=== PATIENT | female | born 1945 | race Caucasian/White ===

== ENCOUNTER 2020-06-17 18:36 | Inpatient (IN) | payer MEDICARE, MEDICAID, SELFPAY ==
[2020-06-17 18:45] VITALS: BP 189/104; PULSE 98; RESP 20; TEMP 36.7; O2SAT 97; BMI 35.6
--- NOTE | 2020-06-17 18:49 | ED_ITS ---
HPI - Psych General Chief Complaint: Psychiatric Symptoms Stated Complaint: crisis Time Seen by Provider: 06/17/20 19:01 Source: EMS Mode of arrival: EMS Limitations: no limitations History of Present Illness HPI Narrative: 75-year-old female presents via EMS for psychiatric consult. Patient was found outside of her home, she kicked out a window and was found on a roof. She states that there are multiple family stressors, she did not fall and does not report any injuries. She does state that she wants to because of the family stressors. MD complaint: feels depressed Onset (ago): day(s) (1) Duration: intermittent History of same: No Relieving factors: none Exacerbating factors: other (Family situation) Context: significant life stressor Associated psychiatric symptoms: depression Associated symptoms: denies other symptoms Treatments prior to arrival: placed on mental health hold If self harm: other (Suicidal statement) Related Data Home Medications Medication Instructions Recorded Confirmed acetaminophen 650 mg PO Q6H PRN 06/17/20 06/17/20 aluminm,mag myf-[id number]-ugautz 30 ml PO QID PRN 06/17/20 06/17/20 atorvastatin 1 tab PO BEDTIME 06/17/20 06/17/20 canagliflozin [Invokana] 1 tab PO DAILY 06/17/20 06/17/20 insulin aspart U-100 sliding scale dose SUBCUT TID 06/17/20 insulin glargine [Lantus Solostar 30 unit SUBCUT DAILY 06/17/20 06/17/20 U-100 Insulin] metformin 1 tab PO BID 06/17/20 06/17/20 metoprolol tartrate tab PO BID 06/17/20 nystatin [Nystop] TOPICAL 06/17/20 quetiapine 1 tab PO BEDTIME 06/17/20 06/17/20 quetiapine 1 tab PO DAILY 06/17/20 06/17/20 venlafaxine 1 tab PO DAILY 06/17/20 06/17/20 Allergies Allergy/AdvReac Type Severity Reaction Status Date / Time Sulfa (Sulfonamide Allergy Unknown Verified 06/17/20 18:54 Antibiotics) Review of Systems Review of Systems: Constitutional: No Fever, No Chills ENT/Mouth: No Ear Pain, No Nasal Congestion, No sore throat Eyes: No Eye Pain, No Swelling, No Redness Cardiovascular: No Chest Pain, No SOB Respiratory: No Cough, No Sputum, No Dyspnea Gastrointestinal: No Nausea, No Vomiting, No Diarrhea, No Hematochezia, No Melena Genitourinary: No Dysuria, No Urinary Frequency, No Hematuria Musculoskeletal: No Myalgias Skin: No Skin Lesions, No rash Neuro: No Weakness, No Numbness, No Paresthesias, No Dizziness, No Headache Psych: positive Anxiety, positive Depression, positive SI/HI Heme/Lymph: No Lymphadenopathy Endocrine: No Polyuria, No Polydipsia Yes all other systems are reviewed and are negative [facility] Past Medical History Attestation statement: The following information was validated with the patient. Source: old records reviewed Medical History (Updated 06/17/20 @ 18:53 by Lissette Alicea) Dementia with behavioral disturbance Diabetes mellitus HTN (hypertension) Hyperlipidemia Vitamin D deficiency Social History Social History Alcohol intake: never Smoked in Last 30 Days: No Use of substances other than those prescribed or required for medical reasons: No Advance Directives: No Physical Exam Vital Signs: Vital Signs: Last Vital Signs Temp 97.9 F 06/17/20 21:50 Pulse 95 06/17/20 22:20 Resp 20 06/17/20 22:20 BP 148/87 H 06/17/20 22:20 Pulse Ox 95 06/17/20 22:20 Body Mass Index 35.6 Appearance: Alert. Oriented X3. Moderate distress. Visibly anxious. Eyes: Pupils equal, round and reactive to light. ENT: Pharynx normal. Neck: Normal inspection. Neck supple. CVS: Normal heart rate and rhythm. Pulses normal. Respiratory: No respiratory distress. Breath sounds normal. Abdomen: Soft and nontender. Skin: Skin warm and dry. Normal skin color. Normal skin turgor. Extremities: No lower extremity edema. Neuro: No motor deficit. No sensory deficit. Course Course Course Narrative: 75-year-old female with past medical history of diabetes, dementia with behavioral disturbance, hypertension, hyperlipidemia presents via EMS for anxiety, depression, and suicidal statement. She does have a history of trying to elope, it is stated in her nursing notes from [facility] that she has intermittent exit seeking with vigilance. In the patient care plan this is a statement saying that the patient broke the bedroom window and kicked out the screen to climb out onto the roof. Staffing climbed out with her to try to help her back inside. She does support this statement, stated that she did not want a fall that she just wanted to escape. She is saying that her has a ne w girlfriend, and that there is a lady down the chambers that is trying to take her belongings, and that her daughter does not want to see her anymore. While in the emergency department she did state that she just wants to but does not have a plan. Consult to care team. Approximately 30 minutes after p.o. medication administration patient calm, receptive to plan of care for labs and urinalysis. Patient required IM Ativan and behavior restraint as patient was trying to elope. Swearing at people stating that she is going to Meg everybody because she feels like she is in a present. Patient moved to psychiatric pod. Sign-out Dr. Neumann. MDM - Psych Differential Diagnosis Differential diagnosis: Likely acute psychosis, depression and acute anxiety Restraints Face to Face Assessment: Face to Face Assessment: Current Situation: After assessment of the patient, a review of the pertinent medical record and a discussion with nursing staff, I feel the patient requires a restrain interv ention. Reaction To: [] Medical Condition: [] Behavioral State: [] Continued Need: [] Lab Data Result diagrams: 06/17/20 20:48 06/17/20 20:48 Labs: Lab Results 06/17/20 06/17/20 06/17/20 Range/Units 19:48 20:48 20:48 WBC 8.0 (4.8-10.8) X10*3/uL RBC 4.93 (4.20-5.50) X10*6/uL Hgb 14.4 (12.0-16.0) g/dl Hct 43.7 (37-47) % MCV 88.6 (80-98) fL MCH 29.2 (27.0-33.0) pg MCHC 33.0 (31.0-35.0) g/dl RDW 13.8 (11.0-16.0) % Plt Count 203 (160-400) X10*3/uL MPV 10.6 (9.4-12.3) fL Immature Gran % (Auto) 0.3 (0.0-0.4) % Neut % (Auto) 53.0 (45-73) % Lymph % (Auto) 40.6 H (20-40) % [place] % (Auto) 5.7 (2-11) % Eos % (Auto) 0.1 (0-4) % Baso % (Auto) 0.3 (0-2) % Lymph # (Auto) 3.2 (1.2-4.9) X10*3/uL [place] # (Auto) 0.5 (0.1-1.2) X10*3/uL Eos # (Auto) 0.0 (0.0-0.4) X10*3/uL Baso # (Auto) 0.0 (0.0-0.2) X10*3/uL Abs Immat Gran (auto) 0.02 (0.00-0.03) X10*3/uL Absolute Neuts (auto) 4.2 (2.0-8.3) X10*3/uL Absolute Nucleated RBC 0.000 (0.0-0.012) X10*3/uL Nucleated RBC % (auto) 0.0 (0.0-0.2) /100WBC Sodium 137 (135-145) mmol/L Potassium 4.3 (3.3-5.1) mmol/l Chloride 102 (96-108) mmol/L Carbon Dioxide 23 (22-29) mmol/L Anion Gap 16 (12-20) BUN 15 (9-16) mg/dL Creatinine 0.90 (0.5-1.4) mg/dL Estim Creat Clear Calc 63.4 Estimated GFR > 60 Random Glucose 285 H (60-115) mg/dL Calcium 10.1 (8.4-10.2) mg/dL Urine Color YELLOW Urine Appearance CLEAR Urine pH 5.0 (5.0-8.0) Ur Specific [place] 1.010 (1.005-1.025) Urine Protein NEG (NEG-TRACE) MG/DL Urine Glucose (UA) >=1000 H (NEG) MG/DL Urine Ketones NEG (NEG) MG/DL Urine Blood NEG (NEG) Urine Nitrite NEG (NEG) Ur Leukocyte Esterase NEG (NEG) Urine RBC 0-2 (0) /HPF Urine WBC 0 (0-4) /HPF Ur Squamous Epith Cells TRACE /LPF Urine Bacteria NONE /LPF COVID-19 (OSEI) (Negative) COVID-19 Clin Com 06/17/20 Range/Units 21:55 WBC (4.8-10.8) X10*3/uL RBC (4.20-5.50) X10*6/uL Hgb (12.0-16.0) g/dl Hct (37-47) % MCV (80-98) fL MCH (27.0-33.0) pg MCHC (31.0-35.0) g/dl RDW (11.0-16.0) % Plt Count (160-400) X10*3/uL MPV (9.4-12.3) fL Immature Gran % (Auto) (0.0-0.4) % Neut % (Auto) (45-73) % Lymph % (Auto) (20-40) % [place] % (Auto) (2-11) % Eos % (Auto) (0-4) % Baso % (Auto) (0-2) % Lymph # (Auto) (1.2-4.9) X10*3/uL [place] # (Auto) (0.1-1.2) X10*3/uL Eos # (Auto) (0.0-0.4) X10*3/uL Baso # (Auto) (0.0-0.2) X10*3/uL Abs Immat Gran (auto) (0.00-0.03) X10*3/uL Absolute Neuts (auto) (2.0-8.3) X10*3/uL Absolute Nucleated RBC (0.0-0.012) X10*3/uL Nucleated RBC % (auto) (0.0-0.2) /100WBC Sodium (135-145) mmol/L Potassium (3.3-5.1) mmol/l Chloride (96-108) mmol/L Carbon Dioxide (22-29) mmol/L Anion Gap (12-20) BUN (9-16) mg/dL Creatinine (0.5-1.4) mg/dL Estim Creat Clear Calc Estimated GFR Random Glucose (60-115) mg/dL Calcium (8.4-10.2) mg/dL Urine Color Urine Appearance Urine pH (5.0-8.0) Ur Specific [place] (1.005-1.025) Urine Protein (NEG-TRACE) MG/DL Urine Glucose (UA) (NEG) MG/DL Urine Ketones (NEG) MG/DL Urine Blood (NEG) Urine Nitrite (NEG) Ur Leukocyte Esterase (NEG) Urine RBC (0) /HPF Urine WBC (0-4) /HPF Ur Squamous Epith Cells /LPF Urine Bacteria /LPF COVID-19 (OSEI) Negative (Negative) COVID-19 Clin Com See Note Discharge Plan Discharge Prescriptions: No Action quetiapine 25 mg tablet 1 tab PO DAILY RF: 0 venlafaxine 75 mg tablet 1 tab PO DAILY RF: 0 atorvastatin 10 mg tablet 1 tab PO BEDTIME RF: 0 nystatin [Nystop] 100,000 unit/gram powder topical RF: 0 metformin 500 mg tablet extended release 24 hr 1 tab PO BID RF: 0 metoprolol tartrate 25 mg tablet PO BID RF: 0 quetiapine 50 mg tablet 1 tab PO BEDTIME RF: 0 Invokana 100 mg tablet 1 tab PO DAILY RF: 0 Lantus Solostar U-100 Insulin 100 unit/mL (3 mL) insulin pen 30 unit subcut DAILY RF: 0 insulin aspart U-100 subcut TID RF: 0 aluminm,mag [id number]-dmyfjl suspension 30 ml PO QID PRN (Reason: Heartburn) RF: 0 acetaminophen 325 mg Tablet 650 mg PO Q6H PRN (Reason: Pain) RF: 0
[2020-06-17 19:59] LABS: Glucose Urine UA >=1000 MG/DL (NEG); Leukocyte Esterase Urine NEG (NEG); Nitrite Urine NEG (NEG); Urine Blood NEG (NEG); Urine Ketones NEG (NEG); Urine Protein NEG (NEG-TRACE)
[2020-06-17 20:02] LABS: Appearance Urine CLEAR; Color Urine YELLOW
[2020-06-17] MEDS: LORazepam 0.5 MG TABLET PO (20:04)
[2020-06-17 20:16] LABS: RBC Urine 0-2 /HPF (0); WBC Urine 0 /HPF (0-4)
[2020-06-17 20:17] LABS: Squamous Epithelial Cell Urine TRACE /LPF
[2020-06-17 20:56] LABS: Basophils Percent Auto 0.3 % (0-2); Eosinophils Percent Auto 0.1 % (0-4); Hematocrit 43.7 % (37-47); Hemoglobin 14.4 g/dl (12.0-16.0); Imm Gran Abs Auto 0.02 X10*3/uL (0.00-0.03); Imm Gran Pct Auto 0.3 % (0.0-0.4); Lymphocytes Absolute Auto 3.2 X10*3/uL (1.2-4.9); Lymphocytes Percent Auto 40.6 % (20-40); MANUAL DIFF FLAG NO; Mean Corpuscular Hemoglobin 29.2 pg (27.0-33.0); Mean Corpuscular Volume 88.6 fL (80-98); Mean Platelet Volume 10.6 fL (9.4-12.3); Monocytes Absolute Auto 0.5 X10*3/uL (0.1-1.2); Monocytes Percent Auto 5.7 % (2-11); Neutrophils Absolute Auto 4.2 X10*3/uL (2.0-8.3); Platelet Count 203 X10*3/uL (160-400); Red Blood Count 4.93 X10*6/uL (4.20-5.50); Red Cell Distribution Width 13.8 % (11.0-16.0)
[2020-06-17 21:07] VITALS: BP 145/79; PULSE 94; RESP 18; O2SAT 94
--- NOTE | 2020-06-17 21:13 | PC.NURSE ---
Pt very focused on going back to SNF, becomes very anxious and tearful when educated on reasons why she is here and what plan is. Pt remains confused, hx of dementia. sitter at bedside. Pt offered and ate snacks/fluids
[2020-06-17 21:23] LABS: Anion Gap 16 (12-20); Blood Urea Nitrogen 15 mg/dL (9-16); Calcium 10.1 mg/dL (8.4-10.2); Carbon Dioxide 23 mmol/L (22-29); Chloride 102 mmol/L (96-108); Creatinine Clr Calc Pharmacy 63.4; Estimated Glomerular Filt Rate > 60; Glucose Random 285 mg/dL (60-115); Potassium 4.3 mmol/l (3.3-5.1); Sodium 137 mmol/L (135-145)
[2020-06-17] MEDS: LORazepam 2 MG/ML VIAL IM (21:35)
--- NOTE | 2020-06-17 21:35 | PC.NURSE ---
Pt attempting to elope- unable to redirection, attempting to push through staff, very tearful. Pt medicated per emar w/ 2mg IM Ativan
[2020-06-17 21:50] VITALS: BP 118/78; PULSE 94; RESP 20; TEMP 36.6; O2SAT 96
--- NOTE | 2020-06-17 22:00 | PC.NURSE ---
PT transferred over to the pod from main ED. PT trying to elope from the hospital prior to transfer. PT received 2 mg ativan IM upon arrival to the pod. PT able to speak with the nurse in a calm manner but very tearful and upset throughout the conversation. PT is CAOx3 at this time. PT continues to perseverate on the fact that she wants to go home because no one wants her except her friends at the nursing. PT informed that she is waiting to be seen by N for psych consult. PT is tearful but has started to calm down and agreed to comply the plan.
[2020-06-17 22:05] VITALS: BP 139/94; PULSE 100; RESP 20; O2SAT 95
[2020-06-17 22:20] VITALS: BP 148/87; PULSE 95; RESP 20; O2SAT 95
[2020-06-17 22:20] LABS: COVID-19 Test Negative (Negative); IDNOW Serial# 9DD0AD1C
--- NOTE | 2020-06-17 22:30 | PC.NURSE ---
ADILENE faxed and called. ADILENE stated that someone would be here to see him after 23:30.
--- NOTE | 2020-06-17 23:08 | PC.NURSE ---
EMILIN informed by CARE team that PT would not be able to participate in psych consult due to IM ativan being given earlier.
--- NOTE | 2020-06-17 23:21 | MHC.CARE ---
CARE Team speaks with LEYDI Ferguson, who reports that pt is sleepy from IM medication and will likely not be able to participate in crisis assessment. CARE Team reaches out to [facility]. Plan is for [facility] to conduct assessment in the morning, when pt is better able to participate.
[2020-06-18] VITALS (18 sets, daily range): BP systolic 140–201; BP diastolic 82–115; PULSE 66–102; RESP 16–22; TEMP 36.1–37; O2SAT 94–97
--- NOTE | 2020-06-18 | ECG_ITS ---
Test Reason : MEDICAL CLEARANCE Blood Pressure : / mmHG Vent. Rate : 085 BPM Atrial Rate : 085 BPM P-R Int : 182 ms QRS Dur : 144 ms QT Int : 414 ms P-R-T Axes : 037 -57 032 degrees QTc Int : 492 ms Normal sinus rhythm Right bundle branch block Left anterior fascicular block Bifascicular block Abnormal ECG No previous ECGs available Referred By: Stephany Shipley Electronically Signed By:Nathan Reyes
[2020-06-18] MEDS: Metoprolol Tartrate 25 MG TABLET PO ×2 (01:56→20:36)
--- NOTE | 2020-06-18 05:31 | PC.NURSE ---
PT woke up to use the bathroom. Escorted by [facility] because of unsteadiness on her feet. PT asked when she would be able to go home. PT was also able to recall her tantrum in the ED last night and apologized for her actions. PT informed that she was waiting to be seen by BHN. PT then went back to sleep in bed.
--- NOTE | 2020-06-18 06:58 | PC.NURSE ---
Report received. Pt eating breakfast, denies complaints. PT waiting to be seen by N.
--- NOTE | 2020-06-18 08:58 | PC.NURSE ---
BHN with patient for eval.
--- NOTE | 2020-06-18 09:09 | PC.NURSE ---
Pt refusing to speak with BHN, states she just wants to leave, states she is going to call the police because we are holding her hostage. Attempted to explain to patient that she needs to speak with crisis, pt continues to respond i want to get out of here, don't you fucking understand malawian, I want to fucking leave, I will break the window and leave if I have to Pt redirected. Pt calling staff names, walking around unit, redirected away from the exit doors.
--- NOTE | 2020-06-18 09:34 | PC.NURSE ---
Pt continues yelling and threatening staff. Pt threw trash can against window multiple times. Provider on unit, attempted to speak with PT. PT offered PRN medication, refused. Verbal redirection ineffective. PT attempted to move furniture, stating she was going to throw it at staff, pt redirected. Redirection ineffective, pt continues to escalate. PT's daughter on the phone, pt and provider spoke with daughter, pt hung up on daughter.
[2020-06-18] MEDS: LORazepam 2 MG/ML VIAL IM ×2 (09:39→17:32)
--- NOTE | 2020-06-18 09:44 | PC.NURSE ---
Pt continues yelling at staff, threatening, appears to be unsure of where she is. PT medicated per emar.
--- NOTE | 2020-06-18 10:05 | PC.NURSE ---
PT tearful, stating that she just wants to , pt continues to ask to leave so she can , states she doesn't want to be a disgrace to her .
--- NOTE | 2020-06-18 11:26 | PC.NURSE ---
PT tearful, asking to leave, fixated on her . Pt stating that her cousin hung himself in the basement maybe i could do that too, or hook a pipe up to the exhaust in the garage Pt keeps repeating that she just wants to . Pt only oriented to person at this time, pt thinks it is april 1945. Pt reoriented.
--- NOTE | 2020-06-18 16:32 | PC.NURSE ---
Pt offered scheduled medications, declined stating i let you check my sugar now get away from me before I have you fired, you think this is a joke i'm not taking anything from you Pt agitated, suspicious of staff. Verbal reassurance given.
[2020-06-18 16:33] LABS: Glucose, Whole Blood 265 mg/dL (60-115)
--- NOTE | 2020-06-18 17:44 | PC.NURSE ---
Pt verbally assualtive to staff, threatening, demanding to leave. Multiple staff attempted to redirect and de-escalate patient with no effect. Verbal order from provider for 2mg IM, medication given. PT continues to demand to leave, continues with agitated behavior. Staff with PT for safety at this time.
--- NOTE | 2020-06-18 18:01 | PC.NURSE ---
Pt refused to allow this RN to check her sugar, pt declined dinner. Pt continues to refuse vital signs, states she just wants to leave.
--- NOTE | 2020-06-18 18:14 | PC.NURSE ---
Jolene Mathew (pt's daughter) [phone]
--- NOTE | 2020-06-18 20:05 | PC.NURSE ---
PT BLOOD PRESSURE IS HIGH LEYDI CARVALHO AWARE.
--- NOTE | 2020-06-18 20:45 | MHC.CARE ---
CARE team communicated with [facility] to confirm that is not able to accommodate this patient today and that they should move forward with a michelle psych bedsearch.
[2020-06-18] MEDS: QUEtiapine Fumarate 50 MG TABLET PO (22:15)
[2020-06-19] VITALS (7 sets, daily range): BP systolic 143–169; BP diastolic 58–80; PULSE 68–89; RESP 14–18; TEMP 36.3–36.4; O2SAT 90–98
[2020-06-19 01:16] LABS: Glucose, Whole Blood 234 mg/dL (60-115)
[2020-06-19] MEDS: Insulin Glargine,Hum.rec.anlog 100 UNIT/ML 10 ML VIAL 30 UNIT SUBCUT ×2 (01:29→12:19)
--- NOTE | 2020-06-19 01:32 | PC.NURSE ---
Patient observed frequently out of room for bathroom use, POC checked was 234, patient Lantus for the day was missed, since patient is not compliant with food sliding coverage not administered, provider notified/ordered Lantus 30 units/administered/patient compliant/ate 1/2 sandwich and drank 240 ml of milk, patient currently in bed/resting will continue to monitor.
[2020-06-19 02:48] LABS: Glucose, Whole Blood 296 mg/dL (60-115)
--- NOTE | 2020-06-19 07:12 | PC.NURSE ---
Report received from LEYDI Amezcua. Pt resting, resp unlabored.
[2020-06-19 08:18] LABS: Glucose, Whole Blood 187 mg/dL (60-115)
[2020-06-19] MEDS: QUEtiapine Fumarate 25 MG TABLET PO (08:19)
[2020-06-19] MEDS: Metoprolol Tartrate 25 MG TABLET PO ×2 (08:19→21:15)
--- NOTE | 2020-06-19 09:11 | PC.NURSE ---
Unable to medicate pt as ordered due to the fact that she has been accepted to [facility]. Pt currently in ED. offshoring manager aware. Avtar Morgan called. Pt to go to [facility] today per Avtar Morgan. CARE team aware. One time orders entered by ED provider.
[2020-06-19] MEDS: Insulin Lispro 100 UNIT/ML 3 ML VIAL SUBCUT ×3 (09:14→17:01)
[2020-06-19] MEDS: metFORMIN HCl ER 500 MG TAB.ER.24H PO ×3 (09:18→17:03)
--- NOTE | 2020-06-19 09:43 | PC.NURSE ---
Pt tearful, believes her dropped her off at the hospital because he is having an affair. Care team in to speak w/ pt. Pt stating 'I want to . I'm too old for this s...t. She's probably young, blond, and thin.' Pt accepted medications. Pt ate breakfast w/ coaching from A.
--- NOTE | 2020-06-19 10:10 | MHC.CARE ---
Per pass along pt was accepted to [facility] 06/18 and declnied admission on second shift likely based on acuity of unit. Per ED, [facility] and [facility] executive office manager stated the plan is to admit pt today. Per [facility] after 11am for this admission.
--- NOTE | 2020-06-19 10:42 | PC.NURSE ---
Addendum entered by Anai Saucedo 06/19/20 10:46: Late entry: Called at 11:20 Original Note: Attempted to call report to LEYDI Grier- RN unable to take report at this time.
--- NOTE | 2020-06-19 10:44 | PC.NURSE ---
Called [facility] again- RN unable to take report at this time, weigher and charger also unable to take report.
--- NOTE | 2020-06-19 11:09 | PC.NURSE ---
Report given to Thalia HOLLEY on [facility].
--- NOTE | 2020-06-19 11:19 | PC.NURSE ---
Pt transferred to w/ care team and security.
[2020-06-19 12:08] LABS: Glucose, Whole Blood 226 mg/dL (60-115)
[2020-06-19] MEDS: Venlafaxine HCL 25 MG TABLET 75 MG PO (12:21)
--- NOTE | 2020-06-19 13:44 | PC.ADMIT ---
Addendum entered by Martin Hinds RN 06/19/20 15:11: PT WAS ADMITTED ON A CV, NOT A SECTION 12 Original Note: PT IS A 75 Y/O ANDORRAN SPEAKING FEMALE ADMITTED FROM THE ED AT APPROX. 1100AM. PT WAS BROUGHT TO THE ED AFTER, KICKING OUT THE SCREEN AND CLIMBING OUT ONTO THE SECOND FLOOR ROOF AT THE SHELTER SHE WAS RESIDING AT. PT BELIEVES, OF 50 YEARS DROPPED ME OFF THERE BECAUSE HE HAS A NEW YOUNGER WOMEN. PT WAS LOOKING TO JUMP AND SUICDE. PT HAS A DX OF DEMENTIA, HTN, LIPIDEMIA , DIABETES AND DEPRESSION. PT IS UNABLE TO ANSWER QUESTIONS AND ONLY REPEATS , I WANT TO AND WHY DID HE DO THAT TO ME. PT ASKED THIS WRITTER IF SHE COULD HAVE A KNIFE AND WHEN RECIEVING INSULIN ASKED IF IT WOULD KILL HER.PT IS HARD OF HEARING AND WEARS BILAT HEARING AIDES AND UPPER AND LOWER DENTURES. PT IS COOPERATIVE, BUT CONTINOUS TO REPAET ,'I WANT TO .' GAIT WAS UNSTEADY WHEN ASSESSED. PT COULDN'T SIGN LEGALS R/T MENTAL STATUS. PTS DAUGHTER IS THE HCP AND PT IS A DNR, REPORTED TO ADMITTING ADMINISTRATION VICE PRESIDENT. PT IS INSULIN DEPENDANT AND WAS COMPLIANT WITH MEDICATIONS. PT IS TEARFUL DEPRESSED AND ANXIOUS. PT IS NOT REALITY BASED. PT NAMED THE HOSPITAL , BUT THEN SAID , I WANT TO GO BACK TO [place]. PT ADMITTED ON A SECTION 12
[2020-06-19 14:20] LABS: Alanine Aminotransferase 20 U/L (0-31); Albumin Level 4.8 g/dL (3.5-5.0); Alkaline Phosphatase 84 U/L (39-117); Aspartate Amino Transferase 29 U/L (5-31); Bilirubin Direct 0.4 mg/dL (0.0-0.5); Bilirubin Total 1.1 mg/dL (0.0-1.0); Total Protein 7.6 g/dL (6.5-8.0)
--- NOTE | 2020-06-19 15:04 | P.HPPS_ITS ---
HPI Chief Complaint: SUICIDAL IDEATION Sources of Information: patient interviewed, chart reviewed and crisis/core team assessment reviewed HPI Narrative: Pt arrived at ED after eloping from SNF by breaking a window and climbing out the . Pt diagnosed with dementia and has been unable to visit with family for 3 months due to COVID. She presents very depressed and tearful; ruminating. Active SI and HI towards her exhusband and his new partner. She believes she is all alone because her left her for another woman. She says this repeatedly during interview and begins to weep. She states all she can do is thin about how she wants to and how she wants to kill her exhusband. She asks can I here? Past Psychiatric History: This is the first inpatient psychiatric admission for this woman who has depression and dementia Medical Evaluation Reviewed: Yes Dementia with behavioral disturbance Diabetes mellitus HTN (hypertension) Hyperlipidemia Vitamin D deficiency [facility] Medical History Dementia with behavioral disturbance Diabetes mellitus HTN (hypertension) Hyperlipidemia Vitamin D deficiency Narrative: lives in a [facility] facility due to dementia. [facility] dinora Conway is contact Family History: 50 years per pt and ? of separation/divorce unclear two children Jolene Mathew [phone] Son lives in [place] per daughter family hx of mental illness per pt her cousin committed suicide by hanging Social History: lives [facility] Substance History: no Trauma History: unknown Diagnostics Vital Signs (24Hr): Vital Signs - 24 hr 06/18/20 17:32 06/18/20 17:47 06/18/20 18:02 Temperature Pulse Rate Respiratory Rate 20 20 20 Blood Pressure Pulse Oximetry 06/18/20 18:17 06/18/20 18:34 06/18/20 19:57 Temperature 98.2 F 98.4 F 97.9 F Pulse Rate 102 H 88 89 Respiratory Rate 19 18 18 Blood Pressure 190/115 H 157/82 H 182/97 H Pulse Oximetry 95 95 95 06/18/20 20:36 06/19/20 08:19 06/19/20 08:20 Temperature 97.4 F Pulse Rate 89 68 68 Respiratory Rate 14 Blood Pressure 182/97 H 143/58 H 143/58 H Pulse Oximetry 90 L 06/19/20 10:00 Temperature Pulse Rate Respiratory Rate 18 Blood Pressure Pulse Oximetry Body Mass Index 35.6 Labs Results: 06/17/20 20:48 06/17/20 20:48 Labs: Laboratory Results - last 48 hr 06/17/20 06/17/20 06/17/20 19:48 20:48 20:48 WBC 8.0 RBC 4.93 Hgb 14.4 Hct 43.7 MCV 88.6 MCH 29.2 MCHC 33.0 RDW 13.8 Plt Count 203 MPV 10.6 Immature Gran % (Auto) 0.3 Neut % (Auto) 53.0 Lymph % (Auto) 40.6 H [place] % (Auto) 5.7 Eos % (Auto) 0.1 Baso % (Auto) 0.3 Lymph # (Auto) 3.2 [place] # (Auto) 0.5 Eos # (Auto) 0.0 Baso # (Auto) 0.0 Abs Immat Gran (auto) 0.02 Absolute Neuts (auto) 4.2 Absolute Nucleated RBC 0.000 Nucleated RBC % (auto) 0.0 Sodium 137 Potassium 4.3 Chloride 102 Carbon Dioxide 23 Anion Gap 16 BUN 15 Creatinine 0.90 Estim Creat Clear Calc 63.4 Estimated GFR > 60 POC Glucose Random Glucose 285 H Calcium 10.1 Total Bilirubin Direct Bilirubin AST ALT Alkaline Phosphatase Total Protein Albumin Urine Color YELLOW Urine Appearance CLEAR Urine pH 5.0 Ur Specific [place] 1.010 Urine Protein NEG Urine Glucose (UA) >=1000 H Urine Ketones NEG Urine Blood NEG Urine Nitrite NEG Ur Leukocyte Esterase NEG Urine RBC 0-2 Urine WBC 0 Ur Squamous Epith Cells TRACE Urine Bacteria NONE COVID-19 ([facility]I) COVID-19 Clin Com 06/17/20 06/18/20 06/19/20 21:55 16:29 01:05 WBC RBC Hgb Hct MCV MCH MCHC RDW Plt Count MPV Immature Gran % (Auto) Neut % (Auto) Lymph % (Auto) [place] % (Auto) Eos % (Auto) Baso % (Auto) Lymph # (Auto) [place] # (Auto) Eos # (Auto) Baso # (Auto) Abs Immat Gran (auto) Absolute Neuts (auto) Absolute Nucleated RBC Nucleated RBC % (auto) Sodium Potassium Chloride Carbon Dioxide Anion Gap BUN Creatinine Estim Creat Clear Calc Estimated GFR POC Glucose 265 H 234 H Random Glucose Calcium Total Bilirubin Direct Bilirubin AST ALT Alkaline Phosphatase Total Protein Albumin Urine Color Urine Appearance Urine pH Ur Specific [place] Urine Protein Urine Glucose (UA) Urine Ketones Urine Blood Urine Nitrite Ur Leukocyte Esterase Urine RBC Urine WBC Ur Squamous Epith Cells Urine Bacteria COVID-19 ([facility]I) Negative COVID-19 [email or web address] See Note 06/19/20 06/19/20 06/19/20 02:31 08:11 11:58 WBC RBC Hgb Hct MCV MCH MCHC RDW Plt Count MPV Immature Gran % (Auto) Neut % (Auto) Lymph % (Auto) [place] % (Auto) Eos % (Auto) Baso % (Auto) Lymph # (Auto) [place] # (Auto) Eos # (Auto) Baso # (Auto) Abs Immat Gran (auto) Absolute Neuts (auto) Absolute Nucleated RBC Nucleated RBC % (auto) Sodium Potassium Chloride Carbon Dioxide Anion Gap BUN Creatinine Estim Creat Clear Calc Estimated GFR POC Glucose 296 H 187 H 226 H Random Glucose Calcium Total Bilirubin Direct Bilirubin AST ALT Alkaline Phosphatase Total Protein Albumin Urine Color Urine Appearance Urine pH Ur Specific [place] Urine Protein Urine Glucose (UA) Urine Ketones Urine Blood Urine Nitrite Ur Leukocyte Esterase Urine RBC Urine WBC Ur Squamous Epith Cells Urine Bacteria COVID-19 ([facility]I) COVID-[employer] 06/19/20 13:42 WBC RBC Hgb Hct MCV MCH MCHC RDW Plt Count MPV Immature Gran % (Auto) Neut % (Auto) Lymph % (Auto) [place] % (Auto) Eos % (Auto) Baso % (Auto) Lymph # (Auto) [place] # (Auto) Eos # (Auto) Baso # (Auto) Abs Immat Gran (auto) Absolute Neuts (auto) Absolute Nucleated RBC Nucleated RBC % (auto) Sodium Potassium Chloride Carbon Dioxide Anion Gap BUN Creatinine Estim Creat Clear Calc Estimated GFR POC Glucose Random Glucose Calcium Total Bilirubin 1.1 H Direct Bilirubin 0.4 AST 29 ALT 20 Alkaline Phosphatase 84 Total Protein 7.6 Albumin 4.8 Urine Color Urine Appearance Urine pH Ur Specific [place] Urine Protein Urine Glucose (UA) Urine Ketones Urine Blood Urine Nitrite Ur Leukocyte Esterase Urine RBC Urine WBC Ur Squamous Epith Cells Urine Bacteria COVID-19 ([facility]I) COVID-19 [email or web address] Meds/Allergies Meds Home Medications Acetaminophen (Acetaminophen 325 Mg Tablet) 650 mg PO Q6H PRN PRN Reason: Pain Acetaminophen (Acetaminophen 325 Mg Tablet) 650 mg PO Q6H PRN PRN Reason: Headache/Pain Mild Scale (1-3) Al Hydroxide/Mg Hydroxide (Magnesium Hydrox/Alum Hydrox 30 Ml Oral.Susp) 30 ml PO QID PRN PRN Reason: Heartburn Al Hydroxide/Mg Hydroxide (Magnesium Hydrox/Alum Hydrox 30 Ml Oral.Susp) 30 ml PO Q6H PRN PRN Reason: Heartburn/Nausea Atorvastatin Calcium (Atorvastatin Calcium 10 Mg Tablet) 10 mg PO BEDTIME [facility] Last Admin: 06/18/20 22:16 Dose: Not Given Documented by: Divalproex Sodium (Divalproex Sodium 125 Mg Tablet.Dr) 125 mg PO BID [facility] Hydroxyzine HCl (Hydroxyzine Hcl 25 Mg Tablet) 25 mg PO BEDTIME PRN PRN Reason: Anxiety Insulin Glargine (Insulin Glargine,Hum.Rec.Anlog 100 Unit/Ml 10 Ml Vial) 30 unit SUBCUT DAILY [facility] Last Admin: 06/19/20 12:19 Dose: 30 unit Documented by: Insulin Human Lispro (Insulin Lispro 100 Unit/Ml 3 Ml Vial) 0 unit SUBCUT TIDAC [facility]; Protocol Last Admin: 06/19/20 17:01 Dose: 2 unit Documented by: Lorazepam (Lorazepam 1 Mg Tablet) 1 mg PO Q4H PRN PRN Reason: anxiety/restlessness Magnesium Hydroxide (Milk Of Magnesia 30 Ml Oral.Susp) 30 ml PO DAILY PRN PRN Reason: Constipation Metformin HCl (Metformin Hcl Er 500 Mg Tab.Er.24h) 500 mg PO BIDWM [facility] Last Admin: 06/19/20 17:03 Dose: 500 mg Documented by: Metoprolol Tartrate (Metoprolol Tartrate 25 Mg Tablet) 25 mg PO BID [facility]; Protocol Last Admin: 06/19/20 08:19 Dose: 25 mg Documented by: Non-Formulary Medication (Canagliflozin [Invokana]) 1 tab PO DAILY [facility] Nystatin (Nystatin Powder 15 Gm Bottle) 1 appl TOPICAL BID [facility]; Protocol Last Admin: 06/19/20 12:24 Dose: Not Given Documented by: Quetiapine Fumarate (Quetiapine Fumarate 25 Mg Tablet) 25 mg PO DAILY [facility] Last Admin: 06/19/20 08:19 Dose: 25 mg Documented by: Quetiapine Fumarate (Quetiapine Fumarate 50 Mg Tablet) 50 mg PO BEDTIME [facility] Last Admin: 06/18/20 22:15 Dose: 50 mg Documented by: Trazodone HCl (Trazodone Hcl 25 Mg Halftab) 25 mg PO BEDTIME PRN PRN Reason: Insomnia Venlafaxine HCl (Venlafaxine Hcl 25 Mg Tablet) 75 mg PO DAILY [facility] Last Admin: 06/19/20 12:21 Dose: 75 mg Documented by: Allergies Allergies Allergy/AdvReac Type Severity Reaction Status Date / Time Sulfa (Sulfonamide Allergy Unknown Verified 06/17/20 18:54 Antibiotics) Mental Status Exam Mental Status Exam Patient Appearance: Disheveled Patient Orientation: Person, Place, Time (knew month and season) and Situation (knew hospital) Level of Consciousness: Awake Patient Behavior: Passive, Restless, Anxious and Crying Mood Description: Depressed, Anxious and Sad Affect Description: Anxious, Labile and Sad Patient Cognition Impaired: Yes Ability to Follow Directions: Fair Speech Pattern: Perseverating Memory Description: Remote Impaired, Episodic Impaired and Recent Impaired Delusions: Present (depressive themes ? delusional thinking about ) Thought Process: Rumination Thought Content: positive for Preoccupation, positive for Suicidal Ideation and positive for Homicidal Ideation Depressive Symptoms: Increased Anxiety, Diff. Making Decisions, Increased Irritability, Difficulty Sleeping, Crying Spells, Feelings of Worthlessness, Hopelessness, Isolating-Friends/Family, Unhappiness, Thoughts of /Suicide and Difficulty Concentrating Abnormal Motor Activity Signs and Symptoms: Agitation and Restlessness Judgement: Poor Assessment & Plan Assessment & Plan (1) Depression: Status: Acute Code(s): F32.9 - Major depressive disorder, single episode, unspecified (2) Diabetes mellitus: Status: Acute Code(s): E11.9 - Type 2 diabetes mellitus without complications (3) HTN (hypertension): Status: Acute Code(s): I10 - Essential (primary) hypertension (4) Dementia with behavioral disturbance: Status: Acute Code(s): F03.91 - Unspecified dementia with behavioral disturbance Assessment and Plan: 75 yo woman with dementia presenting with significant depression and rumination with depressive themes and suicidal ideation and possible delusion around abandonement LFTs ordered start on depakote 125 mg BID PT eval for fall risk and ambulation assessment continue effexor and seroquel lipid panel, A1C, and B12 level in am Patient educated on: medication risk/benefits Informed Consent: further education needed Reason for continued inpatient stay Substantial Risk for: harm to self, inability to function and rapid decompensation
[2020-06-19 17:18] LABS: Glucose, Whole Blood 181 mg/dL (60-115)
[2020-06-19] MEDS: QUEtiapine Fumarate 50 MG TABLET PO (21:16)
[2020-06-19] MEDS: Atorvastatin Calcium 10 MG TABLET PO (21:16)
[2020-06-19 21:36] LABS: Glucose, Whole Blood 157 mg/dL (60-115)
[2020-06-19] MEDS: Nystatin Powder 15 GM BOTTLE 1 APPL TOPICAL (22:31)
[2020-06-20 06:17] LABS: Glucose, Whole Blood 156 mg/dL (60-115)
[2020-06-20] MEDS: Insulin Lispro 100 UNIT/ML 3 ML VIAL SUBCUT ×3 (08:40→18:25)
[2020-06-20] MEDS: Insulin Glargine,Hum.rec.anlog 100 UNIT/ML 10 ML VIAL 30 UNIT SUBCUT (08:40)
[2020-06-20 08:41] VITALS: BP 148/80; PULSE 88
[2020-06-20] MEDS: Venlafaxine HCL 25 MG TABLET 75 MG PO (08:41)
[2020-06-20] MEDS: Metoprolol Tartrate 25 MG TABLET PO ×2 (08:41→21:30)
[2020-06-20] MEDS: QUEtiapine Fumarate 25 MG TABLET PO (08:41)
[2020-06-20] MEDS: metFORMIN HCl ER 500 MG TAB.ER.24H PO ×2 (08:41→18:02)
[2020-06-20] MEDS: Nystatin Powder 15 GM BOTTLE 1 APPL TOPICAL (09:01)
[2020-06-20 09:22] LABS: Cholesterol 169 mg/dL; HDL Cholesterol 39 mg/dL; LDL Cholesterol Calculated 96 mg/dl; Triglycerides 172 mg/dL
[2020-06-20 11:52] LABS: Glucose, Whole Blood 265 mg/dL (60-115)
--- NOTE | 2020-06-20 17:21 | P.PNPSI_ITS ---
Subjective Subjective Date of Service: 06/20/20 Reason For Visit: SUICIDAL IDEATION Subjective Notes: Conditional Voluntary Interim History: pt has had a few hours of less labile mood over past 24 hours; able to sit quietly in bedroom and read; as soon as engaged in conversation she begins to weep and perseverate on leaving her and wanting to . She is cooperating with treatment; tolerating depakote no sedation; not eating much Medication Compliance: Yes Side effects from medications: No Attending Groups: No Review of Systems Review of Systems Constitutional: No Fever, No Chills ENT/Mouth: No Ear Pain, No Nasal Congestion, No sore throat Eyes: No Eye Pain, No Swelling, No Redness Cardiovascular: No Chest Pain, No SOB Respiratory: No Cough, No Sputum, No Dyspnea Gastrointestinal: No Nausea, No Vomiting, No Diarrhea, No Hematochezia, No Melena Genitourinary: No Dysuria, No Urinary Frequency, No Hematuria Musculoskeletal: No Myalgias Skin: No Skin Lesions, No rash Neuro: No Weakness, No Numbness, No Paresthesias, No Dizziness, No Headache Psych: positive Anxiety, positive Depression, positive SI/HI Heme/Lymph: No Lymphadenopathy Endocrine: No Polyuria, No Polydipsia Mental Status Exam Mental Status Exam Patient Appearance: Disheveled Patient Orientation: Person, Place, Time (knew month and season) and Situation (knew hospital) Level of Consciousness: Awake Patient Behavior: Passive, Restless, Anxious and Crying Mood Description: Depressed, Anxious and Sad Affect Description: Anxious, Labile and Sad Patient Cognition Impaired: Yes Ability to Follow Directions: Fair Speech Pattern: Perseverating Memory Description: Remote Impaired, Episodic Impaired and Recent Impaired Delusions: Present (possible delusional thinking about leaving her ) Thought Process: Rumination Thought Content: positive for Obsessional Thoughts, positive for Perseveration, positive for Preoccupation, positive for Suicidal Ideation and positive for Homicidal Ideation Depressive Symptoms: Increased Anxiety, Insomnia, Diff. Making Decisions, Increased Irritability, Changes in Appetite, Crying Spells, Sleeping More Than Usual, Loss of Int. in Activity, Feelings of Worthlessness, Hopelessness, Isolating-Friends/Family, Unhappiness, Thoughts of /Suicide, Loss of Energy and Difficulty Concentrating Abnormal Motor Activity Signs and Symptoms: Restlessness Judgement: Fair Diagnostics Vital Signs (24Hr): Vital Signs - 24 hr 06/19/20 17:22 06/19/20 21:15 06/19/20 22:00 Pulse Rate 89 88 88 Blood Pressure 169/78 H 148/80 H 148/80 H Pulse Oximetry 98 06/20/20 08:41 Pulse Rate 88 Blood Pressure 148/80 H Pulse Oximetry Body Mass Index 35.6 Labs Results: 06/17/20 20:48 06/17/20 20:48 Labs: Laboratory Results - last 48 hr 06/18/20 06/19/20 06/19/20 16:29 01:05 02:31 POC Glucose 265 H 234 H 296 H Total Bilirubin Direct Bilirubin AST ALT Alkaline Phosphatase Total Protein Albumin Triglycerides Cholesterol LDL Cholesterol, Calc HDL Cholesterol 06/19/20 06/19/20 06/19/20 08:11 11:58 13:42 POC Glucose 187 H 226 H Total Bilirubin 1.1 H Direct Bilirubin 0.4 AST 29 ALT 20 Alkaline Phosphatase 84 Total Protein 7.6 Albumin 4.8 Triglycerides Cholesterol LDL Cholesterol, Calc HDL Cholesterol 06/19/20 06/19/20 06/20/20 16:46 21:10 06:07 POC Glucose 181 H 157 H 156 H Total Bilirubin Direct Bilirubin AST ALT Alkaline Phosphatase Total Protein Albumin Triglycerides Cholesterol LDL Cholesterol, Calc HDL Cholesterol 06/20/20 06/20/20 08:18 11:43 POC Glucose 265 H Total Bilirubin Direct Bilirubin AST ALT Alkaline Phosphatase Total Protein Albumin Triglycerides 172 Cholesterol 169 LDL Cholesterol, Calc 96 HDL Cholesterol 39 Medications Medications Current Medications Generic Name Dose Route Start Last Admin Trade Name Freq PRN Reason Stop Dose Admin Acetaminophen 650 mg 06/18/20 15:44 Acetaminophen 325 Mg Tablet PO Q6H PRN Pain Acetaminophen 650 mg 06/19/20 11:46 Acetaminophen 325 Mg Tablet PO Q6H PRN Headache/Pain Mild Scale (1-3) Al Hydroxide/Mg Hydroxide 30 ml 06/18/20 15:58 Magnesium Hydrox/Alum Hydrox 30 Ml Oral.Susp PO QID PRN Heartburn Al Hydroxide/Mg Hydroxide 30 ml 06/19/20 11:46 Magnesium Hydrox/Alum Hydrox 30 Ml Oral.Susp PO Q6H PRN Heartburn/Nausea Atorvastatin Calcium 10 mg 06/18/20 21:00 06/19/20 21:16 Atorvastatin Calcium 10 Mg Tablet PO 10 mg BEDTIME [facility] Administration Divalproex Sodium 125 mg 06/19/20 21:00 06/20/20 08:41 Divalproex Sodium 125 Mg Tablet.Dr PO 125 mg BID [facility] Administration Hydroxyzine HCl 25 mg 06/19/20 11:46 Hydroxyzine Hcl 25 Mg Tablet PO BEDTIME PRN Anxiety Insulin Glargine 30 unit 06/18/20 15:45 06/20/20 08:40 Insulin Glargine,Hum.Rec.Anlog 100 Unit/Ml 10 Ml Vial SUBCUT 30 unit DAILY [facility] Administration Insulin Human Lispro 0 unit 06/18/20 16:30 06/20/20 13:36 Insulin Lispro 100 Unit/Ml 3 Ml Vial SUBCUT Not Given TIDAC [facility] Protocol Lorazepam 1 mg 06/19/20 12:01 Lorazepam 1 Mg Tablet PO Q4H PRN anxiety/restlessness Magnesium Hydroxide 30 ml 06/19/20 11:46 Milk Of Magnesia 30 Ml Oral.Susp PO DAILY PRN Constipation Metformin HCl 500 mg 06/19/20 08:00 06/20/20 08:41 Metformin Hcl Er 500 Mg Tab.Er.24h PO 500 mg BIDWM [facility] Administration Metoprolol Tartrate 25 mg 06/18/20 21:00 06/20/20 08:41 Metoprolol Tartrate 25 Mg Tablet PO 25 mg BID [facility] Administration Protocol Non-Formulary Medication 1 tab 06/19/20 11:30 Canagliflozin [Invokana] PO DAILY [facility] Nystatin 1 appl 06/18/20 21:00 06/20/20 09:01 Nystatin Powder 15 Gm Bottle TOPICAL 1 appl BID [facility] Administration Protocol Quetiapine Fumarate 25 mg 06/18/20 15:45 06/20/20 08:41 Quetiapine Fumarate 25 Mg Tablet PO 25 mg DAILY [facility] Administration Quetiapine Fumarate 50 mg 06/18/20 21:00 06/19/20 21:16 Quetiapine Fumarate 50 Mg Tablet PO 50 mg BEDTIME [facility] Administration Trazodone HCl 25 mg 06/19/20 12:01 Trazodone Hcl 25 Mg Halftab PO BEDTIME PRN Insomnia Venlafaxine HCl 75 mg 06/19/20 09:00 06/20/20 08:41 Venlafaxine Hcl 25 Mg Tablet PO 75 mg DAILY [facility] Administration Allergies Allergies Allergy/AdvReac Type Severity Reaction Status Date / Time Sulfa (Sulfonamide Allergy Unknown Verified 06/17/20 18:54 Antibiotics) Assessment & Plan Assessment & Plan (1) Depression: Status: Acute Code(s): F32.9 - Major depressive disorder, single episode, unspecified (2) Diabetes mellitus: Status: Acute Code(s): E11.9 - Type 2 diabetes mellitus without complications (3) HTN (hypertension): Status: Acute Code(s): I10 - Essential (primary) hypertension (4) Dementia with behavioral disturbance: Status: Acute Code(s): F03.91 - Unspecified dementia with behavioral disturbance Assessment and Plan: 75 yo woman with dementia presenting with significant depression and rumination with depressive themes and suicidal ideation and possible delusion around abandonement LFTs normal and started on depakote low dose for mood labilty Consider increase in depakote for mood PT eval completed and no problem with ambulation continue effexor and seroquel consider increase in effexor or change to another antidepressant due to HTN awating B12 level Greater than 50% of the session was spent on counseling and/or coordination of care Patient educated on: diagnosis and medication risk/benefits Informed Consent: further education needed Reason for contiued inpatient stay Substantial Risk for: harm to self, harm to others, inability to function, rapid decompensation and med/psych decompensation
[2020-06-20 17:44] LABS: Glucose, Whole Blood 257 mg/dL (60-115)
[2020-06-20 20:32] LABS: Estimated Average Glucose 197 mg/dL; Hemoglobin A1c % 8.5 %
[2020-06-20 20:54] LABS: TSH reflex Free T4 0.91 mIU/mL (0.32-4.0)
[2020-06-20] MEDS: QUEtiapine Fumarate 50 MG TABLET PO (21:20)
[2020-06-20] MEDS: Atorvastatin Calcium 10 MG TABLET PO (21:20)
[2020-06-20 21:30] VITALS: BP 147/75; PULSE 80
[2020-06-20 21:31] VITALS: BP 145/75; PULSE 80; TEMP 36.2
[2020-06-21 06:15] VITALS: BP 126/63; PULSE 88; RESP 18; TEMP 36.4; O2SAT 95
[2020-06-21 06:42] LABS: Glucose, Whole Blood 181 mg/dL (60-115)
[2020-06-21 08:28] VITALS: BP 155/76; PULSE 69
[2020-06-21] MEDS: QUEtiapine Fumarate 25 MG TABLET PO (08:28)
[2020-06-21] MEDS: Venlafaxine HCL 25 MG TABLET 75 MG PO (08:28)
[2020-06-21] MEDS: metFORMIN HCl ER 500 MG TAB.ER.24H PO ×2 (08:28→18:37)
[2020-06-21] MEDS: Metoprolol Tartrate 25 MG TABLET PO ×2 (08:28→21:15)
[2020-06-21 08:35] VITALS: BP 155/76; PULSE 69; TEMP 36.4
[2020-06-21] MEDS: Insulin Lispro 100 UNIT/ML 3 ML VIAL SUBCUT ×3 (08:35→18:36)
[2020-06-21] MEDS: Insulin Glargine,Hum.rec.anlog 100 UNIT/ML 10 ML VIAL 30 UNIT SUBCUT (08:37)
[2020-06-21 08:42] LABS: Vitamin B12 454 pg/mL (200-900)
[2020-06-21 12:02] LABS: Glucose, Whole Blood 200 mg/dL (60-115)
[2020-06-21 16:58] LABS: Glucose, Whole Blood 180 mg/dL (60-115)
[2020-06-21 21:15] VITALS: BP 151/68; PULSE 80
[2020-06-21] MEDS: Atorvastatin Calcium 10 MG TABLET PO (21:15)
[2020-06-21] MEDS: QUEtiapine Fumarate 50 MG TABLET PO (21:15)
[2020-06-21] MEDS: Nystatin Powder 15 GM BOTTLE 1 APPL TOPICAL (21:38)
[2020-06-21 22:00] VITALS: BP 153/67; PULSE 83; TEMP 36.1
--- NOTE | 2020-06-21 23:54 | P.PNPSI_ITS ---
Subjective Subjective Date of Service: 06/22/20 Reason For Visit: SUICIDAL IDEATION Subjective Notes: Conditional Voluntary Interim History: patient on one-to-one stating just let her stating her left her for someone else and left her in a care home that she has nothing to live for denies suicidal intent or plan in this setting tearful overwhelmed Medication Compliance: Yes Mental Status Exam Mental Status Exam Narrative: patient know she is in a psychiatric hospital unclear how long she has been in a nursing home facility knows the year that is about to be [place] excepting of treatment but stating she has nothing to live for tearful overwhelmed Patient Appearance: Disheveled Patient Orientation: Person, Place, Time (knew month and season) and Situation (knew hospital) Level of Consciousness: Awake Patient Behavior: Passive, Restless, Anxious and Crying Mood Description: Depressed, Anxious and Sad Affect Description: Anxious, Labile and Sad Patient Cognition Impaired: Yes Ability to Follow Directions: Fair Speech Pattern: Perseverating Memory Description: Remote Impaired, Episodic Impaired and Recent Impaired Delusions: Present (possible delusional thinking about leaving her ) Thought Process: Rumination Thought Content: positive for Obsessional Thoughts, positive for Perseveration, positive for Preoccupation, positive for Suicidal Ideation and positive for Homicidal Ideation Depressive Symptoms: Increased Anxiety, Insomnia, Diff. Making Decisions, Increased Irritability, Changes in Appetite, Crying Spells, Sleeping More Than Usual, Loss of Int. in Activity, Feelings of Worthlessness, Hopelessness, Isolating-Friends/Family, Unhappiness, Thoughts of /Suicide, Loss of Energy and Difficulty Concentrating Abnormal Motor Activity Signs and Symptoms: Restlessness Judgement: Fair Diagnostics Vital Signs (24Hr): Vital Signs - 24 hr 06/21/20 06:15 06/21/20 08:28 06/21/20 08:35 Temperature 97.5 F 97.6 F Pulse Rate 88 69 69 Respiratory Rate 18 Blood Pressure 126/63 155/76 H 155/76 H Pulse Oximetry 95 06/21/20 21:15 06/21/20 22:00 Temperature 97 F Pulse Rate 80 83 Respiratory Rate Blood Pressure 151/68 H 153/67 H Pulse Oximetry Body Mass Index 35.6 Labs Results: 06/17/20 20:48 06/17/20 20:48 Labs: Laboratory Results - last 48 hr 06/20/20 06/20/2006/20/20 06:07 08:18 08:18 POC Glucose 156 H Estimat Average Glucose Hemoglobin A1c % Triglycerides 172 Cholesterol 169 LDL Cholesterol, Calc 96 HDL Cholesterol 39 Vitamin B12 454 TSH 06/20/20 06/20/20 06/20/20 11:43 16:45 19:46 POC Glucose 265 H 257 H Estimat Average Glucose Hemoglobin A1c % Triglycerides Cholesterol LDL Cholesterol, Calc HDL Cholesterol Vitamin B12 TSH 0.91 06/20/20 06/21/20 06/21/20 19:47 06:32 11:58 POC Glucose 181 H 200 H Estimat Average Glucose 197 Hemoglobin A1c % 8.5 Triglycerides Cholesterol LDL Cholesterol, Calc HDL Cholesterol Vitamin B12 TSH 06/21/20 16:32 POC Glucose 180 H Estimat Average Glucose Hemoglobin A1c % Triglycerides Cholesterol LDL Cholesterol, Calc HDL Cholesterol Vitamin B12 TSH Medications Medications Current Medications Generic Name Dose Route Start Last Admin Trade Name Freq PRN Reason Stop Dose Admin Acetaminophen 650 mg 06/18/20 15:44 Acetaminophen 325 Mg Tablet PO Q6H PRN Pain Acetaminophen 650 mg 06/19/20 11:46 Acetaminophen 325 Mg Tablet PO Q6H PRN Headache/Pain Mild Scale (1-3) Al Hydroxide/Mg Hydroxide 30 ml 06/18/20 15:58 Magnesium Hydrox/Alum Hydrox 30 Ml Oral.Susp PO QID PRN Heartburn Al Hydroxide/Mg Hydroxide 30 ml 06/19/20 11:46 Magnesium Hydrox/Alum Hydrox 30 Ml Oral.Susp PO Q6H PRN Heartburn/Nausea Atorvastatin Calcium 10 mg 06/18/20 21:00 06/21/20 21:15 Atorvastatin Calcium 10 Mg Tablet PO 10 mg BEDTIME SUZANNE Administration Divalproex Sodium 125 mg 06/19/20 21:00 06/21/20 21:15 Divalproex Sodium 125 Mg Tablet.Dr PO 125 mg BID SUZANNE Administration Hydroxyzine HCl 25 mg 06/19/20 11:46 Hydroxyzine Hcl 25 Mg Tablet PO BEDTIME PRN Anxiety Insulin Glargine 30 unit 06/18/20 15:45 06/21/20 08:37 Insulin Glargine,Hum.Rec.Anlog 100 Unit/Ml 10 Ml Vial SUBCUT 30 unit DAILY SUZANNE Administration Insulin Human Lispro 0 unit 06/18/20 16:30 06/21/20 18:36 Insulin Lispro 100 Unit/Ml 3 Ml Vial SUBCUT 2 unit TIDAC SUZANNE Administration Protocol Lorazepam 1 mg 06/19/20 12:01 Lorazepam 1 Mg Tablet PO Q4H PRN anxiety/restlessness Magnesium Hydroxide 30 ml 06/19/20 11:46 Milk Of Magnesia 30 Ml Oral.Susp PO DAILY PRN Constipation Metformin HCl 500 mg 06/19/20 08:00 06/21/20 18:37 Metformin Hcl Er 500 Mg Tab.Er.24h PO 500 mg BIDWM SUZANNE Administration Metoprolol Tartrate 25 mg 06/18/20 21:00 06/21/20 21:15 Metoprolol Tartrate 25 Mg Tablet PO 25 mg BID SUZANNE Administration Protocol Non-Formulary Medication 1 tab 06/19/20 11:30 Canagliflozin [Invokana] PO DAILY SUZANNE Nystatin 1 appl 06/18/20 21:00 06/21/20 21:38 Nystatin Powder 15 Gm Bottle TOPICAL 1 appl BID SUZANNE Administration Protocol Quetiapine Fumarate 25 mg 06/18/20 15:45 06/21/20 08:28 Quetiapine Fumarate 25 Mg Tablet PO 25 mg DAILY SUZANNE Administration Quetiapine Fumarate 50 mg 06/18/20 21:00 06/21/20 21:15 Quetiapine Fumarate 50 Mg Tablet PO 50 mg BEDTIME SUZANNE Administration Trazodone HCl 25 mg 06/19/20 12:01 Trazodone Hcl 25 Mg Halftab PO BEDTIME PRN Insomnia Venlafaxine HCl 75 mg 06/19/20 09:00 06/21/20 08:28 Venlafaxine Hcl 25 Mg Tablet PO 75 mg DAILY SUZANNE Administration Allergies Allergies Allergy/AdvReac Type Severity Reaction Status Date / Time Sulfa (Sulfonamide Allergy Unknown Verified 06/17/20 18:54 Antibiotics) Assessment & Plan Assessment & Plan (1) Dementia with behavioral disturbance: Status: Acute Code(s): F03.91 - Unspecified dementia with behavioral disturbance (2) Diabetes mellitus: Status: Acute Code(s): E11.9 - Type 2 diabetes mellitus without complications (3) Dementia, senile with depression: Status: Acute Code(s): F03.90 - Unspecified dementia without behavioral disturbance Assessment and Plan: need to clarify reality of patient's concerns mood depressed tearful with wish that she could be preoccupation with the fact that her had left her for someone else. Would increase Effexor recent agitation with suicide attempt started on Depakote continue one-to-one Greater than 50% of the session was spent on counseling and/or coordination of care
[2020-06-22 06:20] VITALS: BP 163/79; PULSE 67; RESP 18; TEMP 36.2; O2SAT 98
[2020-06-22 06:28] LABS: Glucose, Whole Blood 154 mg/dL (60-115)
[2020-06-22 06:29] VITALS: BP 163/79; PULSE 67
[2020-06-22] MEDS: Metoprolol Tartrate 25 MG TABLET PO ×2 (06:29→21:50)
[2020-06-22] MEDS: Venlafaxine HCL 25 MG TABLET 75 MG PO (08:24)
[2020-06-22] MEDS: QUEtiapine Fumarate 25 MG TABLET PO (08:25)
[2020-06-22] MEDS: metFORMIN HCl ER 500 MG TAB.ER.24H PO ×2 (08:25→17:38)
[2020-06-22] MEDS: Insulin Lispro 100 UNIT/ML 3 ML VIAL SUBCUT ×3 (08:26→17:46)
[2020-06-22] MEDS: Insulin Glargine,Hum.rec.anlog 100 UNIT/ML 10 ML VIAL 30 UNIT SUBCUT (08:27)
[2020-06-22 08:37] LABS: Creatinine Clr Calc Pharmacy 69.6; Estimated Glomerular Filt Rate > 60
[2020-06-22 11:54] LABS: Glucose, Whole Blood 193 mg/dL (60-115)
[2020-06-22] MEDS: Nystatin Powder 15 GM BOTTLE 1 APPL TOPICAL (11:55)
[2020-06-22 17:16] LABS: Glucose, Whole Blood 230 mg/dL (60-115)
[2020-06-22] MEDS: LORazepam 1 MG TABLET PO (17:55)
[2020-06-22 21:50] VITALS: BP 166/78; PULSE 88
[2020-06-22] MEDS: Atorvastatin Calcium 10 MG TABLET PO (21:50)
[2020-06-22] MEDS: QUEtiapine Fumarate 50 MG TABLET PO (21:50)
--- NOTE | 2020-06-22 21:54 | HO.PSYCHPN ---
Subjective Subjective Date of Service: 06/22/20 Reason For Visit: SUICIDAL IDEATION Subjective Notes: Conditional Voluntary Interim History: patient remains ruminating anxious depressed denies active self-harm but becomes tearful stating her does not love her. Difficulty accepting that her became disabled and had surgery. Mental Status Exam Mental Status Exam Narrative: patient know she is in a psychiatric hospital unclear how long she has been in a [place] [facility] facility knows the year month that is about to be [place] excepting of treatment but stating she has nothing to live for tearful overwhelmed States she will maintains her safety Patient Appearance: Disheveled Patient Orientation: Person, Place, Time (knew month and season) and Situation (knew hospital) Level of Consciousness: Awake Patient Behavior: Passive, Restless, Anxious and Crying Mood Description: Depressed, Anxious and Sad Affect Description: Anxious, Labile and Sad Patient Cognition Impaired: Yes Ability to Follow Directions: Fair Speech Pattern: Perseverating Memory Description: Remote Impaired, Episodic Impaired and Recent Impaired Delusions: Present (possible delusional thinking about leaving her ) Thought Process: Rumination Thought Content: positive for Obsessional Thoughts, positive for Perseveration, positive for Preoccupation, positive for Suicidal Ideation and positive for Homicidal Ideation Depressive Symptoms: Increased Anxiety, Insomnia, Diff. Making Decisions, Increased Irritability, Changes in Appetite, Crying Spells, Sleeping More Than Usual, Loss of Int. in Activity, Feelings of Worthlessness, Hopelessness, Isolating-Friends/Family, Unhappiness, Thoughts of /Suicide, Loss of Energy and Difficulty Concentrating Abnormal Motor Activity Signs and Symptoms: Restlessness Judgement: Fair Diagnostics Vital Signs (24Hr): Vital Signs - 24 hr 06/21/20 22:00 06/22/20 06:20 06/22/20 06:29 Temperature 97 F 97.2 F Pulse Rate 83 67 67 Respiratory Rate 18 Blood Pressure 153/67 H 163/79 H 163/79 H Pulse Oximetry 98 Body Mass Index 35.6 Labs Results: 06/17/20 20:48 06/22/20 08:01 Labs: Laboratory Results - last 48 hr 06/20/20 06/21/20 06/21/20 08:18 06:32 11:58 Creatinine Estim Creat Clear Calc Estimated GFR POC Glucose 181 H 200 H Vitamin B12 454 06/21/20 06/22/20 06/22/20 16:32 06:23 08:01 Creatinine 0.82 Estim Creat Clear Calc 69.6 Estimated GFR > 60 POC Glucose 180 H 154 H Vitamin B12 06/22/20 06/22/20 11:51 17:10 Creatinine Estim Creat Clear Calc Estimated GFR POC Glucose 193 H 230 H Vitamin B12 Medications Medications Current Medications Generic Name Dose Route Start Last Admin Trade Name Freq PRN Reason Stop Dose Admin Acetaminophen 650 mg 06/18/20 15:44 Acetaminophen 325 Mg Tablet PO Q6H PRN Pain Acetaminophen 650 mg 06/19/20 11:46 Acetaminophen 325 Mg Tablet PO Q6H PRN Headache/Pain Mild Scale (1-3) Al Hydroxide/Mg Hydroxide 30 ml 06/18/20 15:58 Magnesium Hydrox/Alum Hydrox 30 Ml Oral.Susp PO QID PRN Heartburn Al Hydroxide/Mg Hydroxide 30 ml 06/19/20 11:46 Magnesium Hydrox/Alum Hydrox 30 Ml Oral.Susp PO Q6H PRN Heartburn/Nausea Atorvastatin Calcium 10 mg 06/18/20 21:00 06/21/20 21:15 Atorvastatin Calcium 10 Mg Tablet PO 10 mg BEDTIME SUZANNE Administration Divalproex Sodium 125 mg 06/19/20 21:00 06/22/20 08:25 Divalproex Sodium 125 Mg Tablet.Dr PO 125 mg BID SUZANNE Administration Hydroxyzine HCl 25 mg 06/19/20 11:46 Hydroxyzine Hcl 25 Mg Tablet PO BEDTIME PRN Anxiety Insulin Glargine 30 unit 06/18/20 15:45 06/22/20 08:27 Insulin Glargine,Hum.Rec.Anlog 100 Unit/Ml 10 Ml Vial SUBCUT 30 unit DAILY SUZANNE Administration Insulin Human Lispro 0 unit 06/18/20 16:30 06/22/20 17:46 Insulin Lispro 100 Unit/Ml 3 Ml Vial SUBCUT 4 unit TIDAC SUZANNE Administration Protocol Lorazepam 1 mg 06/19/20 12:01 06/22/20 17:55 Lorazepam 1 Mg Tablet PO 1 mg Q4H PRN Administration anxiety/restlessness Magnesium Hydroxide 30 ml 06/19/20 11:46 Milk Of Magnesia 30 Ml Oral.Susp PO DAILY PRN Constipation Metformin HCl 500 mg 06/19/20 08:00 06/22/20 08:25 Metformin Hcl Er 500 Mg Tab.Er.24h PO 500 mg BIDWM SUZANNE Administration Metoprolol Tartrate 25 mg 06/18/20 21:00 06/22/20 06:29 Metoprolol Tartrate 25 Mg Tablet PO 25 mg BID SUZANNE Administration Protocol Non-Formulary Medication 1 tab 06/19/20 11:30 Canagliflozin [Invokana] PO DAILY SUZANNE Nystatin 1 appl 06/18/20 21:00 06/22/20 11:55 Nystatin Powder 15 Gm Bottle TOPICAL 1 appl BID SUZANNE Administration Protocol Quetiapine Fumarate 25 mg 06/18/20 15:45 06/22/20 08:25 Quetiapine Fumarate 25 Mg Tablet PO 25 mg DAILY SUZANNE Administration Quetiapine Fumarate 50 mg 06/18/20 21:00 06/21/20 21:15 Quetiapine Fumarate 50 Mg Tablet PO 50 mg BEDTIME SUZANNE Administration Trazodone HCl 25 mg 06/19/20 12:01 Trazodone Hcl 25 Mg Halftab PO BEDTIME PRN Insomnia Venlafaxine HCl 75 mg 06/19/20 09:00 06/22/20 08:24 Venlafaxine Hcl 25 Mg Tablet PO 75 mg DAILY SUZANNE Administration Allergies Allergies Allergy/AdvReac Type Severity Reaction Status Date / Time Sulfa (Sulfonamide Allergy Unknown Verified 06/17/20 18:54 Antibiotics) Assessment & Plan Assessment & Plan (1) Dementia, senile with depression: Status: Acute Code(s): F03.90 - Unspecified dementia without behavioral disturbance (2) Dementia with behavioral disturbance: Status: Acute Code(s): F03.91 - Unspecified dementia with behavioral disturbance (3) Diabetes mellitus: Status: Acute Code(s): E11.9 - Type 2 diabetes mellitus without complications (4) HTN (hypertension): Status: Acute Code(s): I10 - Essential (primary) hypertension Assessment and Plan: continue Seroquel increase Depakote 250 b.i.d. increase Effexor to 100 mg daily. See if we can obtain psychiatric history and medication trial. Check EKG case reviewed extensively with nursing would appear to be safe on 5 minutes checks will monitor safety Greater than 50% of the session was spent on counseling and/or coordination of care
[2020-06-22 22:00] VITALS: BP 156/95; PULSE 95; TEMP 36.6
[2020-06-23 06:15] VITALS: BP 147/73; PULSE 67; RESP 18; TEMP 36.8; O2SAT 97
[2020-06-23 06:38] LABS: Glucose, Whole Blood 154 mg/dL (60-115)
--- NOTE | 2020-06-23 08:00 | ECG_ITS ---
Test Reason : CP Blood Pressure : / mmHG Vent. Rate : 074 BPM Atrial Rate : 074 BPM P-R Int : 162 ms QRS Dur : 136 ms QT Int : 410 ms P-R-T Axes : 030 -57 005 degrees QTc Int : 455 ms Normal sinus rhythm Right bundle branch block Left anterior fascicular block Bifascicular block Abnormal ECG When compared with ECG of 18-JUN-2020 14:13, No significant change was found Referred By: Servando Desai Electronically Signed By:HANS ARMSTRONG MD
[2020-06-23] MEDS: metFORMIN HCl ER 500 MG TAB.ER.24H PO ×2 (08:11→16:53)
[2020-06-23] MEDS: Venlafaxine HCL 25 MG TABLET 100 MG PO (08:11)
[2020-06-23 08:12] VITALS: BP 147/73; PULSE 67
[2020-06-23] MEDS: QUEtiapine Fumarate 25 MG TABLET PO (08:12)
[2020-06-23] MEDS: Metoprolol Tartrate 25 MG TABLET PO ×2 (08:12→23:26)
[2020-06-23] MEDS: Divalproex Sodium 250 MG TABLET.DR PO ×2 (08:13→23:27)
[2020-06-23] MEDS: Insulin Glargine,Hum.rec.anlog 100 UNIT/ML 10 ML VIAL 30 UNIT SUBCUT (08:57)
[2020-06-23] MEDS: Insulin Lispro 100 UNIT/ML 3 ML VIAL SUBCUT ×2 (08:57→12:53)
[2020-06-23 12:52] LABS: Glucose, Whole Blood 217 mg/dL (60-115)
[2020-06-23] MEDS: Nystatin Powder 15 GM BOTTLE 1 APPL TOPICAL ×2 (12:56→23:26)
[2020-06-23 16:53] LABS: Glucose, Whole Blood 147 mg/dL (60-115)
[2020-06-23 23:22] LABS: Glucose, Whole Blood 132 mg/dL (60-115)
[2020-06-23 23:26] VITALS: BP 173/101; PULSE 91
[2020-06-23] MEDS: QUEtiapine Fumarate 50 MG TABLET PO (23:26)
[2020-06-23] MEDS: Atorvastatin Calcium 10 MG TABLET PO (23:27)
[2020-06-23 23:36] VITALS: BP 170/85; PULSE 85; TEMP 36.5; O2SAT 97
--- NOTE | 2020-06-23 23:49 | HO.PSYCHPN ---
Subjective Subjective Date of Service: 06/23/20 Reason For Visit: SUICIDAL IDEATION Diagnostics Vital Signs (24Hr): Vital Signs - 24 hr 06/23/20 06:15 06/23/20 08:12 06/23/20 23:26 Temperature 98.2 F Pulse Rate 67 67 91 Respiratory Rate 18 Blood Pressure 147/73 H 147/73 H 173/101 H Pulse Oximetry 97 06/23/20 23:36 Temperature 97.7 F Pulse Rate 85 Respiratory Rate Blood Pressure 170/85 H Pulse Oximetry 97 Body Mass Index 35.6 Labs Results: 06/17/20 20:48 06/22/20 08:01 Labs: Laboratory Results - last 48 hr 06/22/20 06/22/20 06/22/20 06:23 08:01 11:51 Creatinine 0.82 Estim Creat Clear Calc 69.6 Estimated GFR > 60 POC Glucose 154 H 193 H 06/22/20 06/23/20 06/23/20 17:10 06:15 12:47 Creatinine Estim Creat Clear Calc Estimated GFR POC Glucose 230 H 154 H 217 H 06/23/20 06/23/20 16:47 23:17 Creatinine Estim Creat Clear Calc Estimated GFR POC Glucose 147 H 132 H Medications Medications Current Medications Generic Name Dose Route Start Last Admin Trade Name Freq PRN Reason Stop Dose Admin Acetaminophen 650 mg 06/18/20 15:44 Acetaminophen 325 Mg Tablet PO Q6H PRN Pain Acetaminophen 650 mg 06/19/20 11:46 Acetaminophen 325 Mg Tablet PO Q6H PRN Headache/Pain Mild Scale (1-3) Al Hydroxide/Mg Hydroxide 30 ml 06/18/20 15:58 Magnesium Hydrox/Alum Hydrox 30 Ml Oral.Susp PO QID PRN Heartburn Al Hydroxide/Mg Hydroxide 30 ml 06/19/20 11:46 Magnesium Hydrox/Alum Hydrox 30 Ml Oral.Susp PO Q6H PRN Heartburn/Nausea Atorvastatin Calcium 10 mg 06/18/20 21:00 06/23/20 23:27 Atorvastatin Calcium 10 Mg Tablet PO 10 mg BEDTIME SUZANNE Administration Divalproex Sodium 250 mg 06/23/20 09:00 06/23/20 23:27 Divalproex Sodium 250 Mg Tablet.Dr PO 250 mg BID SUZANNE Administration Hydroxyzine HCl 25 mg 06/19/20 11:46 Hydroxyzine Hcl 25 Mg Tablet PO BEDTIME PRN Anxiety Insulin Glargine 30 unit 06/18/20 15:45 06/23/20 08:57 Insulin Glargine,Hum.Rec.Anlog 100 Unit/Ml 10 Ml Vial SUBCUT 30 unit DAILY SUZANNE Administration Insulin Human Lispro 0 unit 06/18/20 16:30 06/23/20 16:54 Insulin Lispro 100 Unit/Ml 3 Ml Vial SUBCUT Not Given [facility] Protocol Lorazepam 1 mg 06/19/20 12:01 06/22/20 17:55 Lorazepam 1 Mg Tablet PO 1 mg Q4H PRN Administration anxiety/restlessness Magnesium Hydroxide 30 ml 06/19/20 11:46 Milk Of Magnesia 30 Ml Oral.Susp PO DAILY PRN Constipation Metformin HCl 500 mg 06/19/20 08:00 06/23/20 16:53 Metformin Hcl Er 500 Mg Tab.Er.24h PO 500 mg BIDWM SUZANNE Administration Metoprolol Tartrate 25 mg 06/18/20 21:00 06/23/20 23:26 Metoprolol Tartrate 25 Mg Tablet PO 25 mg BID SUZANNE Administration Protocol Non-Formulary Medication 1 tab 06/19/20 11:30 Canagliflozin [Invokana] PO DAILY SUZANNE Nystatin 1 appl 06/18/20 21:00 06/23/20 23:26 Nystatin Powder 15 Gm Bottle TOPICAL 1 appl BID SUZANNE Administration Protocol Quetiapine Fumarate 25 mg 06/18/20 15:45 06/23/20 08:12 Quetiapine Fumarate 25 Mg Tablet PO 25 mg DAILY SUZANNE Administration Quetiapine Fumarate 50 mg 06/18/20 21:00 06/23/20 23:26 Quetiapine Fumarate 50 Mg Tablet PO 50 mg BEDTIME SUZANNE Administration Trazodone HCl 25 mg 06/19/20 12:01 Trazodone Hcl 25 Mg Halftab PO BEDTIME PRN Insomnia Venlafaxine HCl 100 mg 06/23/20 09:00 06/23/20 08:11 Venlafaxine Hcl 25 Mg Tablet PO 100 mg DAILY SUZANNE Administration Allergies Allergies Allergy/AdvReac Type Severity Reaction Status Date / Time Sulfa (Sulfonamide Allergy Unknown Verified 06/17/20 18:54 Antibiotics) Assessment & Plan Assessment & Plan (1) Major depression with psychotic features: Status: Acute Code(s): F32.3 - Major depressive disorder, single episode, severe with psychotic features Assessment and Plan: patient did not respond to reassurance and conversation with unclear if psychotically based or dementia base. The to get better history question history of depression psychosis. Increase Effexor to 150 mg daily consider Abilify EKG reviewed patient remains severely depressed refer with thought she is abandoned and does not want to live for (2) Diabetes mellitus: Status: Acute Code(s): E11.9 - Type 2 diabetes mellitus without complications (3) HTN (hypertension): Status: Acute Code(s): I10 - Essential (primary) hypertension Greater than 50% of the session was spent on counseling and/or coordination of care
[2020-06-24 06:19] LABS: Glucose, Whole Blood 133 mg/dL (60-115)
[2020-06-24 07:00] VITALS: BMI 31.1
[2020-06-24] MEDS: metFORMIN HCl ER 500 MG TAB.ER.24H PO ×2 (09:19→16:41)
[2020-06-24] MEDS: Divalproex Sodium 250 MG TABLET.DR PO ×2 (09:19→20:23)
[2020-06-24] MEDS: QUEtiapine Fumarate 25 MG TABLET PO ×2 (09:19→20:22)
[2020-06-24] MEDS: Venlafaxine HCl ER 150 MG CAP.ER.24H PO (09:19)
[2020-06-24] MEDS: Insulin Glargine,Hum.rec.anlog 100 UNIT/ML 10 ML VIAL 30 UNIT SUBCUT (09:20)
[2020-06-24 09:25] VITALS: BP 139/87; PULSE 82
[2020-06-24] MEDS: Metoprolol Tartrate 25 MG TABLET PO ×2 (09:25→20:22)
[2020-06-24 10:00] VITALS: BP 123/60; PULSE 66; TEMP 36.5
[2020-06-24] MEDS: Nystatin Powder 15 GM BOTTLE 1 APPL TOPICAL ×2 (10:08→20:21)
[2020-06-24 11:17] LABS: Glucose, Whole Blood 195 mg/dL (60-115)
[2020-06-24] MEDS: Insulin Lispro 100 UNIT/ML 3 ML VIAL SUBCUT (11:20)
[2020-06-24 16:28] VITALS: BP 128/67; PULSE 80; TEMP 36.5
[2020-06-24] MEDS: ARIPiprazole 2 MG TABLET PO (16:42)
[2020-06-24 17:00] LABS: Glucose, Whole Blood 134 mg/dL (60-115)
[2020-06-24] MEDS: Acyclovir 5 % Oint 15 GM TUBE TOPICAL ×2 (18:58→21:30)
[2020-06-24 20:22] VITALS: BP 153/82; PULSE 85
[2020-06-24] MEDS: Atorvastatin Calcium 10 MG TABLET PO (20:23)
[2020-06-24] MEDS: Mirtazapine 7.5 MG TABLET PO (20:23)
[2020-06-24 21:38] LABS: Glucose, Whole Blood 189 mg/dL (60-115)
--- NOTE | 2020-06-24 22:53 | HO.PSYCHPN ---
Subjective Subjective Date of Service: 06/24/20 Reason For Visit: SUICIDAL IDEATION Subjective Notes: Conditional Voluntary Interim History: patient depressed anxious ruminating Mental Status Exam Mental Status Exam Narrative: patient know she is in a psychiatric hospital unclear how long she has been in a longterm facility knows the year month that is about to be [place] excepting of treatment but stating she has nothing to live for tearful overwhelmed States she will maintains her safety Patient Appearance: Disheveled Patient Orientation: Person, Place, Time (knew month and season) and Situation (knew hospital) Level of Consciousness: Awake Patient Behavior: Passive, Restless, Anxious and Crying Mood Description: Depressed, Anxious and Sad Affect Description: Anxious, Labile and Sad Patient Cognition Impaired: Yes Ability to Follow Directions: Fair Speech Pattern: Perseverating Memory Description: Remote Impaired, Episodic Impaired and Recent Impaired Delusions: Present (possible delusional thinking about leaving her ) Thought Process: Rumination Thought Content: positive for Obsessional Thoughts, positive for Perseveration, positive for Preoccupation, positive for Suicidal Ideation and positive for Homicidal Ideation Depressive Symptoms: Increased Anxiety, Insomnia, Diff. Making Decisions, Increased Irritability, Changes in Appetite, Crying Spells, Sleeping More Than Usual, Loss of Int. in Activity, Feelings of Worthlessness, Hopelessness, Isolating-Friends/Family, Unhappiness, Thoughts of /Suicide, Loss of Energy and Difficulty Concentrating Abnormal Motor Activity Signs and Symptoms: Restlessness Judgement: Fair Diagnostics Vital Signs (24Hr): Vital Signs - 24 hr 06/23/20 23:26 06/23/20 23:36 06/24/20 09:25 Temperature 97.7 F Pulse Rate 91 85 82 Blood Pressure 173/101 H 170/85 H 139/87 Pulse Oximetry 97 06/24/20 10:00 06/24/20 16:28 06/24/20 20:22 Temperature 97.7 F 97.7 F Pulse Rate 66 80 85 Blood Pressure 123/60 128/67 153/82 H Pulse Oximetry Body Mass Index 31.1 Labs Results: 06/17/20 20:48 06/22/20 08:01 Labs: Laboratory Results - last 48 hr 06/23/20 06/23/20 06/23/20 06:15 12:47 16:47 POC Glucose 154 H 217 H 147 H 06/23/20 06/24/20 06/24/20 23:17 06:04 11:14 POC Glucose 132 H 133 H 195 H 06/24/20 06/24/20 16:50 21:33 POC Glucose 134 H 189 H Medications Medications Current Medications Generic Name Dose Route Start Last Admin Trade Name Freq PRN Reason Stop Dose Admin Acetaminophen 650 mg 06/18/20 15:44 Acetaminophen 325 Mg Tablet PO Q6H PRN Pain Acetaminophen 650 mg 06/19/20 11:46 Acetaminophen 325 Mg Tablet PO Q6H PRN Headache/Pain Mild Scale (1-3) Acyclovir 1 gm 06/24/20 18:00 06/24/20 21:30 Acyclovir 5 % Oint 15 Gm Tube TOPICAL 1 gm 5XD SUZANNE Administration Al Hydroxide/Mg Hydroxide 30 ml 06/18/20 15:58 Magnesium Hydrox/Alum Hydrox 30 Ml Oral.Susp PO QID PRN Heartburn Al Hydroxide/Mg Hydroxide 30 ml 06/19/20 11:46 Magnesium Hydrox/Alum Hydrox 30 Ml Oral.Susp PO Q6H PRN Heartburn/Nausea Aripiprazole 2 mg 06/24/20 14:35 06/24/20 16:42 Aripiprazole 2 Mg Tablet PO 2 mg DAILY SUZANNE Administration Atorvastatin Calcium 10 mg 06/18/20 21:00 06/24/20 20:23 Atorvastatin Calcium 10 Mg Tablet PO 10 mg BEDTIME SUZANNE Administration Divalproex Sodium 250 mg 06/23/20 09:00 06/24/20 20:23 Divalproex Sodium 250 Mg Tablet.Dr PO 250 mg BID SUZANNE Administration Hydroxyzine HCl 25 mg 06/19/20 11:46 Hydroxyzine Hcl 25 Mg Tablet PO BEDTIME PRN Anxiety Insulin Glargine 30 unit 06/18/20 15:45 06/24/20 09:20 Insulin Glargine,Hum.Rec.Anlog 100 Unit/Ml 10 Ml Vial SUBCUT 30 unit DAILY SUZANNE Administration Insulin Human Lispro 0 unit 06/18/20 16:30 06/24/20 16:59 Insulin Lispro 100 Unit/Ml 3 Ml Vial SUBCUT Not Given TIDAC [facility] Protocol Magnesium Hydroxide 30 ml 06/19/20 11:46 Milk Of Magnesia 30 Ml Oral.Susp PO DAILY PRN Constipation Metformin HCl 500 mg 06/19/20 08:00 06/24/20 16:41 Metformin Hcl Er 500 Mg Tab.Er.24h PO 500 mg BIDWM SUZANNE Administration Metoprolol Tartrate 25 mg 06/18/20 21:00 06/24/20 20:22 Metoprolol Tartrate 25 Mg Tablet PO 25 mg BID SUZANNE Administration Protocol Mirtazapine 7.5 mg 06/24/20 21:00 06/24/20 20:23 Mirtazapine 7.5 Mg Tablet PO 7.5 mg BEDTIME SUZANNE Administration Non-Formulary Medication 1 tab 06/19/20 11:30 Canagliflozin [Invokana] PO DAILY SUZANNE Nystatin 1 appl 06/18/20 21:00 06/24/20 20:21 Nystatin Powder 15 Gm Bottle TOPICAL 1 appl BID SUZANNE Administration Protocol Quetiapine Fumarate 25 mg 06/24/20 21:00 06/24/20 20:22 Quetiapine Fumarate 25 Mg Tablet PO 25 mg BEDTIME SUZANNE Administration Trazodone HCl 25 mg 06/19/20 12:01 Trazodone Hcl 25 Mg Halftab PO BEDTIME PRN Insomnia Venlafaxine HCl 150 mg 06/24/20 09:00 06/24/20 09:19 Venlafaxine Hcl Er 150 Mg Cap.Er.24h PO 150 mg DAILY SUZANNE Administration Allergies Allergies Allergy/AdvReac Type Severity Reaction Status Date / Time Sulfa (Sulfonamide Allergy Unknown Verified 06/17/20 18:54 Antibiotics) Assessment & Plan Assessment & Plan (1) Major depression with psychotic features: Status: Acute Code(s): F32.3 - Major depressive disorder, single episode, severe with psychotic features Assessment and Plan: started Abilify increase Effexor to 150 mg patient needs frequent reassurance (2) Dementia, senile with depression: Status: Acute Code(s): F03.90 - Unspecified dementia without behavioral disturbance Greater than 50% of the session was spent on counseling and/or coordination of care
[2020-06-25 06:04] LABS: Glucose, Whole Blood 119 mg/dL (60-115)
[2020-06-25] MEDS: Acyclovir 5 % Oint 15 GM TUBE TOPICAL ×3 (06:47→19:03)
[2020-06-25] MEDS: metFORMIN HCl ER 500 MG TAB.ER.24H PO ×2 (08:36→16:53)
[2020-06-25 10:11] VITALS: BP 133/94; PULSE 81
[2020-06-25] MEDS: Metoprolol Tartrate 25 MG TABLET PO ×2 (10:11→21:22)
[2020-06-25] MEDS: Venlafaxine HCl ER 150 MG CAP.ER.24H PO (10:11)
[2020-06-25] MEDS: ARIPiprazole 2 MG TABLET PO (10:11)
[2020-06-25] MEDS: Divalproex Sodium 250 MG TABLET.DR PO ×2 (10:11→21:22)
[2020-06-25] MEDS: Insulin Glargine,Hum.rec.anlog 100 UNIT/ML 10 ML VIAL 30 UNIT SUBCUT (10:25)
[2020-06-25 10:27] VITALS: TEMP 36.8
[2020-06-25 12:43] LABS: Glucose, Whole Blood 196 mg/dL (60-115)
[2020-06-25] MEDS: Insulin Lispro 100 UNIT/ML 3 ML VIAL SUBCUT ×2 (12:43→16:53)
[2020-06-25 21:22] VITALS: BP 150/69; PULSE 78
[2020-06-25] MEDS: QUEtiapine Fumarate 25 MG TABLET PO (21:22)
[2020-06-25] MEDS: Atorvastatin Calcium 10 MG TABLET PO (21:22)
[2020-06-25] MEDS: Mirtazapine 7.5 MG TABLET PO (21:22)
[2020-06-25 21:36] LABS: Glucose, Whole Blood 260 mg/dL (60-115)
--- NOTE | 2020-06-25 23:46 | HO.PSYCHPN ---
Subjective Subjective Date of Service: 06/25/20 Reason For Visit: SUICIDAL IDEATION Subjective Notes: Conditional Voluntary Interim History: patient irritable dysphoric tearful started on Abilify Depakote level noted case has been reviewed with patient's daughter healthcare proxy no active suicidal behavior Medication Compliance: Yes Side effects from medications: No Mental Status Exam Mental Status Exam Narrative: patient know she is in a psychiatric hospital unclear how long she has been in a detention facility knows the year month that is about to be [place] excepting of treatment but stating she has nothing to live for tearful overwhelmed States she will maintains her safety continues to be preoccupied with the thought that her is with another woman. Does not seem to be able to take an information regarding Patient Appearance: Disheveled Patient Orientation: Person, Place, Time (knew month and season) and Situation (knew hospital) Level of Consciousness: Awake Patient Behavior: Passive, Restless, Anxious and Crying Mood Description: Depressed, Anxious and Sad Affect Description: Anxious, Labile and Sad Patient Cognition Impaired: Yes Ability to Follow Directions: Fair Speech Pattern: Perseverating Memory Description: Remote Impaired, Episodic Impaired and Recent Impaired Delusions: Present (possible delusional thinking about leaving her ) Thought Process: Rumination Thought Content: positive for Obsessional Thoughts, positive for Perseveration, positive for Preoccupation, positive for Suicidal Ideation and positive for Homicidal Ideation Depressive Symptoms: Increased Anxiety, Insomnia, Diff. Making Decisions, Increased Irritability, Changes in Appetite, Crying Spells, Sleeping More Than Usual, Loss of Int. in Activity, Feelings of Worthlessness, Hopelessness, Isolating-Friends/Family, Unhappiness, Thoughts of /Suicide, Loss of Energy and Difficulty Concentrating Abnormal Motor Activity Signs and Symptoms: Restlessness Judgement: Fair Diagnostics Vital Signs (24Hr): Vital Signs - 24 hr 06/25/20 10:11 06/25/20 10:27 06/25/20 21:22 Temperature 98.2 F Pulse Rate 81 78 Blood Pressure 133/94 H 150/69 H Body Mass Index 31.1 Labs Results: 06/17/20 20:48 06/22/20 08:01 Labs: Laboratory Results - last 48 hr 06/24/20 06/24/20 06/24/20 06:04 11:14 16:50 POC Glucose 133 H 195 H 134 H 06/24/20 06/25/20 06/25/20 21:33 05:54 12:37 POC Glucose 189 H 119 H 196 H 06/25/20 16:45 POC Glucose 260 H Medications Medications Current Medications Generic Name Dose Route Start Last Admin Trade Name Freq PRN Reason Stop Dose Admin Acetaminophen 650 mg 06/19/20 11:46 Acetaminophen 325 Mg Tablet PO Q6H PRN Headache/Pain Mild Scale (1-3) Acyclovir 1 gm 06/24/20 18:00 06/25/20 21:23 Acyclovir 5 % Oint 15 Gm Tube TOPICAL Not Given 5XD SUZANNE Al Hydroxide/Mg Hydroxide 30 ml 06/18/20 15:58 Magnesium Hydrox/Alum Hydrox 30 Ml Oral.Susp PO QID PRN Heartburn Al Hydroxide/Mg Hydroxide 30 ml 06/19/20 11:46 Magnesium Hydrox/Alum Hydrox 30 Ml Oral.Susp PO Q6H PRN Heartburn/Nausea Aripiprazole 2 mg 06/24/20 14:35 06/25/20 10:11 Aripiprazole 2 Mg Tablet PO 2 mg DAILY SUZANNE Administration Atorvastatin Calcium 10 mg 06/18/20 21:00 06/25/20 21:22 Atorvastatin Calcium 10 Mg Tablet PO 10 mg BEDTIME SUZANNE Administration Divalproex Sodium 250 mg 06/23/20 09:00 06/25/20 21:22 Divalproex Sodium 250 Mg Tablet.Dr PO 250 mg BID SUZANNE Administration Hydroxyzine HCl 25 mg 06/19/20 11:46 Hydroxyzine Hcl 25 Mg Tablet PO BEDTIME PRN Anxiety Insulin Glargine 30 unit 06/18/20 15:45 06/25/20 10:25 Insulin Glargine,Hum.Rec.Anlog 100 Unit/Ml 10 Ml Vial SUBCUT 30 unit DAILY SUZANNE Administration Insulin Human Lispro 0 unit 06/18/20 16:30 06/25/20 16:53 Insulin Lispro 100 Unit/Ml 3 Ml Vial SUBCUT 6 unit TIDAC SUZANNE Administration Protocol Lorazepam 0.5 mg 06/25/20 11:26 Lorazepam 0.5 Mg Tablet PO Q2H PRN anxiety/restlessness Magnesium Hydroxide 30 ml 06/19/20 11:46 Milk Of Magnesia 30 Ml Oral.Susp PO DAILY PRN Constipation Metformin HCl 500 mg 06/19/20 08:00 06/25/20 16:53 Metformin Hcl Er 500 Mg Tab.Er.24h PO 500 mg BIDWM SUZANNE Administration Metoprolol Tartrate 25 mg 06/18/20 21:00 06/25/20 21:22 Metoprolol Tartrate 25 Mg Tablet PO 25 mg BID SUZANNE Administration Protocol Mirtazapine 7.5 mg 06/24/20 21:00 06/25/20 21:22 Mirtazapine 7.5 Mg Tablet PO 7.5 mg BEDTIME SUZANNE Administration Non-Formulary Medication 1 tab 06/19/20 11:30 Canagliflozin [Invokana] PO DAILY SUZANNE Nystatin 1 appl 06/18/20 21:00 06/25/20 21:25 Nystatin Powder 15 Gm Bottle TOPICAL Not Given BID SUZANNE Protocol Quetiapine Fumarate 25 mg 06/24/20 21:00 06/25/20 21:22 Quetiapine Fumarate 25 Mg Tablet PO 25 mg BEDTIME SUZANNE Administration Trazodone HCl 25 mg 06/19/20 12:01 Trazodone Hcl 25 Mg Halftab PO BEDTIME PRN Insomnia Venlafaxine HCl 150 mg 06/24/20 09:00 06/25/20 10:11 Venlafaxine Hcl Er 150 Mg Cap.Er.24h PO 150 mg DAILY SUZANNE Administration Allergies Allergies Allergy/AdvReac Type Severity Reaction Status Date / Time Sulfa (Sulfonamide Allergy Unknown Verified 06/17/20 18:54 Antibiotics) Assessment & Plan Assessment & Plan (1) Major depression with psychotic features: Status: Acute Code(s): F32.3 - Major depressive disorder, single episode, severe with psychotic features (2) Dementia, senile with depression: Status: Acute Code(s): F03.90 - Unspecified dementia without behavioral disturbance (3) Dementia with behavioral disturbance: Status: Acute Code(s): F03.91 - Unspecified dementia with behavioral disturbance Assessment and Plan: continue Abilify and Effexor encourage reassurance Greater than 50% of the session was spent on counseling and/or coordination of care
[2020-06-26] MEDS: Acyclovir 5 % Oint 15 GM TUBE TOPICAL ×5 (06:47→21:58)
[2020-06-26 08:04] VITALS: BP 137/76; PULSE 73; TEMP 36.2
[2020-06-26 08:15] VITALS: BP 137/76; PULSE 73
[2020-06-26] MEDS: ARIPiprazole 2 MG TABLET PO (08:15)
[2020-06-26] MEDS: Venlafaxine HCl ER 150 MG CAP.ER.24H PO (08:15)
[2020-06-26] MEDS: Metoprolol Tartrate 25 MG TABLET PO ×2 (08:15→21:59)
[2020-06-26] MEDS: Divalproex Sodium 250 MG TABLET.DR PO ×2 (08:16→21:58)
[2020-06-26] MEDS: metFORMIN HCl ER 500 MG TAB.ER.24H PO ×2 (08:16→17:28)
[2020-06-26] MEDS: Insulin Glargine,Hum.rec.anlog 100 UNIT/ML 10 ML VIAL 30 UNIT SUBCUT (08:17)
[2020-06-26 09:12] LABS: Valproate 33.3 mcg/mL (50.0-100.0)
[2020-06-26 11:15] LABS: Glucose, Whole Blood 153 mg/dL (60-115)
[2020-06-26 11:15] LABS: Glucose, Whole Blood 148 mg/dL (60-115)
[2020-06-26 11:58] LABS: Glucose, Whole Blood 230 mg/dL (60-115)
[2020-06-26] MEDS: Insulin Lispro 100 UNIT/ML 3 ML VIAL SUBCUT ×2 (12:19→17:35)
[2020-06-26 17:14] LABS: Glucose, Whole Blood 182 mg/dL (60-115)
--- NOTE | 2020-06-26 20:29 | HO.PSYCHPN ---
Subjective Subjective Date of Service: 06/27/20 Reason For Visit: SUICIDAL IDEATION Subjective Notes: Conditional Voluntary Interim History: Pt depressed ruminating hearing better reading at times tearful at times Medication Compliance: Yes Attending Groups: No Mental Status Exam Mental Status Exam Patient Appearance: Appropriate Patient Orientation: Person and Situation (hospital) Level of Consciousness: Awake Mood Description: Depressed, Anxious and Sad Affect Description: Depressed and Nervous Speech Pattern: Perseverating and Impoverished Thought Content: positive for Obsessional Thoughts and positive for Poverty of Content Depressive Symptoms: Increased Anxiety, Increased Irritability and Crying Spells Judgement: Poor Diagnostics Vital Signs (24Hr): Vital Signs - 24 hr 06/25/20 21:22 06/26/20 08:04 06/26/20 08:15 Temperature 97.2 F Pulse Rate 78 73 73 Blood Pressure 150/69 H 137/76 137/76 Body Mass Index 31.1 Labs Results: 06/17/20 20:48 06/22/20 08:01 Labs: Laboratory Results - last 48 hr 06/24/20 06/25/20 06/25/20 21:33 05:54 12:37 POC Glucose 189 H 119 H 196 H Valproic Acid 06/25/20 06/26/20 06/26/20 16:45 06:52 08:00 POC Glucose 260 H 153 H 148 H Valproic Acid 06/26/20 06/26/20 06/26/20 08:01 11:51 17:05 POC Glucose 230 H 182 H Valproic Acid 33.3 L Medications Medications Current Medications Generic Name Dose Route Start Last Admin Trade Name Freq PRN Reason Stop Dose Admin Acetaminophen 650 mg 06/19/20 11:46 Acetaminophen 325 Mg Tablet PO Q6H PRN Headache/Pain Mild Scale (1-3) Acyclovir 1 gm 06/24/20 18:00 06/26/20 17:29 Acyclovir 5 % Oint 15 Gm Tube TOPICAL 1 gm 5XD SUZANNE Administration Al Hydroxide/Mg Hydroxide 30 ml 06/18/20 15:58 Magnesium Hydrox/Alum Hydrox 30 Ml Oral.Susp PO QID PRN Heartburn Al Hydroxide/Mg Hydroxide 30 ml 06/19/20 11:46 Magnesium Hydrox/Alum Hydrox 30 Ml Oral.Susp PO Q6H PRN Heartburn/Nausea Aripiprazole 2 mg 06/24/20 14:35 06/26/20 08:15 Aripiprazole 2 Mg Tablet PO 2 mg DAILY SUZANNE Administration Atorvastatin Calcium 10 mg 06/18/20 21:00 06/25/20 21:22 Atorvastatin Calcium 10 Mg Tablet PO 10 mg BEDTIME SUZANNE Administration Divalproex Sodium 250 mg 06/23/20 09:00 06/26/20 08:16 Divalproex Sodium 250 Mg Tablet.Dr PO 250 mg BID SUZANNE Administration Hydroxyzine HCl 25 mg 06/19/20 11:46 Hydroxyzine Hcl 25 Mg Tablet PO BEDTIME PRN Anxiety Insulin Glargine 30 unit 06/18/20 15:45 06/26/20 08:17 Insulin Glargine,Hum.Rec.Anlog 100 Unit/Ml 10 Ml Vial SUBCUT 30 unit DAILY SUZANNE Administration Insulin Human Lispro 0 unit 06/18/20 16:30 06/26/20 17:35 Insulin Lispro 100 Unit/Ml 3 Ml Vial SUBCUT 2 unit TIDAC SUZANNE Administration Protocol Lorazepam 0.5 mg 06/25/20 11:26 Lorazepam 0.5 Mg Tablet PO Q2H PRN anxiety/restlessness Magnesium Hydroxide 30 ml 06/19/20 11:46 Milk Of Magnesia 30 Ml Oral.Susp PO DAILY PRN Constipation Metformin HCl 500 mg 06/19/20 08:00 06/26/20 17:28 Metformin Hcl Er 500 Mg Tab.Er.24h PO 500 mg BIDWM SUZANNE Administration Metoprolol Tartrate 25 mg 06/18/20 21:00 06/26/20 08:15 Metoprolol Tartrate 25 Mg Tablet PO 25 mg BID SUZANNE Administration Protocol Mirtazapine 7.5 mg 06/24/20 21:00 06/25/20 21:22 Mirtazapine 7.5 Mg Tablet PO 7.5 mg BEDTIME SUZANNE Administration Non-Formulary Medication 1 tab 06/19/20 11:30 Canagliflozin [Invokana] PO DAILY SUZANNE Nystatin 1 appl 06/18/20 21:00 06/26/20 08:22 Nystatin Powder 15 Gm Bottle TOPICAL Not Given BID SUZANNE Protocol Quetiapine Fumarate 25 mg 06/24/20 21:00 06/25/20 21:22 Quetiapine Fumarate 25 Mg Tablet PO 25 mg BEDTIME SUZANNE Administration Trazodone HCl 25 mg 06/19/20 12:01 Trazodone Hcl 25 Mg Halftab PO BEDTIME PRN Insomnia Venlafaxine HCl 150 mg 12/24/20 09:00 06/26/20 08:15 Venlafaxine Hcl Er 150 Mg Cap.Er.24h PO 150 mg DAILY SUZANNE Administration Allergies Allergies Allergy/AdvReac Type Severity Reaction Status Date / Time Sulfa (Sulfonamide Allergy Unknown Verified 06/17/20 18:54 Antibiotics) Assessment & Plan Assessment & Plan (1) Major depression with psychotic features: Status: Acute Code(s): F32.3 - Major depressive disorder, single episode, severe with psychotic features Assessment and Plan: start abilify taper seroquel inc effexor Greater than 50% of the session was spent on counseling and/or coordination of care
[2020-06-26 21:48] LABS: Glucose, Whole Blood 159 mg/dL (60-115)
[2020-06-26] MEDS: Atorvastatin Calcium 10 MG TABLET PO (21:58)
[2020-06-26] MEDS: QUEtiapine Fumarate 25 MG TABLET PO (21:59)
[2020-06-26] MEDS: Mirtazapine 7.5 MG TABLET PO (21:59)
[2020-06-26] MEDS: Nystatin Powder 15 GM BOTTLE 1 APPL TOPICAL (22:05)
[2020-06-26 22:11] VITALS: BP 148/87; PULSE 94; TEMP 36.3
[2020-06-27 06:26] LABS: Glucose, Whole Blood 129 mg/dL (60-115)
[2020-06-27 06:29] VITALS: BP 127/88; PULSE 74; RESP 18; TEMP 36.7; O2SAT 99
[2020-06-27 08:48] VITALS: BP 127/85; PULSE 74
[2020-06-27] MEDS: ARIPiprazole 2 MG TABLET 4 MG PO (08:48)
[2020-06-27] MEDS: Venlafaxine HCl ER 150 MG CAP.ER.24H PO (08:48)
[2020-06-27] MEDS: Metoprolol Tartrate 25 MG TABLET PO ×2 (08:48→21:16)
[2020-06-27] MEDS: Divalproex Sodium 250 MG TABLET.DR PO (08:48)
[2020-06-27] MEDS: metFORMIN HCl ER 500 MG TAB.ER.24H PO ×2 (08:49→18:10)
[2020-06-27] MEDS: Acyclovir 5 % Oint 15 GM TUBE TOPICAL ×5 (09:18→21:15)
[2020-06-27] MEDS: Nystatin Powder 15 GM BOTTLE 1 APPL TOPICAL (09:20)
[2020-06-27] MEDS: Insulin Glargine,Hum.rec.anlog 100 UNIT/ML 10 ML VIAL 30 UNIT SUBCUT (09:20)
--- NOTE | 2020-06-27 11:14 | HO.PSYCHPN ---
Subjective Subjective Date of Service: 06/27/20 Reason For Visit: SUICIDAL IDEATION Subjective Notes: Conditional Voluntary Interim History: patient anxious dysphoric ruminating in the morning continues to be preoccupied with concerns regarding her states that time she has nothing to live for no active SI Medication Compliance: Yes Mental Status Exam Mental Status Exam Patient Appearance: Appropriate Patient Orientation: Person and Situation (hospital) Level of Consciousness: Awake Mood Description: Depressed, Anxious and Sad Affect Description: Depressed and Nervous Speech Pattern: Perseverating and Impoverished Thought Content: positive for Obsessional Thoughts and positive for Poverty of Content Depressive Symptoms: Increased Anxiety, Increased Irritability and Crying Spells Judgement: Poor Diagnostics Vital Signs (24Hr): Vital Signs - 24 hr 06/26/20 22:11 06/27/20 06:29 06/27/20 08:48 Temperature 97.4 F 98.1 F Pulse Rate 94 74 74 Respiratory Rate 18 Blood Pressure 148/87 H 127/88 127/85 Pulse Oximetry 99 Body Mass Index 31.1 Labs Results: 06/17/20 20:48 06/22/20 08:01 Labs: Laboratory Results - last 48 hr 06/25/20 06/25/20 06/26/20 12:37 16:45 06:52 POC Glucose 196 H 260 H 153 H Valproic Acid 06/26/20 06/26/20 06/26/20 08:00 08:01 11:51 POC Glucose 148 H 230 H Valproic Acid 33.3 L 06/26/20 06/26/20 06/27/20 17:05 21:36 06:13 POC Glucose 182 H 159 H 129 H Valproic Acid Medications Medications Current Medications Generic Name Dose Route Start Last Admin Trade Name Freq PRN Reason Stop Dose Admin Acetaminophen 650 mg 06/19/20 11:46 Acetaminophen 325 Mg Tablet PO Q6H PRN Headache/Pain Mild Scale (1-3) Acyclovir 1 gm 06/24/20 18:00 06/27/20 09:38 Acyclovir 5 % Oint 15 Gm Tube TOPICAL 1 gm 5XD SUZANNE Administration Al Hydroxide/Mg Hydroxide 30 ml 06/18/20 15:58 Magnesium Hydrox/Alum Hydrox 30 Ml Oral.Susp PO QID PRN Heartburn Al Hydroxide/Mg Hydroxide 30 ml 06/19/20 11:46 Magnesium Hydrox/Alum Hydrox 30 Ml Oral.Susp PO Q6H PRN Heartburn/Nausea Aripiprazole 4 mg 06/27/20 09:00 06/27/20 08:48 Aripiprazole 2 Mg Tablet PO 4 mg DAILY SUZANNE Administration Atorvastatin Calcium 10 mg 06/18/20 21:00 06/26/20 21:58 Atorvastatin Calcium 10 Mg Tablet PO 10 mg BEDTIME SUZANNE Administration Divalproex Sodium 250 mg 06/23/20 09:00 06/27/20 08:48 Divalproex Sodium 250 Mg Tablet.Dr PO 250 mg BID SUZANNE Administration Hydroxyzine HCl 25 mg 06/19/20 11:46 Hydroxyzine Hcl 25 Mg Tablet PO BEDTIME PRN Anxiety Insulin Glargine 30 unit 06/18/20 15:45 06/27/20 09:20 Insulin Glargine,Hum.Rec.Anlog 100 Unit/Ml 10 Ml Vial SUBCUT 30 unit DAILY SUZANNE Administration Insulin Human Lispro 0 unit 06/27/20 11:30 Insulin Lispro 100 Unit/Ml 3 Ml Vial SUBCUT QIDACHS [facility] Protocol Lorazepam 0.5 mg 06/25/20 11:26 Lorazepam 0.5 Mg Tablet PO Q2H PRN anxiety/restlessness Magnesium Hydroxide 30 ml 06/19/20 11:46 Milk Of Magnesia 30 Ml Oral.Susp PO DAILY PRN Constipation Metformin HCl 500 mg 06/19/20 08:00 06/27/20 08:49 Metformin Hcl Er 500 Mg Tab.Er.24h PO 500 mg BIDWM SUZANNE Administration Metoprolol Tartrate 25 mg 06/18/20 21:00 06/27/20 08:48 Metoprolol Tartrate 25 Mg Tablet PO 25 mg BID SUZANNE Administration Protocol Mirtazapine 7.5 mg 06/24/20 21:00 06/26/20 21:59 Mirtazapine 7.5 Mg Tablet PO 7.5 mg BEDTIME SUZANNE Administration Non-Formulary Medication 1 tab 06/19/20 11:30 Canagliflozin [Invokana] PO DAILY [facility] Nystatin 1 appl 06/18/20 21:00 06/27/20 09:20 Nystatin Powder 15 Gm Bottle TOPICAL 1 appl BID SUZANNE Administration Protocol Quetiapine Fumarate 25 mg 06/24/20 21:00 06/26/20 21:59 Quetiapine Fumarate 25 Mg Tablet PO 25 mg BEDTIME SUZANNE Administration Trazodone HCl 25 mg 06/19/20 12:01 Trazodone Hcl 25 Mg Halftab PO BEDTIME PRN Insomnia Venlafaxine HCl 150 mg 06/24/20 09:00 06/27/20 08:48 Venlafaxine Hcl Er 150 Mg Cap.Er.24h PO 150 mg DAILY SUZANNE Administration Allergies Allergies Allergy/AdvReac Type Severity Reaction Status Date / Time Sulfa (Sulfonamide Allergy Unknown Verified 06/17/20 18:54 Antibiotics) Assessment & Plan Assessment & Plan (1) Major depression with psychotic features: Status: Acute Code(s): F32.3 - Major depressive disorder, single episode, severe with psychotic features (2) Dementia, senile with depression: Status: Acute Code(s): F03.90 - Unspecified dementia without behavioral disturbance Assessment and Plan: Abilify started for depression and psychosis Depakote 250 twice a day level 33 mirtazapine started for anxiety irritability and depression Effexor at 150 mg monitor safety trying to transition back to senior care facility where patient has bed Greater than 50% of the session was spent on counseling and/or coordination of care
[2020-06-27 11:16] LABS: Glucose, Whole Blood 134 mg/dL (60-115)
[2020-06-27] MEDS: OLANZapine 10 MG VIAL 2.5 MG IM (16:50)
[2020-06-27] MEDS: LORazepam 2 MG/ML VIAL 1 MG IM (16:50)
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
[2020-06-27 17:11] VITALS: BP 149/100; PULSE 109; TEMP 35.9; O2SAT 96
[2020-06-27 17:26] VITALS: BP 140/84; PULSE 106
[2020-06-27 17:39] LABS: Glucose, Whole Blood 221 mg/dL (60-115)
[2020-06-27 18:00] VITALS: BP 126/78; PULSE 107
[2020-06-27] MEDS: Insulin Lispro 100 UNIT/ML 3 ML VIAL SUBCUT ×2 (18:09→21:20)
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
[2020-06-27] MEDS: Mirtazapine 7.5 MG TABLET PO (21:15)
[2020-06-27 21:16] VITALS: BP 153/67; PULSE 83
[2020-06-27] MEDS: Atorvastatin Calcium 10 MG TABLET PO (21:16)
[2020-06-27] MEDS: OLANZapine 2.5 MG TABLET PO (21:16)
[2020-06-27 21:19] LABS: Glucose, Whole Blood 188 mg/dL (60-115)
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
[2020-06-28] MEDS: Acyclovir 5 % Oint 15 GM TUBE TOPICAL ×3 (06:38→13:45)
[2020-06-28 06:45] VITALS: BP 155/74; PULSE 67; RESP 16; TEMP 36.8; O2SAT 97
[2020-06-28 06:46] LABS: Glucose, Whole Blood 101 mg/dL (60-115)
[2020-06-28] MEDS: metFORMIN HCl ER 500 MG TAB.ER.24H PO (08:23)
[2020-06-28] MEDS: Venlafaxine HCl ER 75 MG CAP.ER.24H PO (08:23)
[2020-06-28 08:24] VITALS: BP 155/74; PULSE 67
[2020-06-28] MEDS: Metoprolol Tartrate 25 MG TABLET PO ×2 (08:24→19:33)
[2020-06-28] MEDS: Insulin Glargine,Hum.rec.anlog 100 UNIT/ML 10 ML VIAL 30 UNIT SUBCUT (09:07)
[2020-06-28 11:32] LABS: Glucose, Whole Blood 200 mg/dL (60-115)
[2020-06-28] MEDS: Nystatin Powder 15 GM BOTTLE 1 APPL TOPICAL (11:35)
[2020-06-28] MEDS: Insulin Lispro 100 UNIT/ML 3 ML VIAL SUBCUT (11:58)
[2020-06-28] MEDS: LORazepam 0.5 MG TABLET PO ×2 (14:44→16:22)
[2020-06-28] MEDS: OLANZapine 2.5 MG TABLET PO (16:22)
[2020-06-28 16:33] LABS: Glucose, Whole Blood 175 mg/dL (60-115)
[2020-06-28] MEDS: Mirtazapine 7.5 MG TABLET PO (19:32)
[2020-06-28 19:33] VITALS: BP 162/97; PULSE 121
[2020-06-28] MEDS: Atorvastatin Calcium 10 MG TABLET PO (19:33)
[2020-06-28] MEDS: OLANZapine 2.5 MG TABLET 5 MG PO (19:33)
[2020-06-28 20:53] LABS: Glucose, Whole Blood 248 mg/dL (60-115)
[2020-06-28 22:00] VITALS: BP 159/95; PULSE 74; TEMP 35.8
--- NOTE | 2020-06-28 22:08 | P.PNPSI_ITS ---
Subjective Subjective Date of Service: 06/28/20 Reason For Visit: SUICIDAL IDEATION Subjective Notes: Conditional Voluntary Interim History: patient severe anxiety tormented seems more confused not sure where she is more concerned about her why she is here etc agitated suspicious Medication Compliance: Yes Mental Status Exam Mental Status Exam Patient Appearance: Appropriate Patient Orientation: Person and Situation (hospital) Level of Consciousness: Awake Mood Description: Depressed, Anxious and Sad Affect Description: Depressed and Nervous Speech Pattern: Perseverating and Impoverished Thought Content: positive for Obsessional Thoughts and positive for Poverty of Content Depressive Symptoms: Increased Anxiety, Increased Irritability and Crying Spells Judgement: Poor Diagnostics Vital Signs (24Hr): Vital Signs - 24 hr 06/28/20 06:45 06/28/20 08:24 06/28/20 19:33 Temperature 98.2 F Pulse Rate 67 67 121 H Respiratory Rate 16 Blood Pressure 155/74 H 155/74 H 162/97 H Pulse Oximetry 97 Body Mass Index 31.1 Labs Results: 06/17/20 20:48 06/22/20 08:01 Labs: Laboratory Results - last 48 hr 06/27/20 06/27/20 06/27/20 06:13 11:12 17:34 POC Glucose 129 H 134 H 221 H 06/27/20 06/28/20 06/28/20 21:14 06:41 11:28 POC Glucose 188 H 101 200 H 06/28/20 06/28/20 16:20 19:43 POC Glucose 175 H 248 H Medications Medications Current Medications Generic Name Dose Route Start Last Admin Trade Name Freq PRN Reason Stop Dose Admin Acetaminophen 650 mg 06/19/20 11:46 Acetaminophen 325 Mg Tablet PO Q6H PRN Headache/Pain Mild Scale (1-3) Acyclovir 1 gm 06/24/20 18:00 06/28/20 20:55 Acyclovir 5 % Oint 15 Gm Tube TOPICAL Not Given 5XD SUZANNE Al Hydroxide/Mg Hydroxide 30 ml 06/18/20 15:58 Magnesium Hydrox/Alum Hydrox 30 Ml Oral.Susp PO QID PRN Heartburn Al Hydroxide/Mg Hydroxide 30 ml 06/19/20 11:46 Magnesium Hydrox/Alum Hydrox 30 Ml Oral.Susp PO Q6H PRN Heartburn/Nausea Atorvastatin Calcium 10 mg 06/18/20 21:00 06/28/20 19:33 Atorvastatin Calcium 10 Mg Tablet PO 10 mg BEDTIME SUZANNE Administration Divalproex Sodium 125 mg 06/27/20 21:00 06/28/20 19:31 Divalproex Sodium 125 Mg Tablet.Dr PO 125 mg BID SUZANNE Administration Hydroxyzine HCl 25 mg 06/19/20 11:46 Hydroxyzine Hcl 25 Mg Tablet PO BEDTIME PRN Anxiety Insulin Glargine 30 unit 06/18/20 15:45 06/28/20 09:07 Insulin Glargine,Hum.Rec.Anlog 100 Unit/Ml 10 Ml Vial SUBCUT 30 unit DAILY SUZANNE Administration Insulin Human Lispro 0 unit 06/27/20 11:30 06/28/20 19:51 Insulin Lispro 100 Unit/Ml 3 Ml Vial SUBCUT Not Given QIDACHS [facility] Protocol Lorazepam 0.5 mg 06/25/20 11:26 06/28/20 16:22 Lorazepam 0.5 Mg Tablet PO 0.5 mg Q2H PRN Administration anxiety/restlessness Magnesium Hydroxide 30 ml 06/19/20 11:46 Milk Of Magnesia 30 Ml Oral.Susp PO DAILY PRN Constipation Metformin HCl 500 mg 06/19/20 08:00 06/28/20 19:12 Metformin Hcl Er 500 Mg Tab.Er.24h PO Not Given BIDWM SUZANNE Metoprolol Tartrate 25 mg 06/18/20 21:00 06/28/20 19:33 Metoprolol Tartrate 25 Mg Tablet PO 25 mg BID SUZANNE Administration Protocol Mirtazapine 7.5 mg 06/24/20 21:00 06/28/20 19:32 Mirtazapine 7.5 Mg Tablet PO 7.5 mg BEDTIME SUZANNE Administration Nystatin 1 appl 06/18/20 21:00 06/28/20 20:55 Nystatin Powder 15 Gm Bottle TOPICAL Not Given BID SUZANNE Protocol Olanzapine 2.5 mg 06/28/20 16:05 06/28/20 16:22 Olanzapine 2.5 Mg Tablet PO 2.5 mg Q4H PRN Administration anxiety/restlessness Olanzapine 5 mg 06/28/20 21:00 06/28/20 19:33 Olanzapine 2.5 Mg Tablet PO 5 mg BEDTIME SUZANNE Administration Trazodone HCl 25 mg 06/19/20 12:01 Trazodone Hcl 25 Mg Halftab PO BEDTIME PRN Insomnia Venlafaxine HCl 75 mg 06/28/20 09:00 06/28/20 08:23 Venlafaxine Hcl Er 75 Mg Cap.Er.24h PO 75 mg DAILY SUZANNE Administration Allergies Allergies Allergy/AdvReac Type Severity Reaction Status Date / Time Sulfa (Sulfonamide Allergy Unknown Verified 06/17/20 18:54 Antibiotics) Assessment & Plan Assessment & Plan (1) Major depression with psychotic features: Status: Acute Code(s): F32.3 - Major depressive disorder, single episode, severe with psychotic features Assessment and Plan: patient becoming more anxious and dysphoric unclear if related to being in a different environment lower Effexor Seroquel changed to Zyprexa (2) Dementia, senile with depression: Status: Acute Code(s): F03.90 - Unspecified dementia without behavioral disturbance Greater than 50% of the session was spent on counseling and/or coordination of care
[2020-06-29 07:00] VITALS: BP 130/60; PULSE 67; RESP 16; TEMP 36.6; O2SAT 97
[2020-06-29 07:04] LABS: Glucose, Whole Blood 114 mg/dL (60-115)
[2020-06-29] MEDS: Acyclovir 5 % Oint 15 GM TUBE TOPICAL ×5 (07:10→21:45)
[2020-06-29] MEDS: metFORMIN HCl ER 500 MG TAB.ER.24H PO ×2 (09:04→17:25)
[2020-06-29 09:05] VITALS: BP 130/60; PULSE 67
[2020-06-29] MEDS: Venlafaxine HCl ER 75 MG CAP.ER.24H PO (09:05)
[2020-06-29] MEDS: Metoprolol Tartrate 25 MG TABLET PO ×2 (09:05→21:39)
--- NOTE | 2020-06-29 10:08 | P.PNPSI_ITS ---
Subjective Subjective Date of Service: 06/29/20 Reason For Visit: SUICIDAL IDEATION Subjective Notes: Conditional Voluntary Interim History: patient had been severely agitated suspicious confused. Much calmer with or olanzapine and mirtazapine. Patient was quite sedated today may need to decrease olanzapine /mirtazapine remains on one-to-one for safety Medication Compliance: Yes Side effects from medications: Yes Mental Status Exam Mental Status Exam Patient Appearance: Disheveled Patient Orientation: Person Level of Consciousness: Drowsy Patient Behavior: Suspicious, Anxious and Sedated Mood Description: Depressed, Anxious and Sad Affect Description: Depressed and Nervous Speech Pattern: Perseverating and Impoverished Thought Content: positive for Obsessional Thoughts and positive for Poverty of Content Depressive Symptoms: Increased Anxiety, Increased Irritability and Crying Spells Judgement: Poor Diagnostics Vital Signs (24Hr): Vital Signs - 24 hr 06/28/20 19:33 06/28/20 22:00 06/29/20 07:00 Temperature 96.4 F L 97.8 F Pulse Rate 121 H 74 67 Respiratory Rate 16 Blood Pressure 162/97 H 159/95 H 130/60 Pulse Oximetry 97 06/29/20 09:05 Temperature Pulse Rate 67 Respiratory Rate Blood Pressure 130/60 Pulse Oximetry Body Mass Index 31.1 Labs Results: 06/17/20 20:48 06/29/20 16:46 Labs: Laboratory Results - last 48 hr 06/27/20 06/27/20 06/27/20 11:12 17:34 21:14 POC Glucose 134 H 221 H 188 H 06/28/20 06/28/20 06/28/20 06:41 11:28 16:20 POC Glucose 101 200 H 175 H 06/28/20 06/29/20 19:43 06:54 POC Glucose 248 H 114 Medications Medications Current Medications Generic Name Dose Route Start Last Admin Trade Name Freq PRN Reason Stop Dose Admin Acetaminophen 650 mg 06/19/20 11:46 Acetaminophen 325 Mg Tablet PO Q6H PRN Headache/Pain Mild Scale (1-3) Acyclovir 1 gm 06/24/20 18:00 06/29/20 09:15 Acyclovir 5 % Oint 15 Gm Tube TOPICAL 1 gm 5XD SUZNANE Administration Al Hydroxide/Mg Hydroxide 30 ml 06/18/20 15:58 Magnesium Hydrox/Alum Hydrox 30 Ml Oral.Susp PO QID PRN Heartburn Al Hydroxide/Mg Hydroxide 30 ml 06/19/20 11:46 Magnesium Hydrox/Alum Hydrox 30 Ml Oral.Susp PO Q6H PRN Heartburn/Nausea Atorvastatin Calcium 10 mg 06/18/20 21:00 06/28/20 19:33 Atorvastatin Calcium 10 Mg Tablet PO 10 mg BEDTIME SUZANNE Administration Divalproex Sodium 125 mg 06/27/20 21:00 06/29/20 09:05 Divalproex Sodium 125 Mg Tablet.Dr PO 125 mg BID SUZANNE Administration Hydroxyzine HCl 25 mg 06/19/20 11:46 Hydroxyzine Hcl 25 Mg Tablet PO BEDTIME PRN Anxiety Insulin Glargine 30 unit 06/18/20 15:45 06/29/20 09:17 Insulin Glargine,Hum.Rec.Anlog 100 Unit/Ml 10 Ml Vial SUBCUT Not Given DAILY [facility] Insulin Human Lispro 0 unit 06/27/20 11:30 06/29/20 09:16 Insulin Lispro 100 Unit/Ml 3 Ml Vial SUBCUT Not Given QIDACHS [facility] Protocol Magnesium Hydroxide 30 ml 06/19/20 11:46 Milk Of Magnesia 30 Ml Oral.Susp PO DAILY PRN Constipation Metformin HCl 500 mg 06/19/20 08:00 06/29/20 09:04 Metformin Hcl Er 500 Mg Tab.Er.24h PO 500 mg BIDWM SUZANNE Administration Metoprolol Tartrate 25 mg 06/18/20 21:00 06/29/20 09:05 Metoprolol Tartrate 25 Mg Tablet PO 25 mg BID SUZANNE Administration Protocol Mirtazapine 7.5 mg 06/24/20 21:00 06/28/20 19:32 Mirtazapine 7.5 Mg Tablet PO 7.5 mg BEDTIME SUZANNE Administration Nystatin 1 appl 06/18/20 21:00 06/29/20 09:19 Nystatin Powder 15 Gm Bottle TOPICAL Not Given BID [facility] Protocol Olanzapine 2.5 mg 06/28/20 16:05 06/28/20 16:22 Olanzapine 2.5 Mg Tablet PO 2.5 mg Q4H PRN Administration anxiety/restlessness Olanzapine 5 mg 06/28/20 21:00 06/28/20 19:33 Olanzapine 2.5 Mg Tablet PO 5 mg BEDTIME SUZANNE Administration Olanzapine 2.5 mg 06/29/20 10:04 Olanzapine 2.5 Mg Tablet PO Q6H PRN Anxiety Trazodone HCl 25 mg 06/19/20 12:01 Trazodone Hcl 25 Mg Halftab PO BEDTIME PRN Insomnia Venlafaxine HCl 37.5 mg 06/30/20 09:00 Venlafaxine Hcl Er 75 Mg Cap.Er.24h PO DAILY SUZANNE Allergies Allergies Allergy/AdvReac Type Severity Reaction Status Date / Time Sulfa (Sulfonamide Allergy Unknown Verified 06/17/20 18:54 Antibiotics) Assessment & Plan Assessment & Plan (1) Major depression with psychotic features: Status: Acute Code(s): F32.3 - Major depressive disorder, single episode, severe with psychotic features Assessment and Plan: patient was somewhat sedated today encourage food and fluid id if remains sedated lower olanzapine /mirtazapine but does seem improved (2) Dementia, senile with depression: Status: Acute Code(s): F03.90 - Unspecified dementia without behavioral disturbance Greater than 50% of the session was spent on counseling and/or coordination of care
[2020-06-29 11:28] LABS: Glucose, Whole Blood 146 mg/dL (60-115)
[2020-06-29 17:12] LABS: Anion Gap 11 (12-20); Carbon Dioxide 34 mmol/L (22-29); Chloride 102 mmol/L (96-108); Potassium 4.7 mmol/l (3.3-5.1); Sodium 142 mmol/L (135-145)
[2020-06-29 17:30] LABS: Glucose, Whole Blood 132 mg/dL (60-115)
[2020-06-29 21:36] LABS: Glucose, Whole Blood 194 mg/dL (60-115)
[2020-06-29] MEDS: OLANZapine 2.5 MG TABLET 5 MG PO (21:36)
[2020-06-29] MEDS: Atorvastatin Calcium 10 MG TABLET PO (21:37)
[2020-06-29] MEDS: Mirtazapine 7.5 MG TABLET PO (21:37)
[2020-06-29] MEDS: Insulin Lispro 100 UNIT/ML 3 ML VIAL SUBCUT (21:38)
[2020-06-29 21:39] VITALS: BP 162/73; PULSE 74
[2020-06-29] MEDS: Nystatin Powder 15 GM BOTTLE 1 APPL TOPICAL (21:45)
[2020-06-29 21:49] VITALS: BP 162/73; PULSE 74; TEMP 35.7
[2020-06-30 06:45] VITALS: BP 143/65; PULSE 60; RESP 18; TEMP 36.6; O2SAT 97
[2020-06-30 06:49] LABS: Glucose, Whole Blood 131 mg/dL (60-115)
[2020-06-30 08:28] VITALS: BP 143/65; PULSE 74
[2020-06-30] MEDS: Metoprolol Tartrate 25 MG TABLET PO ×2 (08:28→20:32)
[2020-06-30] MEDS: Venlafaxine HCl ER 37.5 MG CAP.ER.24H PO (08:28)
[2020-06-30] MEDS: Insulin Glargine,Hum.rec.anlog 100 UNIT/ML 10 ML VIAL 30 UNIT SUBCUT (08:30)
[2020-06-30] MEDS: metFORMIN HCl ER 500 MG TAB.ER.24H PO ×2 (09:01→17:26)
[2020-06-30] MEDS: Acyclovir 5 % Oint 15 GM TUBE TOPICAL ×5 (09:03→21:14)
--- NOTE | 2020-06-30 09:48 | P.PNPSI_ITS ---
Subjective Subjective Date of Service: 06/30/20 Reason For Visit: SUICIDAL IDEATION Subjective Notes: Conditional Voluntary and 3 Day Interim History: PATIENT WITH PERIODS OF IRRITABILITY AGITATION SEEMS LESS DEPRESSED NOT TALKING ABOUT SUICIDE NEEDS MUCH REASSURANCE REGARDING HER DAUGHTER AND DOES RESPOND TO REASSURANCE AT TIMES PATIENT MORE STABLE AWARE OF DISCHARGE FOR TOMORROW Medication Compliance: Intermittent Side effects from medications: Yes Mental Status Exam Mental Status Exam Narrative: PATIENT STATES SHE KNOWS SHE IS ORNERY Patient Appearance: Disheveled Patient Orientation: Person Level of Consciousness: Awake Patient Behavior: Suspicious, Restless, Anxious and Distractible Mood Description: Suspicious, Depressed, Anxious, Labile and Angry Affect Description: Depressed and Nervous Speech Pattern: Perseverating and Impoverished Thought Content: positive for Obsessional Thoughts and positive for Poverty of Content Depressive Symptoms: Increased Anxiety, Increased Irritability and Crying Spells Judgement: Poor Diagnostics Vital Signs (24Hr): Vital Signs - 24 hr 06/29/20 21:39 06/29/20 21:49 06/30/20 06:45 Temperature 96.3 F L 97.9 F Pulse Rate 74 74 60 Respiratory Rate 18 Blood Pressure 162/73 H 162/73 H 143/65 H Pulse Oximetry 97 06/30/20 08:28 Temperature Pulse Rate 74 Respiratory Rate Blood Pressure 143/65 H Pulse Oximetry Body Mass Index 31.1 Labs Results: 06/17/20 20:48 06/29/20 16:46 Labs: Laboratory Results - last 48 hr 06/28/20 06/28/20 06/28/20 11:28 16:20 19:43 Sodium Potassium Chloride Carbon Dioxide Anion Gap POC Glucose 200 H 175 H 248 H 06/29/20 06/29/20 06/29/20 06:54 11:25 16:46 Sodium 142 Potassium 4.7 Chloride 102 Carbon Dioxide 34 H Anion Gap 11 L POC Glucose 114 146 H 06/29/20 06/29/20 06/30/20 17:09 21:25 06:28 Sodium Potassium Chloride Carbon Dioxide Anion Gap POC Glucose 132 H 194 H 131 H Medications Medications Current Medications Generic Name Dose Route Start Last Admin Trade Name Freq PRN Reason Stop Dose Admin Acetaminophen 650 mg 06/19/20 11:46 Acetaminophen 325 Mg Tablet PO Q6H PRN Headache/Pain Mild Scale (1-3) Acyclovir 1 gm 06/24/20 18:00 06/30/20 09:03 Acyclovir 5 % Oint 15 Gm Tube TOPICAL 1 gm 5XD SUZANNE Administration Al Hydroxide/Mg Hydroxide 30 ml 06/18/20 15:58 Magnesium Hydrox/Alum Hydrox 30 Ml Oral.Susp PO QID PRN Heartburn Al Hydroxide/Mg Hydroxide 30 ml 06/19/20 11:46 Magnesium Hydrox/Alum Hydrox 30 Ml Oral.Susp PO Q6H PRN Heartburn/Nausea Atorvastatin Calcium 10 mg 06/18/20 21:00 06/29/20 21:37 Atorvastatin Calcium 10 Mg Tablet PO 10 mg BEDTIME SUZANNE Administration Divalproex Sodium 125 mg 06/27/20 21:00 06/30/20 08:28 Divalproex Sodium 125 Mg Tablet.Dr PO 125 mg BID SUZANNE Administration Hydroxyzine HCl 25 mg 06/19/20 11:46 Hydroxyzine Hcl 25 Mg Tablet PO BEDTIME PRN Anxiety Insulin Glargine 30 unit 06/18/20 15:45 06/30/20 08:30 Insulin Glargine,Hum.Rec.Anlog 100 Unit/Ml 10 Ml Vial SUBCUT 30 unit DAILY SUZANNE Administration Insulin Human Lispro 0 unit 06/27/20 11:30 06/30/20 08:33 Insulin Lispro 100 Unit/Ml 3 Ml Vial SUBCUT Not Given QIDACHS [facility] Protocol Magnesium Hydroxide 30 ml 06/19/20 11:46 Milk Of Magnesia 30 Ml Oral.Susp PO DAILY PRN Constipation Metformin HCl 500 mg 06/19/20 08:00 06/30/20 09:01 Metformin Hcl Er 500 Mg Tab.Er.24h PO 500 mg BIDWM SUZANNE Administration Metoprolol Tartrate 25 mg 06/18/20 21:00 06/30/20 08:28 Metoprolol Tartrate 25 Mg Tablet PO 25 mg BID SUZANNE Administration Protocol Mirtazapine 7.5 mg 06/24/20 21:00 06/29/20 21:37 Mirtazapine 7.5 Mg Tablet PO 7.5 mg BEDTIME SUZANNE Administration Nystatin 1 appl 06/18/20 21:00 06/30/20 09:02 Nystatin Powder 15 Gm Bottle TOPICAL Not Given BID SUZANNE Protocol Olanzapine 5 mg 06/28/20 21:00 06/29/20 21:36 Olanzapine 2.5 Mg Tablet PO 5 mg BEDTIME SUZANNE Administration Olanzapine 2.5 mg 06/29/20 10:04 Olanzapine 2.5 Mg Tablet PO Q6H PRN Anxiety Trazodone HCl 25 mg 06/19/20 12:01 Trazodone Hcl 25 Mg Halftab PO BEDTIME PRN Insomnia Venlafaxine HCl 37.5 mg 06/30/20 09:00 06/30/20 08:28 Venlafaxine Hcl Er 37.5 Mg Cap.Er.24h PO 37.5 mg DAILY SUZANNE Administration Allergies Allergies Allergy/AdvReac Type Severity Reaction Status Date / Time Sulfa (Sulfonamide Allergy Unknown Verified 06/17/20 18:54 Antibiotics) Assessment & Plan Assessment & Plan (1) Major depression with psychotic features: Status: Acute Code(s): F32.3 - Major depressive disorder, single episode, severe with psychotic features Assessment and Plan: PATIENT SEEMS BETTER ON MIRTAZAPINE AND OLANZAPINE RETURN TO [facility] FACILITY TOMORROW NO ACTIVE SELF-HARM Greater than 50% of the session was spent on counseling and/or coordination of care
[2020-06-30 11:08] LABS: Creatinine Clr Calc Pharmacy 71.1; Estimated Glomerular Filt Rate > 60
[2020-06-30 12:04] LABS: Glucose, Whole Blood 209 mg/dL (60-115)
[2020-06-30] MEDS: Insulin Lispro 100 UNIT/ML 3 ML VIAL SUBCUT ×3 (12:19→21:13)
[2020-06-30 17:05] LABS: Glucose, Whole Blood 178 mg/dL (60-115)
[2020-06-30 20:24] VITALS: BP 141/94; PULSE 110; RESP 18; TEMP 36.6; O2SAT 97
[2020-06-30 20:32] VITALS: BP 141/94; PULSE 110
[2020-06-30] MEDS: OLANZapine 2.5 MG TABLET 5 MG PO (20:32)
[2020-06-30] MEDS: Atorvastatin Calcium 10 MG TABLET PO (20:33)
[2020-06-30] MEDS: Nystatin Powder 15 GM BOTTLE 1 APPL TOPICAL (20:33)
[2020-06-30] MEDS: Mirtazapine 7.5 MG TABLET PO (20:33)
[2020-06-30 22:03] LABS: Glucose, Whole Blood 267 mg/dL (60-115)
[2020-07-01 06:38] LABS: Glucose, Whole Blood 128 mg/dL (60-115)
[2020-07-01 09:12] VITALS: BP 154/86; PULSE 83
[2020-07-01] MEDS: Venlafaxine HCl ER 37.5 MG CAP.ER.24H PO (09:12)
[2020-07-01] MEDS: Metoprolol Tartrate 25 MG TABLET PO (09:12)
[2020-07-01] MEDS: metFORMIN HCl ER 500 MG TAB.ER.24H PO (09:12)
[2020-07-01] MEDS: Insulin Glargine,Hum.rec.anlog 100 UNIT/ML 10 ML VIAL 30 UNIT SUBCUT (10:34)
[2020-07-01] MEDS: Insulin Lispro 100 UNIT/ML 3 ML VIAL SUBCUT (12:30)
[2020-07-01 12:32] LABS: Glucose, Whole Blood 200 mg/dL (60-115)
--- NOTE | 2020-07-01 21:25 | PM.PSYDC ---
DS: Providers Provider Date of Service: 07/01/20 Date of admission: 06/18/20 17:23 Primary care physician: Unknown Physician DS: Diagnosis Discharge Diagnosis (1) Major depression with psychotic features: Status: Deleted DS: Medications Discharge Medications Home Medications: Home Medications Medication Instructions Recorded Confirmed Invokana 1 tab PO DAILY 06/17/20 07/05/20 acetaminophen 650 mg PO Q6H PRN 06/17/20 07/05/20 aluminm,mag xug-zmhlhud-flyrxh 30 ml PO Q4H PRN 06/17/20 07/05/20 atorvastatin 1 tab PO BEDTIME 06/17/20 07/05/20 insulin aspart U-100 See Protocol SUBCUT TID 06/17/20 07/05/20 metoprolol tartrate 12.5 mg PO BID 06/17/20 07/05/20 nystatin [Nystop] 1 appl TOPICAL BID 06/17/20 07/05/20 cholecalciferol (vitamin D3) 4,000 unit DAILY 07/05/20 07/05/20 melatonin 3 mg PO BEDTIME 07/05/20 07/05/20 metformin 1 tab PO BID 07/05/20 07/05/20 Previous Rx's Medication Instructions Recorded divalproex 125 mg PO BID #60 tab 07/01/20 mirtazapine 7.5 mg PO BEDTIME #30 tab 07/01/20 venlafaxine 37.5 mg PO DAILY #30 cap 07/01/20 Lantus Solostar U-100 Insulin 25 unit SUBCUT DAILY #0 ml 07/28/20 quetiapine 25 mg PO BID 30 Days #60 tab 07/28/20 Discharge Plan Discharge Patient Disposition: Xfer SNF Referrals: Physician,Unknown [Primary Care Provider] - Discharge Medications: New divalproex 125 mg Tablet,Delayed Release (Dr/Ec) 125 mg PO BID Qty: 60 RF: 0 mirtazapine 7.5 mg Tablet 7.5 mg PO BEDTIME Qty: 30 RF: 0 venlafaxine 37.5 mg Capsule,Extended Release 24hr 37.5 mg PO DAILY Qty: 30 RF: 0 Continued atorvastatin 10 mg tablet 1 tab PO BEDTIME RF: 0 nystatin [Nystop] 100,000 unit/gram powder 1 appl topical BID RF: 0 metoprolol tartrate 25 mg tablet 12.5 mg PO BID RF: 0 Invokana 100 mg tablet 1 tab PO DAILY RF: 0 insulin aspart U-100 See Protocol sliding scale dose subcut TID RF: 0 aluminm,mag uix-lwgfpiw-tnoeag suspension 30 ml PO Q4H PRN (Reason: Heartburn) RF: 0 acetaminophen 325 mg Tablet 650 mg PO Q6H PRN (Reason: Pain) RF: 0 Discontinued quetiapine 25 mg tablet 1 tab PO DAILY RF: 0 venlafaxine 75 mg tablet 1 tab PO DAILY RF: 0 quetiapine 50 mg tablet 1 tab PO BEDTIME RF: 0 No Action metformin 500 mg tablet 1 tab PO BID RF: 0 melatonin 3 mg Tablet 3 mg PO BEDTIME RF: 0 cholecalciferol (vitamin D3) 100 mcg (4,000 unit) Tablet 4,000 unit DAILY RF: 0 quetiapine 25 mg Tablet 25 mg PO BID 30 Days Qty: 60 RF: 0 Lantus Solostar U-100 Insulin 100 unit/mL (3 mL) insulin pen 25 unit subcut DAILY Qty: 0 RF: 0 Discharge Orders: Discharge Order (Routine); Ordered 07/01/20 Ordered By: Servando Desai Diet: advance to usual diet and diabetic diet Activity on Discharge: As tolerated Stand Alone Forms: Community Support Visit Report Forms: Patient Portal Discharge page Care Plan Goals: stable mood less anxiety regarding family maintain safety less agitation Health Concerns: dementia with depression and behavioral problems hypertension diabetes mellitus Plan of Treatment: long term facility started on mirtazapine and Zyprexa appears to have had a good response would taper and discontinue venlafaxine Discharge Date/Time: 07/01/20 15:16 Mental Status Exam Mental Status Exam Patient Appearance: Disheveled Patient Orientation: Person Level of Consciousness: Awake Patient Behavior: Restless Mood Description: Suspicious Affect Description: Anxious and Angry DS: Summary Hospital Course Hospital Course: HPI Chief Complaint: SUICIDAL IDEATION Sources of Information: patient interviewed, chart reviewed and crisis/core team assessment reviewed HPI Narrative: Pt arrived at ED after eloping from SNF by breaking a window and climbing out the . Pt diagnosed with dementia and has been unable to visit with family for 3 months due to COVID. She presents very depressed and tearful; ruminating. Active SI and HI towards her exhusband and his new partner. She believes she is all alone because her left her for another woman. She says this repeatedly during interview and begins to weep. She states all she can do is thin about how she wants to and how she wants to kill her exhusband. She asks can I here? Past Psychiatric History: This is the first inpatient psychiatric admission for this woman who has depression and dementia Medical Evaluation Reviewed: Yes Dementia with behavioral disturbance Diabetes mellitus HTN (hypertension) Hyperlipidemia Vitamin D deficiency [facility] Medical History Dementia with behavioral disturbance Diabetes mellitus HTN (hypertension) Hyperlipidemia Vitamin D deficiency Narrative: lives in a long term facility due to dementia. [facility] dinora Conway is contact Family History: 50 years per pt and ? of separation/divorce unclear two children Jolene Mathew [phone] Son lives in [place] per daughter family hx of mental illness per pt her cousin committed suicide by hanging Social History: lives SNF Substance History: no Trauma History: unknown HOSPITAL COURSE PATIENT [facility] HER MOOD WAS ANXIOUS AND DYSPHORIC EASILY AGITATED NEEDED MUCH REASSURANCE WAS PLACED ON ONE-TO-ONE. PATIENT WAS STATING SHE NEEDED TO BECAUSE HER WAS HAVING AN AFFAIR WITH ANOTHER WOMAN. PATIENT'S CONDITION HAD BEEN EXACERBATED BY THE PANDEMIC SHE COULD NOT GET VISITS FROM HER FAMILY HER DAUGHTER IS HER HEALTHCARE PROXY. THE PATIENT WAS ON SEROQUEL AND EFFEXOR ON ADMISSION. THIS DID NOT APPEAR TO BE HELPFUL THE PATIENT WAS TREATED FOR DIABETES WITH METFORMIN AND INSULIN. SHE WAS STARTED ON DEPAKOTE AND MIRTAZAPINE AND HAD PHONE CONTACT WITH HER DAUGHTER AND REVIEW AND ALTHOUGH SHE STILL HAD THOUGHTS AT TIMES THAT HE WAS HAVING AN AFFAIR SHE SEEMED CALMER GENERALLY AND LESS AGITATED. SHE NEEDED FREQUENT REASSURANCE AND REORIENTATION OLANZAPINE WAS STARTED 2.5 MG AND INCREASE TO 5 MG AT BEDTIME. SHE WAS CALMER LESS AGITATED MUCH LESS IN THE WAY OF ANY AGGRESSIVE OR THREATENING BEHAVIOR OR THREATS TO HARM HERSELF SEEMS SAFE TO RETURN TO FACILITY Time Spent with Patient Time attestation: Total time spent providing and/or coordinating discharge services:
== END 2020-07-01 15:16 | disposition skilled nursing facility (03) | DRG 885 ==
LOC: HO.ED 06-19 11:24 → HO.PM5 06-19 11:37
PROVIDERS: Clinical Nurse Specialist Psychiatric/Mental Health; Nurse Practitioner Family; Admitting Provider Psychiatry & Neurology Psychiatry; Emergency Provider Emergency Medicine; Visit Provider Psychiatry & Neurology Psychiatry
DX: F32.3 Major depressive disorder, single episode, severe with psychotic features (principal); R45.851 Suicidal ideations; F03.91 Unspecified dementia, unspecified severity, with behavioral disturbance; E11.9 Type 2 diabetes mellitus without complications; E78.5 Hyperlipidemia, unspecified; Z20.828 Contact with and (suspected) exposure to other viral communicable diseases; Z79.4 Long term (current) use of insulin; Z79.899 Other long term (current) drug therapy
CPT/HCPCS: 36415; 80048; 80051; 80061; 80076; 80164; 81001; 82565; 82607; 82947; 83036; 84443; 85025; 87635; 90792; 93005; 96372; 97162; 97166; 99232; 99285; J2060

== ENCOUNTER 2020-07-05 13:47 | Inpatient (IN) | payer MEDICARE, MEDICAID, SELFPAY ==
[2020-07-05] VITALS (10 sets, daily range): BP systolic 128–171; BP diastolic 75–101; PULSE 95–115; RESP 17–22; TEMP 35.3–36.7; O2SAT 95–99; BMI 34.2
--- NOTE | 2020-07-05 14:41 | PC.NURSE ---
PT demanding to leave, states she will be come one mean fucking bitch if she is not released. Pt redirected, continues to demand to leave.
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
--- NOTE | 2020-07-05 15:01 | ECG_ITS ---
Test Reason : MEDICAL CLEARANCE Blood Pressure : / mmHG Vent. Rate : 087 BPM Atrial Rate : 087 BPM P-R Int : 178 ms QRS Dur : 142 ms QT Int : 400 ms P-R-T Axes : 029 -58 012 degrees QTc Int : 481 ms Normal sinus rhythm Possible Left atrial enlargement Right bundle branch block Left anterior fascicular block Bifascicular block Abnormal ECG When compared with ECG of 23-JUN-2020 08:25, No significant change was found Referred By: Arvin Bernard Electronically Signed By:Nathan Reyes
--- NOTE | 2020-07-05 15:26 | PC.NURSE ---
ADILENE faxed and called.
[2020-07-05 16:23] LABS: Basophils Percent Auto 0.1 % (0-2); Eosinophils Percent Auto 0.1 % (0-4); Hematocrit 42.9 % (37-47); Hemoglobin 14.3 g/dl (12.0-16.0); Imm Gran Abs Auto 0.02 X10*3/uL (0.00-0.03); Imm Gran Pct Auto 0.3 % (0.0-0.4); Lymphocytes Absolute Auto 3.3 X10*3/uL (1.2-4.9); Lymphocytes Percent Auto 43.2 % (20-40); MANUAL DIFF FLAG NO; Mean Corpuscular HGB Conc 33.3 g/dl (31.0-35.0); Mean Corpuscular Hemoglobin 29.4 pg (27.0-33.0); Mean Corpuscular Volume 88.3 fL (80-98); Mean Platelet Volume 10.7 fL (9.4-12.3); Monocytes Absolute Auto 0.6 X10*3/uL (0.1-1.2); Monocytes Percent Auto 7.2 % (2-11); Neutrophils Absolute Auto 3.8 X10*3/uL (2.0-8.3); Neutrophils Percent Auto 49.1 % (45-73); Platelet Count 206 X10*3/uL (160-400); Red Blood Count 4.86 X10*6/uL (4.20-5.50); Red Cell Distribution Width 13.6 % (11.0-16.0); White Blood Count 7.7 X10*3/uL (4.8-10.8)
[2020-07-05 16:48] LABS: Alanine Aminotransferase 17 U/L (0-31); Albumin Level 4.7 g/dL (3.5-5.0); Alkaline Phosphatase 79 U/L (39-117); Anion Gap 15 (12-20); Aspartate Amino Transferase 14 U/L (5-31); Bilirubin Total 0.6 mg/dL (0.0-1.0); Blood Urea Nitrogen 12 mg/dL (9-16); Calcium 10.1 mg/dL (8.4-10.2); Carbon Dioxide 29 mmol/L (22-29); Chloride 104 mmol/L (96-108); Creatinine Clr Calc Pharmacy 55.1; Estimated Glomerular Filt Rate > 60; Glucose Random 183 mg/dL (60-115); Potassium 4.1 mmol/l (3.3-5.1); Sodium 144 mmol/L (135-145); Total Protein 7.4 g/dL (6.5-8.0)
[2020-07-05 16:54] LABS: Valproate 21.9 mcg/mL (50.0-100.0)
--- NOTE | 2020-07-05 18:16 | PC.NURSE ---
Pt pacing, states she will not eat until her or daughter get here. Explained that she is in the emergency room, pt states so fucking what I want my clothes, you can't hold me prisoner here explained that pt is waiting to speak with crisis, pt unhappy with plan of care.
[2020-07-05 18:17] LABS: Glucose, Whole Blood 176 mg/dL (60-115)
--- NOTE | 2020-07-05 18:32 | PC.NURSE ---
Pt pacing, agitated, threatening staff. Pt offered PRN medication and declined. Verbal redirection ineffective at this time. Provider in to speak with PT, pt continues to escalate and threaten staff.
[2020-07-05] MEDS: OLANZapine 10 MG VIAL 5 MG IM (18:40)
--- NOTE | 2020-07-05 19:18 | PC.NURSE ---
Report received. PT is standing at the nurse's station asking this nurse to call her daughter because she wants to leave. This nurse called and spoke with the daughter who stated that she is working on getting her mother into [facility] in [place], [place]. Daughter was also informed that her mother is waiting to be seen by N.
--- NOTE | 2020-07-05 20:40 | PC.NURSE ---
PT seen by CARE team. Cleared for inpatient psych treatment. Per CARE team, retirement called to ask if they would take her back. longterm staff said they could not take receive PT tonight but they would in the morning.
--- NOTE | 2020-07-05 20:59 | MHC.CARE ---
CARE team contacted [facility] re: pt that was referred for assessment at 1526. [facility] reported that they would not have a clinician available until third shift. CARE team completed assessment with pt. This abstract writer spoke with [facility] charge nurse re: disposition, who spoke with [employer] safety program coordinator (LISANDRA) that stated that pt is not able to return until she is no longer agitated. Pt will remain in [facility] pod overnight, with plan for CARE team to follow up with facility in the morning.
[2020-07-06] VITALS (11 sets, daily range): BP systolic 103–181; BP diastolic 70–109; PULSE 85–108; RESP 16–20; TEMP 36–37.2; O2SAT 96–98
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
[2020-07-06] MEDS: OLANZapine 10 MG VIAL 5 MG IM (00:24)
--- NOTE | 2020-07-06 05:38 | PC.NURSE ---
PT continues to get out of bed and ask for her clothing so she can go home. This nurse informed the PT that the plan was for her to go back to [facility] later today.
--- NOTE | 2020-07-06 07:12 | PC.NURSE ---
Report received. PT currently reading, declined breakfast this morning. Pt to return to [facility] this morning.
[2020-07-06 07:17] LABS: Glucose, Whole Blood 157 mg/dL (60-115)
[2020-07-06] MEDS: Insulin Glargine,Hum.rec.anlog 100 UNIT/ML 10 ML VIAL 30 UNIT SUBCUT (09:43)
[2020-07-06] MEDS: Metoprolol Tartrate 25 MG TABLET 12.5 MG PO ×2 (10:02→20:52)
[2020-07-06] MEDS: metFORMIN HCl 500 MG TABLET PO ×2 (10:04→20:51)
--- NOTE | 2020-07-06 11:36 | MHC.CARE ---
T/W rec call from pts daughter Jolene ([phone]) who was checking on when [facility] was accepting pt back but offered how she was concerned about if pt was still acting agitated. She stated she spoke w her mother via phone this am and she was irritable . T/w met offered to meet w pt in person as well. Pts daughter is the invoked HCP for pt and stated that she is seeking alternate placement for her mother at a facility in [facility] called [facility]. She has been working on this referral due to lack of confidence in [facility]. According to pts daughter after discharge from [address] pt on a different floor than she was located on prior which is unlocked. She believes this is what prompted pts agitation and desire to elope with subsequent behaviors. T/w spoke w CM regarding this case seeking assist in liaison with t his referral as well and any other SNF referrals. T/w left a voicemail for cardiology physician (Ileana Conway [phone]) and await a return call at this time in order to discharge plan. T/w met briefly with pt in person in the pod who was seated near the phone while reading a book quietly. T/w alerted pt that pts daughter and CM and CARE are working on her behalf to help her discharge and to continue her daughters plan to look into alternate placement for which there is no direct timeline for at this time. Pt remains fixated on timelines and discharge immediately.
--- NOTE | 2020-07-06 12:42 | MHC.CM.ED ---
Received notification from [facility] on Care team that patient's daughter is requesting referral to [facility] in [place]. Referral made via [facility]. They have no beds available at this time. Continue to monitor for d/c needs.
[2020-07-06 12:47] LABS: Glucose, Whole Blood 138 mg/dL (60-115)
--- NOTE | 2020-07-06 13:14 | MHC.CARE ---
Second call placed to [facility] regarding if/when pt can return and still awaiting a return call. T/w altered pts HCP pf this which she added has been an issue for her as well. She also stated that the admissions contact Candido at [facility] told her that they did have beds available.
--- NOTE | 2020-07-06 14:45 | MHC.CM.ED ---
Left voicemail for Candido at [facility]. Awaiting return telephone call. Continue to monitor for d/c needs.
--- NOTE | 2020-07-06 15:47 | PC.NURSE ---
Pt reported that her hearing aid was missing. Both hearing aids intact at this time, cleaned. Pt has possession of both hearing aids.
--- NOTE | 2020-07-06 16:29 | MHC.CM.ED ---
Spoke with patient's daughter Jody via telephone. Explained Ryan Gonzales has not contacted T/W thus far and a call isn't expected before tomorrow. Jody verbalized understanding that patient will remain in ER overnight. Continue to monitor for d/c needs.
[2020-07-06 17:43] LABS: Glucose, Whole Blood 144 mg/dL (60-115)
--- NOTE | 2020-07-06 17:45 | PC.NURSE ---
DINNER TRAY GIVEN.
--- NOTE | 2020-07-06 19:27 | PC.NURSE ---
Report received. PT is in good spirits today. Came to the nurse's station to ask for madai roberts. Case management is working with the PT to find living arrangements.
[2020-07-06 20:29] LABS: Glucose, Whole Blood 216 mg/dL (60-115)
[2020-07-06] MEDS: Melatonin 3 MG TABLET PO (20:51)
[2020-07-06] MEDS: Atorvastatin Calcium 10 MG TABLET PO (20:51)
[2020-07-06] MEDS: OLANZapine 5 MG TABLET PO (20:51)
[2020-07-06] MEDS: Mirtazapine 7.5 MG TABLET PO (20:55)
[2020-07-06] MEDS: Nystatin Powder 15 GM BOTTLE 1 APPL TOPICAL (20:59)
[2020-07-06 21:26] LABS: Glucose Urine UA >=1000 MG/DL (NEG); Leukocyte Esterase Urine 1+ (NEG); Nitrite Urine NEG (NEG); Specific Gravity - Urine 1.015 (1.005-1.025); Urine Blood NEG (NEG); Urine Ketones 5 MG/DL (NEG); Urine Protein NEG (NEG-TRACE)
[2020-07-06 21:30] LABS: Appearance Urine HAZY; Color Urine YELLOW
[2020-07-06 21:34] LABS: Bacteria Urine 1+ /LPF; Squamous Epithelial Cell Urine 1+ /LPF
[2020-07-06 21:59] LABS: Amphetamine Screen Urine Not Detected (Not Detect); Barbiturates, Urine Not Detected (Not Detect); Benzodiazepines Screen Urine Not Detected (Not Detect); Cannabinoid Screen Urine Not Detected (Not Detect); Cocaine Screen Urine Not Detected (Not Detect); Opiate Screen Urine Not Detected (Not Detect); Phencyclidine Screen Urine Not Detected (Not Detect)
--- NOTE | 2020-07-07 05:20 | PC.NURSE ---
PT was in good spirits throughout this shift. Fell asleep before midnight and slept for 5-6 hours.
[2020-07-07 06:42] VITALS: BP 147/73; PULSE 74; RESP 17; TEMP 36.2; O2SAT 96
[2020-07-07 08:10] VITALS: BP 171/86; PULSE 83; TEMP 36; O2SAT 98
[2020-07-07 08:10] LABS: Glucose, Whole Blood 130 mg/dL (60-115)
[2020-07-07] MEDS: Insulin Glargine,Hum.rec.anlog 100 UNIT/ML 10 ML VIAL 30 UNIT SUBCUT (08:13)
[2020-07-07] MEDS: Metoprolol Tartrate 25 MG TABLET 12.5 MG PO ×2 (08:14→20:33)
[2020-07-07] MEDS: metFORMIN HCl 500 MG TABLET PO ×2 (08:14→20:33)
[2020-07-07] MEDS: Nystatin Powder 15 GM BOTTLE 1 APPL TOPICAL ×2 (08:20→21:04)
[2020-07-07 09:21] VITALS: RESP 16
--- NOTE | 2020-07-07 11:30 | MHC.CM.ED ---
Spoke with Candido at [facility] in [place]. They do have a bed on their dementia unit. However, their company policy is to quarantine patients before admitting to the unit. They have no beds available for quarantine at this time. Spoke with patient's daughter, Jolene via telephone at [phone]. Above info explained. Jolene would be agreeable to patient returning to [facility], only if she was to be put on a locked unit. Per Bayron at [facility], this would not be possible at this time. Jolene agreeable to referral being broadcasted in [facility], but only to facilities with locked units. Referral made via allscripts. Continue to monitor for d/c needs.
[2020-07-07 12:54] LABS: Glucose, Whole Blood 147 mg/dL (60-115)
[2020-07-07 14:22] VITALS: RESP 16
--- NOTE | 2020-07-07 15:30 | PC.NURSE ---
Report received. Pt asleep at current. Respirations even and unlabored, no signs of distress.
[2020-07-07 16:07] LABS: Glucose, Whole Blood 234 mg/dL (60-115)
[2020-07-07] MEDS: Insulin Lispro 100 UNIT/ML 3 ML VIAL SUBCUT (16:15)
--- NOTE | 2020-07-07 19:59 | PC.NURSE ---
Patient is in milieu watching TV, mood seems pleasant, no distress reported, will continue to monitor.
[2020-07-07 20:33] VITALS: BP 184/115; PULSE 115
[2020-07-07] MEDS: Mirtazapine 7.5 MG TABLET PO (20:33)
[2020-07-07] MEDS: Atorvastatin Calcium 10 MG TABLET PO (20:33)
[2020-07-07 20:38] VITALS: BP 184/115; PULSE 115; RESP 20; TEMP 36.3; O2SAT 96
[2020-07-07] MEDS: OLANZapine 2.5 MG TABLET PO (20:40)
[2020-07-07] MEDS: Melatonin 3 MG TABLET PO (21:05)
--- NOTE | 2020-07-07 21:10 | PC.NURSE ---
Patient tearful, repeatedly saying that her does not love her anymore, stated she hated her daughter for keeping her here and aware from her , inconsolable, compliant with HS PO medication, will continue to monitor.
[2020-07-07] MEDS: OLANZapine 5 MG TABLET PO (21:17)
[2020-07-08] VITALS (8 sets, daily range): BP systolic 127–168; BP diastolic 68–87; PULSE 85–94; RESP 16–20; TEMP 35.8–36.4; O2SAT 95–96
[2020-07-08 07:23] LABS: Glucose, Whole Blood 173 mg/dL (60-115)
--- NOTE | 2020-07-08 07:24 | PC.NURSE ---
Report received from LEYDI Amezcua. Pt awake, alert. Cooperative w/ care.
[2020-07-08] MEDS: metFORMIN HCl 500 MG TABLET PO ×2 (08:03→21:59)
[2020-07-08] MEDS: Metoprolol Tartrate 25 MG TABLET 12.5 MG PO ×2 (08:03→21:59)
[2020-07-08] MEDS: Insulin Glargine,Hum.rec.anlog 100 UNIT/ML 10 ML VIAL 30 UNIT SUBCUT (08:03)
--- NOTE | 2020-07-08 10:28 | PC.NURSE ---
Pt awake, confused, forgetful. Continues to be tearful at times, asking if her left her. Currently sitting in room, reading a book.
[2020-07-08 12:00] LABS: Glucose, Whole Blood 181 mg/dL (60-115)
--- NOTE | 2020-07-08 12:41 | MHC.CM.ED ---
Patient remains in ER. 16 referrals have been sent. 2 are still reviewing. Will reach out to patient's daughter for d/c plan later today. Continue to monitor for d/c needs.
--- NOTE | 2020-07-08 12:59 | MHC.CM.ED ---
Received telephone call from patient's daughter/HCP, Jolene. Jolene is requesting patient be seen for medication assessment. Psych consult ordered by MARK Smith. Jolene states she has been in contact with [email or web address]. They are requesting nursing notes be provided. Updated clinical information provided via allscripts. Continue to monitor for d/c needs.
[2020-07-08 17:04] LABS: Glucose, Whole Blood 207 mg/dL (60-115)
[2020-07-08] MEDS: Insulin Lispro 100 UNIT/ML 3 ML VIAL SUBCUT (17:37)
--- NOTE | 2020-07-08 17:49 | PC.NURSE ---
Pt pleasant, has occasional moments of tearfulness but is able to recover, reading, watching television- humorous at times.
--- NOTE | 2020-07-08 19:26 | PC.NURSE ---
Patient in her room sitting, watching TV quietly, no distress reported, will continue to monitor.
[2020-07-08] MEDS: Melatonin 3 MG TABLET PO (21:59)
[2020-07-08] MEDS: Mirtazapine 7.5 MG TABLET PO (21:59)
[2020-07-08] MEDS: Atorvastatin Calcium 10 MG TABLET PO (22:00)
[2020-07-08] MEDS: OLANZapine 5 MG TABLET PO (22:00)
[2020-07-08] MEDS: Nystatin Powder 15 GM BOTTLE 1 APPL TOPICAL (22:01)
--- NOTE | 2020-07-08 22:04 | PC.NURSE ---
Patient in her room, sitting quietly, no distress verbalized, compliant with HS PO medication, mood pleasant, will continue to monitor.
[2020-07-09] VITALS (8 sets, daily range): BP systolic 125–182; BP diastolic 70–101; PULSE 78–101; RESP 16–20; TEMP 36.3–36.9; O2SAT 95–97
[2020-07-09 00:46] LABS: COVID-19 Test Negative (Negative)
--- NOTE | 2020-07-09 07:04 | PC.NURSE ---
Report received from LEYDI Amezcua. Pt resting, resp unlabored.
[2020-07-09 08:17] LABS: Glucose, Whole Blood 156 mg/dL (60-115)
[2020-07-09] MEDS: metFORMIN HCl 500 MG TABLET PO ×2 (08:20→20:52)
[2020-07-09] MEDS: Metoprolol Tartrate 25 MG TABLET 12.5 MG PO ×2 (08:21→20:52)
[2020-07-09] MEDS: Insulin Glargine,Hum.rec.anlog 100 UNIT/ML 10 ML VIAL 30 UNIT SUBCUT (08:23)
--- NOTE | 2020-07-09 08:58 | PC.NURSE ---
Pt alert, affect even, ate breakfast, cooperative w/ medications, pleasant.
--- NOTE | 2020-07-09 11:37 | PC.NURSE ---
Pt resting in room, no concerns reported.
[2020-07-09 12:02] LABS: Glucose, Whole Blood 171 mg/dL (60-115)
--- NOTE | 2020-07-09 13:48 | PC.NURSE ---
Pt sitting in room, affect even, pt calm, no concerns at this time.
--- NOTE | 2020-07-09 14:38 | MHC.CM.ED ---
Patient remains in ER. Med assesment completed by Miesha Cannon NP. Waiting for consult to be placed in chart. Referral broadcasted with [facility] [place] at daughter's request. Continue to monitor for d/c needs.
--- NOTE | 2020-07-09 15:45 | P.CNPS_ITS ---
History of Present Illness Date of Service: 07/09/2020 Chief Complaint: crisis Reason for Consult: medication evaluation Requesting physician: Gemma Jacob Discussed with referring provider: No Sources of Information: patient interviewed and chart reviewed HPI Narrative: patient is a 75 year old female with history of dementia currently in area of ED following aggressive behaviors and attempting to elope from SNF. Of note patient [facility] [place] [facility] [place] the last week. Initially patient with some aggression, though isolated to first day of being here, remainder of the time has been in behavioral control with no episodes of agitation or aggression. When seen by this junior technical writer patient was awake, alert and pleasant. Asking to return to the assisted where she came from as she likes it there. Past Psychiatric History: One psychiatric admission as noted in HPI Medical Evaluation Reviewed: Yes Review of Systems Constitutional: Reports as per HPI and Reports no additional constitutional complaints [facility] Medical History Dementia with behavioral disturbance Diabetes mellitus HTN (hypertension) Hyperlipidemia Vitamin D deficiency Family History: 50 years per pt and ? of separation/divorce unclear two children Jolene Mathew [phone] Son lives in [place] per daughter family hx of mental illness per pt her cousin committed suicide by hanging Social History: lives [facility] Trauma History: unknown Diagnostics Vital Signs (24Hr): Vital Signs - 24 hr 07/08/20 16:29 07/08/20 18:00 07/08/20 21:56 Temperature 97 F 97.1 F Pulse Rate 94 85 Respiratory Rate 18 20 18 Blood Pressure 168/87 H 139/77 Pulse Oximetry 96 95 07/08/20 21:59 07/09/20 05:46 07/09/20 08:21 Temperature 97.6 F Pulse Rate 85 78 89 Respiratory Rate 16 Blood Pressure 139/77 125/70 167/101 H Pulse Oximetry 97 07/09/20 08:28 07/09/20 12:00 07/09/20 15:27 Temperature 98.5 F 97.3 F Pulse Rate 95 Respiratory Rate 20 20 Blood Pressure 167/101 H 182/88 H Pulse Oximetry 96 97 Body Mass Index 34.2 Labs Results: 07/05/20 16:15 07/05/20 16:15 Labs: Laboratory Results - last 48 hr 07/07/20 07/08/20 07/08/20 16:04 07:15 11:56 POC Glucose 234 H 173 H 181 H COVID-19 (OESI) COVID-19 Clin Com 07/08/20 07/09/20 07/09/20 17:01 00:20 08:14 POC Glucose 207 H 156 H COVID-19 (OSEI) Negative COVID-19 Clin Com See Note 07/09/20 11:58 POC Glucose 171 H COVID-19 (OSEI) COVID-19 Clin Com Mental Status Exam Mental Status Exam Patient Appearance: Well Grooomed and Appropriate Patient Orientation: Person and Place Level of Consciousness: Awake, Appropriate and Alert Patient Behavior: Appropriate and Talkative Mood Description: Calm and Appropriate Affect Description: Calm and Appropriate Speech Pattern: Clear Hallucinations: None Delusions: Not Present Thought Process: Goal Oriented Thought Content: positive for Intact Judgement: Fair (limited ) Medications Medications Current Medications Generic Name Dose Route Start Last Admin Trade Name Freq PRN Reason Stop Dose Admin Acetaminophen 650 mg 07/06/20 00:50 Acetaminophen 325 Mg Tablet PO Q6H PRN Pain Al Hydroxide/Mg Hydroxide 30 ml 07/06/20 00:50 Magnesium Hydrox/Alum Hydrox 30 Ml Oral.Susp PO Q4H PRN Heartburn Atorvastatin Calcium 10 mg 07/06/20 01:00 07/08/20 22:00 Atorvastatin Calcium 10 Mg Tablet PO 10 mg BEDTIME SUZANNE Administration Divalproex Sodium 125 mg 07/06/20 01:00 07/09/20 08:20 Divalproex Sodium 125 Mg Tablet. PO 125 mg BID SUZANNE Administration Insulin Glargine 30 unit 07/06/20 09:00 07/09/20 08:23 Insulin Glargine,Hum.Rec.Anlog 100 Unit/Ml 10 Ml Vial SUBCUT 30 unit DAILY SUZANNE Administration Insulin Human Lispro 0 unit 07/06/20 07:30 07/09/20 12:37 Insulin Lispro 100 Unit/Ml 3 Ml Vial SUBCUT Not Given TIDAC SUZANNE Melatonin 3 mg 07/06/20 01:00 07/08/20 21:59 Melatonin 3 Mg Tablet PO 3 mg BEDTIME SUZANNE Administration Metformin HCl 500 mg 07/06/20 01:00 07/09/20 08:20 Metformin Hcl 500 Mg Tablet PO 500 mg BID SUZANNE Administration Metoprolol Tartrate 12.5 mg 07/06/20 01:00 07/09/20 08:21 Metoprolol Tartrate 25 Mg Tablet PO 12.5 mg BID SUZANNE Administration Protocol Mirtazapine 7.5 mg 07/06/20 01:00 07/08/20 21:59 Mirtazapine 7.5 Mg Tablet PO 7.5 mg BEDTIME SUZANNE Administration Nystatin 1 appl 07/06/20 01:00 07/09/20 10:30 Nystatin Powder 15 Gm Bottle TOPICAL Not Given BID SUZANNE Protocol Olanzapine 2.5 mg 07/06/20 00:50 07/07/20 20:40 Olanzapine 2.5 Mg Tablet PO 2.5 mg DAILY PRN Administration Anxiety Olanzapine 5 mg 07/06/20 01:00 07/08/20 22:00 Olanzapine 5 Mg Tablet PO 5 mg BEDTIME SUZANNE Administration Allergies Allergies Allergy/AdvReac Type Severity Reaction Status Date / Time Sulfa (Sulfonamide Allergy Unknown Verified 06/17/20 18:54 Antibiotics) Assessment & Plan Assessment & Plan (1) Dementia with behavioral disturbance: Status: Acute Code(s): F03.91 - Unspecified dementia with behavioral disturbance Recommendations: at this time no medication change recommendations Greater than 50% of the session was spent on counseling and/or coordination of care
--- NOTE | 2020-07-09 15:46 | PC.NURSE ---
Pt in and out of room, continues to be pleasant, making jokes occasionally.
--- NOTE | 2020-07-09 16:29 | MHC.CM.ED ---
Patient seen by Miesha Cannon, applied psychology professor. No medication changes are recommended at this time. Referral has been broadcasted within 50 miles. No bed offers have been made yet. Spoke with patient's daughter, Jolene via telephone at [phone]. Jolene is requesting patient return to [facility]. Clinical updates sent via [employer]. Continue to monitor for d/c needs.
[2020-07-09 17:25] LABS: Glucose, Whole Blood 251 mg/dL (60-115)
[2020-07-09] MEDS: Insulin Lispro 100 UNIT/ML 3 ML VIAL SUBCUT (18:22)
--- NOTE | 2020-07-09 18:31 | PC.NURSE ---
Pt out in common area, eating dinner. Pleasant, cooperative w/ care. Had one episode or urgency/incontinence of stool, no further episodes since.
--- NOTE | 2020-07-09 19:30 | PC.NURSE ---
Report received. Pt resting in bed. No signs of distress.
[2020-07-09 20:20] LABS: Glucose, Whole Blood 270 mg/dL (60-115)
[2020-07-09] MEDS: OLANZapine 5 MG TABLET PO (20:51)
[2020-07-09] MEDS: Atorvastatin Calcium 10 MG TABLET PO (20:51)
[2020-07-09] MEDS: Melatonin 3 MG TABLET PO (20:52)
[2020-07-09] MEDS: Mirtazapine 7.5 MG TABLET PO (20:52)
--- NOTE | 2020-07-09 21:17 | PC.NURSE ---
Pt asleep at current. No signs of distress. Respirations even and unlabored.
[2020-07-09] MEDS: Nystatin Powder 15 GM BOTTLE 1 APPL TOPICAL (22:38)
--- NOTE | 2020-07-09 22:48 | PC.NURSE ---
Pt asleep at current, no signs of distress, respirations even and unlabored.
--- NOTE | 2020-07-09 23:35 | PC.NURSE ---
Report received. PT is standing at the nurse's station stating that she cannot sleep. Calm and cooperative. Case management is assisting this PT with placement.
[2020-07-10] VITALS (7 sets, daily range): BP systolic 135–154; BP diastolic 72–93; PULSE 85–111; RESP 16–18; TEMP 35.8–36.8; O2SAT 94–97
--- NOTE | 2020-07-10 07:03 | PC.NURSE ---
Report received. Pt currently resting, denies complaints. Pt is case management bedsearch.
--- NOTE | 2020-07-10 07:09 | PC.NURSE ---
Report recieved. PT currently resting, calm and cooperative, pleasant in conversation. Pt denies complaints. Breakfast at bedside.
[2020-07-10 07:11] LABS: Glucose, Whole Blood 168 mg/dL (60-115)
[2020-07-10] MEDS: Nystatin Powder 15 GM BOTTLE 1 APPL TOPICAL ×2 (08:31→20:33)
[2020-07-10] MEDS: Metoprolol Tartrate 25 MG TABLET 12.5 MG PO ×2 (08:32→20:30)
[2020-07-10] MEDS: metFORMIN HCl 500 MG TABLET PO ×2 (08:32→20:32)
[2020-07-10] MEDS: Insulin Glargine,Hum.rec.anlog 100 UNIT/ML 10 ML VIAL 30 UNIT SUBCUT (08:32)
[2020-07-10 13:19] LABS: Glucose, Whole Blood 146 mg/dL (60-115)
--- NOTE | 2020-07-10 15:23 | PC.NURSE ---
PT currently resting, calm and cooperative. Pleasantly confused. Denies complaints.
[2020-07-10 18:36] LABS: Glucose, Whole Blood 251 mg/dL (60-115)
[2020-07-10] MEDS: Insulin Lispro 100 UNIT/ML 3 ML VIAL SUBCUT (18:39)
--- NOTE | 2020-07-10 19:13 | PC.NURSE ---
Report received. PT is standing at the nurse's station sobbing and stating that her and daughter don't care about her anymore. This nurse called the PT's daughter and asked her if she would speak with her mother to give some reassurance. PT spoke with her daughter for a few minutes on the phone but was still in tears afterwards. Case management is working to find placement.
[2020-07-10] MEDS: Mirtazapine 7.5 MG TABLET PO (20:30)
[2020-07-10] MEDS: diphenhydrAMINE HCL 25 MG TABLET PO (20:30)
[2020-07-10] MEDS: Melatonin 3 MG TABLET PO (20:30)
[2020-07-10] MEDS: OLANZapine 5 MG TABLET PO (20:32)
[2020-07-10] MEDS: Atorvastatin Calcium 10 MG TABLET PO (20:32)
--- NOTE | 2020-07-10 21:46 | PC.NURSE ---
PT continues to prepare for bed and then lays down in bed for about 5 minutes before getting out of bed to either turn on the lights, fix the sheets, walk around the bed, use the bathroom, or sit in her chair and read. PT states that she cannot sleep or she is not comfortable. PT received a dose of benadryl before bed to help her sleep; does not appear to be effective. This nurse will continue to monitor.
--- NOTE | 2020-07-11 03:23 | PC.NURSE ---
PT has not slept more than 10 minutes the entire night. Provider notified. Will continue to monitor.
[2020-07-11 04:15] LABS: Glucose Urine UA NEG (NEG); Leukocyte Esterase Urine TRACE (NEG); Nitrite Urine NEG (NEG); Specific Gravity - Urine 1.015 (1.005-1.025); Urine Blood NEG (NEG); Urine Ketones NEG (NEG); Urine Protein NEG (NEG-TRACE)
[2020-07-11 04:16] LABS: Appearance Urine CLEAR; Color Urine YELLOW
[2020-07-11 04:23] LABS: Bacteria Urine 1+ /LPF; Renal Epithelial Cells Urine 1+ /LPF; Squamous Epithelial Cell Urine 1+ /LPF
--- NOTE | 2020-07-11 06:13 | PC.NURSE ---
PT has not slept the entire night.
[2020-07-11 06:19] VITALS: BP 128/76; PULSE 104; RESP 18; TEMP 36.6; O2SAT 96
--- NOTE | 2020-07-11 06:53 | PC.NURSE ---
Report recieved. PT currently resting, calm and cooperative. Pt is inpatient bedsearch.
[2020-07-11 07:27] LABS: Glucose, Whole Blood 179 mg/dL (60-115)
[2020-07-11 09:33] VITALS: BP 126/68; PULSE 102
[2020-07-11] MEDS: metFORMIN HCl 500 MG TABLET PO ×2 (09:33→20:46)
[2020-07-11] MEDS: Insulin Glargine,Hum.rec.anlog 100 UNIT/ML 10 ML VIAL 30 UNIT SUBCUT (09:33)
[2020-07-11] MEDS: Metoprolol Tartrate 25 MG TABLET 12.5 MG PO ×2 (09:33→20:48)
[2020-07-11] MEDS: Nystatin Powder 15 GM BOTTLE 1 APPL TOPICAL (09:35)
[2020-07-11 09:36] VITALS: BP 126/68; PULSE 102; RESP 19; TEMP 36.5; O2SAT 95
[2020-07-11 13:15] LABS: Glucose, Whole Blood 183 mg/dL (60-115)
--- NOTE | 2020-07-11 14:58 | PC.NURSE ---
Pt currently walking around unit, calm and cooperative, pleasantly confused.
[2020-07-11 18:56] LABS: Glucose, Whole Blood 193 mg/dL (60-115)
--- NOTE | 2020-07-11 19:19 | PC.NURSE ---
Report received. PT is eating dinner in her room. Calm and cooperative. Case management is helping this PT.
[2020-07-11] MEDS: Melatonin 3 MG TABLET PO (20:44)
[2020-07-11] MEDS: OLANZapine 5 MG TABLET PO (20:44)
[2020-07-11] MEDS: Mirtazapine 7.5 MG TABLET PO (20:46)
[2020-07-11] MEDS: Atorvastatin Calcium 10 MG TABLET PO (20:46)
[2020-07-11 20:48] VITALS: BP 170/89; PULSE 115
[2020-07-11 20:50] VITALS: BP 170/89; PULSE 115; RESP 16; O2SAT 98
[2020-07-11 23:59] VITALS: BP 154/63; PULSE 90; RESP 18; TEMP 36.6; O2SAT 95
[2020-07-12] VITALS (8 sets, daily range): BP systolic 110–147; BP diastolic 61–88; PULSE 84–106; RESP 18–22; TEMP 36.4–36.6; O2SAT 94–96
--- NOTE | 2020-07-12 04:54 | PC.NURSE ---
PT is refusing to lay down in her bed to try and sleep. PT is also refusing to take medications to help her sleep.
--- NOTE | 2020-07-12 07:18 | PC.NURSE ---
Report received from LEYDI Ferguson. Pt resting, resp unlabored.
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
--- NOTE | 2020-07-12 08:41 | MHC.CM.ED ---
Patient remains in ER. Reached out to [facility] to see if they would be able to offer a bed. Continue to monitor for d/c needs.
[2020-07-12] MEDS: OLANZapine 10 MG VIAL 5 MG IM (08:57)
[2020-07-12 09:03] LABS: Glucose, Whole Blood 227 mg/dL (60-115)
[2020-07-12] MEDS: Insulin Lispro 100 UNIT/ML 3 ML VIAL SUBCUT ×2 (09:07→13:46)
[2020-07-12] MEDS: Metoprolol Tartrate 25 MG TABLET 12.5 MG PO ×2 (09:07→21:20)
[2020-07-12] MEDS: Insulin Glargine,Hum.rec.anlog 100 UNIT/ML 10 ML VIAL 30 UNIT SUBCUT (09:11)
[2020-07-12] MEDS: metFORMIN HCl 500 MG TABLET PO ×2 (09:11→21:19)
--- NOTE | 2020-07-12 09:26 | PC.NURSE ---
Late entry: Security in, pt accepted IM of Olanzepine, then also willingly accepted PO medications and insulin. Pt currently resting in room.
--- NOTE | 2020-07-12 09:39 | PC.NURSE ---
Pt appears to be calmer, no further attempt to elope, currently sitting in common area.
--- NOTE | 2020-07-12 10:06 | PC.NURSE ---
Pt awake, less hostile, pt gait unsteady, pt requires frequent redirection. mail room clerk aware pt now fall risk.
--- NOTE | 2020-07-12 11:21 | PC.NURSE ---
pT CONTINUES TO BE RESTLESS BUT LESS HOSTILE. gAIT STEADIER.
--- NOTE | 2020-07-12 13:00 | MHC.CM.ED ---
[facility] not have any available beds. Referral broadcasted within 100 miles. Patient's daughter Jolene aware. Continue to monitor for d/c needs.
--- NOTE | 2020-07-12 13:10 | PC.NURSE ---
Pt resting, resp unlabored.
[2020-07-12 13:26] LABS: Glucose, Whole Blood 205 mg/dL (60-115)
--- NOTE | 2020-07-12 14:55 | PC.NURSE ---
Pt resting, resp unlabored. Continues to be confused, but redirectable.
--- NOTE | 2020-07-12 14:55 | MHC.CM.PN ---
Patient's daughter made multiple calls to Case Management to discuss discharge plan for her mother. This adjusto writer operator placed call back to daughter Yue. Had a lengthy conversation with Yue regarding barriers to securing placement for her mother. Yue reports she strongly feels her mother has a psychiatric need and her behaviors are not related to dementia. Yue also requesting her mother be medically admitted for her psychiatric behaviors. Yue also requesting a second opinion from a psychiatric standpoint as well as a return phone call from the ER physician. This adjusto writer operator discussed with Nya Canela who would communicate to ER MD.
--- NOTE | 2020-07-12 15:33 | MHC.CM.ED ---
Arvin FINISHER COLD ROLLING aware patient's daughter/HCP, Jolene is requesting a return telephone call and a psych consult. PASRR level 2 will be needed if patient is accepted at a facility. Completed and faxed to [facility]. Continue to monitor for d/c needs.
[2020-07-12 16:53] LABS: Glucose, Whole Blood 178 mg/dL (60-115)
--- NOTE | 2020-07-12 17:13 | PC.NURSE ---
Pt cooperative w/ care. Appears to have regained her sense of humor. Cooperative w/ care.
--- NOTE | 2020-07-12 18:11 | PC.NURSE ---
Pt out in common area, ate meal, no concerns reported.
[2020-07-12] MEDS: OLANZapine 5 MG TABLET PO (21:20)
[2020-07-12] MEDS: Atorvastatin Calcium 10 MG TABLET PO (21:20)
[2020-07-12] MEDS: Melatonin 3 MG TABLET PO (21:20)
[2020-07-12] MEDS: Mirtazapine 7.5 MG TABLET PO (21:20)
[2020-07-12] MEDS: Nystatin Powder 15 GM BOTTLE 1 APPL TOPICAL (21:26)
--- NOTE | 2020-07-12 21:29 | PC.NURSE ---
Patient quiet/isolate/sad. Compliant with HS PO medication VSS. Patient currently in bed, quietly resting, no distress observed/reported, will continue to monitor.
[2020-07-13] VITALS (9 sets, daily range): BP systolic 128–150; BP diastolic 42–80; PULSE 87–107; RESP 16–20; TEMP 36.1–36.8; O2SAT 94–97
--- NOTE | 2020-07-13 07:17 | PC.NURSE ---
Report received from LEYDI Amezcua. Pt resting, resp unlabored.
[2020-07-13] MEDS: Metoprolol Tartrate 25 MG TABLET 12.5 MG PO ×2 (08:38→20:41)
[2020-07-13] MEDS: metFORMIN HCl 500 MG TABLET PO ×2 (08:39→20:41)
[2020-07-13] MEDS: Insulin Glargine,Hum.rec.anlog 100 UNIT/ML 10 ML VIAL 30 UNIT SUBCUT (08:40)
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
--- NOTE | 2020-07-13 09:56 | PC.NURSE ---
reviewed pt care and progress w/ [facility].
[2020-07-13 10:26] LABS: Creatinine Clr Calc Pharmacy 60.3; Estimated Glomerular Filt Rate > 60
--- NOTE | 2020-07-13 11:11 | PC.NURSE ---
Pt intermittently resting and awake. Cooperative with care. No concerns reported.
[2020-07-13 11:28] LABS: Glucose, Whole Blood 161 mg/dL (60-115)
[2020-07-13 12:28] LABS: Glucose, Whole Blood 184 mg/dL (60-115)
--- NOTE | 2020-07-13 12:47 | PC.NURSE ---
Pt resting on bed, no concerns reported.
--- NOTE | 2020-07-13 15:30 | MHC.CM.ED ---
[facility] not [facility] a bed today. But will continue to follow in case a female bed opens up. Still waiting to hear from [facility] and [facility] if they accept patient. Spoke with patient's daughter Jolene via telephone. Jolene verbalized understanding of this information. Continue to monitor for d/c needs.
--- NOTE | 2020-07-13 16:33 | PC.NURSE ---
Pt resting, resp unlabored
[2020-07-13 17:25] LABS: Glucose, Whole Blood 210 mg/dL (60-115)
[2020-07-13] MEDS: Insulin Lispro 100 UNIT/ML 3 ML VIAL SUBCUT (17:58)
[2020-07-13] MEDS: Atorvastatin Calcium 10 MG TABLET PO (20:41)
[2020-07-13] MEDS: Melatonin 3 MG TABLET PO (20:41)
[2020-07-13] MEDS: OLANZapine 5 MG TABLET PO (20:43)
[2020-07-13] MEDS: Nystatin Powder 15 GM BOTTLE 1 APPL TOPICAL (20:43)
[2020-07-13] MEDS: Mirtazapine 7.5 MG TABLET PO (20:43)
--- NOTE | 2020-07-13 21:41 | PC.NURSE ---
Patient tearful/upset over her 's infidelity, stated He doesn't love me anymore, he found younger woman , patient was made aware that is not true, per daughter Jolene that is her delusion, patient compliant with her HS PO medication, no cheeking, no distress reported, VSS, will continue to monitor.
[2020-07-14 02:00] VITALS: BP 141/70; PULSE 90; RESP 18; O2SAT 98
[2020-07-14 06:55] LABS: Glucose, Whole Blood 177 mg/dL (60-115)
[2020-07-14 08:17] VITALS: BP 127/65; PULSE 99; TEMP 36.6; O2SAT 96
[2020-07-14] MEDS: Nystatin Powder 15 GM BOTTLE 1 APPL TOPICAL (08:46)
[2020-07-14] MEDS: metFORMIN HCl 500 MG TABLET PO ×2 (08:46→23:30)
[2020-07-14] MEDS: Metoprolol Tartrate 25 MG TABLET 12.5 MG PO ×2 (08:46→23:30)
[2020-07-14] MEDS: Insulin Glargine,Hum.rec.anlog 100 UNIT/ML 10 ML VIAL 30 UNIT SUBCUT (08:47)
--- NOTE | 2020-07-14 09:38 | P.EN_ITS ---
Event Note Date of Service: 07/14/20 Event Note: Psychiatry follow up Notes reviewed. Patient continues to be stable while in ED One documented incident of aggression since last reviewed by this screen writer. Patient able to quickly recompensate and has remained in behavioral control since. She has been taking medications as ordered consistently. She is redirectable. Does not appear to require psychiatric admission at this time
--- NOTE | 2020-07-14 10:12 | MHC.CM.ED ---
[facility] does not have a bed at this time. [facility] is not able to accept patient. [facility] is still reviewing. [facility] is closed to admissions. [facility] does not have a bed at this time. Left voicemails for: [facility], [facility], [facility] [place], [facility], [facility], [facility], [facility] and [facility] rehab. PASRR letter has been obtained. Continue to monitor for d/c needs.
--- NOTE | 2020-07-14 10:54 | MHC.CM.ED ---
Per Bayron, liaison at [facility], they can accept patient tomorrow, . Spoke with patient's daughter, Jolene via telephone at [phone]. Jolene verbalized understanding and is agreeable. Continue to monitor for d/c needs.
--- NOTE | 2020-07-14 11:27 | PC.NURSE ---
patient currently in room laying on bed sleeping, will continue to monitor.
[2020-07-14 11:29] VITALS: RESP 17
[2020-07-14 12:48] LABS: Glucose, Whole Blood 182 mg/dL (60-115)
[2020-07-14 13:06] LABS: COVID-19 Test Positive (Negative); IDNOW Serial# 9DD0AD1C
--- NOTE | 2020-07-14 13:12 | PC.NURSE ---
patients poc is 182, no insulin per sliding scale
--- NOTE | 2020-07-14 14:48 | MHC.CM.ED ---
Received notification from nursing that patient is now positive for Covid. [facility] aware and is unable to accept patient. Arvin INFORMATION ASSURANCE ANALYST aware and will be speaking to patient's daughter. Facility search continues. Continue to monitor for d/c needs.
--- NOTE | 2020-07-14 15:14 | PC.NURSE ---
Report received. Pt asleep at current, no signs of distress, respirations even and unlabored.
[2020-07-14 17:04] LABS: Glucose, Whole Blood 231 mg/dL (60-115)
[2020-07-14] MEDS: Insulin Lispro 100 UNIT/ML 3 ML VIAL SUBCUT (17:36)
--- NOTE | 2020-07-14 17:51 | PC.NURSE ---
Pt wandering around unit, inconsistent with wearing mask. Educated on importance of wearing mask and trying to quarantine in her room. Pt verbalizes understanding.
[2020-07-14 22:06] LABS: Glucose, Whole Blood 174 mg/dL (60-115)
[2020-07-14] MEDS: Melatonin 3 MG TABLET PO (23:29)
[2020-07-14] MEDS: Atorvastatin Calcium 10 MG TABLET PO (23:29)
[2020-07-14] MEDS: OLANZapine 5 MG TABLET PO (23:29)
[2020-07-14 23:30] VITALS: BP 125/70; PULSE 92
[2020-07-14] MEDS: Mirtazapine 7.5 MG TABLET PO (23:30)
[2020-07-15 02:00] VITALS: PULSE 88; RESP 16; O2SAT 97
[2020-07-15 05:57] VITALS: BP 139/79; PULSE 103; RESP 18; TEMP 36.9; O2SAT 98
[2020-07-15] MEDS: Insulin Lispro 100 UNIT/ML 3 ML VIAL SUBCUT (08:42)
[2020-07-15 08:43] VITALS: BP 130/65; PULSE 104
[2020-07-15] MEDS: metFORMIN HCl 500 MG TABLET PO ×2 (08:43→20:39)
[2020-07-15] MEDS: Insulin Glargine,Hum.rec.anlog 100 UNIT/ML 10 ML VIAL 30 UNIT SUBCUT (08:43)
[2020-07-15] MEDS: Metoprolol Tartrate 25 MG TABLET 12.5 MG PO ×2 (08:43→20:40)
[2020-07-15 10:00] VITALS: RESP 16
[2020-07-15] MEDS: Nystatin Powder 15 GM BOTTLE 1 APPL TOPICAL (10:30)
--- NOTE | 2020-07-15 11:43 | PC.NURSE ---
pt sleeping at this time. was restless prior to sleep. resp even and unlabored.
[2020-07-15 11:53] LABS: Glucose, Whole Blood 233 mg/dL (60-115)
[2020-07-15 11:53] LABS: Glucose, Whole Blood 177 mg/dL (60-115)
[2020-07-15 12:00] VITALS: RESP 16
--- NOTE | 2020-07-15 15:40 | MHC.CM.ED ---
Patient remains in ER. Patient was supposed to go to [facility] but was found to be Covid positive. 101 referrals have been sent out. No bed offers have been made yet. Patient's daughter/HCP, Jolene made aware. Jolene requesting patient be treated with plasma for +Covid. T/w spoke with Gemma DANIEL and medical office assistant, River. Neither felt it was appropriate beause there is a limited supply of plasma and patient is asymptomatic. Jolene made aware and verbalized understanding. Continue to monitor for d/c needs.
[2020-07-15 18:27] LABS: Glucose, Whole Blood 169 mg/dL (60-115)
[2020-07-15 19:15] VITALS: BP 161/75; PULSE 110; RESP 20; TEMP 37.3; O2SAT 95
--- NOTE | 2020-07-15 19:46 | PC.NURSE ---
pt eating dinner at this time. POC 166- no insulin coverage. pt 1:1
[2020-07-15] MEDS: Melatonin 3 MG TABLET PO (20:39)
[2020-07-15] MEDS: Mirtazapine 7.5 MG TABLET PO (20:40)
[2020-07-15] MEDS: OLANZapine 5 MG TABLET PO (20:41)
[2020-07-15] MEDS: Atorvastatin Calcium 10 MG TABLET PO (20:41)
[2020-07-15 20:43] LABS: Glucose, Whole Blood 220 mg/dL (60-115)
--- NOTE | 2020-07-15 21:16 | PC.NURSE ---
PT MEDICTED PER MAR WITH SCHEDULED NIGHT MEDS. CALM AND COOPERATIVE. OFFERS NO COMPLAINTS AT THIS TIME. PO AT BEDSIDE FOR PT SAFETY. WILL CONTINUE TO MONITOR.
[2020-07-15] MEDS: OLANZapine 2.5 MG TABLET PO (23:12)
--- NOTE | 2020-07-15 23:12 | PC.NURSE ---
PT RESTLESS SWEARING AND SWINGING AT STAFF. PRN OLANZAPINE GIVEN PER MAR. PT BACK TO BED AFTER STRIPPING ALL SHEETS AND BLANKETS AND THROWING THEM ON GROUND. YELLING AT STAFF GET THE FUCK OUT OF HERE, IF I WANT YOUR HELP ILL ASK FOR IT PO AT BEDSIDE FOR SAFETY.
[2020-07-16] VITALS (7 sets, daily range): BP systolic 101–140; BP diastolic 58–99; PULSE 87–117; RESP 16–20; TEMP 36–38.8; O2SAT 92–99
--- NOTE | 2020-07-16 00:15 | PC.NURSE ---
PT IN BED RESTING QUIETLY, STIRRING AT TIMES. PO REMAINS AT BEDSIDE FOR SAFETY.
--- NOTE | 2020-07-16 03:08 | PC.NURSE ---
PT RESTING IN BED EYES CLOSED, APPEARS COMFORTABLE, SKIN PWD RESPIRATIONS EVEN UNLABORED. PO AT BEDSIDE FOR SAFETY.
--- NOTE | 2020-07-16 04:13 | XR_ITS ---
EXAMINATION: XR CHEST CLINICAL INFORMATION: Shortness of breath COMPARISON: None TECHNIQUE: Frontal view of the chest was obtained. FINDINGS: Lung volumes are low. External radiodense opacities overlie the chest and somewhat obscure the underlying lung parenchyma. Patchy airspace opacities are present in the right midlung, but may correspond overlying structures. Left lung appears clear by comparison. Calcific atherosclerosis is present in the thoracic aorta. Cardiac silhouette is within normal limits in size. No pneumothorax or pleural effusion. No acute osseous findings. XR/XR chest 1V IMPRESSION: Patchy airspace opacities in the right midlung which may correspond to early pneumonia. Low lung volumes.
--- NOTE | 2020-07-16 04:15 | PC.NURSE ---
PT AWOKE RESTLESS STATES HES COMING FOR ME, HES GOING TO GET ME, IM GOING TO REPORTING DIFFICULTY BREATHING LYING DOWN, REPOSITIONED UPRIGHT IN BED. PT ALLOWED RN TO OBTAIN VS- INITIAL SPO2 89% INCREASING TO 92% ON RA. 2L VIA NC APPLIED INCREASED TO 94%. AFEBRILE, SLIGHTLY TACHYCARDIC. MD ANDERSON NOTIFIED.
[2020-07-16 04:35] LABS: Eosinophils Percent Auto 0.4 % (0-4); Hematocrit 33.6 % (37-47); Hemoglobin 11.2 g/dl (12.0-16.0); Imm Gran Abs Auto 0.01 X10*3/uL (0.00-0.03); Imm Gran Pct Auto 0.4 % (0.0-0.4); Lymphocytes Absolute Auto 1.7 X10*3/uL (1.2-4.9); Lymphocytes Percent Auto 58.9 % (20-40); MANUAL DIFF FLAG SCAN; Mean Corpuscular HGB Conc 33.3 g/dl (31.0-35.0); Mean Corpuscular Hemoglobin 29.3 pg (27.0-33.0); Mean Platelet Volume 10.4 fL (9.4-12.3); Monocytes Absolute Auto 0.3 X10*3/uL (0.1-1.2); Monocytes Percent Auto 11.7 % (2-11); Neutrophils Absolute Auto 0.8 X10*3/uL (2.0-8.3); Neutrophils Percent Auto 28.6 % (45-73); Platelet Count 125 X10*3/uL (160-400); Red Blood Count 3.82 X10*6/uL (4.20-5.50); Red Cell Distribution Width 14.3 % (11.0-16.0); SCAN SMEAR FLAG 1; White Blood Count 2.8 X10*3/uL (4.8-10.8)
[2020-07-16 04:53] LABS: Glucose Urine UA NEG (NEG); Leukocyte Esterase Urine 1+ (NEG); Nitrite Urine NEG (NEG); Specific Gravity - Urine 1.015 (1.005-1.025); Urine Blood NEG (NEG); Urine Ketones 5 MG/DL (NEG); Urine Protein NEG (NEG-TRACE)
[2020-07-16 04:55] LABS: Appearance Urine CLEAR; Color Urine YELLOW
[2020-07-16 05:00] LABS: SLIDE REVIEW VERIFIED
[2020-07-16 05:05] LABS: Alanine Aminotransferase 18 U/L (0-31); Albumin Level 3.7 g/dL (3.5-5.0); Alkaline Phosphatase 57 U/L (39-117); Anion Gap 16 (12-20); Aspartate Amino Transferase 20 U/L (5-31); Bilirubin Total 0.8 mg/dL (0.0-1.0); Blood Urea Nitrogen 15 mg/dL (9-16); C Reactive Protein 2.98 mg/dL (< or = 0.50); Calcium 8.7 mg/dL (8.4-10.2); Carbon Dioxide 24 mmol/L (22-29); Chloride 104 mmol/L (96-108); Creatinine Clr Calc Pharmacy 64.6; Estimated Glomerular Filt Rate > 60; Glucose Random 159 mg/dL (60-115); Lactate Dehydrogenase 174 U/L (122-220); Potassium 3.5 mmol/l (3.3-5.1); Sodium 140 mmol/L (135-145); Total Protein 5.8 g/dL (6.5-8.0)
[2020-07-16 05:17] LABS: Hyaline Casts Urine 0-2 /LPF; RBC Urine 0 /HPF (0); Squamous Epithelial Cell Urine TRACE /LPF
[2020-07-16 05:24] LABS: Procalcitonin 0.05 ng/mL
--- NOTE | 2020-07-16 05:30 | PM.IMHP ---
History of Present Illness Date of Service: 07/16/20 Chief Complaint: hypoxic This 75-year-old female with past medical history of dementia diabetes, hypertension, hyperlipidemia who initially presented to the hospital on July 05 for evaluation of psychotic features. Patient was boarding in the ED awaiting placement and on July 14 she was accepted at [facility], underwent routine COVID tensing and was found to be positive. Therefore she was refused by the facility and was waiting to be accepted by another. While waiting in the ED patient was noted today to be tachypneic, and also hypoxic with an oxygen level in the high 80s. On my interview of the patient she is alert, awake but not oriented, unable to give any history, repeating numbers, and not answering any questions. A temp of 98.4?, heart rate of 103, respiratory rate of 18, blood pressure 139/79, and patient recorded to be satting 92% on room air. Labs are significant for WBC count of 2.8, hemoglobin of 11.2, hematocrit of 33.6, platelet count of 125, CRP of 2.98, UA positive for leukocyte Estrace and small numbers of WBC Past medical history is obtained mostly from chart as patient unable to give history herself Past medical history: Dementia with behavioral disturbance, diabetes, hypertension, hyperlipidemia, vitamin-D deficiency Past surgical history: Unknown Family history: Significant for diabetes and hypertension Social history: Comes from snf, Former smoker, no current use of alcohol or illicit drugs Review of Systems Review of Systems: Yes Unobtainable due to mental condition and Unobtainable due to mental status [facility] Medical History Dementia with behavioral disturbance Diabetes mellitus HTN (hypertension) Hyperlipidemia Vitamin D deficiency Family History (Updated 06/19/20 @ 15:06 by Nanette Yin APRN) Other Diabetes mellitus HTN (hypertension) Social History Household Members: Other Housing: Residential Alcohol intake: former Smoking Status: Former smoker Tobacco Type: Cigar Second Hand Smoke Exposure: No Use of substances other than those prescribed or required for medical reasons: No Advance Directives: No Advance Directives Information Provided: No service: No Sexual orientation: Straight/Heterosexual Meds Allergies Allergy/AdvReac Type Severity Reaction Status Date / Time Sulfa (Sulfonamide Allergy Unknown Verified 06/17/20 18:54 Antibiotics) Home Medications Medication Instructions Recorded Confirmed Type Invokana 1 tab PO DAILY 06/17/20 07/05/20 History Lantus Solostar U-100 Insulin 30 unit SUBCUT DAILY 06/17/20 07/05/20 History acetaminophen 650 mg PO Q6H PRN 06/17/20 07/05/20 History aluminm,mag rrw-zlciykt-pgovek 30 ml PO Q4H PRN 06/17/20 07/05/20 History atorvastatin 1 tab PO BEDTIME 06/17/20 07/05/20 History insulin aspart U-100 See Protocol SUBCUT TID 06/17/20 07/05/20 History metoprolol tartrate 12.5 mg PO BID 06/17/20 07/05/20 History nystatin [Nystop] 1 appl TOPICAL BID 06/17/20 07/05/20 History cholecalciferol (vitamin D3) 4,000 unit DAILY 07/05/20 07/05/20 History melatonin 3 mg PO BEDTIME 07/05/20 07/05/20 History metformin 1 tab PO BID 07/05/20 07/05/20 History Physical Exam Vital Signs and Narrative: Vital Signs: Last Vital Signs Temp 98.9 F 07/16/20 04:00 Pulse 97 07/16/20 04:00 Resp 20 07/16/20 04:00 BP 101/65 07/16/20 04:00 Pulse Ox 92 07/16/20 04:00 Body Mass Index 34.2 Const: Other: Patient awake, not oriented, not really giving any responses General: no acute distress Eyes: General: appearance normal, both eyes and all related structures Resp: Effort & Inspection: normal respiratory effort and able to speak in complete sentences Cardio: Rate: regular rate Rhythm: regular rhythm GI: Palpation (GI): Soft to palpation Auscultation: normal bowel sounds Skin: General skin exam: no rashes or lesions noted Extrem: General: Yes normal to inspection and Yes no pedal edema Results Labs CBC and Chem 7: 07/16/20 04:30 07/16/20 04:30 Labs: Laboratory Results - last 24 hr 07/15/20 07/15/20 07/15/20 08:13 11:49 17:25 MCV MCH MCHC RDW Plt Count MPV Immature Gran % (Auto) Neut % (Auto) Lymph % (Auto) [place] % (Auto) Eos % (Auto) Baso % (Auto) Lymph # (Auto) [place] # (Auto) Eos # (Auto) Baso # (Auto) Abs Immat Gran (auto) Absolute Neuts (auto) Absolute Nucleated RBC Nucleated RBC % (auto) Smear Tech's Comments Anion Gap Estim Creat Clear Calc Estimated GFR POC Glucose 233 H 177 H 169 H Random Glucose Calcium Total Bilirubin AST ALT Alkaline Phosphatase Lactate Dehydrogenase C-Reactive Protein Total Protein Albumin Procalcitonin Urine Color Urine Appearance Urine pH Ur Specific [place] Urine Protein Urine Glucose (UA) Urine Ketones Urine Blood Urine Nitrite Ur Leukocyte Esterase Urine RBC Urine WBC Ur Squamous Epith Cells Urine Bacteria Hyaline Casts 07/15/20 07/16/20 07/16/20 20:38 04:30 04:30 MCV 88.0 MCH 29.3 MCHC 33.3 RDW 14.3 Plt Count 125 L D MPV 10.4 Immature Gran % (Auto) 0.4 Neut % (Auto) 28.6 L Lymph % (Auto) 58.9 H [place] % (Auto) 11.7 H Eos % (Auto) 0.4 Baso % (Auto) 0.0 Lymph # (Auto) 1.7 [place] # (Auto) 0.3 Eos # (Auto) 0.0 Baso # (Auto) 0.0 Abs Immat Gran (auto) 0.01 Absolute Neuts (auto) 0.8 L Absolute Nucleated RBC 0.000 Nucleated RBC % (auto) 0.0 Smear Tech's Comments VERIFIED Anion Gap 16 Estim Creat Clear Calc 64.6 Estimated GFR > 60 POC Glucose 220 H Random Glucose 159 H Calcium 8.7 D Total Bilirubin 0.8 AST 20 D ALT 18 Alkaline Phosphatase 57 D Lactate Dehydrogenase 174 C-Reactive Protein 2.98 H Total Protein 5.8 L D Albumin 3.7 D Procalcitonin Urine Color Urine Appearance Urine pH Ur Specific [place] Urine Protein Urine Glucose (UA) Urine Ketones Urine Blood Urine Nitrite Ur Leukocyte Esterase Urine RBC Urine WBC Ur Squamous Epith Cells Urine Bacteria Hyaline Casts 07/16/20 07/16/20 04:30 04:44 MCV MCH MCHC RDW Plt Count MPV Immature Gran % (Auto) Neut % (Auto) Lymph % (Auto) [place] % (Auto) Eos % (Auto) Baso % (Auto) Lymph # (Auto) [place] # (Auto) Eos # (Auto) Baso # (Auto) Abs Immat Gran (auto) Absolute Neuts (auto) Absolute Nucleated RBC Nucleated RBC % (auto) Smear Tech's Comments Anion Gap Estim Creat Clear Calc Estimated GFR POC Glucose Random Glucose Calcium Total Bilirubin AST ALT Alkaline Phosphatase Lactate Dehydrogenase C-Reactive Protein Total Protein Albumin Procalcitonin 0.05 Urine Color YELLOW Urine Appearance CLEAR Urine pH 6.0 Ur Specific [place] 1.015 Urine Protein NEG Urine Glucose (UA) NEG Urine Ketones 5 Urine Blood NEG Urine Nitrite NEG Ur Leukocyte Esterase 1+ H Urine RBC 0 Urine WBC 1-4 Ur Squamous Epith Cells TRACE Urine Bacteria NONE Hyaline Casts 0-2 Imaging Radiologist's Impressions: Impressions Chest X-Ray 07/16/20 04:13 IMPRESSION: Patchy airspace opacities in the right midlung which may correspond to early pneumonia. Low lung volumes. Assessment and Plan (1) Pneumonia due to COVID-19 virus: Status: Acute (2) Dementia, senile with depression: Status: Acute (3) Dementia with behavioral disturbance: Status: Acute (4) Diabetes mellitus: Status: Acute (5) HTN (hypertension): Status: Acute (6) Pancytopenia: Status: Acute This is a 75-year-old female who initially presented to the hospital on July 05 awaiting placement for her history of dementia with psychotic disturbances was tested positive for COVID-19 on the and now has hypoxic respiratory failure according to ED documentation. # COVID-19 pneumonia - reported O2 sats dropping to 89% although not documented - has leukopenia which may be secondary to new Zyprexa - patient baseline has dementia and currently has psychotic features therefore unable to get much history from her in regards to review of system Plan: - will start on Decadron, O2 supplement as required - monitor respiratory status # pancytopenia - patient's WBC count is old platelets dropped significantly from the 05 of July -was recently started on Zyprexa - may be compounding secondary to COVID-19 leukopenia as well Zyprexa dose causing agranulocytosis Plan: - will hold Zyprexa at this time - will consult psychiatry for antipsychotics # dementia with behavioral disturbance - psych to continue to follow # diabetes - will hold metformin, and other oral meds - start low-dose sliding scale insulin - diabetic diet # hypertension - stable - continue home meds DVT prophylaxis: Lovenox
--- NOTE | 2020-07-16 06:32 | PC.NURSE ---
PT REMAINS RESTLESS, CONTINUALLY PULLING OFF CARDIAC LEADS AND SUPPLEMENTAL O2. SAO2 95% ON 2L WHEN O2 APPLIED. PENDING ADMISSION. PO REMAINS WITH PT FOR SAFETY.
--- NOTE | 2020-07-16 08:46 | MHC.CM.ED ---
Received notification from Dr Neuamnn that patient was admitted overnight. Dr Leonardo notified by t/w to call patient's daughter/HCP Jolene. Continue to monitor for d/c needs.
--- NOTE | 2020-07-16 11:11 | PC.NURSE ---
MOSTLY SLEEPING , HAS AMBULATED TO THE BATHROOM WITH STAFF. SHE IS SOB UPON RETURN MINIMAL PO INTAKE THIS AM. PT HAS BEEN IN BEHAVIORAL CONTROL
[2020-07-16 11:36] LABS: Glucose, Whole Blood 172 mg/dL (60-115)
[2020-07-16] MEDS: Insulin Glargine,Hum.rec.anlog 100 UNIT/ML 10 ML VIAL 30 UNIT SUBCUT (12:20)
[2020-07-16] MEDS: metFORMIN HCl 500 MG TABLET PO (12:22)
--- NOTE | 2020-07-16 12:32 | PC.NURSE ---
x1 call for report- awaiting call back
[2020-07-16] MEDS: cefTRIAXone sodium 1 GM in 0.9 % Sodium Chloride 50 ML IV (12:45)
[2020-07-16 17:06] LABS: Glucose, Whole Blood 271 mg/dL (60-115)
[2020-07-16] MEDS: 0.9 % Sodium Chloride Flush 3 ML SYRINGE IVFLUSH (17:32)
[2020-07-16] MEDS: Insulin Lispro 100 UNIT/ML 3 ML VIAL SUBCUT (17:32)
[2020-07-16] MEDS: LORazepam 0.5 MG TABLET PO (19:26)
[2020-07-16] MEDS: Atorvastatin Calcium 10 MG TABLET PO (23:00)
[2020-07-16] MEDS: Melatonin 3 MG TABLET PO (23:00)
[2020-07-16] MEDS: Mirtazapine 7.5 MG TABLET PO (23:00)
[2020-07-17] MEDS: 0.9 % Sodium Chloride Flush 3 ML SYRINGE IVFLUSH (00:37)
--- NOTE | 2020-07-17 00:56 | P.EN_ITS ---
Event Note Date of Service: 07/17/20 Event Note: Called by nursing staff to evaluate agitation. Chart reviewed. P atient admitted earlier from ED after prolonged stay there for agitation. Was to be placed but then tested positive for COVID so was admitted. Currently having intermittent periods of agitation despite PO dose of Ativan. Currently she is intermittently redirectable but has been awake and agitated at times. Whe Radha spoke to her she states she wanted to go home but cannot offer any HPI or ROS. Will give one more dose of PO Ativan 0.5mg and encourage redirecting her.
[2020-07-17] MEDS: LORazepam 0.5 MG TABLET PO ×3 (01:05→20:46)
[2020-07-17 04:00] VITALS: BP 150/102; PULSE 99; RESP 20; TEMP 38.5; O2SAT 96
[2020-07-17] MEDS: cefTRIAXone sodium 1 GM in 0.9 % Sodium Chloride 50 ML IV (05:02)
[2020-07-17 07:05] LABS: Hemoglobin 11.1 g/dl (12.0-16.0)
[2020-07-17 07:07] LABS: Basophils Percent Auto 0.3 % (0-2); Imm Gran Abs Auto 0.01 X10*3/uL (0.00-0.03); Imm Gran Pct Auto 0.3 % (0.0-0.4); Lymphocytes Percent Auto 51.1 % (20-40); Mean Corpuscular HGB Conc 33.6 g/dl (31.0-35.0); Mean Corpuscular Hemoglobin 29.2 pg (27.0-33.0); Mean Corpuscular Volume 86.8 fL (80-98); Mean Platelet Volume 10.9 fL (9.4-12.3); Monocytes Absolute Auto 0.3 X10*3/uL (0.1-1.2); Monocytes Percent Auto 7.8 % (2-11); Neutrophils Absolute Auto 1.6 X10*3/uL (2.0-8.3); Neutrophils Percent Auto 40.5 % (45-73); Platelet Count 139 X10*3/uL (160-400); Red Cell Distribution Width 14.4 % (11.0-16.0)
[2020-07-17 07:25] LABS: MANUAL DIFF FLAG NO
[2020-07-17 07:36] LABS: Anion Gap 14 (12-20); Blood Urea Nitrogen 10 mg/dL (9-16); Calcium 8.2 mg/dL (8.4-10.2); Carbon Dioxide 25 mmol/L (22-29); Chloride 103 mmol/L (96-108); Creatinine Clr Calc Pharmacy 66.6; Estimated Glomerular Filt Rate > 60; Glucose Random 180 mg/dL (60-115); Potassium 3.5 mmol/l (3.3-5.1); Sodium 138 mmol/L (135-145)
[2020-07-17 08:00] VITALS: BP 145/71; PULSE 93; RESP 17; TEMP 35.9; O2SAT 93
[2020-07-17 08:51] LABS: Glucose, Whole Blood 188 mg/dL (60-115)
[2020-07-17] MEDS: Insulin Glargine,Hum.rec.anlog 100 UNIT/ML 10 ML VIAL 30 UNIT SUBCUT (10:31)
--- NOTE | 2020-07-17 10:41 | MHC.CM.PN ---
Patient has Dementia, CM spoke with Patient's Daughter/HCP/Jolene @[phone].[facility] is unable to accept back.[facility] SN[facility] and Patient is accepted at second choice- [facility]; CM has initiated and will follow for dc planning.IMM addressed with Jolene and original will be mailed certified letter to her and a copy has been placed on the chart. PCP is Dr. Kyler Dias.
[2020-07-17 11:45] LABS: Glucose, Whole Blood 226 mg/dL (60-115)
[2020-07-17] MEDS: Insulin Lispro 100 UNIT/ML 3 ML VIAL SUBCUT (11:56)
[2020-07-17 12:00] VITALS: BP 119/81; PULSE 93; RESP 20; TEMP 36.3; O2SAT 96
--- NOTE | 2020-07-17 14:09 | P.PNIM_ITS ---
Subjective Subjective Date of Service: 07/17/20 Interval History: Patient seen and examined at bedside Patient was agitated last night Patient was calm this morning Review of Systems Unable to review systems given confusion Constitutional Constitutional: Reports as per HPI and Reports no additional constitutional complaints Physical Exam Vital Signs: Vital Signs: Last Vital Signs Temp 97.4 F 07/17/20 12:00 Pulse 93 07/17/20 12:00 Resp 20 07/17/20 12:00 BP 119/81 07/17/20 12:00 Pulse Ox 96 07/17/20 12:00 Body Mass Index 34.2 Const: General: no acute distress Eyes: General: appearance normal, both eyes and all related structures Resp: Effort & Inspection: normal respiratory effort and able to speak in complete sentences Cardio: Rate: regular rate Rhythm: regular rhythm GI: Palpation (GI): Soft to palpation Auscultation: normal bowel sounds Skin: General skin exam: no rashes or lesions noted Extrem: General: Yes normal to inspection and Yes no pedal edema Objective Data Current Medications Generic Name Dose Route Start Last Admin Trade Name Mikoq PRN Reason Stop Dose Admin Acetaminophen 650 mg 07/17/20 05:16 Acetaminophen 325 Mg Tablet PO Q6H PRN Fever Al Hydroxide/Mg Hydroxide 30 ml 07/06/20 00:50 Magnesium Hydrox/Alum Hydrox 30 Ml Oral.Susp PO Q4H PRN Heartburn Atorvastatin Calcium 10 mg 07/06/20 01:00 07/16/20 23:00 Atorvastatin Calcium 10 Mg Tablet PO 10 mg BEDTIME SUZANNE Administration Divalproex Sodium 125 mg 07/06/20 01:00 07/17/20 10:32 Divalproex Sodium 125 Mg Tablet. PO 125 mg BID SUZANNE Administration Ceftriaxone Sodium 1 gm/ 50 mls @ 100 mls/hr 07/16/20 05:30 07/17/20 06:57 Sodium Chloride IV Infused Q24H SUZANNE Infusion Insulin Glargine 30 unit 07/06/20 09:00 07/17/20 10:31 Insulin Glargine,Hum.Rec.Anlog 100 Unit/Ml 10 Ml Vial SUBCUT 30 unit DAILY SUZANNE Administration Insulin Human Lispro 0 unit 07/06/20 07:30 07/17/20 11:56 Insulin Lispro 100 Unit/Ml 3 Ml Vial SUBCUT 2 unit TIDAC SUZANNE Administration Melatonin 3 mg 07/06/20 01:00 07/16/20 23:00 Melatonin 3 Mg Tablet PO 3 mg BEDTIME SUZANNE Administration Metformin HCl 500 mg 07/06/20 01:00 07/16/20 12:22 Metformin Hcl 500 Mg Tablet PO 500 mg BID SZUANNE Administration Metoprolol Tartrate 12.5 mg 07/06/20 01:00 07/15/20 20:40 Metoprolol Tartrate 25 Mg Tablet PO 12.5 mg BID SUZANNE Administration Protocol Mirtazapine 7.5 mg 07/06/20 01:00 07/16/20 23:00 Mirtazapine 7.5 Mg Tablet PO 7.5 mg BEDTIME SUZANNE Administration Nystatin 1 appl 07/06/20 01:00 07/17/20 10:33 Nystatin Powder 15 Gm Bottle TOPICAL Not Given BID [facility] Protocol Olanzapine 2.5 mg 07/06/20 00:50 07/15/20 23:12 Olanzapine 2.5 Mg Tablet PO 2.5 mg DAILY PRN Administration Anxiety Olanzapine 5 mg 07/06/20 01:00 07/15/20 20:41 Olanzapine 5 Mg Tablet PO 5 mg BEDTIME SUZANNE Administration Ondansetron HCl 4 mg 07/16/20 05:28 Ondansetron Hcl 4 Mg/2 Ml Vial IVPUSH Q8H PRN Nausea and Vomiting Polyethylene Glycol 17 gm 07/16/20 05:28 Polyethylene Glycol 3350 17 Gm Powd.Pack PO DAILY PRN Constipation Sodium Chloride 3 ml 07/16/20 08:00 07/17/20 09:18 0.9 % Sodium Chloride Flush 3 Ml Syringe IVFLUSH Not Given QSHIFT [facility] Labs CBC & Chem 7: 07/17/20 06:08 07/17/20 06:08 Microbiology Microbiology Results: Microbiology 07/16/20 Unknown Urine clean catch - Clean Catch Midstream Urine Culture - Final 07/11/20 Unknown Urine clean catch - Clean Catch Midstream Urine Culture - Final 07/06/20 Unknown Urine clean catch - Clean Catch Midstream Urine Culture - Final Assessment and Plan (1) Pneumonia due to COVID-19 virus: Status: Acute (2) Dementia, senile with depression: Status: Acute (3) Dementia with behavioral disturbance: Status: Acute (4) Diabetes mellitus: Status: Acute (5) HTN (hypertension): Status: Acute (6) Pancytopenia: Status: Acute Assessment and Plan: This is a 75-year-old female who initially presented to the hospital on July 05 awaiting placement for her history of dementia with psychotic disturbances was tested positive for COVID-19 on the 13 and now has hypoxic respiratory failure according to ED documentation. COVID-19 pneumonia - reported O2 sats dropping to 89% although not documented Continue dexamethasone Continue supportive management Currently not requiring oxygen Pancytopenia Probably from Zyprexa Leukopenia improving Psych consult pending for medication Hold Zyprexa Dementia with behavioral disturbance Psych consult pending for medication Hold Zyprexa Ativan p.r.n. for restlessness anxiety Diiabetes Continue SSI - diabetic diet Hypertension - stable - continue home meds DVT prophylaxis: compression boot given thrombocytopenia
[2020-07-17 15:03] VITALS: BP 140/79; PULSE 80; RESP 19; TEMP 37.2; O2SAT 95
--- NOTE | 2020-07-17 15:11 | PM.PSYCN ---
History of Present Illness Date of Service: 07/17/2020 Chief Complaint: hypoxic resp failure due to covid, leukopenia Reason for Consult: 75 yo female, hx of dementia with behavioral disturbance, DM, HTN, HLD, low Vitamin D presented on 07/05/20 with sx and was awaiting placement when she tested positive for COVID-19 and is admitted for hypoxic respiratory failure. Olanzapine was stopped as it was thought to be contributing to leukopenia, pancytopenia. Team requests medication regime consult for agitation in consideration of current medical condition. Lab values have improved since Olanzapine was held, however, pt had an episode of agitation requiring Lorazepam. It is clear that Olanzapine is contributing as well as possibly Depakote and COVID to current condition. Requesting physician: George Leonardo Discussed with referring provider: No Sources of Information: chart reviewed HPI Past Psychiatric History: One psychiatric admission as noted in HPI Review of Systems Reports behavioral changes and Reports confusion Psychiatric: Reports behavioral changes, Reports confusion and Reports other (agitation reported) [facility] Medical History Dementia with behavioral disturbance Diabetes mellitus HTN (hypertension) Hyperlipidemia Vitamin D deficiency Family History: 50 years per pt and ? of separation/divorce unclear two children Jolene Mathew [phone] Son lives in [place] per daughter family hx of mental illness per pt her cousin committed suicide by hanging Social History: lives SNF Trauma History: unknown Diagnostics Vital Signs (24Hr): Vital Signs - 24 hr 07/16/20 19:26 07/16/20 23:16 07/17/20 04:00 Temperature 98.8 F 101.9 F H 101.3 F H Pulse Rate 113 H 111 H 99 Respiratory Rate 19 18 20 Blood Pressure 140/75 H 122/67 150/102 H Pulse Oximetry 95 95 96 07/17/20 08:00 07/17/20 12:00 07/17/20 15:03 Temperature 96.7 F L 97.4 F 98.9 F Pulse Rate 93 93 80 Respiratory Rate 17 20 19 Blood Pressure 145/71 H 119/81 140/79 H Pulse Oximetry 93 96 95 Body Mass Index 34.2 Labs Results: 07/17/20 06:08 07/17/20 06:08 Labs: Laboratory Results - last 48 hr 01/07/15/20 07/16/20 17:25 20:38 04:30 WBC 2.8 L RBC 3.82 L D Hgb 11.2 L D Hct 33.6 L D MCV 88.0 MCH 29.3 MCHC 33.3 RDW 14.3 Plt Count 125 L D MPV 10.4 Immature Gran % (Auto) 0.4 Neut % (Auto) 28.6 L Lymph % (Auto) 58.9 H [place] % (Auto) 11.7 H Eos % (Auto) 0.4 Baso % (Auto) 0.0 Lymph # (Auto) 1.7 [place] # (Auto) 0.3 Eos # (Auto) 0.0 Baso # (Auto) 0.0 Abs Immat Gran (auto) 0.01 Absolute Neuts (auto) 0.8 L Absolute Nucleated RBC 0.000 Nucleated RBC % (auto) 0.0 Smear Tech's Comments VERIFIED Sodium Potassium Chloride Carbon Dioxide Anion Gap BUN Creatinine Estim Creat Clear Calc Estimated GFR POC Glucose 169 H 220 H Random Glucose Calcium Total Bilirubin AST ALT Alkaline Phosphatase Lactate Dehydrogenase C-Reactive Protein Total Protein Albumin Procalcitonin Urine Color Urine Appearance Urine pH Ur Specific [place] Urine Protein Urine Glucose (UA) Urine Ketones Urine Blood Urine Nitrite Ur Leukocyte Esterase Urine RBC Urine WBC Ur Squamous Epith Cells Urine Bacteria Hyaline Casts 07/16/20 07/16/20 07/16/20 04:30 04:30 04:44 WBC RBC Hgb Hct MCV MCH MCHC RDW Plt Count MPV Immature Gran % (Auto) Neut % (Auto) Lymph % (Auto) [place] % (Auto) Eos % (Auto) Baso % (Auto) Lymph # (Auto) [place] # (Auto) Eos # (Auto) Baso # (Auto) Abs Immat Gran (auto) Absolute Neuts (auto) Absolute Nucleated RBC Nucleated RBC % (auto) Smear Tech's Comments Sodium 140 Potassium 3.5 Chloride 104 Carbon Dioxide 24 Anion Gap 16 BUN 15 Creatinine 0.69 Estim Creat Clear Calc 64.6 Estimated GFR > 60 POC Glucose Random Glucose 159 H Calcium 8.7 D Total Bilirubin 0.8 AST 20 D ALT 18 Alkaline Phosphatase 57 D Lactate Dehydrogenase 174 C-Reactive Protein 2.98 H Total Protein 5.8 L D Albumin 3.7 D Procalcitonin 0.05 Urine Color YELLOW Urine Appearance CLEAR Urine pH 6.0 Ur Specific [place] 1.015 Urine Protein NEG Urine Glucose (UA) NEG Urine Ketones 5 Urine Blood NEG Urine Nitrite NEG Ur Leukocyte Esterase 1+ H Urine RBC 0 Urine WBC 1-4 Ur Squamous Epith Cells TRACE Urine Bacteria NONE Hyaline Casts 0-2 07/16/20 07/16/20 07/17/20 11:03 17:02 06:08 WBC 4.0 L RBC 3.80 L Hgb 11.1 L Hct 33.0 L MCV 86.8 MCH 29.2 MCHC 33.6 RDW 14.4 Plt Count 139 L MPV 10.9 Immature Gran % (Auto) 0.3 Neut % (Auto) 40.5 L Lymph % (Auto) 51.1 H [place] % (Auto) 7.8 Eos % (Auto) 0.0 Baso % (Auto) 0.3 Lymph # (Auto) 2.0 [place] # (Auto) 0.3 Eos # (Auto) 0.0 Baso # (Auto) 0.0 Abs Immat Gran (auto) 0.01 Absolute Neuts (auto) 1.6 L Absolute Nucleated RBC 0.000 Nucleated RBC % (auto) 0.0 Smear Tech's Comments Sodium Potassium Chloride Carbon Dioxide Anion Gap BUN Creatinine Estim Creat Clear Calc Estimated GFR POC Glucose 172 H 271 H Random Glucose Calcium Total Bilirubin AST ALT Alkaline Phosphatase Lactate Dehydrogenase C-Reactive Protein Total Protein Albumin Procalcitonin Urine Color Urine Appearance Urine pH Ur Specific [place] Urine Protein Urine Glucose (UA) Urine Ketones Urine Blood Urine Nitrite Ur Leukocyte Esterase Urine RBC Urine WBC Ur Squamous Epith Cells Urine Bacteria Hyaline Casts 07/17/20 07/17/20 07/17/20 06:08 08:47 11:27 WBC RBC Hgb Hct MCV MCH MCHC RDW Plt Count MPV Immature Gran % (Auto) Neut % (Auto) Lymph % (Auto) [place] % (Auto) Eos % (Auto) Baso % (Auto) Lymph # (Auto) [place] # (Auto) Eos # (Auto) Baso # (Auto) Abs Immat Gran (auto) Absolute Neuts (auto) Absolute Nucleated RBC Nucleated RBC % (auto) Smear Tech's Comments Sodium 138 Potassium 3.5 Chloride 103 Carbon Dioxide 25 Anion Gap 14 BUN 10 Creatinine 0.67 Estim Creat Clear Calc 66.6 Estimated GFR > 60 POC Glucose 188 H 226 H Random Glucose 180 H Calcium 8.2 L Total Bilirubin AST ALT Alkaline Phosphatase Lactate Dehydrogenase C-Reactive Protein Total Protein Albumin Procalcitonin Urine Color Urine Appearance Urine pH Ur Specific [place] Urine Protein Urine Glucose (UA) Urine Ketones Urine Blood Urine Nitrite Ur Leukocyte Esterase Urine RBC Urine WBC Ur Squamous Epith Cells Urine Bacteria Hyaline Casts Imaging Radiology Impressions: ITS Impressions Chest X-Ray 07/16/20 04:13 IMPRESSION: Patchy airspace opacities in the right midlung which may correspond to early pneumonia. Low lung volumes. Mental Status Exam Mental Status Exam Narrative: Pt not seen. Medication consult for options requested. Medications Medications Current Medications Generic Name Dose Route Start Last Admin Trade Name Freq PRN Reason Stop Dose Admin Acetaminophen 650 mg 07/17/20 05:16 Acetaminophen 325 Mg Tablet PO Q6H PRN Fever Al Hydroxide/Mg Hydroxide 30 ml 07/06/20 00:50 Magnesium Hydrox/Alum Hydrox 30 Ml Oral.Susp PO Q4H PRN Heartburn Atorvastatin Calcium 10 mg 07/06/20 01:00 07/16/20 23:00 Atorvastatin Calcium 10 Mg Tablet PO 10 mg BEDTIME SUZANNE Administration Divalproex Sodium 125 mg 07/06/20 01:00 07/17/20 10:32 Divalproex Sodium 125 Mg Tablet.Dr PO 125 mg BID SUZANNE Administration Ceftriaxone Sodium 1 gm/ 50 mls @ 100 mls/hr 07/16/20 05:30 07/17/20 06:57 Sodium Chloride IV Infused Q24H SUZANNE Infusion Insulin Glargine 30 unit 07/06/20 09:00 07/17/20 10:31 Insulin Glargine,Hum.Rec.Anlog 100 Unit/Ml 10 Ml Vial SUBCUT 30 unit DAILY SUZANNE Administration Insulin Human Lispro 0 unit 07/06/20 07:30 07/17/20 11:56 Insulin Lispro 100 Unit/Ml 3 Ml Vial SUBCUT 2 unit TIDAC SUZANNE Administration Melatonin 3 mg 07/06/20 01:00 07/16/20 23:00 Melatonin 3 Mg Tablet PO 3 mg BEDTIME SUZANNE Administration Metformin HCl 500 mg 07/06/20 01:00 07/16/20 12:22 Metformin Hcl 500 Mg Tablet PO 500 mg BID SUZANNE Administration Metoprolol Tartrate 12.5 mg 07/06/20 01:00 07/15/20 20:40 Metoprolol Tartrate 25 Mg Tablet PO 12.5 mg BID SUZANNE Administration Protocol Mirtazapine 7.5 mg 07/06/20 01:00 07/16/20 23:00 Mirtazapine 7.5 Mg Tablet PO 7.5 mg BEDTIME SUZANNE Administration Nystatin 1 appl 07/06/20 01:00 07/17/20 10:33 Nystatin Powder 15 Gm Bottle TOPICAL Not Given BID SUZANNE Protocol Olanzapine 2.5 mg 07/06/20 00:50 07/15/20 23:12 Olanzapine 2.5 Mg Tablet PO 2.5 mg DAILY PRN Administration Anxiety Olanzapine 5 mg 07/06/20 01:00 07/15/20 20:41 Olanzapine 5 Mg Tablet PO 5 mg BEDTIME SUZANNE Administration Ondansetron HCl 4 mg 07/16/20 05:28 Ondansetron Hcl 4 Mg/2 Ml Vial IVPUSH Q8H PRN Nausea and Vomiting Polyethylene Glycol 17 gm 07/16/20 05:28 Polyethylene Glycol 3350 17 Gm Powd.Pack PO DAILY PRN Constipation Sodium Chloride 3 ml 07/16/20 08:00 07/17/20 09:18 0.9 % Sodium Chloride Flush 3 Ml Syringe IVFLUSH Not Given QSHIFT SUZANNE Allergies Allergies Allergy/AdvReac Type Severity Reaction Status Date / Time Sulfa (Sulfonamide Allergy Unknown Verified 06/17/20 18:54 Antibiotics) Assessment & Plan Assessment & Plan (1) Pancytopenia: Status: Acute Code(s): D61.818 - Other pancytopenia Recommendations: -Taper Depakote to 125 mg daily for two days, the discontinue. -Increase Remeron to 11.25 mg HS -Continue Lorazepam prn -Seroquel 12.5 mg - 25 mg bid prn severe agitation (2% risk of leukopenia) (2) Dementia with behavioral disturbance: Status: Acute Code(s): F03.91 - Unspecified dementia with behavioral disturbance Greater than 50% of the session was spent on counseling and/or coordination of care
[2020-07-17 15:54] LABS: Glucose, Whole Blood 174 mg/dL (60-115)
--- NOTE | 2020-07-17 17:26 | PC.NURSE ---
pt restless and wandering around room, redirectable but continuing to cry repeatedly stating my left me for another woman. i would just rather . md made aware, nursing shipping track supervisor made aware. care consult placed. pt requiring frequent safety checks and redirection. telesitter in place and alarm on bed.
--- NOTE | 2020-07-17 17:28 | MHC.CARE ---
CARE Team consult placed for Confusion/ agitation , CARE Team to be re-consulted if needed when COVID recovered.
[2020-07-17 19:09] VITALS: BP 162/82; PULSE 89; RESP 19; TEMP 36.4; O2SAT 95
[2020-07-17 20:03] LABS: Glucose, Whole Blood 266 mg/dL (60-115)
[2020-07-17] MEDS: Mirtazapine 7.5 MG TABLET 11.25 MG PO (20:45)
[2020-07-17] MEDS: Atorvastatin Calcium 10 MG TABLET PO (20:46)
[2020-07-17] MEDS: Melatonin 3 MG TABLET PO (20:46)
[2020-07-18] VITALS (7 sets, daily range): BP systolic 108–158; BP diastolic 51–88; PULSE 85–108; RESP 18–20; TEMP 36.2–37.3; O2SAT 88–95
[2020-07-18 08:19] LABS: Glucose, Whole Blood 148 mg/dL (60-115)
[2020-07-18 09:29] LABS: MANUAL DIFF FLAG NO
[2020-07-18 09:48] LABS: Hematocrit 34.8 % (37-47); Hemoglobin 11.7 g/dl (12.0-16.0); Imm Gran Abs Auto 0.01 X10*3/uL (0.00-0.03); Imm Gran Pct Auto 0.3 % (0.0-0.4); Lymphocytes Absolute Auto 1.8 X10*3/uL (1.2-4.9); Lymphocytes Percent Auto 51.6 % (20-40); Mean Corpuscular HGB Conc 33.6 g/dl (31.0-35.0); Mean Corpuscular Hemoglobin 29.2 pg (27.0-33.0); Mean Corpuscular Volume 86.8 fL (80-98); Mean Platelet Volume 10.5 fL (9.4-12.3); Monocytes Absolute Auto 0.3 X10*3/uL (0.1-1.2); Monocytes Percent Auto 8.8 % (2-11); Neutrophils Absolute Auto 1.4 X10*3/uL (2.0-8.3); Neutrophils Percent Auto 39.3 % (45-73); Platelet Count 159 X10*3/uL (160-400); Red Blood Count 4.01 X10*6/uL (4.20-5.50); Red Cell Distribution Width 14.3 % (11.0-16.0); White Blood Count 3.5 X10*3/uL (4.8-10.8)
[2020-07-18 09:58] LABS: Anion Gap 15 (12-20); Blood Urea Nitrogen 9 mg/dL (9-16); Calcium 8.3 mg/dL (8.4-10.2); Carbon Dioxide 27 mmol/L (22-29); Chloride 101 mmol/L (96-108); Estimated Glomerular Filt Rate > 60; Glucose Random 178 mg/dL (60-115); Potassium 3.8 mmol/l (3.3-5.1); Sodium 139 mmol/L (135-145)
[2020-07-18 11:36] LABS: Glucose, Whole Blood 194 mg/dL (60-115)
--- NOTE | 2020-07-18 13:22 | HO.PM.IMPN ---
Subjective Subjective Date of Service: 07/18/20 Interval History: Patient seen and examined at bedside Patient was more calm today denies any complaint Review of Systems Unable to review systems given confusion Constitutional Constitutional: Reports as per HPI and Reports no additional constitutional complaints Physical Exam Vital Signs: Vital Signs: Last Vital Signs Temp 98.6 F 07/18/20 11:23 Pulse 89 07/18/20 11:23 Resp 20 07/18/20 11:23 BP 143/88 H 07/18/20 11:23 Pulse Ox 93 07/18/20 11:23 Body Mass Index 34.2 Const: General: no acute distress Eyes: General: appearance normal, both eyes and all related structures Resp: Effort & Inspection: normal respiratory effort and able to speak in complete sentences Cardio: Rate: regular rate Rhythm: regular rhythm GI: Palpation (GI): Soft to palpation Auscultation: normal bowel sounds Skin: General skin exam: no rashes or lesions noted Extrem: General: Yes normal to inspection and Yes no pedal edema Objective Data Current Medications Generic Name Dose Route Start Last Admin Trade Name Mikoq PRN Reason Stop Dose Admin Acetaminophen 650 mg 07/17/20 05:16 Acetaminophen 325 Mg Tablet PO Q6H PRN Fever Al Hydroxide/Mg Hydroxide 30 ml 07/06/20 00:50 Magnesium Hydrox/Alum Hydrox 30 Ml Oral.Susp PO Q4H PRN Heartburn Atorvastatin Calcium 10 mg 07/06/20 01:00 07/17/20 20:46 Atorvastatin Calcium 10 Mg Tablet PO 10 mg BEDTIME [facility] Administration Divalproex Sodium 125 mg 07/18/20 09:00 07/18/20 10:32 Divalproex Sodium 125 Mg Tablet.Dr PO 125 mg DAILY [facility] Administration Ceftriaxone Sodium 1 gm/ 50 mls @ 100 mls/hr 07/16/20 05:30 07/18/20 10:32 Sodium Chloride IV Not Given Q24H [facility] Insulin Glargine 30 unit 07/06/20 09:00 07/18/20 12:30 Insulin Glargine,Hum.Rec.Anlog 100 Unit/Ml 10 Ml Vial SUBCUT Not Given DAILY [facility] Insulin Human Lispro 0 unit 07/06/20 07:30 07/18/20 12:30 Insulin Lispro 100 Unit/Ml 3 Ml Vial SUBCUT Not Given TIDAC [facility] Lorazepam 0.5 mg 07/17/20 19:36 07/17/20 20:46 Lorazepam 0.5 Mg Tablet PO 0.5 mg BID PRN Administration Mild agitation Melatonin 3 mg 07/06/20 01:00 07/17/20 20:46 Melatonin 3 Mg Tablet PO 3 mg BEDTIME [facility] Administration Metformin HCl 500 mg 07/06/20 01:00 07/16/20 12:22 Metformin Hcl 500 Mg Tablet PO 500 mg BID [facility] Administration Metoprolol Tartrate 12.5 mg 07/06/20 01:00 07/15/20 20:40 Metoprolol Tartrate 25 Mg Tablet PO 12.5 mg BID [facility] Administration Protocol Mirtazapine 11.25 mg 07/17/20 21:00 07/17/20 20:45 Mirtazapine 7.5 Mg Tablet PO 11.25 mg BEDTIME [facility] Administration Nystatin 1 appl 07/06/20 01:00 07/18/20 10:33 Nystatin Powder 15 Gm Bottle TOPICAL Not Given BID [facility] Protocol Ondansetron HCl 4 mg 07/16/20 05:28 Ondansetron Hcl 4 Mg/2 Ml Vial IVPUSH Q8H PRN Nausea and Vomiting Polyethylene Glycol 17 gm 07/16/20 05:28 Polyethylene Glycol 3350 17 Gm Powd.Pack PO DAILY PRN Constipation Quetiapine Fumarate 12.5 mg 07/17/20 19:35 Quetiapine Fumarate 25 Mg Tablet PO BID PRN Severe agitation Sodium Chloride 3 ml 07/16/20 08:00 07/18/20 10:32 0.9 % Sodium Chloride Flush 3 Ml Syringe IVFLUSH Not Given QSHIFT [facility] Labs CBC & Chem 7: 07/18/20 09:22 07/18/20 09:22 Microbiology Microbiology Results: Microbiology 07/16/20 Unknown Urine clean catch - Clean Catch Midstream Urine Culture - Final 07/11/20 Unknown Urine clean catch - Clean Catch Midstream Urine Culture - Final 07/06/20 Unknown Urine clean catch - Clean Catch Midstream Urine Culture - Final Assessment and Plan (1) Pneumonia due to COVID-19 virus: Status: Acute (2) Dementia, senile with depression: Status: Acute (3) Dementia with behavioral disturbance: Status: Acute (4) Diabetes mellitus: Status: Acute (5) HTN (hypertension): Status: Acute (6) Pancytopenia: Status: Acute Assessment and Plan: This is a 75-year-old female who initially presented to the hospital on July 05 awaiting placement for her history of dementia with psychotic disturbances was tested positive for COVID-19 on the 13 and now has hypoxic respiratory failure according to ED documentation. COVID-19 pneumonia currently saturating 93 on room air Continue dexamethasone Continue supportive management Currently not requiring oxygen Pancytopenia Probably from Zyprexa Leukopenia improving Psych consult pending for medication Hold Zyprexa Dementia with behavioral disturbance Psych consulted started on Remeron, seroquel as per psych recommendation continue Ativan p.r.n. for restlessness anxiety Diiabetes Continue SSI - diabetic diet Hypertension - stable - continue home meds DVT prophylaxis: compression boot given thrombocytopenia awaiting placement
[2020-07-18] MEDS: dexAMETHasone 6 MG TABLET PO (14:02)
[2020-07-18 16:01] LABS: Glucose, Whole Blood 245 mg/dL (60-115)
[2020-07-18] MEDS: Insulin Lispro 100 UNIT/ML 3 ML VIAL SUBCUT ×2 (16:24→21:46)
[2020-07-18 20:45] LABS: Glucose, Whole Blood 384 mg/dL (60-115)
[2020-07-18] MEDS: Mirtazapine 7.5 MG TABLET 11.25 MG PO (21:44)
[2020-07-18] MEDS: Atorvastatin Calcium 10 MG TABLET PO (21:45)
[2020-07-18] MEDS: Melatonin 3 MG TABLET PO (21:45)
[2020-07-19] VITALS (7 sets, daily range): BP systolic 113–151; BP diastolic 59–87; PULSE 62–92; RESP 18; TEMP 36–36.7; O2SAT 91–94; BMI 34.2
[2020-07-19] MEDS: 0.9 % Sodium Chloride Flush 3 ML SYRINGE IVFLUSH ×3 (00:27→17:33)
[2020-07-19 07:49] LABS: Glucose, Whole Blood 388 mg/dL (60-115)
[2020-07-19] MEDS: Insulin Lispro 100 UNIT/ML 3 ML VIAL SUBCUT ×4 (08:53→22:12)
[2020-07-19] MEDS: dexAMETHasone 6 MG TABLET PO (08:53)
[2020-07-19] MEDS: Insulin Glargine,Hum.rec.anlog 100 UNIT/ML 10 ML VIAL 20 UNIT SUBCUT (08:54)
[2020-07-19 11:39] LABS: Glucose, Whole Blood 339 mg/dL (60-115)
--- NOTE | 2020-07-19 13:10 | P.PNIM_ITS ---
Subjective Subjective Date of Service: 07/19/20 Interval History: Patient seen and examined at bedside Patient was more calm not agitated denies any complaint Review of Systems Unable to review systems given confusion Constitutional Constitutional: Reports as per HPI and Reports no additional constitutional complaints Physical Exam Vital Signs: Vital Signs: Last Vital Signs Temp 97.9 F 07/19/20 11:13 Pulse 62 07/19/20 11:13 Resp 18 07/19/20 11:13 BP 127/59 L 07/19/20 11:13 Pulse Ox 92 07/19/20 11:13 Body Mass Index 34.2 Const: General: no acute distress Eyes: General: appearance normal, both eyes and all related structures Resp: Effort & Inspection: normal respiratory effort and able to speak in complete sentences Cardio: Rate: regular rate Rhythm: regular rhythm GI: Palpation (GI): Soft to palpation Auscultation: normal bowel sounds Skin: General skin exam: no rashes or lesions noted Extrem: General: Yes normal to inspection and Yes no pedal edema Objective Data Current Medications Generic Name Dose Route Start Last Admin Trade Name Mikoq PRN Reason Stop Dose Admin Acetaminophen 650 mg 07/17/20 05:16 Acetaminophen 325 Mg Tablet PO Q6H PRN Fever Al Hydroxide/Mg Hydroxide 30 ml 07/06/20 00:50 Magnesium Hydrox/Alum Hydrox 30 Ml Oral.Susp PO Q4H PRN Heartburn Atorvastatin Calcium 10 mg 07/06/20 01:00 07/18/20 21:45 Atorvastatin Calcium 10 Mg Tablet PO 10 mg BEDTIME [facility] Administration Cefuroxime Axetil 250 mg 07/18/20 14:00 07/18/20 14:02 Cefuroxime Axetil 250 Mg Tablet PO 250 mg Q24H [facility] Administration Dexamethasone 6 mg 07/18/20 13:45 07/19/20 08:53 Dexamethasone 6 Mg Tablet PO 6 mg DAILY [facility] Administration Divalproex Sodium 125 mg 07/18/20 09:00 07/19/20 08:53 Divalproex Sodium 125 Mg Tablet.Dr PO 125 mg DAILY [facility] Administration Insulin Glargine 20 unit 07/19/20 09:00 07/19/20 08:54 Insulin Glargine,Hum.Rec.Anlog 100 Unit/Ml 10 Ml Vial SUBCUT 20 unit DAILY [facility] Administration Insulin Glargine 10 unit 07/19/20 13:09 Insulin Glargine,Hum.Rec.Anlog 100 Unit/Ml 10 Ml Vial SUBCUT 07/19/20 13:10 ONCE ONE Insulin Human Lispro 0 unit 07/18/20 21:30 07/19/20 11:34 Insulin Lispro 100 Unit/Ml 3 Ml Vial SUBCUT 6 unit QIDACHS [facility] Administration Lorazepam 0.5 mg 07/17/20 19:36 07/17/20 20:46 Lorazepam 0.5 Mg Tablet PO 0.5 mg BID PRN Administration Mild agitation Melatonin 3 mg 07/06/20 01:00 07/18/20 21:45 Melatonin 3 Mg Tablet PO 3 mg BEDTIME [facility] Administration Metformin HCl 500 mg 07/06/20 01:00 07/16/20 12:22 Metformin Hcl 500 Mg Tablet PO 500 mg BID [facility] Administration Metoprolol Tartrate 12.5 mg 07/06/20 01:00 07/15/20 20:40 Metoprolol Tartrate 25 Mg Tablet PO 12.5 mg BID [facility] Administration Protocol Mirtazapine 11.25 mg 07/17/20 21:00 07/18/20 21:44 Mirtazapine 7.5 Mg Tablet PO 11.25 mg BEDTIME [facility] Administration Nystatin 1 appl 07/06/20 01:00 07/19/20 08:54 Nystatin Powder 15 Gm Bottle TOPICAL Not Given BID [facility] Protocol Ondansetron HCl 4 mg 07/16/20 05:28 Ondansetron Hcl 4 Mg/2 Ml Vial IVPUSH Q8H PRN Nausea and Vomiting Polyethylene Glycol 17 gm 07/16/20 05:28 Polyethylene Glycol 3350 17 Gm Powd.Pack PO DAILY PRN Constipation Quetiapine Fumarate 12.5 mg 07/17/20 19:35 Quetiapine Fumarate 25 Mg Tablet PO BID PRN Severe agitation Sodium Chloride 3 ml 07/16/20 08:00 07/19/20 08:50 0.9 % Sodium Chloride Flush 3 Ml Syringe IVFLUSH 3 ml QSHIFT [facility] Administration Labs CBC & Chem 7: 07/18/20 09:22 07/18/20 09:22 Microbiology Microbiology Results: Microbiology 07/16/20 Unknown Urine clean catch - Clean Catch Midstream Urine Culture - Final 07/11/20 Unknown Urine clean catch - Clean Catch Midstream Urine Culture - Final 07/06/20 Unknown Urine clean catch - Clean Catch Midstream Urine Culture - Final Assessment and Plan (1) Pneumonia due to COVID-19 virus: Status: Acute (2) Dementia, senile with depression: Status: Acute (3) Dementia with behavioral disturbance: Status: Acute (4) Diabetes mellitus: Status: Acute (5) HTN (hypertension): Status: Acute (6) Pancytopenia: Status: Acute Assessment and Plan: This is a 75-year-old female who initially presented to the hospital on July 05 awaiting placement for her history of dementia with psychotic disturbances was tested positive for COVID-19 on the 13 and now has hypoxic respiratory failure according to ED documentation. COVID-19 pneumonia currently saturating 93 on room air Continue dexamethasone Continue supportive management Currently not requiring oxygen Pancytopenia improving Probably from Zyprexa Leukopenia improving Hold Zyprexa monitor CBCs Dementia with behavioral disturbance more calm Psych consulted continue Remeron, seroquel as per psych recommendation continue Ativan p.r.n. for restlessness anxiety Diiabetes blood glucose high likely secondary to dexamethasone will increase Lantus Continue SSI - diabetic diet Hypertension - stable - continue home meds DVT prophylaxis: compression boot given thrombocytopenia awaiting placement
[2020-07-19] MEDS: Insulin Glargine,Hum.rec.anlog 100 UNIT/ML 10 ML VIAL 10 UNIT SUBCUT (13:33)
[2020-07-19 13:40] LABS: Hematocrit 33.6 % (37-47); Hemoglobin 11.4 g/dl (12.0-16.0); Mean Corpuscular HGB Conc 33.9 g/dl (31.0-35.0); Mean Corpuscular Volume 85.5 fL (80-98); Mean Platelet Volume 10.9 fL (9.4-12.3); Platelet Count 160 X10*3/uL (160-400); Red Blood Count 3.93 X10*6/uL (4.20-5.50); Red Cell Distribution Width 14.2 % (11.0-16.0); White Blood Count 3.5 X10*3/uL (4.8-10.8)
[2020-07-19 16:59] LABS: Glucose, Whole Blood 311 mg/dL (60-115)
[2020-07-19 22:06] LABS: Glucose, Whole Blood 331 mg/dL (60-115)
[2020-07-19] MEDS: Atorvastatin Calcium 10 MG TABLET PO (22:12)
[2020-07-19] MEDS: Melatonin 3 MG TABLET PO (22:13)
[2020-07-19] MEDS: Mirtazapine 7.5 MG TABLET 11.25 MG PO (22:14)
[2020-07-20] MEDS: 0.9 % Sodium Chloride Flush 3 ML SYRINGE IVFLUSH ×3 (00:03→15:47)
[2020-07-20] MEDS: QUEtiapine Fumarate 25 MG TABLET 12.5 MG PO ×2 (00:25→14:42)
[2020-07-20 03:36] VITALS: RESP 18
[2020-07-20 07:39] LABS: Glucose, Whole Blood 242 mg/dL (60-115)
[2020-07-20] MEDS: LORazepam 0.5 MG TABLET PO ×2 (07:56→19:59)
[2020-07-20] MEDS: Insulin Lispro 100 UNIT/ML 3 ML VIAL SUBCUT ×4 (07:57→20:23)
--- NOTE | 2020-07-20 09:01 | PC.NURSE ---
pt has stuffed towels in the toilet and is attemptine to flush. also put towels in sink to plug drain and is running water. pt made several attempts to exit room and has been redirected back to room. supervisor microfilm duplicating unit aware. Awaiting bedside sitter
[2020-07-20] MEDS: Insulin Glargine,Hum.rec.anlog 100 UNIT/ML 10 ML VIAL 20 UNIT SUBCUT (09:40)
[2020-07-20] MEDS: dexAMETHasone 6 MG TABLET PO (09:40)
--- NOTE | 2020-07-20 10:38 | P.CDIC_ITS ---
CDI Concurrent Query Service Date: 07/20/20 Documentation Clarification: Please clarify if you are treating a proba ble/suspected/likely or confirmed: Clarity and consistency of documentation: Acute hypoxic respiratory failure Txt, rule out, resolved, poa Hypoxemia Please specify if known Provider Response: Other (not hypoxic) Other Diagnosis: not hypoxic PLEASE DO NOT DELETE/MODIFY EXISTING CONTENT Additional information is needed in order to code to the highest accuracy and appropriate Severity of Illness (SOI). Please clarify the information noted below in your progress notes and discharge summary. Risk Factors/Clinical Indicators/Treatments ED: increased tachypnea, hypoxic on 2 l oxygen O2 sat 92-93% - vitals stabilized. H&P: 07/16 - Assessment/plan: hypoxic respiratory failure according to ED documentation. CDS: Inge Bryant CCS, CDIS Contact Number: [phone]. [phone] Please Review the information above and exercise your independent professional judgment in responding to the query. If you concur, pleas document in the PROGRESS NOTES and DISCHARGE SUMMARY. If you do not agree with the query, plea se document in the query above. THIS QUERY IS PART OF THE PERMANENT MEDICAL RECORD
[2020-07-20 11:53] LABS: Glucose, Whole Blood 205 mg/dL (60-115)
[2020-07-20 12:00] VITALS: BP 141/73; PULSE 98; RESP 17; O2SAT 92
--- NOTE | 2020-07-20 13:41 | PC.NURSE ---
pt refused to take med then attempted to hit RN, Pt lost her balance when attempting to strike RN, Pt was prevented from falling and sat in chair, then sat on floor and would not get up, swearing at staff. Pt was allowed to remain seated on floor until she calmed, then was assisted to chair.
--- NOTE | 2020-07-20 13:43 | HO.PM.IMPN ---
Subjective Subjective Date of Service: 07/20/20 Interval History: Patient seen and examined at bedside Patient was more calm not agitated denies any complaint Review of Systems Unable to review systems given confusion Constitutional Constitutional: Reports as per HPI and Reports no additional constitutional complaints Physical Exam Vital Signs: Vital Signs: Last Vital Signs Temp 97.7 F 07/19/20 23:24 Pulse 98 07/20/20 12:00 Resp 17 07/20/20 12:00 BP 141/73 H 07/20/20 12:00 Pulse Ox 92 07/20/20 12:00 Body Mass Index 34.2 Const: General: no acute distress Eyes: General: appearance normal, both eyes and all related structures Resp: Effort & Inspection: normal respiratory effort and able to speak in complete sentences Cardio: Rate: regular rate Rhythm: regular rhythm GI: Palpation (GI): Soft to palpation Auscultation: normal bowel sounds Skin: General skin exam: no rashes or lesions noted Extrem: General: Yes normal to inspection and Yes no pedal edema Objective Data Current Medications Generic Name Dose Route Start Last Admin Trade Name Mikoq PRN Reason Stop Dose Admin Acetaminophen 650 mg 07/17/20 05:16 Acetaminophen 325 Mg Tablet PO Q6H PRN Fever Al Hydroxide/Mg Hydroxide 30 ml 07/06/20 00:50 Magnesium Hydrox/Alum Hydrox 30 Ml Oral.Susp PO Q4H PRN Heartburn Atorvastatin Calcium 10 mg 07/06/20 01:00 07/19/20 22:12 Atorvastatin Calcium 10 Mg Tablet PO 10 mg BEDTIME [facility] Administration Cefuroxime Axetil 250 mg 07/18/20 14:00 07/20/20 13:35 Cefuroxime Axetil 250 Mg Tablet PO 250 mg Q24H [facility] Administration Dexamethasone 6 mg 07/18/20 13:45 07/20/20 09:40 Dexamethasone 6 Mg Tablet PO 6 mg DAILY [facility] Administration Divalproex Sodium 125 mg 07/18/20 09:00 07/20/20 09:40 Divalproex Sodium 125 Mg Tablet.Dr PO 125 mg DAILY [facility] Administration Insulin Glargine 20 unit 07/19/20 09:00 07/20/20 09:40 Insulin Glargine,Hum.Rec.Anlog 100 Unit/Ml 10 Ml Vial SUBCUT 20 unit DAILY [facility] Administration Insulin Human Lispro 0 unit 07/18/20 21:30 07/20/20 12:05 Insulin Lispro 100 Unit/Ml 3 Ml Vial SUBCUT 2 unit QIDACHS [facility] Administration Lorazepam 0.5 mg 07/17/20 19:36 07/20/20 07:56 Lorazepam 0.5 Mg Tablet PO 0.5 mg BID PRN Administration Mild agitation Melatonin 3 mg 07/06/20 01:00 07/19/20 22:13 Melatonin 3 Mg Tablet PO 3 mg BEDTIME [facility] Administration Metformin HCl 500 mg 07/06/20 01:00 07/16/20 12:22 Metformin Hcl 500 Mg Tablet PO 500 mg BID [facility] Administration Metoprolol Tartrate 12.5 mg 07/06/20 01:00 07/15/20 20:40 Metoprolol Tartrate 25 Mg Tablet PO 12.5 mg BID [facility] Administration Protocol Mirtazapine 11.25 mg 07/17/20 21:00 07/19/20 22:14 Mirtazapine 7.5 Mg Tablet PO 11.25 mg BEDTIME [facility] Administration Nystatin 1 appl 07/06/20 01:00 07/20/20 10:48 Nystatin Powder 15 Gm Bottle TOPICAL Not Given BID [facility] Protocol Ondansetron HCl 4 mg 07/16/20 05:28 Ondansetron Hcl 4 Mg/2 Ml Vial IVPUSH Q8H PRN Nausea and Vomiting Polyethylene Glycol 17 gm 07/16/20 05:28 Polyethylene Glycol 3350 17 Gm Powd.Pack PO DAILY PRN Constipation Quetiapine Fumarate 12.5 mg 07/17/20 19:35 07/20/20 00:25 Quetiapine Fumarate 25 Mg Tablet PO 12.5 mg BID PRN Administration Severe agitation Sodium Chloride 3 ml 07/16/20 08:00 07/20/20 07:58 0.9 % Sodium Chloride Flush 3 Ml Syringe IVFLUSH 3 ml QSHIFT [facility] Administration Labs CBC & Chem 7: 07/19/20 13:23 07/18/20 09:22 Microbiology Microbiology Results: Microbiology 07/16/20 Unknown Urine clean catch - Clean Catch Midstream Urine Culture - Final 07/11/20 Unknown Urine clean catch - Clean Catch Midstream Urine Culture - Final 07/06/20 Unknown Urine clean catch - Clean Catch Midstream Urine Culture - Final Assessment and Plan (1) Pneumonia due to COVID-19 virus: Status: Acute (2) Dementia, senile with depression: Status: Acute (3) Dementia with behavioral disturbance: Status: Acute (4) Diabetes mellitus: Status: Acute (5) HTN (hypertension): Status: Acute (6) Pancytopenia: Status: Acute Assessment and Plan: This is a 75-year-old female who initially presented to the hospital on July 05 awaiting placement for her history of dementia with psychotic disturbances was tested positive for COVID-19 on the 13 and now has hypoxic respiratory failure according to ED documentation. COVID-19 pneumonia currently saturating 93 on room air Continue dexamethasone Continue supportive management Currently not requiring oxygen Pancytopenia improving Probably from Zyprexa Leukopenia improving Hold Zyprexa monitor CBCs Dementia with behavioral disturbance Psych consulted continue Remeron, seroquel as per psych recommendation continue Ativan p.r.n. for restlessness anxiety Diiabetes blood glucose high likely secondary to dexamethasone Lantus dose increased Continue SSI - diabetic diet Hypertension - stable - continue home meds DVT prophylaxis: compression boot awaiting placement
[2020-07-20 15:19] VITALS: BP 145/69; PULSE 92; RESP 19; TEMP 36.4; O2SAT 90
[2020-07-20 16:34] LABS: Glucose, Whole Blood 446 mg/dL (60-115)
--- NOTE | 2020-07-20 17:52 | PC.NURSE ---
daughter called to ask if pt needs hearing aid batteries. Unable to locate hearing aids in pt room, pt unable to report where she has put her hearing aids. Checked personal belongings and drawer, found container labeled hearing aids that is empty. Daughter updated.
[2020-07-20 19:02] VITALS: BP 113/58; PULSE 68; RESP 19; TEMP 36.7; O2SAT 96
[2020-07-20] MEDS: Mirtazapine 7.5 MG TABLET 11.25 MG PO (19:26)
[2020-07-20] MEDS: Melatonin 3 MG TABLET PO (19:26)
[2020-07-20] MEDS: Atorvastatin Calcium 10 MG TABLET PO (19:27)
[2020-07-20 20:15] LABS: Glucose, Whole Blood 382 mg/dL (60-115)
[2020-07-20 23:43] VITALS: RESP 18
[2020-07-21] VITALS (7 sets, daily range): BP systolic 138–155; BP diastolic 72–84; PULSE 72–120; RESP 18–28; TEMP 36.6–38; O2SAT 87–98
[2020-07-21] MEDS: 0.9 % Sodium Chloride Flush 3 ML SYRINGE IVFLUSH ×4 (00:01→21:08)
[2020-07-21 06:28] LABS: MANUAL DIFF FLAG NO
[2020-07-21 06:45] LABS: Basophils Percent Auto 0.3 % (0-2); Hematocrit 30.7 % (37-47); Hemoglobin 10.3 g/dl (12.0-16.0); Imm Gran Abs Auto 0.02 X10*3/uL (0.00-0.03); Imm Gran Pct Auto 0.5 % (0.0-0.4); Lymphocytes Absolute Auto 0.8 X10*3/uL (1.2-4.9); Lymphocytes Percent Auto 21.5 % (20-40); Mean Corpuscular HGB Conc 33.6 g/dl (31.0-35.0); Mean Corpuscular Hemoglobin 28.5 pg (27.0-33.0); Mean Platelet Volume 10.9 fL (9.4-12.3); Monocytes Absolute Auto 0.5 X10*3/uL (0.1-1.2); Monocytes Percent Auto 12.3 % (2-11); Neutrophils Absolute Auto 2.4 X10*3/uL (2.0-8.3); Neutrophils Percent Auto 65.4 % (45-73); Platelet Count 162 X10*3/uL (160-400); Red Blood Count 3.61 X10*6/uL (4.20-5.50); White Blood Count 3.7 X10*3/uL (4.8-10.8)
[2020-07-21 07:16] LABS: Glucose, Whole Blood 238 mg/dL (60-115)
[2020-07-21] MEDS: QUEtiapine Fumarate 25 MG TABLET 12.5 MG PO (10:21)
[2020-07-21] MEDS: Insulin Glargine,Hum.rec.anlog 100 UNIT/ML 10 ML VIAL 20 UNIT SUBCUT (10:22)
[2020-07-21] MEDS: Insulin Lispro 100 UNIT/ML 3 ML VIAL SUBCUT ×4 (10:22→21:08)
[2020-07-21 11:24] LABS: Glucose, Whole Blood 275 mg/dL (60-115)
--- NOTE | 2020-07-21 15:12 | P.PNIM_ITS ---
Subjective Subjective Date of Service: 07/21/20 Interval History: Patient seen and examined at bedside Patient remains confused denies any complaint Review of Systems Unable to review systems given confusion Constitutional Constitutional: Reports as per HPI and Reports no additional constitutional complaints Physical Exam Vital Signs: Vital Signs: Last Vital Signs Temp 98.2 F 07/21/20 11:17 Pulse 78 07/21/20 11:17 Resp 20 07/21/20 11:17 BP 138/75 07/21/20 11:17 Pulse Ox 92 07/21/20 11:17 Body Mass Index 34.2 Const: General: no acute distress Eyes: General: appearance normal, both eyes and all related structures Resp: Effort & Inspection: normal respiratory effort and able to speak in complete sentences Cardio: Rate: regular rate Rhythm: regular rhythm GI: Palpation (GI): Soft to palpation Auscultation: normal bowel sounds Skin: General skin exam: no rashes or lesions noted Extrem: General: Yes normal to inspection and Yes no pedal edema Objective Data Current Medications Generic Name Dose Route Start Last Admin Trade Name Freq PRN Reason Stop Dose Admin Acetaminophen 650 mg 07/17/20 05:16 Acetaminophen 325 Mg Tablet PO Q6H PRN Fever Al Hydroxide/Mg Hydroxide 30 ml 07/06/20 00:50 Magnesium Hydrox/Alum Hydrox 30 Ml Oral.Susp PO Q4H PRN Heartburn Atorvastatin Calcium 10 mg 07/06/20 01:00 07/20/20 19:27 Atorvastatin Calcium 10 Mg Tablet PO 10 mg BEDTIME [facility] Administration Cefuroxime Axetil 250 mg 07/18/20 14:00 07/21/20 14:56 Cefuroxime Axetil 250 Mg Tablet PO 250 mg Q24H [facility] Administration Divalproex Sodium 125 mg 07/18/20 09:00 07/21/20 10:19 Divalproex Sodium 125 Mg Tablet.Dr PO 125 mg DAILY [facility] Administration Insulin Glargine 20 unit 07/19/20 09:00 07/21/20 10:22 Insulin Glargine,Hum.Rec.Anlog 100 Unit/Ml 10 Ml Vial SUBCUT 20 unit DAILY [facility] Administration Insulin Human Lispro 0 unit 07/18/20 21:30 07/21/20 12:46 Insulin Lispro 100 Unit/Ml 3 Ml Vial SUBCUT 4 unit QIDACHS [facility] Administration Lorazepam 0.5 mg 07/17/20 19:36 07/20/20 19:59 Lorazepam 0.5 Mg Tablet PO 0.5 mg BID PRN Administration Mild agitation Melatonin 3 mg 07/06/20 01:00 07/20/20 19:26 Melatonin 3 Mg Tablet PO 3 mg BEDTIME [facility] Administration Metformin HCl 500 mg 07/06/20 01:00 07/16/20 12:22 Metformin Hcl 500 Mg Tablet PO 500 mg BID [facility] Administration Metoprolol Tartrate 12.5 mg 07/06/20 01:00 07/15/20 20:40 Metoprolol Tartrate 25 Mg Tablet PO 12.5 mg BID [facility] Administration Protocol Mirtazapine 11.25 mg 07/17/20 21:00 07/20/20 19:26 Mirtazapine 7.5 Mg Tablet PO 11.25 mg BEDTIME [facility] Administration Nystatin 1 appl 07/06/20 01:00 07/21/20 12:36 Nystatin Powder 15 Gm Bottle TOPICAL Not Given BID [facility] Protocol Ondansetron HCl 4 mg 07/16/20 05:28 Ondansetron Hcl 4 Mg/2 Ml Vial IVPUSH Q8H PRN Nausea and Vomiting Polyethylene Glycol 17 gm 07/16/20 05:28 Polyethylene Glycol 3350 17 Gm Powd.Pack PO DAILY PRN Constipation Quetiapine Fumarate 12.5 mg 07/17/20 19:35 07/21/20 10:21 Quetiapine Fumarate 25 Mg Tablet PO 12.5 mg BID PRN Administration Severe agitation Sodium Chloride 3 ml 07/16/20 08:00 07/21/20 10:23 0.9 % Sodium Chloride Flush 3 Ml Syringe IVFLUSH 3 ml QSHIFT [facility] Administration Labs CBC & Chem 7: 07/21/20 05:27 07/18/20 09:22 Microbiology Microbiology Results: Microbiology 07/16/20 Unknown Urine clean catch - Clean Catch Midstream Urine Culture - Final 07/11/20 Unknown Urine clean catch - Clean Catch Midstream Urine Culture - Final 07/06/20 Unknown Urine clean catch - Clean Catch Midstream Urine Culture - Final Assessment and Plan (1) Pneumonia due to COVID-19 virus: Status: Acute (2) Dementia, senile with depression: Status: Acute (3) Dementia with behavioral disturbance: Status: Acute (4) Diabetes mellitus: Status: Acute (5) HTN (hypertension): Status: Acute (6) Pancytopenia: Status: Acute Assessment and Plan: This is a 75-year-old female who initially presented to the hospital on July 05 awaiting placement for her history of dementia with psychotic disturbances was tested positive for COVID-19 on the and now has hypoxic respiratory failure according to ED documentation. COVID-19 pneumonia Not hypoxic Will stop dexamethasone Continue supportive management Currently not requiring oxygen Pancytopenia improving Probably from Zyprexa Leukopenia improving Hold Zyprexa monitor CBCs Dementia with behavioral disturbance Psych consulted continue Remeron, seroquel as per psych recommendation continue Ativan p.r.n. for restlessness anxiety Diiabetes blood glucose high likely secondary to dexamethasone Lantus dose increased Continue SSI - diabetic diet Hypertension - stable - continue home meds DVT prophylaxis: compression boot awaiting placement
[2020-07-21 17:19] LABS: Glucose, Whole Blood 217 mg/dL (60-115)
[2020-07-21] MEDS: LORazepam 0.5 MG TABLET PO (17:52)
[2020-07-21 20:53] LABS: Glucose, Whole Blood 230 mg/dL (60-115)
--- NOTE | 2020-07-21 21:24 | PC.NURSE ---
Patient refused to take bedtime medications. notifed.
[2020-07-22 03:19] VITALS: BP 138/72; PULSE 107; RESP 18; TEMP 36.8; O2SAT 90
[2020-07-22 06:42] LABS: MANUAL DIFF FLAG NO
[2020-07-22 06:50] LABS: Basophils Percent Auto 0.1 % (0-2); Hematocrit 38.9 % (37-47); Hemoglobin 13.1 g/dl (12.0-16.0); Imm Gran Abs Auto 0.07 X10*3/uL (0.00-0.03); Imm Gran Pct Auto 0.8 % (0.0-0.4); Lymphocytes Absolute Auto 2.7 X10*3/uL (1.2-4.9); Mean Corpuscular HGB Conc 33.7 g/dl (31.0-35.0); Mean Corpuscular Hemoglobin 28.7 pg (27.0-33.0); Mean Corpuscular Volume 85.3 fL (80-98); Mean Platelet Volume 10.3 fL (9.4-12.3); Monocytes Absolute Auto 0.7 X10*3/uL (0.1-1.2); Monocytes Percent Auto 7.7 % (2-11); Neutrophils Absolute Auto 5.8 X10*3/uL (2.0-8.3); Neutrophils Percent Auto 62.4 % (45-73); Platelet Count 325 X10*3/uL (160-400); Red Blood Count 4.56 X10*6/uL (4.20-5.50); Red Cell Distribution Width 14.6 % (11.0-16.0); White Blood Count 9.3 X10*3/uL (4.8-10.8)
[2020-07-22 07:09] VITALS: BP 145/76; PULSE 107; RESP 19; TEMP 37.1; O2SAT 95
[2020-07-22 08:09] LABS: Glucose, Whole Blood 190 mg/dL (60-115)
[2020-07-22] MEDS: QUEtiapine Fumarate 25 MG TABLET 12.5 MG PO ×2 (11:06→21:01)
[2020-07-22 11:07] LABS: Glucose, Whole Blood 229 mg/dL (60-115)
[2020-07-22] MEDS: 0.9 % Sodium Chloride Flush 3 ML SYRINGE IVFLUSH ×3 (11:08→20:11)
[2020-07-22] MEDS: Heparin Sodium,Porcine 5,000 UNIT/ML VIAL 5000 UNIT SUBCUT ×2 (11:09→20:11)
[2020-07-22] MEDS: Nystatin Powder 15 GM BOTTLE 1 APPL TOPICAL (11:09)
[2020-07-22] MEDS: Insulin Glargine,Hum.rec.anlog 100 UNIT/ML 10 ML VIAL 20 UNIT SUBCUT (11:13)
[2020-07-22] MEDS: Insulin Lispro 100 UNIT/ML 3 ML VIAL SUBCUT ×3 (11:14→20:17)
[2020-07-22 11:48] VITALS: BP 135/73; PULSE 102; RESP 19; TEMP 36.7; O2SAT 93
--- NOTE | 2020-07-22 13:26 | HO.PM.IMPN ---
Subjective Subjective Date of Service: 07/22/20 Interval History: Patient seen and examined at bedside Patient remains confused denies any complaint Review of Systems Unable to review systems given confusion Constitutional Constitutional: Reports as per HPI and Reports no additional constitutional complaints Physical Exam Vital Signs: Vital Signs: Last Vital Signs Temp 98.1 F 07/22/20 11:48 Pulse 102 H 07/22/20 11:48 Resp 19 07/22/20 11:48 BP 135/73 07/22/20 11:48 Pulse Ox 93 07/22/20 11:48 Body Mass Index 34.2 Const: General: no acute distress Eyes: General: appearance normal, both eyes and all related structures Resp: Effort & Inspection: normal respiratory effort and able to speak in complete sentences Cardio: Rate: regular rate Rhythm: regular rhythm GI: Palpation (GI): Soft to palpation Auscultation: normal bowel sounds Skin: General skin exam: no rashes or lesions noted Extrem: General: Yes normal to inspection and Yes no pedal edema Objective Data Current Medications Generic Name Dose Route Start Last Admin Trade Name Freq PRN Reason Stop Dose Admin Acetaminophen 650 mg 07/17/20 05:16 Acetaminophen 325 Mg Tablet PO Q6H PRN Fever Al Hydroxide/Mg Hydroxide 30 ml 07/06/20 00:50 Magnesium Hydrox/Alum Hydrox 30 Ml Oral.Susp PO Q4H PRN Heartburn Atorvastatin Calcium 10 mg 07/06/20 01:00 07/21/20 21:23 Atorvastatin Calcium 10 Mg Tablet PO Not Given BEDTIME SUZANNE Cefuroxime Axetil 250 mg 07/18/20 14:00 07/21/20 14:56 Cefuroxime Axetil 250 Mg Tablet PO 250 mg Q24H SUZANNE Administration Divalproex Sodium 125 mg 07/18/20 09:00 07/22/20 11:08 Divalproex Sodium 125 Mg Tablet.Dr PO 125 mg DAILY SUZANNE Administration Heparin Sodium (Porcine) 5,000 unit 07/22/20 08:00 07/22/20 11:09 Heparin Sodium,Porcine 5,000 Unit/Ml Vial SUBCUT 5,000 unit Q12H SUZANNE Administration Insulin Glargine 20 unit 07/19/20 09:00 07/22/20 11:13 Insulin Glargine,Hum.Rec.Anlog 100 Unit/Ml 10 Ml Vial SUBCUT 20 unit DAILY SUZANNE Administration Insulin Human Lispro 0 unit 07/18/20 21:30 07/22/20 11:14 Insulin Lispro 100 Unit/Ml 3 Ml Vial SUBCUT 2 unit QIDACHS [facility] Administration Lorazepam 0.5 mg 07/17/20 19:36 07/21/20 17:52 Lorazepam 0.5 Mg Tablet PO 0.5 mg BID PRN Administration Mild agitation Melatonin 3 mg 07/06/20 01:00 07/21/20 21:23 Melatonin 3 Mg Tablet PO Not Given BEDTIME [facility] Metformin HCl 500 mg 07/06/20 01:00 07/16/20 12:22 Metformin Hcl 500 Mg Tablet PO 500 mg BID SUZANNE Administration Metoprolol Tartrate 12.5 mg 07/06/20 01:00 07/15/20 20:40 Metoprolol Tartrate 25 Mg Tablet PO 12.5 mg BID [facility] Administration Protocol Mirtazapine 11.25 mg 07/17/20 21:00 07/21/20 21:24 Mirtazapine 7.5 Mg Tablet PO Not Given BEDTIME [facility] Nystatin 1 appl 07/06/20 01:00 07/22/20 11:09 Nystatin Powder 15 Gm Bottle TOPICAL 1 appl BID [facility] Administration Protocol Ondansetron HCl 4 mg 07/16/20 05:28 Ondansetron Hcl 4 Mg/2 Ml Vial IVPUSH Q8H PRN Nausea and Vomiting Polyethylene Glycol 17 gm 07/16/20 05:28 Polyethylene Glycol 3350 17 Gm Powd.Pack PO DAILY PRN Constipation Quetiapine Fumarate 12.5 mg 07/17/20 19:35 07/22/20 11:06 Quetiapine Fumarate 25 Mg Tablet PO 12.5 mg BID PRN Administration Severe agitation Sodium Chloride 3 ml 07/16/20 08:00 07/22/20 11:08 0.9 % Sodium Chloride Flush 3 Ml Syringe IVFLUSH 3 ml QSHIFT [facility] Administration Labs CBC & Chem 7: 07/22/20 06:10 07/18/20 09:22 Microbiology Microbiology Results: Microbiology 07/16/20 Unknown Urine clean catch - Clean Catch Midstream Urine Culture - Final 07/11/20 Unknown Urine clean catch - Clean Catch Midstream Urine Culture - Final 07/06/20 Unknown Urine clean catch - Clean Catch Midstream Urine Culture - Final Assessment and Plan (1) Pneumonia due to COVID-19 virus: Status: Acute (2) Dementia, senile with depression: Status: Acute (3) Dementia with behavioral disturbance: Status: Acute (4) Diabetes mellitus: Status: Acute (5) HTN (hypertension): Status: Acute (6) Pancytopenia: Status: Acute Assessment and Plan: This is a 75-year-old female who initially presented to the hospital on July 05 awaiting placement for her history of dementia with psychotic disturbances was tested positive for COVID-19 on the 13 and now has hypoxic respiratory failure according to ED documentation. COVID-19 pneumonia Not hypoxic Continue supportive management Currently not requiring oxygen Pancytopenia resolving Probably from Zyprexa Leukopenia improving Hold Zyprexa monitor CBCs Dementia with behavioral disturbance Psych consulted continue Remeron, seroquel as per psych recommendation continue Ativan p.r.n. for restlessness anxiety Diiabetes Lantus dose increased Continue SSI Diabetic diet Hypertension - stable - continue home meds DVT prophylaxis: compression boot heparin subQ awaiting placement
--- NOTE | 2020-07-22 14:40 | MHC.CM.PN ---
DP Bed search continues. Patient is on a 1:[address] Leonardo is consulting Miesha Cannon for assistance with psych Medications. The State discharge resources WEBsite is also being utilized. CM will follow.
[2020-07-22 14:52] LABS: Anion Gap 16 (12-20); Blood Urea Nitrogen 14 mg/dL (9-16); Calcium 8.6 mg/dL (8.4-10.2); Carbon Dioxide 24 mmol/L (22-29); Chloride 100 mmol/L (96-108); Creatinine Clr Calc Pharmacy 63.7; Estimated Glomerular Filt Rate > 60; Glucose Random 190 mg/dL (60-115); Potassium 3.9 mmol/l (3.3-5.1); Sodium 136 mmol/L (135-145)
[2020-07-22 15:12] VITALS: BP 138/78; PULSE 101; RESP 20; TEMP 37.1; O2SAT 89
[2020-07-22 16:22] LABS: Glucose, Whole Blood 226 mg/dL (60-115)
[2020-07-22] MEDS: LORazepam 0.5 MG TABLET PO (17:14)
[2020-07-22 19:08] VITALS: BP 157/91; PULSE 106; RESP 16; TEMP 36.3; O2SAT 92
[2020-07-22 20:04] LABS: Glucose, Whole Blood 277 mg/dL (60-115)
[2020-07-22] MEDS: Atorvastatin Calcium 10 MG TABLET PO (21:01)
[2020-07-22] MEDS: Melatonin 3 MG TABLET PO (21:01)
[2020-07-22 23:42] VITALS: BP 142/72; RESP 18
--- NOTE | 2020-07-22 23:52 | PC.NURSE ---
Patient initially refused to take bedtime medications, attempted second time when she was more alert and sitting at side of bed. Able to take all medications except Mirtazapine due to low quantity in Pyxis.
[2020-07-23 03:02] VITALS: BP 140/61; PULSE 103; RESP 16; TEMP 36.9; O2SAT 91
[2020-07-23 07:05] LABS: MANUAL DIFF FLAG NO
[2020-07-23 07:06] VITALS: BP 144/80; PULSE 102; RESP 16; TEMP 36.4; O2SAT 91
[2020-07-23 07:10] LABS: Eosinophils Percent Auto 0.2 % (0-4); Hematocrit 34.4 % (37-47); Hemoglobin 11.6 g/dl (12.0-16.0); Imm Gran Abs Auto 0.03 X10*3/uL (0.00-0.03); Imm Gran Pct Auto 0.6 % (0.0-0.4); Lymphocytes Absolute Auto 1.7 X10*3/uL (1.2-4.9); Lymphocytes Percent Auto 32.9 % (20-40); Mean Corpuscular HGB Conc 33.7 g/dl (31.0-35.0); Mean Corpuscular Hemoglobin 28.6 pg (27.0-33.0); Mean Corpuscular Volume 84.7 fL (80-98); Mean Platelet Volume 10.5 fL (9.4-12.3); Monocytes Absolute Auto 0.5 X10*3/uL (0.1-1.2); Monocytes Percent Auto 8.7 % (2-11); Neutrophils Percent Auto 57.6 % (45-73); Platelet Count 244 X10*3/uL (160-400); Red Blood Count 4.06 X10*6/uL (4.20-5.50); Red Cell Distribution Width 14.4 % (11.0-16.0); White Blood Count 5.3 X10*3/uL (4.8-10.8)
[2020-07-23 07:59] LABS: Glucose, Whole Blood 247 mg/dL (60-115)
[2020-07-23] MEDS: Insulin Lispro 100 UNIT/ML 3 ML VIAL SUBCUT ×4 (08:03→21:18)
[2020-07-23] MEDS: QUEtiapine Fumarate 25 MG TABLET 12.5 MG PO ×2 (08:04→21:19)
[2020-07-23] MEDS: Heparin Sodium,Porcine 5,000 UNIT/ML VIAL 5000 UNIT SUBCUT ×2 (08:04→21:18)
[2020-07-23] MEDS: 0.9 % Sodium Chloride Flush 3 ML SYRINGE IVFLUSH ×2 (08:05→16:50)
[2020-07-23] MEDS: Insulin Glargine,Hum.rec.anlog 100 UNIT/ML 10 ML VIAL 20 UNIT SUBCUT (08:06)
--- NOTE | 2020-07-23 10:10 | PC.NURSE ---
PT WANDERING AROUND IN ROOM. SITTER AT BEDSIDE. TOOK A FEW BITES OF FRUIT AND JUICE FOR BREAKFAST. TOOK AM MEDICATIONS
[2020-07-23 11:52] LABS: Glucose, Whole Blood 241 mg/dL (60-115)
[2020-07-23 11:54] VITALS: BP 131/65; PULSE 105; RESP 16; TEMP 36.3
[2020-07-23] MEDS: LORazepam 0.5 MG TABLET PO (12:09)
--- NOTE | 2020-07-23 12:15 | MHC.CM.PN ---
DP Quarentine thru 07/27/20 (14 days). The bed search continues. A locked unit is required. Pt is an elopement risk.
--- NOTE | 2020-07-23 12:52 | P.CNPS_ITS ---
History of Present Illness Date of Service: 07/23/2020 Chief Complaint: hypoxic resp failure due to covid, leukopenia Reason for Consult: psychiatry follow up Requesting physician: George Leonardo Discussed with referring provider: Yes Sources of Information: patient interviewed and chart reviewed HPI Narrative: Patient known to this selling underwriter from previous eval Notes reviewed from psychiatry consult on 07/17 where Olanzapine was switched to Seroquel d/t leukopenia. Seroquel was prescribed as 12.5mg BID PRN with good effect. Consult requested as patient may be discharging in near future and potential SNF requesting medication update. Patient seen in room 467. Awake, alert, but not engaging with this selling underwriter at all. Patient observed to be staring off, would make eye contact when her name was called, but would not engage beyond that. Documentation showing limited episodes of agitation that self resolved and where patient responded to redirection . Unclear how long she has been this way as when she was seen by this selling underwriter a couple of weeks ago she was very talkative, engaging, pleasant. Past Psychiatric History: One psychiatric admission as noted in HPI Medical Evaluation Reviewed: Yes Review of Systems Review of Systems Yes Unobtainable due to mental status [facility] Medical History Dementia with behavioral disturbance Diabetes mellitus HTN (hypertension) Hyperlipidemia Vitamin D deficiency Family History: 50 years per pt and ? of separation/divorce unclear two children Jolene Mathew [phone] Son lives in [place] per daughter family hx of mental illness per pt her cousin committed suicide by hanging Social History: lives [facility] Trauma History: unknown Diagnostics Vital Signs (24Hr): Vital Signs - 24 hr 07/22/20 15:12 07/22/20 19:08 07/22/20 23:42 Temperature 98.8 F 97.4 F Pulse Rate 101 H 106 H Respiratory Rate 20 16 18 Blood Pressure 138/78 157/91 H 142/72 H Pulse Oximetry 89 L 92 07/23/20 03:02 07/23/20 07:06 07/23/20 11:54 Temperature 98.5 F 97.6 F 97.3 F Pulse Rate 103 H 102 H 105 H Respiratory Rate 16 16 16 Blood Pressure 140/61 H 144/80 H 131/65 Pulse Oximetry 91 L 91 L Body Mass Index 34.2 Labs Results: 07/23/20 06:08 07/22/20 14:10 Labs: Laboratory Results - last 48 hr 07/21/20 07/21/20 07/22/20 17:14 20:48 06:10 WBC 9.3 RBC 4.56 D Hgb 13.1 D Hct 38.9 D MCV 85.3 MCH 28.7 MCHC 33.7 RDW 14.6 Plt Count 325 D MPV 10.3 Immature Gran % (Auto) 0.8 H Neut % (Auto) 62.4 Lymph % (Auto) 29.0 [place] % (Auto) 7.7 Eos % (Auto) 0.0 Baso % (Auto) 0.1 Lymph # (Auto) 2.7 [place] # (Auto) 0.7 Eos # (Auto) 0.0 Baso # (Auto) 0.0 Abs Immat Gran (auto) 0.07 H Absolute Neuts (auto) 5.8 Absolute Nucleated RBC 0.000 Nucleated RBC % (auto) 0.0 Sodium Potassium Chloride Carbon Dioxide Anion Gap BUN Creatinine Estim Creat Clear Calc Estimated GFR POC Glucose 217 H 230 H Random Glucose Calcium 07/22/20 07/22/20 07/22/20 07:59 11:02 14:10 WBC RBC Hgb Hct MCV MCH MCHC RDW Plt Count MPV Immature Gran % (Auto) Neut % (Auto) Lymph % (Auto) [place] % (Auto) Eos % (Auto) Baso % (Auto) Lymph # (Auto) [place] # (Auto) Eos # (Auto) Baso # (Auto) Abs Immat Gran (auto) Absolute Neuts (auto) Absolute Nucleated RBC Nucleated RBC % (auto) Sodium 136 Potassium 3.9 Chloride 100 Carbon Dioxide 24 Anion Gap 16 BUN 14 D Creatinine 0.70 Estim Creat Clear Calc 63.7 Estimated GFR > 60 POC Glucose 190 H 229 H Random Glucose 190 H Calcium 8.6 07/22/20 07/22/20 07/23/20 16:15 19:07 06:08 WBC 5.3 RBC 4.06 L Hgb 11.6 L Hct 34.4 L MCV 84.7 MCH 28.6 MCHC 33.7 RDW 14.4 Plt Count 244 MPV 10.5 Immature Gran % (Auto) 0.6 H Neut % (Auto) 57.6 Lymph % (Auto) 32.9 [place] % (Auto) 8.7 Eos % (Auto) 0.2 Baso % (Auto) 0.0 Lymph # (Auto) 1.7 [place] # (Auto) 0.5 Eos # (Auto) 0.0 Baso # (Auto) 0.0 Abs Immat Gran (auto) 0.03 Absolute Neuts (auto) 3.0 Absolute Nucleated RBC 0.000 Nucleated RBC % (auto) 0.0 Sodium Potassium Chloride Carbon Dioxide Anion Gap BUN Creatinine Estim Creat Clear Calc Estimated GFR POC Glucose 226 H 277 H Random Glucose Calcium 07/23/20 07/23/20 07:52 11:46 WBC RBC Hgb Hct MCV MCH MCHC RDW Plt Count MPV Immature Gran % (Auto) Neut % (Auto) Lymph % (Auto) [place] % (Auto) Eos % (Auto) Baso % (Auto) Lymph # (Auto) [place] # (Auto) Eos # (Auto) Baso # (Auto) Abs Immat Gran (auto) Absolute Neuts (auto) Absolute Nucleated RBC Nucleated RBC % (auto) Sodium Potassium Chloride Carbon Dioxide Anion Gap BUN Creatinine Estim Creat Clear Calc Estimated GFR POC Glucose 247 H 241 H Random Glucose Calcium Imaging Radiology Impressions: ITS Impressions Chest X-Ray 07/16/20 04:13 IMPRESSION: Patchy airspace opacities in the right midlung which may correspond to early pneumonia. Low lung volumes. Mental Status Exam Mental Status Exam Narrative: awake, alert, not engaging in interview Patient Appearance: Disheveled Affect Description: Flat Medications Medications Current Medications Generic Name Dose Route Start Last Admin Trade Name Freq PRN Reason Stop Dose Admin Acetaminophen 650 mg 07/17/20 05:16 Acetaminophen 325 Mg Tablet PO Q6H PRN Fever Al Hydroxide/Mg Hydroxide 30 ml 07/06/20 00:50 Magnesium Hydrox/Alum Hydrox 30 Ml Oral.Susp PO Q4H PRN Heartburn Atorvastatin Calcium 10 mg 07/06/20 01:00 07/22/20 21:01 Atorvastatin Calcium 10 Mg Tablet PO 10 mg BEDTIME SUZANNE Administration Cefuroxime Axetil 250 mg 07/18/20 14:00 07/23/20 12:09 Cefuroxime Axetil 250 Mg Tablet PO 250 mg Q24H SUZANNE Administration Divalproex Sodium 125 mg 07/18/20 09:00 07/23/20 08:03 Divalproex Sodium 125 Mg Tablet.Dr PO 125 mg DAILY SUZANNE Administration Heparin Sodium (Porcine) 5,000 unit 07/22/20 08:00 07/23/20 08:04 Heparin Sodium,Porcine 5,000 Unit/Ml Vial SUBCUT 5,000 unit Q12H SUZANNE Administration Insulin Glargine 20 unit 07/19/20 09:00 07/23/20 08:06 Insulin Glargine,Hum.Rec.Anlog 100 Unit/Ml 10 Ml Vial SUBCUT 20 unit DAILY SUZANNE Administration Insulin Human Lispro 0 unit 07/18/20 21:30 07/23/20 11:55 Insulin Lispro 100 Unit/Ml 3 Ml Vial SUBCUT 2 unit QIDACHS [facility] Administration Lorazepam 0.5 mg 07/22/20 20:13 07/23/20 12:09 Lorazepam 0.5 Mg Tablet PO 0.5 mg BID PRN Administration Mild agitation Melatonin 3 mg 07/06/20 01:00 07/22/20 21:01 Melatonin 3 Mg Tablet PO 3 mg BEDTIME [facility] Administration Metformin HCl 500 mg 07/06/20 01:00 07/16/20 12:22 Metformin Hcl 500 Mg Tablet PO 500 mg BID [facility] Administration Metoprolol Tartrate 12.5 mg 07/06/20 01:00 07/15/20 20:40 Metoprolol Tartrate 25 Mg Tablet PO 12.5 mg BID [facility] Administration Protocol Mirtazapine 11.25 mg 07/17/20 21:00 07/22/20 20:15 Mirtazapine 7.5 Mg Tablet PO Not Given BEDTIME [facility] Nystatin 1 appl 07/06/20 01:00 07/23/20 10:09 Nystatin Powder 15 Gm Bottle TOPICAL Not Given BID [facility] Protocol Ondansetron HCl 4 mg 07/16/20 05:28 Ondansetron Hcl 4 Mg/2 Ml Vial IVPUSH Q8H PRN Nausea and Vomiting Polyethylene Glycol 17 gm 07/16/20 05:28 Polyethylene Glycol 3350 17 Gm Powd.Pack PO DAILY PRN Constipation Quetiapine Fumarate 12.5 mg 07/22/20 21:00 07/23/20 08:04 Quetiapine Fumarate 25 Mg Tablet PO 12.5 mg BID [facility] Administration Sodium Chloride 3 ml 07/16/20 08:00 07/23/20 08:05 0.9 % Sodium Chloride Flush 3 Ml Syringe IVFLUSH 3 ml QSHIFT SUZANNE Administration Allergies Allergies Allergy/AdvReac Type Severity Reaction Status Date / Time Sulfa (Sulfonamide Allergy Unknown Verified 06/17/20 18:54 Antibiotics) Assessment & Plan Assessment & Plan (1) Dementia with behavioral disturbance: Status: Acute Code(s): F03.91 - Unspecified dementia with behavioral disturbance Recommendations: * No additional changes to current regimen Greater than 50% of the session was spent on counseling and/or coordination of care
--- NOTE | 2020-07-23 14:01 | HO.PM.IMPN ---
Subjective Subjective Date of Service: 07/23/20 Interval History: Patient seen and examined at bedside Patient remains confused denies any complaint Review of Systems Unable to review systems given confusion Constitutional Constitutional: Reports as per HPI and Reports no additional constitutional complaints Physical Exam Vital Signs: Vital Signs: Last Vital Signs Temp 97.3 F 07/23/20 11:54 Pulse 105 H 07/23/20 11:54 Resp 16 07/23/20 11:54 BP 131/65 07/23/20 11:54 Pulse Ox 91 L 07/23/20 07:06 Body Mass Index 34.2 Const: General: no acute distress Eyes: General: appearance normal, both eyes and all related structures Resp: Effort & Inspection: normal respiratory effort and able to speak in complete sentences Cardio: Rate: regular rate Rhythm: regular rhythm GI: Palpation (GI): Soft to palpation Auscultation: normal bowel sounds Skin: General skin exam: no rashes or lesions noted Extrem: General: Yes normal to inspection and Yes no pedal edema Objective Data Current Medications Generic Name Dose Route Start Last Admin Trade Name Mikoq PRN Reason Stop Dose Admin Acetaminophen 650 mg 07/17/20 05:16 Acetaminophen 325 Mg Tablet PO Q6H PRN Fever Al Hydroxide/Mg Hydroxide 30 ml 07/06/20 00:50 Magnesium Hydrox/Alum Hydrox 30 Ml Oral.Susp PO Q4H PRN Heartburn Atorvastatin Calcium 10 mg 07/06/20 01:00 07/22/20 21:01 Atorvastatin Calcium 10 Mg Tablet PO 10 mg BEDTIME SUZANNE Administration Cefuroxime Axetil 250 mg 07/18/20 14:00 07/23/20 12:09 Cefuroxime Axetil 250 Mg Tablet PO 250 mg Q24H SUZANNE Administration Divalproex Sodium 125 mg 07/18/20 09:00 07/23/20 08:03 Divalproex Sodium 125 Mg Tablet.Dr PO 125 mg DAILY SUZANNE Administration Heparin Sodium (Porcine) 5,000 unit 07/22/20 08:00 07/23/20 08:04 Heparin Sodium,Porcine 5,000 Unit/Ml Vial SUBCUT 5,000 unit Q12H SUZANNE Administration Insulin Glargine 20 unit 07/19/20 09:00 07/23/20 08:06 Insulin Glargine,Hum.Rec.Anlog 100 Unit/Ml 10 Ml Vial SUBCUT 20 unit DAILY SUZANNE Administration Insulin Human Lispro 0 unit 07/18/20 21:30 07/23/20 11:55 Insulin Lispro 100 Unit/Ml 3 Ml Vial SUBCUT 2 unit QIDACHS [facility] Administration Lorazepam 0.5 mg 07/22/20 20:13 07/23/20 12:09 Lorazepam 0.5 Mg Tablet PO 0.5 mg BID PRN Administration Mild agitation Melatonin 3 mg 07/06/20 01:00 07/22/20 21:01 Melatonin 3 Mg Tablet PO 3 mg BEDTIME SUZANNE Administration Metformin HCl 500 mg 07/06/20 01:00 07/16/20 12:22 Metformin Hcl 500 Mg Tablet PO 500 mg BID [facility] Administration Metoprolol Tartrate 12.5 mg 07/06/20 01:00 07/15/20 20:40 Metoprolol Tartrate 25 Mg Tablet PO 12.5 mg BID [facility] Administration Protocol Mirtazapine 11.25 mg 07/17/20 21:00 07/22/20 20:15 Mirtazapine 7.5 Mg Tablet PO Not Given BEDTIME [facility] Nystatin 1 appl 07/06/20 01:00 07/23/20 10:09 Nystatin Powder 15 Gm Bottle TOPICAL Not Given BID [facility] Protocol Ondansetron HCl 4 mg 07/16/20 05:28 Ondansetron Hcl 4 Mg/2 Ml Vial IVPUSH Q8H PRN Nausea and Vomiting Polyethylene Glycol 17 gm 07/16/20 05:28 Polyethylene Glycol 3350 17 Gm Powd.Pack PO DAILY PRN Constipation Quetiapine Fumarate 12.5 mg 07/22/20 21:00 07/23/20 08:04 Quetiapine Fumarate 25 Mg Tablet PO 12.5 mg BID [facility] Administration Sodium Chloride 3 ml 07/16/20 08:00 07/23/20 08:05 0.9 % Sodium Chloride Flush 3 Ml Syringe IVFLUSH 3 ml QSHIFT [facility] Administration Labs CBC & Chem 7: 07/23/20 06:08 07/22/20 14:10 Microbiology Microbiology Results: Microbiology 07/16/20 Unknown Urine clean catch - Clean Catch Midstream Urine Culture - Final 07/11/20 Unknown Urine clean catch - Clean Catch Midstream Urine Culture - Final 07/06/20 Unknown Urine clean catch - Clean Catch Midstream Urine Culture - Final Assessment and Plan (1) Pneumonia due to COVID-19 virus: Status: Acute (2) Dementia, senile with depression: Status: Acute (3) Dementia with behavioral disturbance: Status: Acute (4) Diabetes mellitus: Status: Acute (5) HTN (hypertension): Status: Acute (6) Pancytopenia: Status: Acute Assessment and Plan: This is a 75-year-old female who initially presented to the hospital on July 05 awaiting placement for her history of dementia with psychotic disturbances was tested positive for COVID-19 on the 13 COVID-19 pneumonia Not hypoxic Continue supportive management Currently not requiring oxygen saturating around 90 -91 at room air Pancytopenia resolving Probably from Zyprexa Leukopenia improving Hold Zyprexa monitor CBCs Dementia with behavioral disturbance Psych consulted psych medication adjusted continue Remeron, seroquel as per psych recommendation Seroquel switched to schedule dose 12.5 b.i.d. continue Ativan p.r.n. for restlessness anxiety Diiabetes Continue Lantus Continue SSI Diabetic diet Hypertension - stable - continue home meds DVT prophylaxis: compression boot heparin subQ awaiting placement case management working on placement
[2020-07-23 15:41] VITALS: BP 156/74; PULSE 102; RESP 18; TEMP 36.8
[2020-07-23 16:37] LABS: Glucose, Whole Blood 219 mg/dL (60-115)
[2020-07-23] MEDS: Mirtazapine 7.5 MG TABLET 11.25 MG PO (17:02)
[2020-07-23 20:00] VITALS: BP 140/66; PULSE 98; RESP 17; TEMP 36.8; O2SAT 90
[2020-07-23 21:10] LABS: Glucose, Whole Blood 233 mg/dL (60-115)
[2020-07-23] MEDS: Melatonin 3 MG TABLET PO (21:19)
[2020-07-23] MEDS: Atorvastatin Calcium 10 MG TABLET PO (21:19)
[2020-07-24] VITALS: BP 117/52; PULSE 67; RESP 16; TEMP 36.8; O2SAT 90
[2020-07-24] MEDS: 0.9 % Sodium Chloride Flush 3 ML SYRINGE IVFLUSH ×4 (00:04→20:57)
[2020-07-24 04:00] VITALS: BP 149/68; PULSE 103; RESP 16; TEMP 36.1; O2SAT 96
[2020-07-24 06:19] LABS: MANUAL DIFF FLAG NO
[2020-07-24 06:29] LABS: Basophils Percent Auto 0.1 % (0-2); Eosinophils Percent Auto 0.2 % (0-4); Hematocrit 37.9 % (37-47); Hemoglobin 12.6 g/dl (12.0-16.0); Imm Gran Abs Auto 0.06 X10*3/uL (0.00-0.03); Imm Gran Pct Auto 0.7 % (0.0-0.4); Lymphocytes Absolute Auto 1.9 X10*3/uL (1.2-4.9); Lymphocytes Percent Auto 23.4 % (20-40); Mean Corpuscular HGB Conc 33.2 g/dl (31.0-35.0); Mean Corpuscular Hemoglobin 28.5 pg (27.0-33.0); Mean Corpuscular Volume 85.7 fL (80-98); Mean Platelet Volume 11.6 fL (9.4-12.3); Monocytes Absolute Auto 0.7 X10*3/uL (0.1-1.2); Monocytes Percent Auto 8.9 % (2-11); Neutrophils Absolute Auto 5.4 X10*3/uL (2.0-8.3); Neutrophils Percent Auto 66.7 % (45-73); Platelet Count 258 X10*3/uL (160-400); Red Blood Count 4.42 X10*6/uL (4.20-5.50); Red Cell Distribution Width 14.6 % (11.0-16.0); White Blood Count 8.2 X10*3/uL (4.8-10.8)
[2020-07-24 07:55] VITALS: BP 140/61; PULSE 101; RESP 17; TEMP 36.4; O2SAT 87
[2020-07-24] MEDS: Insulin Glargine,Hum.rec.anlog 100 UNIT/ML 10 ML VIAL 25 UNIT SUBCUT (08:05)
[2020-07-24] MEDS: Heparin Sodium,Porcine 5,000 UNIT/ML VIAL 5000 UNIT SUBCUT ×2 (08:06→20:44)
[2020-07-24] MEDS: QUEtiapine Fumarate 25 MG TABLET 12.5 MG PO ×2 (08:07→20:44)
[2020-07-24] MEDS: Insulin Lispro 100 UNIT/ML 3 ML VIAL SUBCUT ×3 (08:17→16:54)
[2020-07-24 08:27] LABS: Glucose, Whole Blood 222 mg/dL (60-115)
[2020-07-24 11:53] LABS: Glucose, Whole Blood 213 mg/dL (60-115)
[2020-07-24 12:00] VITALS: BP 117/75; PULSE 107; RESP 18; TEMP 36.9; O2SAT 86
--- NOTE | 2020-07-24 13:34 | P.PNIM_ITS ---
Subjective Subjective Date of Service: 07/24/20 Interval History: the patient was seen and evaluated this morning Laying in bed, looks comfortable and not in distress but overall weak Denies any fever, chills or shortness of breath No reported other overnight events. Systemic review: No fever, chills but reports generalized weakness No chest pain, palpitation No shortness of breath or coughing No abdominal pain, nausea or vomiting No urinary symptoms No any rash or wounds Physical Exam Vital Signs: Vital Signs: Last Vital Signs Temp 97.6 F 07/24/20 07:55 Pulse 101 H 07/24/20 07:55 Resp 17 07/24/20 07:55 BP 140/61 H 07/24/20 07:55 Pulse Ox 87 L 07/24/20 07:55 Body Mass Index 34.2 Const: Other: Constitutional : Alert, not in distress, looks tired and l ethargic Neck : Normal inspection, Supple Cardiovascular : RRR, S1 S2, no lower extremity edema Respiratory : Good bilateral chest wall movement, not in respiratory distress Gastrointestinal: soft, lax, Normal bowel sounds, Non tender Skin : Warm/Dry, No rash Neurological : Alert & mildly confused, No focal deficit Objective Data Current Medications Generic Name Dose Route Start Last Admin Trade Name Freq PRN Reason Stop Dose Admin Acetaminophen 650 mg 07/17/20 05:16 Acetaminophen 325 Mg Tablet PO Q6H PRN Fever Al Hydroxide/Mg Hydroxide 30 ml 07/06/20 00:50 Magnesium Hydrox/Alum Hydrox 30 Ml Oral.Susp PO Q4H PRN Heartburn Atorvastatin Calcium 10 mg 07/06/20 01:00 07/23/20 21:19 Atorvastatin Calcium 10 Mg Tablet PO 10 mg BEDTIME SUZANNE Administration Cefuroxime Axetil 250 mg 07/18/20 14:00 07/24/20 12:03 Cefuroxime Axetil 250 Mg Tablet PO 250 mg Q24H [facility]ZANNE Administration Divalproex Sodium 125 mg 07/18/20 09:00 07/24/20 08:07 Divalproex Sodium 125 Mg Tablet.Dr PO 125 mg DAILY SUZANNE Administration Heparin Sodium (Porcine) 5,000 unit 07/22/20 08:00 07/24/20 08:06 Heparin Sodium,Porcine 5,000 Unit/Ml Vial SUBCUT 5,000 unit Q12H [facility]ZANNE Administration Insulin Glargine 25 unit 07/24/20 09:00 07/24/20 08:05 Insulin Glargine,Hum.Rec.Anlog 100 Unit/Ml 10 Ml Vial SUBCUT 25 unit DAILY SUZANNE Administration Insulin Human Lispro 0 unit 07/18/20 21:30 07/24/20 12:03 Insulin Lispro 100 Unit/Ml 3 Ml Vial SUBCUT 2 unit QIDACHS [facility] Administration Lorazepam 0.5 mg 07/22/20 20:13 07/23/20 12:09 Lorazepam 0.5 Mg Tablet PO 0.5 mg BID PRN Administration Mild agitation Melatonin 3 mg 07/06/20 01:00 07/23/20 21:19 Melatonin 3 Mg Tablet PO 3 mg BEDTIME [facility] Administration Metformin HCl 500 mg 07/06/20 01:00 07/16/20 12:22 Metformin Hcl 500 Mg Tablet PO 500 mg BID [facility]ANNE Administration Metoprolol Tartrate 12.5 mg 07/06/20 01:00 07/15/20 20:40 Metoprolol Tartrate 25 Mg Tablet PO 12.5 mg BID [facility] Administration Protocol Mirtazapine 11.25 mg 07/17/20 21:00 07/23/20 17:02 Mirtazapine 7.5 Mg Tablet PO 11.25 mg BEDTIME [facility] Administration Nystatin 1 appl 07/06/20 01:00 07/24/20 09:15 Nystatin Powder 15 Gm Bottle TOPICAL Not Given BID [facility] Protocol Ondansetron HCl 4 mg 07/16/20 05:28 Ondansetron Hcl 4 Mg/2 Ml Vial IVPUSH Q8H PRN Nausea and Vomiting Polyethylene Glycol 17 gm 07/16/20 05:28 Polyethylene Glycol 3350 17 Gm Powd.Pack PO DAILY PRN Constipation Quetiapine Fumarate 12.5 mg 07/22/20 21:00 07/24/20 08:07 Quetiapine Fumarate 25 Mg Tablet PO 12.5 mg BID [facility] Administration Sodium Chloride 3 ml 07/16/20 08:00 07/24/20 08:06 0.9 % Sodium Chloride Flush 3 Ml Syringe IVFLUSH 3 ml QSHIFT [facility] Administration Labs CBC & Chem 7: 07/24/20 05:41 07/22/20 14:10 Microbiology Microbiology Results: Microbiology 07/16/20 Unknown Urine clean catch - Clean Catch Midstream Urine Culture - Final 07/11/20 Unknown Urine clean catch - Clean Catch Midstream Urine Culture - Final 07/06/20 Unknown Urine clean catch - Clean Catch Midstream Urine Culture - Final Assessment and Plan (1) Pneumonia due to COVID-19 virus: Status: Acute (2) Dementia, senile with depression: Status: Acute (3) Dementia with behavioral disturbance: Status: Acute (4) Diabetes mellitus: Status: Acute (5) HTN (hypertension): Status: Acute (6) Pancytopenia: Status: Acute Assessment and Plan: This is a 75-year-old female who initially presented to the hospital on July 05 awaiting placement for her history of dementia with psychotic disturbances was tested positive for COVID-19 on the 13 COVID-19 pneumonia Hypoxic episode Continue supportive management O2 sat dropped to 87 on room air, to place oxygen supplement Start incentive spirometry Pancytopenia Probably from Zyprexa improving Hold Zyprexa monitor CBCs Dementia with behavioral disturbance Psych consulted psych medication adjusted continue Remeron, seroquel as per psych recommendation Seroquel switched to schedule dose 12.5 b.i.d. continue Ativan p.r.n. for restlessness anxiety Diiabetes Continue Lantus Continue SSI Diabetic diet Hypertension stable continue home meds DVT prophylaxis: compression boot heparin subQ awaiting placement case management working on placement
[2020-07-24 15:09] VITALS: BP 149/76; PULSE 80; RESP 19; TEMP 36.5; O2SAT 90
[2020-07-24 16:21] LABS: Glucose, Whole Blood 251 mg/dL (60-115)
[2020-07-24] MEDS: LORazepam 0.5 MG TABLET PO (17:45)
[2020-07-24 19:07] VITALS: BP 158/81; PULSE 92; RESP 19; TEMP 36.1; O2SAT 90
[2020-07-24 20:07] LABS: Glucose, Whole Blood 192 mg/dL (60-115)
[2020-07-24] MEDS: Atorvastatin Calcium 10 MG TABLET PO (20:44)
[2020-07-24] MEDS: Melatonin 3 MG TABLET PO (20:44)
[2020-07-24] MEDS: Mirtazapine 7.5 MG TABLET 11.25 MG PO (20:47)
[2020-07-25] VITALS: BP 161/92; PULSE 88; RESP 20; TEMP 36.1; O2SAT 97
[2020-07-25 04:00] VITALS: BP 166/88; PULSE 84; RESP 20; TEMP 36.5; O2SAT 94
[2020-07-25 05:53] LABS: COVID-19 Test Negative (Negative)
[2020-07-25] MEDS: LORazepam 0.5 MG TABLET PO (06:29)
[2020-07-25 07:31] LABS: Anion Gap 18 (12-20); Blood Urea Nitrogen 14 mg/dL (9-16); Calcium 8.4 mg/dL (8.4-10.2); Carbon Dioxide 25 mmol/L (22-29); Chloride 103 mmol/L (96-108); Creatinine Clr Calc Pharmacy 65.5; Estimated Glomerular Filt Rate > 60; Glucose Random 185 mg/dL (60-115); Potassium 3.6 mmol/l (3.3-5.1); Sodium 142 mmol/L (135-145)
[2020-07-25 07:34] VITALS: BP 155/69; PULSE 100; RESP 17; TEMP 36.6; O2SAT 90
[2020-07-25 08:13] LABS: Glucose, Whole Blood 317 mg/dL (60-115)
[2020-07-25] MEDS: Insulin Lispro 100 UNIT/ML 3 ML VIAL SUBCUT ×3 (09:49→22:00)
[2020-07-25] MEDS: Insulin Glargine,Hum.rec.anlog 100 UNIT/ML 10 ML VIAL 25 UNIT SUBCUT (09:49)
[2020-07-25] MEDS: Heparin Sodium,Porcine 5,000 UNIT/ML VIAL 5000 UNIT SUBCUT ×2 (09:50→21:00)
[2020-07-25] MEDS: 0.9 % Sodium Chloride Flush 3 ML SYRINGE IVFLUSH ×2 (09:50→19:51)
[2020-07-25 11:36] VITALS: BP 169/71; PULSE 113; RESP 19; O2SAT 90
--- NOTE | 2020-07-25 11:37 | HO.PM.IMPN ---
Subjective Subjective Date of Service: 07/25/20 Interval History: the patient was seen and evaluated this morning Laying in bed, looks comfortable and not in distress but overall weak Denies any fever, chills or shortness of breath No reported other overnight events. Systemic review: No fever, chills but reports generalized weakness No chest pain, palpitation No shortness of breath or coughing No abdominal pain, nausea or vomiting No urinary symptoms No any rash or wounds Physical Exam Vital Signs: Vital Signs: Last Vital Signs Temp 98 F 07/25/20 07:34 Pulse 100 07/25/20 07:34 Resp 17 07/25/20 07:34 BP 155/69 H 07/25/20 07:34 Pulse Ox 90 L 07/25/20 07:34 Body Mass Index 34.2 Const: Other: Constitutional : Alert with stimulation, not in distress, looks tired and lethargic Neck : Normal inspection, Supple Cardiovascular : RRR, S1 S2, no lower extremity edema Respiratory : Good bilateral chest wall movement, not in respiratory distress Gastrointestinal: soft, lax, Normal bowel sounds, Non tender Skin : Warm/Dry, No rash Neurological : Alert with stimulation & mildly confused, No focal deficit Objective Data Current Medications Generic Name Dose Route Start Last Admin Trade Name Freq PRN Reason Stop Dose Admin Acetaminophen 650 mg 07/17/20 05:16 Acetaminophen 325 Mg Tablet PO Q6H PRN Fever Al Hydroxide/Mg Hydroxide 30 ml 07/06/20 00:50 Magnesium Hydrox/Alum Hydrox 30 Ml Oral.Susp PO Q4H PRN Heartburn Atorvastatin Calcium 10 mg 07/06/20 01:00 07/24/20 20:44 Atorvastatin Calcium 10 Mg Tablet PO 10 mg BEDTIME SUZANNE Administration Cefuroxime Axetil 250 mg 07/18/20 14:00 07/24/20 12:03 Cefuroxime Axetil 250 Mg Tablet PO 250 mg Q24H SUZANNE Administration Divalproex Sodium 125 mg 07/18/20 09:00 07/24/20 08:07 Divalproex Sodium 125 Mg Tablet.Dr PO 125 mg DAILY SUZANNE Administration Heparin Sodium (Porcine) 5,000 unit 07/22/20 08:00 07/25/20 09:50 Heparin Sodium,Porcine 5,000 Unit/Ml Vial SUBCUT 5,000 unit Q12H SUZANNE Administration Insulin Glargine 25 unit 07/24/20 09:00 07/25/20 09:49 Insulin Glargine,Hum.Rec.Anlog 100 Unit/Ml 10 Ml Vial SUBCUT 25 unit DAILY SUZANNE Administration Insulin Human Lispro 0 unit 07/18/20 21:30 07/25/20 09:49 Insulin Lispro 100 Unit/Ml 3 Ml Vial SUBCUT 6 unit QIDACHS SUZANNE Administration Lorazepam 0.5 mg 07/22/20 20:13 07/25/20 06:29 Lorazepam 0.5 Mg Tablet PO 0.5 mg BID PRN Administration Mild agitation Melatonin 3 mg 07/06/20 01:00 07/24/20 20:44 Melatonin 3 Mg Tablet PO 3 mg BEDTIME SUZANNE Administration Metformin HCl 500 mg 07/06/20 01:00 07/16/20 12:22 Metformin Hcl 500 Mg Tablet PO 500 mg BID SUZANNE Administration Metoprolol Tartrate 12.5 mg 07/06/20 01:00 07/15/20 20:40 Metoprolol Tartrate 25 Mg Tablet PO 12.5 mg BID [facility] Administration Protocol Mirtazapine 11.25 mg 07/17/20 21:00 07/24/20 20:47 Mirtazapine 7.5 Mg Tablet PO 11.25 mg BEDTIME [facility] Administration Nystatin 1 appl 07/06/20 01:00 07/25/20 10:41 Nystatin Powder 15 Gm Bottle TOPICAL Not Given BID [facility] Protocol Ondansetron HCl 4 mg 07/16/20 05:28 Ondansetron Hcl 4 Mg/2 Ml Vial IVPUSH Q8H PRN Nausea and Vomiting Polyethylene Glycol 17 gm 07/16/20 05:28 Polyethylene Glycol 3350 17 Gm Powd.Pack PO DAILY PRN Constipation Quetiapine Fumarate 12.5 mg 07/22/20 21:00 07/24/20 20:44 Quetiapine Fumarate 25 Mg Tablet PO 12.5 mg BID [facility] Administration Sodium Chloride 3 ml 07/16/20 08:00 07/25/20 09:50 0.9 % Sodium Chloride Flush 3 Ml Syringe IVFLUSH 3 ml QSHIFT [facility] Administration Labs CBC & Chem 7: 07/24/20 05:41 07/25/20 05:55 Microbiology Microbiology Results: Microbiology 07/16/20 Unknown Urine clean catch - Clean Catch Midstream Urine Culture - Final 07/11/20 Unknown Urine clean catch - Clean Catch Midstream Urine Culture - Final 07/06/20 Unknown Urine clean catch - Clean Catch Midstream Urine Culture - Final Assessment and Plan (1) Pneumonia due to COVID-19 virus: Status: Acute (2) Dementia, senile with depression: Status: Acute (3) Dementia with behavioral disturbance: Status: Acute (4) Diabetes mellitus: Status: Acute (5) HTN (hypertension): Status: Acute (6) Pancytopenia: Status: Acute Assessment and Plan: This is a 75-year-old female who initially presented to the hospital on July 05 awaiting placement for her history of dementia with psychotic disturbances was tested positive for COVID-19 on the 13 COVID-19 pneumonia Hypoxia Continue supportive management O2 sat dropped to 80s on room air, to place oxygen supplement and wean down as tolerated Continue incentive spirometry Pancytopenia improving Probably from Zyprexa which was held monitor CBCs Dementia with behavioral disturbance Psych consulted psych medication adjusted continue Remeron, seroquel as per psych recommendation Seroquel switched to schedule dose 12.5 b.i.d. continue Ativan p.r.n. for restlessness anxiety Diiabetes Continue Lantus Continue SSI Diabetic diet Hypertension stable continue home meds DVT prophylaxis: compression boot heparin subQ awaiting placement case management working on placement
[2020-07-25 12:18] LABS: Glucose, Whole Blood 262 mg/dL (60-115)
[2020-07-25] MEDS: QUEtiapine Fumarate 25 MG TABLET 12.5 MG PO ×2 (15:29→22:00)
[2020-07-25 15:55] VITALS: PULSE 80; RESP 20; TEMP 36.6; O2SAT 92
[2020-07-25 17:05] LABS: Glucose, Whole Blood 207 mg/dL (60-115)
[2020-07-25] MEDS: Haloperidol Lactate 5 MG/ML VIAL 1 MG IM (18:00)
--- NOTE | 2020-07-25 18:09 | P.EN_ITS ---
Event Note Date of Service: 07/25/20 Event Note: 1 mg of haldol being given agitation with patient singificant agit ation and disrupting care, and oralmed, agitated/anxious, won't take ideally would obtain ECG but not cooperative enough to get it done. Last QTx od 480 reviewed. Once calm we can try oral mediation.
[2020-07-25 20:00] VITALS: BP 160/74; PULSE 101; RESP 20; TEMP 36.8; O2SAT 90
[2020-07-25 21:06] LABS: Glucose, Whole Blood 205 mg/dL (60-115)
[2020-07-25] MEDS: Nystatin Powder 15 GM BOTTLE 1 APPL TOPICAL (22:00)
[2020-07-25] MEDS: Atorvastatin Calcium 10 MG TABLET PO (22:00)
[2020-07-25] MEDS: Mirtazapine 7.5 MG TABLET 11.25 MG PO (23:55)
[2020-07-25] MEDS: Melatonin 3 MG TABLET PO (23:57)
[2020-07-26] VITALS (10 sets, daily range): BP systolic 106–193; BP diastolic 50–97; PULSE 86–116; RESP 18–22; TEMP 36–37; O2SAT 85–95
[2020-07-26] MEDS: 0.9 % Sodium Chloride Flush 3 ML SYRINGE IVFLUSH ×2 (01:56→22:08)
--- NOTE | 2020-07-26 04:02 | MHC.PIE ---
P: PATIENT WANDERING, HAD REFUSED AM MEDICATIONS. REFUSING [place] RISK PRECAUTIONS. PATIENT SAYS I WANT TO , REPEATEDLY. WHEN ASKED, DENIES HAVING A PLAN, AND CLARIFIED SHE JUST WANTS TO BE WITH HER . I: ASSESS PATIENT, NOTIFY MD, NOTIFY NURSING ELECTRONIC [employer]GAN MECHANIC E: PATIENT IS CONFUSED, WANDERING AROUND ROOM NEAR CONTINUOUSLY. PATIENT HAS A STEADY GAIT, BUT IS EXIT-SEEKING, NEEDS FREQUENT RE-DIRECTION. TELESITTER IN PLACE. PATIENT COMFORTED AND THERAPEUTIC COMMUNICATION WITH GOOD EFFECT. MD TO BEDSIDE TO ASSESS. NEW ORDER FOR IV ATIVAN AND TO TRY TO GIVE THE AM SEROQUEL THAT PATIENT HAD REFUSED. PATIENT TOOK PO SEROQUEL, AND IV ATIVAN WAS NOT NEEDED. IM HALDOL GIVEN INSTEAD DUE TO IV ACCESS ISSUES. UNABLE TO OBTAIN EKG PER MD DUE TO PATIENT'S REFUSAL AND WANDERING. PATIENT BREATHING EASY AND REGULAR, DENIES PAIN.
[2020-07-26 07:51] LABS: Glucose, Whole Blood 246 mg/dL (60-115)
[2020-07-26] MEDS: Heparin Sodium,Porcine 5,000 UNIT/ML VIAL 5000 UNIT SUBCUT ×2 (07:56→21:46)
[2020-07-26] MEDS: QUEtiapine Fumarate 25 MG TABLET PO ×2 (07:56→21:44)
[2020-07-26] MEDS: amLODIPine Besylate 2.5 MG TABLET PO (07:57)
[2020-07-26] MEDS: Insulin Glargine,Hum.rec.anlog 100 UNIT/ML 10 ML VIAL 25 UNIT SUBCUT (07:57)
[2020-07-26] MEDS: LORazepam 0.5 MG TABLET PO ×2 (07:57→21:44)
[2020-07-26] MEDS: Insulin Lispro 100 UNIT/ML 3 ML VIAL SUBCUT ×3 (07:58→17:16)
--- NOTE | 2020-07-26 08:11 | PC.NURSE ---
medicated with 0.5 lorazepam for ambulation in chambers and frequent redirection to room, restlessness. patient taking po.
--- NOTE | 2020-07-26 09:38 | MHC.CM.PN ---
Patient had a (+) Covid on 07/14/20. Per [facility], [facility] requires a full 14 days after a (+) Covid, prior to allowing admission on the day.The goal is for Patient to dc to [facility] on 07/28/20. CM will follow.
--- NOTE | 2020-07-26 11:26 | P.PNIM_ITS ---
Subjective Subjective Date of Service: 07/26/20 Interval History: the patient was seen and evaluated this morning Laying in bed, looks comfortable and not in distress Denies any fever, chills or shortness of breath No reported other overnight events. Systemic review: Not aware well, no complaints overall a Physical Exam Vital Signs: Vital Signs: Last Vital Signs Temp 97.7 F 07/26/20 08:00 Pulse 88 07/26/20 08:00 Resp 19 07/26/20 08:00 BP 146/59 H 07/26/20 08:00 Pulse Ox 92 07/26/20 08:00 Body Mass Index 34.2 Const: Other: Constitutional : Alert ,, not in distress, looks tired and lethargic Neck : Normal inspection, Supple Cardiovascular : RRR, S1 S2, no lower extremity edema Respiratory : Good bilateral chest wall movement, not in respiratory distress Gastrointestinal: soft, lax, Normal bowel sounds, Non tender Skin : Warm/Dry, No rash Neurological : Alert , nonverbal, mildly confused, No focal deficit Objective Data Current Medications Generic Name Dose Route Start Last Admin Trade Name Mikoq PRN Reason Stop Dose Admin Acetaminophen 650 mg 07/17/20 05:16 Acetaminophen 325 Mg Tablet PO Q6H PRN Fever Al Hydroxide/Mg Hydroxide 30 ml 07/06/20 00:50 Magnesium Hydrox/Alum Hydrox 30 Ml Oral.Susp PO Q4H PRN Heartburn Atorvastatin Calcium 10 mg 07/06/20 01:00 07/25/20 22:00 Atorvastatin Calcium 10 Mg Tablet PO 10 mg BEDTIME SUZANNE Administration Divalproex Sodium 125 mg 07/18/20 09:00 07/26/20 07:57 Divalproex Sodium 125 Mg Tablet.Dr PO 125 mg DAILY SUZANNE Administration Heparin Sodium (Porcine) 5,000 unit 07/22/20 08:00 07/26/20 07:56 Heparin Sodium,Porcine 5,000 Unit/Ml Vial SUBCUT 5,000 unit Q12H SUZANNE Administration Insulin Glargine 25 unit 07/24/20 09:00 07/26/20 07:57 Insulin Glargine,Hum.Rec.Anlog 100 Unit/Ml 10 Ml Vial SUBCUT 25 unit DAILY SUZANNE Administration Insulin Human Lispro 0 unit 07/25/20 16:45 07/26/20 07:58 Insulin Lispro 100 Unit/Ml 3 Ml Vial SUBCUT 2 unit QIDACHS SUZANNE Administration Lorazepam 0.5 mg 07/22/20 20:13 07/26/20 07:57 Lorazepam 0.5 Mg Tablet PO 0.5 mg BID PRN Administration Mild agitation Melatonin 3 mg 07/06/20 01:00 07/25/20 23:57 Melatonin 3 Mg Tablet PO 3 mg BEDTIME SUZANNE Administration Metformin HCl 500 mg 07/06/20 01:00 07/16/20 12:22 Metformin Hcl 500 Mg Tablet PO 500 mg BID SUZANNE Administration Metoprolol Tartrate 12.5 mg 07/06/20 01:00 07/15/20 20:40 Metoprolol Tartrate 25 Mg Tablet PO 12.5 mg BID SUZANNE Administration Protocol Mirtazapine 11.25 mg 07/17/20 21:00 07/25/20 23:55 Mirtazapine 7.5 Mg Tablet PO 11.25 mg BEDTIME SUZANNE Administration Nystatin 1 appl 07/06/20 01:00 07/26/20 07:58 Nystatin Powder 15 Gm Bottle TOPICAL Not Given BID [facility] Protocol Ondansetron HCl 4 mg 07/16/20 05:28 Ondansetron Hcl 4 Mg/2 Ml Vial IVPUSH Q8H PRN Nausea and Vomiting Polyethylene Glycol 17 gm 07/16/20 05:28 Polyethylene Glycol 3350 17 Gm Powd.Pack PO DAILY PRN Constipation Quetiapine Fumarate 25 mg 07/26/20 09:00 07/26/20 07:56 Quetiapine Fumarate 25 Mg Tablet PO 25 mg BID SUZANNE Administration Sodium Chloride 3 ml 07/16/20 08:00 07/26/20 07:58 0.9 % Sodium Chloride Flush 3 Ml Syringe IVFLUSH [facility] CBC & Chem 7: 07/24/20 05:41 07/25/20 05:55 Microbiology Microbiology Results: Microbiology 07/16/20 Unknown Urine clean catch - Clean Catch Midstream Urine Culture - Final 07/11/20 Unknown Urine clean catch - Clean Catch Midstream Urine Culture - Final 07/06/20 Unknown Urine clean catch - Clean Catch Midstream Urine Culture - Final Assessment and Plan (1) Pneumonia due to COVID-19 virus: Status: Acute (2) Dementia, senile with depression: Status: Acute (3) Dementia with behavioral disturbance: Status: Acute (4) Diabetes mellitus: Status: Acute (5) HTN (hypertension): Status: Acute (6) Pancytopenia: Status: Acute Assessment and Plan: This is a 75-year-old female who initially presented to the hospital on July 05 awaiting placement for her history of dementia with psychotic disturbances was tested positive for COVID-19 on the 13 COVID-19 pneumonia Hypoxia Continue supportive management Oxygen saturation around 90, drops to 80s on room air, continue to wean down oxygen as tolerated Continue incentive spirometry Pancytopenia Resolved Likely from Zyprexa which was held monitor CBCs Dementia with behavioral disturbance Psych consulted psych medication adjusted continue Remeron, seroquel as per psych recommendation Seroquel increased to 25 b.i.d.. continue Ativan p.r.n. for restlessness anxiety Hyperglycemia secondary to diabetes Continue Lantus Continue SSI Diabetic diet Hypertension stable continue home meds DVT prophylaxis: compression boot heparin subQ awaiting placement case management working on placement
[2020-07-26 11:52] LABS: Glucose, Whole Blood 231 mg/dL (60-115)
--- NOTE | 2020-07-26 14:43 | MHC.CLN ---
PO INTAKE 25% RECOMMEND 1800DM DIET TO MEET NEEDS WILL UPDATE DIET FOLLOWING
[2020-07-26 17:00] LABS: Glucose, Whole Blood 217 mg/dL (60-115)
[2020-07-26 20:19] LABS: Glucose, Whole Blood 177 mg/dL (60-115)
[2020-07-26] MEDS: Mirtazapine 7.5 MG TABLET 11.25 MG PO (21:42)
[2020-07-26] MEDS: Atorvastatin Calcium 10 MG TABLET PO (21:44)
[2020-07-26] MEDS: Melatonin 3 MG TABLET PO (21:44)
[2020-07-26] MEDS: Nystatin Powder 15 GM BOTTLE 1 APPL TOPICAL (22:07)
[2020-07-27 05:42] VITALS: BP 133/73; PULSE 89; RESP 18; O2SAT 92
--- NOTE | 2020-07-27 06:05 | PC.NURSE ---
on 07/27/20 @ 0530 pt was attempting to get out of bed. As she was trying pt slide to the floor. This was a witness fall by the FRONT OFFICE AGENT. There was no bruising, bleeding or redness on patient. No signs of injury. Md was notified and incident report in place
--- NOTE | 2020-07-27 06:44 | PC.NURSE ---
pt daughter. Jolene was contacted [phone] about the fall incidnet . She appreciated the update on her mother.
[2020-07-27 07:13] VITALS: BP 153/86; PULSE 86; RESP 19; TEMP 36.4; O2SAT 95
[2020-07-27 07:34] LABS: Glucose, Whole Blood 182 mg/dL (60-115)
[2020-07-27] MEDS: Heparin Sodium,Porcine 5,000 UNIT/ML VIAL 5000 UNIT SUBCUT ×2 (08:43→20:58)
[2020-07-27] MEDS: QUEtiapine Fumarate 25 MG TABLET PO ×2 (08:43→21:00)
[2020-07-27] MEDS: Insulin Glargine,Hum.rec.anlog 100 UNIT/ML 10 ML VIAL 25 UNIT SUBCUT (08:44)
[2020-07-27] MEDS: 0.9 % Sodium Chloride Flush 3 ML SYRINGE IVFLUSH ×3 (08:44→23:34)
[2020-07-27] MEDS: LORazepam 0.5 MG TABLET PO (08:46)
[2020-07-27] MEDS: Nystatin Powder 15 GM BOTTLE 1 APPL TOPICAL (08:55)
[2020-07-27 11:38] VITALS: BP 143/79; PULSE 92; RESP 20; TEMP 36.5; O2SAT 92
[2020-07-27 11:46] LABS: Glucose, Whole Blood 236 mg/dL (60-115)
[2020-07-27] MEDS: Insulin Lispro 100 UNIT/ML 3 ML VIAL SUBCUT (11:56)
--- NOTE | 2020-07-27 14:17 | MHC.CM.PN ---
MONIKA DC tomorrow to [facility] via [facility]. The Pts Dtr, Jolene was contacted @ her request. She is asking for a referral to [facility]. Referral has been sent. She will accept [facility] if [email or web address] denies [facility]. CM will follow.
--- NOTE | 2020-07-27 14:28 | P.PNIM_ITS ---
Subjective Subjective Date of Service: 07/27/20 Interval History: the patient was seen and evaluated this morning Laying in bed, looks comfortable and not in distress Denies any fever, chills or shortness of breath No reported other overnight events. Systemic review: Not aware well, no complaints overall a Physical Exam Vital Signs: Vital Signs: Last Vital Signs Temp 97.7 F 07/27/20 11:38 Pulse 92 07/27/20 11:38 Resp 20 07/27/20 11:38 BP 143/79 H 07/27/20 11:38 Pulse Ox 92 07/27/20 11:38 Body Mass Index 34.2 Const: Other: Constitutional : Alert ,, not in distress, looks tired and lethargic Neck : Normal inspection, Supple Cardiovascular : RRR, S1 S2, no lower extremity edema Respiratory : Good bilateral chest wall movement, not in respiratory distress Gastrointestinal: soft, lax, Normal bowel sounds, Non tender Skin : Warm/Dry, No rash Neurological : Alert , nonverbal, mildly confused, No focal deficit Objective Data Current Medications Generic Name Dose Route Start Last Admin Trade Name Mikoq PRN Reason Stop Dose Admin Acetaminophen 650 mg 07/17/20 05:16 Acetaminophen 325 Mg Tablet PO Q6H PRN Fever Al Hydroxide/Mg Hydroxide 30 ml 07/06/20 00:50 Magnesium Hydrox/Alum Hydrox 30 Ml Oral.Susp PO Q4H PRN Heartburn Atorvastatin Calcium 10 mg 07/06/20 01:00 07/26/20 21:44 Atorvastatin Calcium 10 Mg Tablet PO 10 mg BEDTIME SUZANNE Administration Divalproex Sodium 125 mg 07/18/20 09:00 07/27/20 08:43 Divalproex Sodium 125 Mg Tablet.Dr PO 125 mg DAILY SUZANNE Administration Heparin Sodium (Porcine) 5,000 unit 07/22/20 08:00 07/27/20 08:43 Heparin Sodium,Porcine 5,000 Unit/Ml Vial SUBCUT 5,000 unit Q12H SUZANNE Administration Insulin Glargine 25 unit 07/24/20 09:00 07/27/20 08:44 Insulin Glargine,Hum.Rec.Anlog 100 Unit/Ml 10 Ml Vial SUBCUT 25 unit DAILY SUZANNE Administration Insulin Human Lispro 0 unit 07/25/20 16:45 07/27/20 11:56 Insulin Lispro 100 Unit/Ml 3 Ml Vial SUBCUT 2 unit QIDACHS SUZANNE Administration Loperamide HCl 2 mg 07/27/20 10:17 Loperamide Hcl 2 Mg Capsule PO Q4H PRN Diarrhea Lorazepam 0.5 mg 07/22/20 20:13 07/27/20 08:46 Lorazepam 0.5 Mg Tablet PO 0.5 mg BID PRN Administration Mild agitation Melatonin 3 mg 07/06/20 01:00 07/26/20 21:44 Melatonin 3 Mg Tablet PO 3 mg BEDTIME SUZANNE Administration Metformin HCl 500 mg 07/06/20 01:00 07/16/20 12:22 Metformin Hcl 500 Mg Tablet PO 500 mg BID SUZANNE Administration Metoprolol Tartrate 12.5 mg 07/06/20 01:00 07/15/20 20:40 Metoprolol Tartrate 25 Mg Tablet PO 12.5 mg BID [facility] Administration Protocol Mirtazapine 11.25 mg 07/17/20 21:00 07/26/20 21:42 Mirtazapine 7.5 Mg Tablet PO 11.25 mg BEDTIME SUZANNE Administration Nystatin 1 appl 07/06/20 01:00 07/27/20 08:55 Nystatin Powder 15 Gm Bottle TOPICAL 1 appl BID [facility] Administration Protocol Ondansetron HCl 4 mg 07/16/20 05:28 Ondansetron Hcl 4 Mg/2 Ml Vial IVPUSH Q8H PRN Nausea and Vomiting Polyethylene Glycol 17 gm 07/16/20 05:28 Polyethylene Glycol 3350 17 Gm Powd.Pack PO DAILY PRN Constipation Quetiapine Fumarate 25 mg 07/26/20 09:00 07/27/20 08:43 Quetiapine Fumarate 25 Mg Tablet PO 25 mg BID [facility] Administration Sodium Chloride 3 ml 07/16/20 08:00 07/27/20 08:44 0.9 % Sodium Chloride Flush 3 Ml Syringe IVFLUSH 3 ml QSHIFT [facility] Administration Labs CBC & Chem 7: 07/24/20 05:41 07/25/20 05:55 Microbiology Microbiology Results: Microbiology 07/16/20 Unknown Urine clean catch - Clean Catch Midstream Urine Culture - Final 07/11/20 Unknown Urine clean catch - Clean Catch Midstream Urine Culture - Final 07/06/20 Unknown Urine clean catch - Clean Catch Midstream Urine Culture - Final Assessment and Plan (1) Pneumonia due to COVID-19 virus: Status: Acute (2) Dementia, senile with depression: Status: Acute (3) Dementia with behavioral disturbance: Status: Acute (4) Diabetes mellitus: Status: Acute (5) HTN (hypertension): Status: Acute (6) Pancytopenia: Status: Acute Assessment and Plan: This is a 75-year-old female who initially presented to the hospital on July 05 awaiting placement for her history of dementia with psychotic disturbances was tested positive for COVID-19 on the 13 COVID-19 pneumonia Resolved Repeated COVID test negative Continue supportive management Oxygen supplement as needed Continue incentive spirometry Pancytopenia Resolved Likely from Zyprexa which was held monitor CBCs Dementia with behavioral disturbance Psych consulted psych medication adjusted continue Remeron, seroquel as per psych recommendation Seroquel increased to 25 b.i.d.. continue Ativan p.r.n. for restlessness anxiety Hyperglycemia secondary to diabetes Continue Lantus Continue SSI Diabetic diet Hypertension stable continue home meds DVT prophylaxis: compression boot heparin subQ Plan for discharge tomorrow morning to SNF
[2020-07-27 15:09] VITALS: BP 141/86; PULSE 105; RESP 22; TEMP 36.4; O2SAT 90
[2020-07-27 15:16] LABS: Glucose, Whole Blood 228 mg/dL (60-115)
[2020-07-27] MEDS: ondansetron HCL 4 MG/2 ML VIAL IVPUSH (17:17)
[2020-07-27 20:00] VITALS: BP 121/60; PULSE 88; RESP 20; TEMP 36.6; O2SAT 93
[2020-07-27 20:51] LABS: Glucose, Whole Blood 192 mg/dL (60-115)
[2020-07-27] MEDS: Melatonin 3 MG TABLET PO (21:00)
[2020-07-27] MEDS: Atorvastatin Calcium 10 MG TABLET PO (21:00)
[2020-07-27] MEDS: Mirtazapine 7.5 MG TABLET 11.25 MG PO (22:03)
[2020-07-27 23:38] VITALS: BP 119/55; PULSE 104; RESP 18; TEMP 37.1; O2SAT 96
[2020-07-28 03:31] VITALS: BP 138/76; PULSE 85; RESP 18; TEMP 37; O2SAT 92
[2020-07-28 07:37] VITALS: BP 132/53; PULSE 82; RESP 18; TEMP 36.8; O2SAT 91
[2020-07-28 08:12] LABS: Glucose, Whole Blood 157 mg/dL (60-115)
--- NOTE | 2020-07-28 08:54 | PM.DS ---
DS: Providers Provider Date of Service: 07/28/20 Date of admission: 07/16/20 05:28 Primary care physician: Nonstaff Physician Consults: 07/05/20 15:01 Consult to Crisis Stat Reason for consultation: Aggression/SI Has provider been notified: No 07/08/20 12:57 Consult to Psychiatry Stat Consulting Provider: Miesha Cannon Reason for consultation: MED ASSESSMENT. FROM SNF. AGGITATED. DEMENTIA W/DEPRESSION Has provider been notified: Yes 07/16/20 16:00 Consult to Psychiatry Routine Consulting Provider: [facility] Reason for consultation: on zyprexa develop leucopenia for psych med reconcillation 07/17/20 16:57 Consult to Care Team Routine Comment: Reason for consultation: confusion agitation DS: Diagnosis Discharge Diagnosis (1) Pneumonia due to COVID-19 virus: Status: Acute (2) Dementia, senile with depression: Status: Acute (3) Dementia with behavioral disturbance: Status: Acute (4) Diabetes mellitus: Status: Acute (5) HTN (hypertension): Status: Acute (6) Pancytopenia: Status: Acute DS: Medications Discharge Medications Home Medications: Home Medications Medication Instructions Recorded Confirmed Invokana 1 tab PO DAILY 06/17/20 07/05/20 acetaminophen 650 mg PO Q6H PRN 06/17/20 07/05/20 aluminm,mag [id number] 30 ml PO Q4H PRN 06/17/20 07/05/20 atorvastatin 1 tab PO BEDTIME 06/17/20 07/05/20 insulin aspart U-100 See Protocol SUBCUT TID 06/17/20 07/05/20 metoprolol tartrate 12.5 mg PO BID 06/17/20 07/05/20 nystatin [Nystop] 1 appl TOPICAL BID 06/17/20 07/05/20 cholecalciferol (vitamin D3) 4,000 unit DAILY 07/05/20 07/05/20 melatonin 3 mg PO BEDTIME 07/05/20 07/05/20 metformin 1 tab PO BID 07/05/20 07/05/20 Previous Rx's Medication Instructions Recorded divalproex 125 mg PO BID #60 tab 07/01/20 mirtazapine 7.5 mg PO BEDTIME #30 tab 07/01/20 venlafaxine 37.5 mg PO DAILY #30 cap 07/01/20 Lantus Solostar U-100 Insulin 25 unit SUBCUT DAILY #0 ml 07/28/20 quetiapine 25 mg PO BID 30 Days #60 tab 07/28/20 DS: Summary Hospital Course Hospital Course: Admission note HPI This 75-year-old female with past medical history of dementia diabetes, hypertension, hyperlipidemia who initially presented to the hospital on July 05 for evaluation of psychotic features. Patient was boarding in the ED awaiting placement and on July 14 she was accepted at [facility], underwent routine COVID tensing and was found to be positive. Therefore she was refused by the facility and was waiting to be accepted by another. While waiting in the ED patient was noted today to be tachypneic, and also hypoxic with an oxygen level in the high 80s. On my interview of the patient she is alert, awake but not oriented, unable to give any history, repeating numbers, and not answering any questions. A temp of 98.4?, heart rate of 103, respiratory rate of 18, blood pressure 139/79, and patient recorded to be satting 92% on room air. Labs are significant for WBC count of 2.8, hemoglobin of 11.2, hematocrit of 33.6, platelet count of 125, CRP of 2.98, UA positive for leukocyte Estrace and small numbers of WBC Hospital course COVID-19 pneumonia Treated with dexamethasone. Oxygen requirement decreased to room air. Started on incentive spirometry. O2 sat out between 90-94 on room air.Repeated COVID test negative Evaluated for Pancytopenia Thought to be Likely from Zyprexa which was held during the hospital stay with improvement of WBCs back to normal. To discontinue Zyprexa on discharge after discussing with psychiatry team during the hospital stay. Dementia with behavioral disturbance Psych consulted psych medication adjusted to continue Remeron, seroquel 25 mg b.i.d. Hyperglycemia secondary to diabetes Lantus dose decreased to 25 units during the hospital stay. To be adjusted as needed outpatient. Time Spent with Patient Time attestation: Total time spent providing and/or coordinating discharge services: Discharge coordination time: Greater than 30 minutes Physical Exam Vital Signs: Vital Signs: Last Vital Signs Temp 98.2 F 07/28/20 07:37 Pulse 82 07/28/20 07:37 Resp 18 07/28/20 07:37 BP 132/53 L 07/28/20 07:37 Pulse Ox 91 L 07/28/20 07:37 Body Mass Index 34.2 Const: Other: Constitutional : Alert ,, not in distress, looks tired and lethargic Neck : Normal inspection, Supple Cardiovascular : RRR, S1 S2, no lower extremity edema Respiratory : Good bilateral chest wall movement, not in respiratory distress Gastrointestinal: soft, lax, Normal bowel sounds, Non tender Skin : Warm/Dry, No rash Neurological : Alert , nonverbal, mildly confused, No focal deficit DS: Data Data Completed and Pending Labs on day of discharge: Laboratory Tests 07/05/20 07/05/20 07/05/20 16:15 16:15 16:15 WBC 7.7 RBC 4.86 Hgb 14.3 Hct 42.9 MCV 88.3 MCH 29.4 MCHC 33.3 RDW 13.6 Plt Count 206 MPV 10.7 Immature Gran % (Auto) 0.3 Neut % (Auto) 49.1 Lymph % (Auto) 43.2 H [place] % (Auto) 7.2 Eos % (Auto) 0.1 Baso % (Auto) 0.1 Lymph # (Auto) 3.3 [place] # (Auto) 0.6 Eos # (Auto) 0.0 Baso # (Auto) 0.0 Abs Immat Gran (auto) 0.02 Absolute Neuts (auto) 3.8 Absolute Nucleated RBC 0.000 Nucleated RBC % (auto) 0.0 Smear Tech's Comments Sodium 144 Potassium 4.1 Chloride 104 Carbon Dioxide 29 Anion Gap 15 BUN 12 Creatinine 0.81 Estim Creat Clear Calc 55.1 Estimated GFR > 60 POC Glucose Random Glucose 183 H D Calcium 10.1 Total Bilirubin 0.6 AST 14 D ALT 17 Alkaline Phosphatase 79 Lactate Dehydrogenase C-Reactive Protein Total Protein 7.4 Albumin 4.7 Procalcitonin Urine Color Urine Appearance Urine pH Ur Specific [place] Urine Protein Urine Glucose (UA) Urine Ketones Urine Blood Urine Nitrite Ur Leukocyte Esterase Urine RBC Urine WBC Ur Squamous Epith Cells Ur Renal Epithelial Cell Urine Bacteria Hyaline Casts Urine Opiates Screen Ur Barbiturates Screen Valproic Acid 21.9 L Ur Phencyclidine Scrn Ur Amphetamines Screen U Benzodiazepines Scrn Urine Cocaine Screen U Marijuana (THC) Screen COVID-19 (OSEI) COVID-19 Clin Com 07/05/20 07/06/20 07/06/20 18:10 07:14 12:44 WBC RBC Hgb Hct MCV MCH MCHC RDW Plt Count MPV Immature Gran % (Auto) Neut % (Auto) Lymph % (Auto) [place] % (Auto) Eos % (Auto) Baso % (Auto) Lymph # (Auto) [place] # (Auto) Eos # (Auto) Baso # (Auto) Abs Immat Gran (auto) Absolute Neuts (auto) Absolute Nucleated RBC Nucleated RBC % (auto) Smear Tech's Comments Sodium Potassium Chloride Carbon Dioxide Anion Gap BUN Creatinine Estim Creat Clear Calc Estimated GFR POC Glucose 176 H 157 H 138 H Random Glucose Calcium Total Bilirubin AST ALT Alkaline Phosphatase Lactate Dehydrogenase C-Reactive Protein Total Protein Albumin Procalcitonin Urine Color Urine Appearance Urine pH Ur Specific [place] Urine Protein Urine Glucose (UA) Urine Ketones Urine Blood Urine Nitrite Ur Leukocyte Esterase Urine RBC Urine WBC Ur Squamous Epith Cells Ur Renal Epithelial Cell Urine Bacteria Hyaline Casts Urine Opiates Screen Ur Barbiturates Screen Valproic Acid Ur Phencyclidine Scrn Ur Amphetamines Screen U Benzodiazepines Scrn Urine Cocaine Screen U Marijuana (THC) Screen COVID-19 (OSEI) COVID-19 Clin Com 07/06/20 07/06/20 07/06/20 17:40 20:19 21:16 WBC RBC Hgb Hct MCV MCH MCHC RDW Plt Count MPV Immature Gran % (Auto) Neut % (Auto) Lymph % (Auto) [place] % (Auto) Eos % (Auto) Baso % (Auto) Lymph # (Auto) [place] # (Auto) Eos # (Auto) Baso # (Auto) Abs Immat Gran (auto) Absolute Neuts (auto) Absolute Nucleated RBC Nucleated RBC % (auto) Smear Tech's Comments Sodium Potassium Chloride Carbon Dioxide Anion Gap BUN Creatinine Estim Creat Clear Calc Estimated GFR POC Glucose 144 H 216 H Random Glucose Calcium Total Bilirubin AST ALT Alkaline Phosphatase Lactate Dehydrogenase C-Reactive Protein Total Protein Albumin Procalcitonin Urine Color YELLOW Urine Appearance HAZY Urine pH 6.0 Ur Specific [place] 1.015 Urine Protein NEG Urine Glucose (UA) >=1000 H Urine Ketones 5 Urine Blood NEG Urine Nitrite NEG Ur Leukocyte Esterase 1+ H Urine RBC 1-4 Urine WBC 10-14 H Ur Squamous Epith Cells 1+ Ur Renal Epithelial Cell Urine Bacteria 1+ Hyaline Casts Urine Opiates Screen Ur Barbiturates Screen Valproic Acid Ur Phencyclidine Scrn Ur Amphetamines Screen U Benzodiazepines Scrn Urine Cocaine Screen U Marijuana (THC) Screen COVID-19 (OSEI) COVID-19 [employer] [place] 07/06/20 07/07/20 07/07/20 21:16 08:06 12:50 WBC RBC Hgb Hct MCV MCH MCHC RDW Plt Count MPV Immature Gran % (Auto) Neut % (Auto) Lymph % (Auto) [place] % (Auto) Eos % (Auto) Baso % (Auto) Lymph # (Auto) [place] # (Auto) Eos # (Auto) Baso # (Auto) Abs Immat Gran (auto) Absolute Neuts (auto) Absolute Nucleated RBC Nucleated RBC % (auto) Smear Tech's Comments Sodium Potassium Chloride Carbon Dioxide Anion Gap BUN Creatinine Estim Creat Clear Calc Estimated GFR POC Glucose 130 H 147 H Random Glucose Calcium Total Bilirubin AST ALT Alkaline Phosphatase Lactate Dehydrogenase C-Reactive Protein Total Protein Albumin Procalcitonin Urine Color Urine Appearance Urine pH Ur Specific [place] Urine Protein Urine Glucose (UA) Urine Ketones Urine Blood Urine Nitrite Ur Leukocyte Esterase Urine RBC Urine WBC Ur Squamous Epith Cells Ur Renal Epithelial Cell Urine Bacteria Hyaline Casts Urine Opiates Screen Not Detected Ur Barbiturates Screen Not Detected Valproic Acid Ur Phencyclidine Scrn Not Detected Ur Amphetamines Screen Not Detected U Benzodiazepines Scrn Not Detected Urine Cocaine Screen Not Detected U Marijuana (THC) Screen Not Detected COVID-19 (OSEI) COVID-19 [employer] [place] 07/07/20 07/08/20 07/08/20 16:04 07:15 11:56 WBC RBC Hgb Hct MCV MCH MCHC RDW Plt Count MPV Immature Gran % (Auto) Neut % (Auto) Lymph % (Auto) [place] % (Auto) Eos % (Auto) Baso % (Auto) Lymph # (Auto) [place] # (Auto) Eos # (Auto) Baso # (Auto) Abs Immat Gran (auto) Absolute Neuts (auto) Absolute Nucleated RBC Nucleated RBC % (auto) Smear Tech's Comments Sodium Potassium Chloride Carbon Dioxide Anion Gap BUN Creatinine Estim Creat Clear Calc Estimated GFR POC Glucose 234 H 173 H 181 H Random Glucose Calcium Total Bilirubin AST ALT Alkaline Phosphatase Lactate Dehydrogenase C-Reactive Protein Total Protein Albumin Procalcitonin Urine Color Urine Appearance Urine pH Ur Specific [place] Urine Protein Urine Glucose (UA) Urine Ketones Urine Blood Urine Nitrite Ur Leukocyte Esterase Urine RBC Urine WBC Ur Squamous Epith Cells Ur Renal Epithelial Cell Urine Bacteria Hyaline Casts Urine Opiates Screen Ur Barbiturates Screen Valproic Acid Ur Phencyclidine Scrn Ur Amphetamines Screen U Benzodiazepines Scrn Urine Cocaine Screen U Marijuana (THC) Screen COVID-19 (OSEI) COVID-19 Clin Com 07/08/20 07/09/20 07/09/20 17:01 00:20 08:14 WBC RBC Hgb Hct MCV MCH MCHC RDW Plt Count MPV Immature Gran % (Auto) Neut % (Auto) Lymph % (Auto) [place] % (Auto) Eos % (Auto) Baso % (Auto) Lymph # (Auto) [place] # (Auto) Eos # (Auto) Baso # (Auto) Abs Immat Gran (auto) Absolute Neuts (auto) Absolute Nucleated RBC Nucleated RBC % (auto) Smear Tech's Comments Sodium Potassium Chloride Carbon Dioxide Anion Gap BUN Creatinine Estim Creat Clear Calc Estimated GFR POC Glucose 207 H 156 H Random Glucose Calcium Total Bilirubin AST ALT Alkaline Phosphatase Lactate Dehydrogenase C-Reactive Protein Total Protein Albumin Procalcitonin Urine Color Urine Appearance Urine pH Ur Specific [place] Urine Protein Urine Glucose (UA) Urine Ketones Urine Blood Urine Nitrite Ur Leukocyte Esterase Urine RBC Urine WBC Ur Squamous Epith Cells Ur Renal Epithelial Cell Urine Bacteria Hyaline Casts Urine Opiates Screen Ur Barbiturates Screen Valproic Acid Ur Phencyclidine Scrn Ur Amphetamines Screen U Benzodiazepines Scrn Urine Cocaine Screen U Marijuana (THC) Screen COVID-19 (OSEI) Negative COVID-19 Clin Com See Note 07/09/20 07/09/20 07/09/20 11:58 17:17 20:16 WBC RBC Hgb Hct MCV MCH MCHC RDW Plt Count MPV Immature Gran % (Auto) Neut % (Auto) Lymph % (Auto) [place] % (Auto) Eos % (Auto) Baso % (Auto) Lymph # (Auto) [place] # (Auto) Eos # (Auto) Baso # (Auto) Abs Immat Gran (auto) Absolute Neuts (auto) Absolute Nucleated RBC Nucleated RBC % (auto) Smear Tech's Comments Sodium Potassium Chloride Carbon Dioxide Anion Gap BUN Creatinine Estim Creat Clear Calc Estimated GFR POC Glucose 171 H 251 H 270 H Random Glucose Calcium Total Bilirubin AST ALT Alkaline Phosphatase Lactate Dehydrogenase C-Reactive Protein Total Protein Albumin Procalcitonin Urine Color Urine Appearance Urine pH Ur Specific [place] Urine Protein Urine Glucose (UA) Urine Ketones Urine Blood Urine Nitrite Ur Leukocyte Esterase Urine RBC Urine WBC Ur Squamous Epith Cells Ur Renal Epithelial Cell Urine Bacteria Hyaline Casts Urine Opiates Screen Ur Barbiturates Screen Valproic Acid Ur Phencyclidine Scrn Ur Amphetamines Screen U Benzodiazepines Scrn Urine Cocaine Screen U Marijuana (THC) Screen COVID-19 (OSEI) COVID-19 [employer] Com 07/10/20 07/10/20 07/10/20 07:07 13:16 18:29 WBC RBC Hgb Hct MCV MCH MCHC RDW Plt Count MPV Immature Gran % (Auto) Neut % (Auto) Lymph % (Auto) [place] % (Auto) Eos % (Auto) Baso % (Auto) Lymph # (Auto) [place] # (Auto) Eos # (Auto) Baso # (Auto) Abs Immat Gran (auto) Absolute Neuts (auto) Absolute Nucleated RBC Nucleated RBC % (auto) Smear Tech's Comments Sodium Potassium Chloride Carbon Dioxide Anion Gap BUN Creatinine Estim Creat Clear Calc Estimated GFR POC Glucose 168 H 146 H 251 H Random Glucose Calcium Total Bilirubin AST ALT Alkaline Phosphatase Lactate Dehydrogenase C-Reactive Protein Total Protein Albumin Procalcitonin Urine Color Urine Appearance Urine pH Ur Specific [place] Urine Protein Urine Glucose (UA) Urine Ketones Urine Blood Urine Nitrite Ur Leukocyte Esterase Urine RBC Urine WBC Ur Squamous Epith Cells Ur Renal Epithelial Cell Urine Bacteria Hyaline Casts Urine Opiates Screen Ur Barbiturates Screen Valproic Acid Ur Phencyclidine Scrn Ur Amphetamines Screen U Benzodiazepines Scrn Urine Cocaine Screen U Marijuana (THC) Screen COVID-19 (OSEI) COVID-19 [employer] [place] 07/11/20 07/11/20 07/11/20 04:09 07:24 13:12 WBC RBC Hgb Hct MCV MCH MCHC RDW Plt Count MPV Immature Gran % (Auto) Neut % (Auto) Lymph % (Auto) [place] % (Auto) Eos % (Auto) Baso % (Auto) Lymph # (Auto) [place] # (Auto) Eos # (Auto) Baso # (Auto) Abs Immat Gran (auto) Absolute Neuts (auto) Absolute Nucleated RBC Nucleated RBC % (auto) Smear Tech's Comments Sodium Potassium Chloride Carbon Dioxide Anion Gap BUN Creatinine Estim Creat Clear Calc Estimated GFR POC Glucose 179 H 183 H Random Glucose Calcium Total Bilirubin AST ALT Alkaline Phosphatase Lactate Dehydrogenase C-Reactive Protein Total Protein Albumin Procalcitonin Urine Color YELLOW Urine Appearance CLEAR Urine pH 6.0 Ur Specific [place] 1.015 Urine Protein NEG Urine Glucose (UA) NEG Urine Ketones NEG Urine Blood NEG Urine Nitrite NEG Ur Leukocyte Esterase TRACE H Urine RBC 1-4 Urine WBC 5-9 H Ur Squamous Epith Cells 1+ Ur Renal Epithelial Cell 1+ Urine Bacteria 1+ Hyaline Casts Urine Opiates Screen Ur Barbiturates Screen Valproic Acid Ur Phencyclidine Scrn Ur Amphetamines Screen U Benzodiazepines Scrn Urine Cocaine Screen U Marijuana (THC) Screen COVID-19 (OSEI) COVID-19 [employer] [place] 07/11/20 07/12/20 07/12/20 18:52 08:59 13:23 WBC RBC Hgb Hct MCV MCH MCHC RDW Plt Count MPV Immature Gran % (Auto) Neut % (Auto) Lymph % (Auto) [place] % (Auto) Eos % (Auto) Baso % (Auto) Lymph # (Auto) [place] # (Auto) Eos # (Auto) Baso # (Auto) Abs Immat Gran (auto) Absolute Neuts (auto) Absolute Nucleated RBC Nucleated RBC % (auto) Smear Tech's Comments Sodium Potassium Chloride Carbon Dioxide Anion Gap BUN Creatinine Estim Creat Clear Calc Estimated GFR POC Glucose 193 H 227 H 205 H Random Glucose Calcium Total Bilirubin AST ALT Alkaline Phosphatase Lactate Dehydrogenase C-Reactive Protein Total Protein Albumin Procalcitonin Urine Color Urine Appearance Urine pH Ur Specific [place] Urine Protein Urine Glucose (UA) Urine Ketones Urine Blood Urine Nitrite Ur Leukocyte Esterase Urine RBC Urine WBC Ur Squamous Epith Cells Ur Renal Epithelial Cell Urine Bacteria Hyaline Casts Urine Opiates Screen Ur Barbiturates Screen Valproic Acid Ur Phencyclidine Scrn Ur Amphetamines Screen U Benzodiazepines Scrn Urine Cocaine Screen U Marijuana (THC) Screen COVID-19 (OSEI) COVID-19 [employer] [place] 07/12/20 07/13/20 07/13/20 16:49 07:57 09:50 WBC RBC Hgb Hct MCV MCH MCHC RDW Plt Count MPV Immature Gran % (Auto) Neut % (Auto) Lymph % (Auto) [place] % (Auto) Eos % (Auto) Baso % (Auto) Lymph # (Auto) [place] # (Auto) Eos # (Auto) Baso # (Auto) Abs Immat Gran (auto) Absolute Neuts (auto) Absolute Nucleated RBC Nucleated RBC % (auto) Smear Tech's Comments Sodium Potassium Chloride Carbon Dioxide Anion Gap BUN Creatinine 0.74 Estim Creat Clear Calc 60.3 Estimated GFR > 60 POC Glucose 178 H 161 H Random Glucose Calcium Total Bilirubin AST ALT Alkaline Phosphatase Lactate Dehydrogenase C-Reactive Protein Total Protein Albumin Procalcitonin Urine Color Urine Appearance Urine pH Ur Specific [place] Urine Protein Urine Glucose (UA) Urine Ketones Urine Blood Urine Nitrite Ur Leukocyte Esterase Urine RBC Urine WBC Ur Squamous Epith Cells Ur Renal Epithelial Cell Urine Bacteria Hyaline Casts Urine Opiates Screen Ur Barbiturates Screen Valproic Acid Ur Phencyclidine Scrn Ur Amphetamines Screen U Benzodiazepines Scrn Urine Cocaine Screen U Marijuana (THC) Screen COVID-19 (OSEI) COVID-19 [employer] [place] 07/13/20 07/13/20 07/14/20 12:23 17:18 06:51 WBC RBC Hgb Hct MCV MCH MCHC RDW Plt Count MPV Immature Gran % (Auto) Neut % (Auto) Lymph % (Auto) [place] % (Auto) Eos % (Auto) Baso % (Auto) Lymph # (Auto) [place] # (Auto) Eos # (Auto) Baso # (Auto) Abs Immat Gran (auto) Absolute Neuts (auto) Absolute Nucleated RBC Nucleated RBC % (auto) Smear Tech's Comments Sodium Potassium Chloride Carbon Dioxide Anion Gap BUN Creatinine Estim Creat Clear Calc Estimated GFR POC Glucose 184 H 210 H 177 H Random Glucose Calcium Total Bilirubin AST ALT Alkaline Phosphatase Lactate Dehydrogenase C-Reactive Protein Total Protein Albumin Procalcitonin Urine Color Urine Appearance Urine pH Ur Specific [place] Urine Protein Urine Glucose (UA) Urine Ketones Urine Blood Urine Nitrite Ur Leukocyte Esterase Urine RBC Urine WBC Ur Squamous Epith Cells Ur Renal Epithelial Cell Urine Bacteria Hyaline Casts Urine Opiates Screen Ur Barbiturates Screen Valproic Acid Ur Phencyclidine Scrn Ur Amphetamines Screen U Benzodiazepines Scrn Urine Cocaine Screen U Marijuana (THC) Screen COVID-19 (OSEI) COVID-19 [employer] [place] 07/14/20 07/14/20 07/14/20 12:44 12:53 16:55 WBC RBC Hgb Hct MCV MCH MCHC RDW Plt Count MPV Immature Gran % (Auto) Neut % (Auto) Lymph % (Auto) [place] % (Auto) Eos % (Auto) Baso % (Auto) Lymph # (Auto) [place] # (Auto) Eos # (Auto) Baso # (Auto) Abs Immat Gran (auto) Absolute Neuts (auto) Absolute Nucleated RBC Nucleated RBC % (auto) Smear Tech's Comments Sodium Potassium Chloride Carbon Dioxide Anion Gap BUN Creatinine Estim Creat Clear Calc Estimated GFR POC Glucose 182 H 231 H Random Glucose Calcium Total Bilirubin AST ALT Alkaline Phosphatase Lactate Dehydrogenase C-Reactive Protein Total Protein Albumin Procalcitonin Urine Color Urine Appearance Urine pH Ur Specific [place] Urine Protein Urine Glucose (UA) Urine Ketones Urine Blood Urine Nitrite Ur Leukocyte Esterase Urine RBC Urine WBC Ur Squamous Epith Cells Ur Renal Epithelial Cell Urine Bacteria Hyaline Casts Urine Opiates Screen Ur Barbiturates Screen Valproic Acid Ur Phencyclidine Scrn Ur Amphetamines Screen U Benzodiazepines Scrn Urine Cocaine Screen U Marijuana (THC) Screen COVID-19 (OSEI) Positive A COVID-19 [employer] [place] See Note 07/14/20 07/15/20 07/15/20 22:01 08:13 11:49 WBC RBC Hgb Hct MCV MCH MCHC RDW Plt Count MPV Immature Gran % (Auto) Neut % (Auto) Lymph % (Auto) [place] % (Auto) Eos % (Auto) Baso % (Auto) Lymph # (Auto) [place] # (Auto) Eos # (Auto) Baso # (Auto) Abs Immat Gran (auto) Absolute Neuts (auto) Absolute Nucleated RBC Nucleated RBC % (auto) Smear Tech's Comments Sodium Potassium Chloride Carbon Dioxide Anion Gap BUN Creatinine Estim Creat Clear Calc Estimated GFR POC Glucose 174 H 233 H 177 H Random Glucose Calcium Total Bilirubin AST ALT Alkaline Phosphatase Lactate Dehydrogenase C-Reactive Protein Total Protein Albumin Procalcitonin Urine Color Urine Appearance Urine pH Ur Specific [place] Urine Protein Urine Glucose (UA) Urine Ketones Urine Blood Urine Nitrite Ur Leukocyte Esterase Urine RBC Urine WBC Ur Squamous Epith Cells Ur Renal Epithelial Cell Urine Bacteria Hyaline Casts Urine Opiates Screen Ur Barbiturates Screen Valproic Acid Ur Phencyclidine Scrn Ur Amphetamines Screen U Benzodiazepines Scrn Urine Cocaine Screen U Marijuana (THC) Screen COVID-19 (OSEI) COVID-19 [employer] 07/15/20 07/15/20 07/16/20 17:25 20:38 04:30 WBC 2.8 L RBC 3.82 L D Hgb 11.2 L D Hct 33.6 L D MCV 88.0 MCH 29.3 MCHC 33.3 RDW 14.3 Plt Count 125 L D MPV 10.4 Immature Gran % (Auto) 0.4 Neut % (Auto) 28.6 L Lymph % (Auto) 58.9 H [place] % (Auto) 11.7 H Eos % (Auto) 0.4 Baso % (Auto) 0.0 Lymph # (Auto) 1.7 [place] # (Auto) 0.3 Eos # (Auto) 0.0 Baso # (Auto) 0.0 Abs Immat Gran (auto) 0.01 Absolute Neuts (auto) 0.8 L Absolute Nucleated RBC 0.000 Nucleated RBC % (auto) 0.0 Smear Tech's Comments VERIFIED Sodium Potassium Chloride Carbon Dioxide Anion Gap BUN Creatinine Estim Creat Clear Calc Estimated GFR POC Glucose 169 H 220 H Random Glucose Calcium Total Bilirubin AST ALT Alkaline Phosphatase Lactate Dehydrogenase C-Reactive Protein Total Protein Albumin Procalcitonin Urine Color Urine Appearance Urine pH Ur Specific [place] Urine Protein Urine Glucose (UA) Urine Ketones Urine Blood Urine Nitrite Ur Leukocyte Esterase Urine RBC Urine WBC Ur Squamous Epith Cells Ur Renal Epithelial Cell Urine Bacteria Hyaline Casts Urine Opiates Screen Ur Barbiturates Screen Valproic Acid Ur Phencyclidine Scrn Ur Amphetamines Screen U Benzodiazepines Scrn Urine Cocaine Screen U Marijuana (THC) Screen COVID-19 (OSEI) COVID-19 Clin Com 07/16/20 07/16/20 07/16/20 04:30 04:30 04:44 WBC RBC Hgb Hct MCV MCH MCHC RDW Plt Count MPV Immature Gran % (Auto) Neut % (Auto) Lymph % (Auto) [place] % (Auto) Eos % (Auto) Baso % (Auto) Lymph # (Auto) [place] # (Auto) Eos # (Auto) Baso # (Auto) Abs Immat Gran (auto) Absolute Neuts (auto) Absolute Nucleated RBC Nucleated RBC % (auto) Smear Tech's Comments Sodium 140 Potassium 3.5 Chloride 104 Carbon Dioxide 24 Anion Gap 16 BUN 15 Creatinine 0.69 Estim Creat Clear Calc 64.6 Estimated GFR > 60 POC Glucose Random Glucose 159 H Calcium 8.7 D Total Bilirubin 0.8 AST 20 D ALT 18 Alkaline Phosphatase 57 D Lactate Dehydrogenase 174 C-Reactive Protein 2.98 H Total Protein 5.8 L D Albumin 3.7 D Procalcitonin 0.05 Urine Color YELLOW Urine Appearance CLEAR Urine pH 6.0 Ur Specific [place] 1.015 Urine Protein NEG Urine Glucose (UA) NEG Urine Ketones 5 Urine Blood NEG Urine Nitrite NEG Ur Leukocyte Esterase 1+ H Urine RBC 0 Urine WBC 1-4 Ur Squamous Epith Cells TRACE Ur Renal Epithelial Cell Urine Bacteria NONE Hyaline Casts 0-2 Urine Opiates Screen Ur Barbiturates Screen Valproic Acid Ur Phencyclidine Scrn Ur Amphetamines Screen U Benzodiazepines Scrn Urine Cocaine Screen U Marijuana (THC) Screen COVID-19 (OSEI) COVID-19 [employer] Com 07/16/20 07/16/20 07/17/20 11:03 17:02 06:08 WBC 4.0 L RBC 3.80 L Hgb 11.1 L Hct 33.0 L MCV 86.8 MCH 29.2 MCHC 33.6 RDW 14.4 Plt Count 139 L MPV 10.9 Immature Gran % (Auto) 0.3 Neut % (Auto) 40.5 L Lymph % (Auto) 51.1 H [place] % (Auto) 7.8 Eos % (Auto) 0.0 Baso % (Auto) 0.3 Lymph # (Auto) 2.0 [place] # (Auto) 0.3 Eos # (Auto) 0.0 Baso # (Auto) 0.0 Abs Immat Gran (auto) 0.01 Absolute Neuts (auto) 1.6 L Absolute Nucleated RBC 0.000 Nucleated RBC % (auto) 0.0 Smear Tech's Comments Sodium Potassium Chloride Carbon Dioxide Anion Gap BUN Creatinine Estim Creat Clear Calc Estimated GFR POC Glucose 172 H 271 H Random Glucose Calcium Total Bilirubin AST ALT Alkaline Phosphatase Lactate Dehydrogenase C-Reactive Protein Total Protein Albumin Procalcitonin Urine Color Urine Appearance Urine pH Ur Specific [place] Urine Protein Urine Glucose (UA) Urine Ketones Urine Blood Urine Nitrite Ur Leukocyte Esterase Urine RBC Urine WBC Ur Squamous Epith Cells Ur Renal Epithelial Cell Urine Bacteria Hyaline Casts Urine Opiates Screen Ur Barbiturates Screen Valproic Acid Ur Phencyclidine Scrn Ur Amphetamines Screen U Benzodiazepines Scrn Urine Cocaine Screen U Marijuana (THC) Screen COVID-19 (OSEI) COVID-19 [employer] 07/17/20 07/17/20 07/17/20 06:08 08:47 11:27 WBC RBC Hgb Hct MCV MCH MCHC RDW Plt Count MPV Immature Gran % (Auto) Neut % (Auto) Lymph % (Auto) [place] % (Auto) Eos % (Auto) Baso % (Auto) Lymph # (Auto) [place] # (Auto) Eos # (Auto) Baso # (Auto) Abs Immat Gran (auto) Absolute Neuts (auto) Absolute Nucleated RBC Nucleated RBC % (auto) Smear Tech's Comments Sodium 138 Potassium 3.5 Chloride 103 Carbon Dioxide 25 Anion Gap 14 BUN 10 Creatinine 0.67 Estim Creat Clear Calc 66.6 Estimated GFR > 60 POC Glucose 188 H 226 H Random Glucose 180 H Calcium 8.2 L Total Bilirubin AST ALT Alkaline Phosphatase Lactate Dehydrogenase C-Reactive Protein Total Protein Albumin Procalcitonin Urine Color Urine Appearance Urine pH Ur Specific [place] Urine Protein Urine Glucose (UA) Urine Ketones Urine Blood Urine Nitrite Ur Leukocyte Esterase Urine RBC Urine WBC Ur Squamous Epith Cells Ur Renal Epithelial Cell Urine Bacteria Hyaline Casts Urine Opiates Screen Ur Barbiturates Screen Valproic Acid Ur Phencyclidine Scrn Ur Amphetamines Screen U Benzodiazepines Scrn Urine Cocaine Screen U Marijuana (THC) Screen COVID-19 (OSEI) COVID-19 [employer] 07/17/20 07/17/20 07/18/20 15:49 20:00 08:15 WBC RBC Hgb Hct MCV MCH MCHC RDW Plt Count MPV Immature Gran % (Auto) Neut % (Auto) Lymph % (Auto) [place] % (Auto) Eos % (Auto) Baso % (Auto) Lymph # (Auto) [place] # (Auto) Eos # (Auto) Baso # (Auto) Abs Immat Gran (auto) Absolute Neuts (auto) Absolute Nucleated RBC Nucleated RBC % (auto) Smear Tech's Comments Sodium Potassium Chloride Carbon Dioxide Anion Gap BUN Creatinine Estim Creat Clear Calc Estimated GFR POC Glucose 174 H 266 H 148 H Random Glucose Calcium Total Bilirubin AST ALT Alkaline Phosphatase Lactate Dehydrogenase C-Reactive Protein Total Protein Albumin Procalcitonin Urine Color Urine Appearance Urine pH Ur Specific [place] Urine Protein Urine Glucose (UA) Urine Ketones Urine Blood Urine Nitrite Ur Leukocyte Esterase Urine RBC Urine WBC Ur Squamous Epith Cells Ur Renal Epithelial Cell Urine Bacteria Hyaline Casts Urine Opiates Screen Ur Barbiturates Screen Valproic Acid Ur Phencyclidine Scrn Ur Amphetamines Screen U Benzodiazepines Scrn Urine Cocaine Screen U Marijuana (THC) Screen COVID-19 (OSEI) COVID-19 [employer] 07/18/20 07/18/20 07/18/20 09:22 09:22 11:33 WBC 3.5 L RBC 4.01 L Hgb 11.7 L Hct 34.8 L MCV 86.8 MCH 29.2 MCHC 33.6 RDW 14.3 Plt Count 159 L MPV 10.5 Immature Gran % (Auto) 0.3 Neut % (Auto) 39.3 L Lymph % (Auto) 51.6 H [place] % (Auto) 8.8 Eos % (Auto) 0.0 Baso % (Auto) 0.0 Lymph # (Auto) 1.8 [place] # (Auto) 0.3 Eos # (Auto) 0.0 Baso # (Auto) 0.0 Abs Immat Gran (auto) 0.01 Absolute Neuts (auto) 1.4 L Absolute Nucleated RBC 0.000 Nucleated RBC % (auto) 0.0 Smear Tech's Comments Sodium 139 Potassium 3.8 Chloride 101 Carbon Dioxide 27 Anion Gap 15 BUN 9 Creatinine 0.72 Estim Creat Clear Calc 62.0 Estimated GFR > 60 POC Glucose 194 H Random Glucose 178 H Calcium 8.3 L Total Bilirubin AST ALT Alkaline Phosphatase Lactate Dehydrogenase C-Reactive Protein Total Protein Albumin Procalcitonin Urine Color Urine Appearance Urine pH Ur Specific [place] Urine Protein Urine Glucose (UA) Urine Ketones Urine Blood Urine Nitrite Ur Leukocyte Esterase Urine RBC Urine WBC Ur Squamous Epith Cells Ur Renal Epithelial Cell Urine Bacteria Hyaline Casts Urine Opiates Screen Ur Barbiturates Screen Valproic Acid Ur Phencyclidine Scrn Ur Amphetamines Screen U Benzodiazepines Scrn Urine Cocaine Screen U Marijuana (THC) Screen COVID-19 (OSEI) COVID-19 Clin Com 07/18/20 07/18/20 07/19/20 15:55 20:40 07:45 WBC RBC Hgb Hct MCV MCH MCHC RDW Plt Count MPV Immature Gran % (Auto) Neut % (Auto) Lymph % (Auto) [place] % (Auto) Eos % (Auto) Baso % (Auto) Lymph # (Auto) [place] # (Auto) Eos # (Auto) Baso # (Auto) Abs Immat Gran (auto) Absolute Neuts (auto) Absolute Nucleated RBC Nucleated RBC % (auto) Smear Tech's Comments Sodium Potassium Chloride Carbon Dioxide Anion Gap BUN Creatinine Estim Creat Clear Calc Estimated GFR POC Glucose 245 H 384 H* 388 H* Random Glucose Calcium Total Bilirubin AST ALT Alkaline Phosphatase Lactate Dehydrogenase C-Reactive Protein Total Protein Albumin Procalcitonin Urine Color Urine Appearance Urine pH Ur Specific [place] Urine Protein Urine Glucose (UA) Urine Ketones Urine Blood Urine Nitrite Ur Leukocyte Esterase Urine RBC Urine WBC Ur Squamous Epith Cells Ur Renal Epithelial Cell Urine Bacteria Hyaline Casts Urine Opiates Screen Ur Barbiturates Screen Valproic Acid Ur Phencyclidine Scrn Ur Amphetamines Screen U Benzodiazepines Scrn Urine Cocaine Screen U Marijuana (THC) Screen COVID-19 (OSEI) COVID-19 [employer] 07/19/20 07/19/20 07/19/20 11:31 13:23 16:49 WBC 3.5 L RBC 3.93 L Hgb 11.4 L Hct 33.6 L MCV 85.5 MCH 29.0 MCHC 33.9 RDW 14.2 Plt Count 160 MPV 10.9 Immature Gran % (Auto) Neut % (Auto) Lymph % (Auto) [place] % (Auto) Eos % (Auto) Baso % (Auto) Lymph # (Auto) [place] # (Auto) Eos # (Auto) Baso # (Auto) Abs Immat Gran (auto) Absolute Neuts (auto) Absolute Nucleated RBC 0.000 Nucleated RBC % (auto) 0.0 Smear Tech's Comments Sodium Potassium Chloride Carbon Dioxide Anion Gap BUN Creatinine Estim Creat Clear Calc Estimated GFR POC Glucose 339 H 311 H Random Glucose Calcium Total Bilirubin AST ALT Alkaline Phosphatase Lactate Dehydrogenase C-Reactive Protein Total Protein Albumin Procalcitonin Urine Color Urine Appearance Urine pH Ur Specific [place] Urine Protein Urine Glucose (UA) Urine Ketones Urine Blood Urine Nitrite Ur Leukocyte Esterase Urine RBC Urine WBC Ur Squamous Epith Cells Ur Renal Epithelial Cell Urine Bacteria Hyaline Casts Urine Opiates Screen Ur Barbiturates Screen Valproic Acid Ur Phencyclidine Scrn Ur Amphetamines Screen U Benzodiazepines Scrn Urine Cocaine Screen U Marijuana (THC) Screen COVID-19 (OSEI) COVID-19 Clin Com 07/19/20 07/20/20 07/20/20 21:57 07:33 11:45 WBC RBC Hgb Hct MCV MCH MCHC RDW Plt Count MPV Immature Gran % (Auto) Neut % (Auto) Lymph % (Auto) [place] % (Auto) Eos % (Auto) Baso % (Auto) Lymph # (Auto) [place] # (Auto) Eos # (Auto) Baso # (Auto) Abs Immat Gran (auto) Absolute Neuts (auto) Absolute Nucleated RBC Nucleated RBC % (auto) Smear Tech's Comments Sodium Potassium Chloride Carbon Dioxide Anion Gap BUN Creatinine Estim Creat Clear Calc Estimated GFR POC Glucose 331 H 242 H 205 H Random Glucose Calcium Total Bilirubin AST ALT Alkaline Phosphatase Lactate Dehydrogenase C-Reactive Protein Total Protein Albumin Procalcitonin Urine Color Urine Appearance Urine pH Ur Specific [place] Urine Protein Urine Glucose (UA) Urine Ketones Urine Blood Urine Nitrite Ur Leukocyte Esterase Urine RBC Urine WBC Ur Squamous Epith Cells Ur Renal Epithelial Cell Urine Bacteria Hyaline Casts Urine Opiates Screen Ur Barbiturates Screen Valproic Acid Ur Phencyclidine Scrn Ur Amphetamines Screen U Benzodiazepines Scrn Urine Cocaine Screen U Marijuana (THC) Screen COVID-19 (OSEI) COVID-19 [employer] 07/20/20 07/20/20 07/21/20 16:26 19:53 05:27 WBC 3.7 L RBC 3.61 L Hgb 10.3 L Hct 30.7 L MCV 85.0 MCH 28.5 MCHC 33.6 RDW 14.0 Plt Count 162 MPV 10.9 Immature Gran % (Auto) 0.5 H Neut % (Auto) 65.4 Lymph % (Auto) 21.5 [place] % (Auto) 12.3 H Eos % (Auto) 0.0 Baso % (Auto) 0.3 Lymph # (Auto) 0.8 L [place] # (Auto) 0.5 Eos # (Auto) 0.0 Baso # (Auto) 0.0 Abs Immat Gran (auto) 0.02 Absolute Neuts (auto) 2.4 Absolute Nucleated RBC 0.000 Nucleated RBC % (auto) 0.0 Smear Tech's Comments Sodium Potassium Chloride Carbon Dioxide Anion Gap BUN Creatinine Estim Creat Clear Calc Estimated GFR POC Glucose 446 H* 382 H* Random Glucose Calcium Total Bilirubin AST ALT Alkaline Phosphatase Lactate Dehydrogenase C-Reactive Protein Total Protein Albumin Procalcitonin Urine Color Urine Appearance Urine pH Ur Specific [place] Urine Protein Urine Glucose (UA) Urine Ketones Urine Blood Urine Nitrite Ur Leukocyte Esterase Urine RBC Urine WBC Ur Squamous Epith Cells Ur Renal Epithelial Cell Urine Bacteria Hyaline Casts Urine Opiates Screen Ur Barbiturates Screen Valproic Acid Ur Phencyclidine Scrn Ur Amphetamines Screen U Benzodiazepines Scrn Urine Cocaine Screen U Marijuana (THC) Screen COVID-19 (OSEI) COVID-19 [employer] 07/21/20 07/21/20 07/21/20 07:11 11:21 17:14 WBC RBC Hgb Hct MCV MCH MCHC RDW Plt Count MPV Immature Gran % (Auto) Neut % (Auto) Lymph % (Auto) [place] % (Auto) Eos % (Auto) Baso % (Auto) Lymph # (Auto) [place] # (Auto) Eos # (Auto) Baso # (Auto) Abs Immat Gran (auto) Absolute Neuts (auto) Absolute Nucleated RBC Nucleated RBC % (auto) Smear Tech's Comments Sodium Potassium Chloride Carbon Dioxide Anion Gap BUN Creatinine Estim Creat Clear Calc Estimated GFR POC Glucose 238 H 275 H 217 H Random Glucose Calcium Total Bilirubin AST ALT Alkaline Phosphatase Lactate Dehydrogenase C-Reactive Protein Total Protein Albumin Procalcitonin Urine Color Urine Appearance Urine pH Ur Specific [place] Urine Protein Urine Glucose (UA) Urine Ketones Urine Blood Urine Nitrite Ur Leukocyte Esterase Urine RBC Urine WBC Ur Squamous Epith Cells Ur Renal Epithelial Cell Urine Bacteria Hyaline Casts Urine Opiates Screen Ur Barbiturates Screen Valproic Acid Ur Phencyclidine Scrn Ur Amphetamines Screen U Benzodiazepines Scrn Urine Cocaine Screen U Marijuana (THC) Screen COVID-19 (OSEI) COVID-19 [employer] 07/21/20 07/22/20 07/22/20 20:48 06:10 07:59 WBC 9.3 RBC 4.56 D Hgb 13.1 D Hct 38.9 D MCV 85.3 MCH 28.7 MCHC 33.7 RDW 14.6 Plt Count 325 D MPV 10.3 Immature Gran % (Auto) 0.8 H Neut % (Auto) 62.4 Lymph % (Auto) 29.0 [place] % (Auto) 7.7 Eos % (Auto) 0.0 Baso % (Auto) 0.1 Lymph # (Auto) 2.7 [place] # (Auto) 0.7 Eos # (Auto) 0.0 Baso # (Auto) 0.0 Abs Immat Gran (auto) 0.07 H Absolute Neuts (auto) 5.8 Absolute Nucleated RBC 0.000 Nucleated RBC % (auto) 0.0 Smear Tech's Comments Sodium Potassium Chloride Carbon Dioxide Anion Gap BUN Creatinine Estim Creat Clear Calc Estimated GFR POC Glucose 230 H 190 H Random Glucose Calcium Total Bilirubin AST ALT Alkaline Phosphatase Lactate Dehydrogenase C-Reactive Protein Total Protein Albumin Procalcitonin Urine Color Urine Appearance Urine pH Ur Specific [place] Urine Protein Urine Glucose (UA) Urine Ketones Urine Blood Urine Nitrite Ur Leukocyte Esterase Urine RBC Urine WBC Ur Squamous Epith Cells Ur Renal Epithelial Cell Urine Bacteria Hyaline Casts Urine Opiates Screen Ur Barbiturates Screen Valproic Acid Ur Phencyclidine Scrn Ur Amphetamines Screen U Benzodiazepines Scrn Urine Cocaine Screen U Marijuana (THC) Screen COVID-19 (OSEI) COVID-19 [employer] [place] 07/22/20 07/22/20 07/22/20 11:02 14:10 16:15 WBC RBC Hgb Hct MCV MCH MCHC RDW Plt Count MPV Immature Gran % (Auto) Neut % (Auto) Lymph % (Auto) [place] % (Auto) Eos % (Auto) Baso % (Auto) Lymph # (Auto) [place] # (Auto) Eos # (Auto) Baso # (Auto) Abs Immat Gran (auto) Absolute Neuts (auto) Absolute Nucleated RBC Nucleated RBC % (auto) Smear Tech's Comments Sodium 136 Potassium 3.9 Chloride 100 Carbon Dioxide 24 Anion Gap 16 BUN 14 D Creatinine 0.70 Estim Creat Clear Calc 63.7 Estimated GFR > 60 POC Glucose 229 H 226 H Random Glucose 190 H Calcium 8.6 Total Bilirubin AST ALT Alkaline Phosphatase Lactate Dehydrogenase C-Reactive Protein Total Protein Albumin Procalcitonin Urine Color Urine Appearance Urine pH Ur Specific [place] Urine Protein Urine Glucose (UA) Urine Ketones Urine Blood Urine Nitrite Ur Leukocyte Esterase Urine RBC Urine WBC Ur Squamous Epith Cells Ur Renal Epithelial Cell Urine Bacteria Hyaline Casts Urine Opiates Screen Ur Barbiturates Screen Valproic Acid Ur Phencyclidine Scrn Ur Amphetamines Screen U Benzodiazepines Scrn Urine Cocaine Screen U Marijuana (THC) Screen COVID-19 (OSEI) COVID-19 [employer] [place] 07/22/20 07/23/20 07/23/20 19:07 06:08 07:52 WBC 5.3 RBC 4.06 L Hgb 11.6 L Hct 34.4 L MCV 84.7 MCH 28.6 MCHC 33.7 RDW 14.4 Plt Count 244 MPV 10.5 Immature Gran % (Auto) 0.6 H Neut % (Auto) 57.6 Lymph % (Auto) 32.9 [place] % (Auto) 8.7 Eos % (Auto) 0.2 Baso % (Auto) 0.0 Lymph # (Auto) 1.7 [place] # (Auto) 0.5 Eos # (Auto) 0.0 Baso # (Auto) 0.0 Abs Immat Gran (auto) 0.03 Absolute Neuts (auto) 3.0 Absolute Nucleated RBC 0.000 Nucleated RBC % (auto) 0.0 Smear Tech's Comments Sodium Potassium Chloride Carbon Dioxide Anion Gap BUN Creatinine Estim Creat Clear Calc Estimated GFR POC Glucose 277 H 247 H Random Glucose Calcium Total Bilirubin AST ALT Alkaline Phosphatase Lactate Dehydrogenase C-Reactive Protein Total Protein Albumin Procalcitonin Urine Color Urine Appearance Urine pH Ur Specific [place] Urine Protein Urine Glucose (UA) Urine Ketones Urine Blood Urine Nitrite Ur Leukocyte Esterase Urine RBC Urine WBC Ur Squamous Epith Cells Ur Renal Epithelial Cell Urine Bacteria Hyaline Casts Urine Opiates Screen Ur Barbiturates Screen Valproic Acid Ur Phencyclidine Scrn Ur Amphetamines Screen U Benzodiazepines Scrn Urine Cocaine Screen U Marijuana (THC) Screen COVID-19 (OSEI) COVID-19 [employer] 07/23/20 07/23/20 07/23/20 11:46 16:25 21:00 WBC RBC Hgb Hct MCV MCH MCHC RDW Plt Count MPV Immature Gran % (Auto) Neut % (Auto) Lymph % (Auto) [place] % (Auto) Eos % (Auto) Baso % (Auto) Lymph # (Auto) [place] # (Auto) Eos # (Auto) Baso # (Auto) Abs Immat Gran (auto) Absolute Neuts (auto) Absolute Nucleated RBC Nucleated RBC % (auto) Smear Tech's Comments Sodium Potassium Chloride Carbon Dioxide Anion Gap BUN Creatinine Estim Creat Clear Calc Estimated GFR POC Glucose 241 H 219 H 233 H Random Glucose Calcium Total Bilirubin AST ALT Alkaline Phosphatase Lactate Dehydrogenase C-Reactive Protein Total Protein Albumin Procalcitonin Urine Color Urine Appearance Urine pH Ur Specific [place] Urine Protein Urine Glucose (UA) Urine Ketones Urine Blood Urine Nitrite Ur Leukocyte Esterase Urine RBC Urine WBC Ur Squamous Epith Cells Ur Renal Epithelial Cell Urine Bacteria Hyaline Casts Urine Opiates Screen Ur Barbiturates Screen Valproic Acid Ur Phencyclidine Scrn Ur Amphetamines Screen U Benzodiazepines Scrn Urine Cocaine Screen U Marijuana (THC) Screen COVID-19 (OSEI) COVID-19 [employer] 07/24/20 07/24/20 07/24/20 05:41 07:53 11:49 WBC 8.2 RBC 4.42 Hgb 12.6 Hct 37.9 MCV 85.7 MCH 28.5 MCHC 33.2 RDW 14.6 Plt Count 258 MPV 11.6 Immature Gran % (Auto) 0.7 H Neut % (Auto) 66.7 Lymph % (Auto) 23.4 [place] % (Auto) 8.9 Eos % (Auto) 0.2 Baso % (Auto) 0.1 Lymph # (Auto) 1.9 [place] # (Auto) 0.7 Eos # (Auto) 0.0 Baso # (Auto) 0.0 Abs Immat Gran (auto) 0.06 H Absolute Neuts (auto) 5.4 Absolute Nucleated RBC 0.000 Nucleated RBC % (auto) 0.0 Smear Tech's Comments Sodium Potassium Chloride Carbon Dioxide Anion Gap BUN Creatinine Estim Creat Clear Calc Estimated GFR POC Glucose 222 H 213 H Random Glucose Calcium Total Bilirubin AST ALT Alkaline Phosphatase Lactate Dehydrogenase C-Reactive Protein Total Protein Albumin Procalcitonin Urine Color Urine Appearance Urine pH Ur Specific [place] Urine Protein Urine Glucose (UA) Urine Ketones Urine Blood Urine Nitrite Ur Leukocyte Esterase Urine RBC Urine WBC Ur Squamous Epith Cells Ur Renal Epithelial Cell Urine Bacteria Hyaline Casts Urine Opiates Screen Ur Barbiturates Screen Valproic Acid Ur Phencyclidine Scrn Ur Amphetamines Screen U Benzodiazepines Scrn Urine Cocaine Screen U Marijuana (THC) Screen COVID-19 (OSEI) COVID-19 [employer] [place] 07/24/20 07/24/20 07/25/20 16:10 19:56 05:25 WBC RBC Hgb Hct MCV MCH MCHC RDW Plt Count MPV Immature Gran % (Auto) Neut % (Auto) Lymph % (Auto) [place] % (Auto) Eos % (Auto) Baso % (Auto) Lymph # (Auto) [place] # (Auto) Eos # (Auto) Baso # (Auto) Abs Immat Gran (auto) Absolute Neuts (auto) Absolute Nucleated RBC Nucleated RBC % (auto) Smear Tech's Comments Sodium Potassium Chloride Carbon Dioxide Anion Gap BUN Creatinine Estim Creat Clear Calc Estimated GFR POC Glucose 251 H 192 H Random Glucose Calcium Total Bilirubin AST ALT Alkaline Phosphatase Lactate Dehydrogenase C-Reactive Protein Total Protein Albumin Procalcitonin Urine Color Urine Appearance Urine pH Ur Specific [place] Urine Protein Urine Glucose (UA) Urine Ketones Urine Blood Urine Nitrite Ur Leukocyte Esterase Urine RBC Urine WBC Ur Squamous Epith Cells Ur Renal Epithelial Cell Urine Bacteria Hyaline Casts Urine Opiates Screen Ur Barbiturates Screen Valproic Acid Ur Phencyclidine Scrn Ur Amphetamines Screen U Benzodiazepines Scrn Urine Cocaine Screen U Marijuana (THC) Screen COVID-19 (OSEI) Negative COVID-19 [employer] See Note 07/25/20 07/25/20 07/25/20 05:55 07:36 11:39 WBC RBC Hgb Hct MCV MCH MCHC RDW Plt Count MPV Immature Gran % (Auto) Neut % (Auto) Lymph % (Auto) [place] % (Auto) Eos % (Auto) Baso % (Auto) Lymph # (Auto) [place] # (Auto) Eos # (Auto) Baso # (Auto) Abs Immat Gran (auto) Absolute Neuts (auto) Absolute Nucleated RBC Nucleated RBC % (auto) Smear Tech's Comments Sodium 142 Potassium 3.6 Chloride 103 Carbon Dioxide 25 Anion Gap 18 BUN 14 Creatinine 0.68 Estim Creat Clear Calc 65.5 Estimated GFR > 60 POC Glucose 317 H 262 H Random Glucose 185 H Calcium 8.4 Total Bilirubin AST ALT Alkaline Phosphatase Lactate Dehydrogenase C-Reactive Protein Total Protein Albumin Procalcitonin Urine Color Urine Appearance Urine pH Ur Specific [place] Urine Protein Urine Glucose (UA) Urine Ketones Urine Blood Urine Nitrite Ur Leukocyte Esterase Urine RBC Urine WBC Ur Squamous Epith Cells Ur Renal Epithelial Cell Urine Bacteria Hyaline Casts Urine Opiates Screen Ur Barbiturates Screen Valproic Acid Ur Phencyclidine Scrn Ur Amphetamines Screen U Benzodiazepines Scrn Urine Cocaine Screen U Marijuana (THC) Screen COVID-19 (OSEI) [employer] [employer] 07/25/20 07/25/20 07/26/20 16:56 19:59 07:47 WBC RBC Hgb Hct MCV MCH MCHC RDW Plt Count MPV Immature Gran % (Auto) Neut % (Auto) Lymph % (Auto) [place] % (Auto) Eos % (Auto) Baso % (Auto) Lymph # (Auto) [place] # (Auto) Eos # (Auto) Baso # (Auto) Abs Immat Gran (auto) Absolute Neuts (auto) Absolute Nucleated RBC Nucleated RBC % (auto) Smear Tech's Comments Sodium Potassium Chloride Carbon Dioxide Anion Gap BUN Creatinine Estim Creat Clear Calc Estimated GFR POC Glucose 207 H 205 H 246 H Random Glucose Calcium Total Bilirubin AST ALT Alkaline Phosphatase Lactate Dehydrogenase C-Reactive Protein Total Protein Albumin Procalcitonin Urine Color Urine Appearance Urine pH Ur Specific [place] Urine Protein Urine Glucose (UA) Urine Ketones Urine Blood Urine Nitrite Ur Leukocyte Esterase Urine RBC Urine WBC Ur Squamous Epith Cells Ur Renal Epithelial Cell Urine Bacteria Hyaline Casts Urine Opiates Screen Ur Barbiturates Screen Valproic Acid Ur Phencyclidine Scrn Ur Amphetamines Screen U Benzodiazepines Scrn Urine Cocaine Screen U Marijuana (THC) Screen COVID-19 (OSEI) [employer] [employer] 07/26/20 07/26/20 07/26/20 11:42 16:43 20:14 WBC RBC Hgb Hct MCV MCH MCHC RDW Plt Count MPV Immature Gran % (Auto) Neut % (Auto) Lymph % (Auto) [place] % (Auto) Eos % (Auto) Baso % (Auto) Lymph # (Auto) [place] # (Auto) Eos # (Auto) Baso # (Auto) Abs Immat Gran (auto) Absolute Neuts (auto) Absolute Nucleated RBC Nucleated RBC % (auto) Smear Tech's Comments Sodium Potassium Chloride Carbon Dioxide Anion Gap BUN Creatinine Estim Creat Clear Calc Estimated GFR POC Glucose 231 H 217 H 177 H Random Glucose Calcium Total Bilirubin AST ALT Alkaline Phosphatase Lactate Dehydrogenase C-Reactive Protein Total Protein Albumin Procalcitonin Urine Color Urine Appearance Urine pH Ur Specific [place] Urine Protein Urine Glucose (UA) Urine Ketones Urine Blood Urine Nitrite Ur Leukocyte Esterase Urine RBC Urine WBC Ur Squamous Epith Cells Ur Renal Epithelial Cell Urine Bacteria Hyaline Casts Urine Opiates Screen Ur Barbiturates Screen Valproic Acid Ur Phencyclidine Scrn Ur Amphetamines Screen U Benzodiazepines Scrn Urine Cocaine Screen U Marijuana (THC) Screen COVID-19 (OSEI) [employer] 07/27/20 07/27/20 07/27/20 07:29 11:36 15:11 WBC RBC Hgb Hct MCV MCH MCHC RDW Plt Count MPV Immature Gran % (Auto) Neut % (Auto) Lymph % (Auto) [place] % (Auto) Eos % (Auto) Baso % (Auto) Lymph # (Auto) [place] # (Auto) Eos # (Auto) Baso # (Auto) Abs Immat Gran (auto) Absolute Neuts (auto) Absolute Nucleated RBC Nucleated RBC % (auto) Smear Tech's Comments Sodium Potassium Chloride Carbon Dioxide Anion Gap BUN Creatinine Estim Creat Clear Calc Estimated GFR POC Glucose 182 H 236 H 228 H Random Glucose Calcium Total Bilirubin AST ALT Alkaline Phosphatase Lactate Dehydrogenase C-Reactive Protein Total Protein Albumin Procalcitonin Urine Color Urine Appearance Urine pH Ur Specific [place] Urine Protein Urine Glucose (UA) Urine Ketones Urine Blood Urine Nitrite Ur Leukocyte Esterase Urine RBC Urine WBC Ur Squamous Epith Cells Ur Renal Epithelial Cell Urine Bacteria Hyaline Casts Urine Opiates Screen Ur Barbiturates Screen Valproic Acid Ur Phencyclidine Scrn Ur Amphetamines Screen U Benzodiazepines Scrn Urine Cocaine Screen U Marijuana (THC) Screen COVID-19 (OSEI) COVID-19 Clin Com 07/27/20 07/28/20 20:45 08:05 WBC RBC Hgb Hct MCV MCH MCHC RDW Plt Count MPV Immature Gran % (Auto) Neut % (Auto) Lymph % (Auto) [place] % (Auto) Eos % (Auto) Baso % (Auto) Lymph # (Auto) [place] # (Auto) Eos # (Auto) Baso # (Auto) Abs Immat Gran (auto) Absolute Neuts (auto) Absolute Nucleated RBC Nucleated RBC % (auto) Smear Tech's Comments Sodium Potassium Chloride Carbon Dioxide Anion Gap BUN Creatinine Estim Creat Clear Calc Estimated GFR POC Glucose 192 H 157 H Random Glucose Calcium Total Bilirubin AST ALT Alkaline Phosphatase Lactate Dehydrogenase C-Reactive Protein Total Protein Albumin Procalcitonin Urine Color Urine Appearance Urine pH Ur Specific [place] Urine Protein Urine Glucose (UA) Urine Ketones Urine Blood Urine Nitrite Ur Leukocyte Esterase Urine RBC Urine WBC Ur Squamous Epith Cells Ur Renal Epithelial Cell Urine Bacteria Hyaline Casts Urine Opiates Screen Ur Barbiturates Screen Valproic Acid Ur Phencyclidine Scrn Ur Amphetamines Screen U Benzodiazepines Scrn Urine Cocaine Screen U Marijuana (THC) Screen COVID-19 (OSEI) COVID-19 Clin Com Discharge Plan Discharge Patient Disposition: Xfer SNF Referrals: Physician,Nonstaff [Primary Care Provider] - Discharge Medications: New quetiapine 25 mg Tablet 25 mg PO BID 30 Days Qty: 60 RF: 0 Continued atorvastatin 10 mg tablet 1 tab PO BEDTIME RF: 0 nystatin [Nystop] 100,000 unit/gram powder 1 appl topical BID RF: 0 metoprolol tartrate 25 mg tablet 12.5 mg PO BID RF: 0 Invokana 100 mg tablet 1 tab PO DAILY RF: 0 insulin aspart U-100 See Protocol sliding scale dose subcut TID RF: 0 aluminm,mag [id number] suspension 30 ml PO Q4H PRN (Reason: Heartburn) RF: 0 acetaminophen 325 mg Tablet 650 mg PO Q6H PRN (Reason: Pain) RF: 0 divalproex 125 mg Tablet,Delayed Release (Dr/Ec) 125 mg PO BID Qty: 60 RF: 0 mirtazapine 7.5 mg Tablet 7.5 mg PO BEDTIME Qty: 30 RF: 0 venlafaxine 37.5 mg Capsule,Extended Release 24hr 37.5 mg PO DAILY Qty: 30 RF: 0 metformin 500 mg tablet 1 tab PO BID RF: 0 melatonin 3 mg Tablet 3 mg PO BEDTIME RF: 0 cholecalciferol (vitamin D3) 100 mcg (4,000 unit) Tablet 4,000 unit DAILY RF: 0 Changed Lantus Solostar U-100 Insulin 100 unit/mL (3 mL) insulin pen 25 unit subcut DAILY Qty: 0 RF: 0 Discontinued olanzapine 5 mg tablet 5 mg PO BEDTIME Qty: 30 RF: 0 olanzapine 2.5 mg Tablet 2.5 mg PO DAILY PRN (Reason: Anxiety) Qty: 30 RF: 0 Discharge Orders: Discharge Order (Routine); Ordered 07/28/20 Ordered By: Niall Marin Diet: advance to usual diet Activity on Discharge: As tolerated Stand Alone Forms: Patient Portal Discharge page Care Plan Goals: Read below Health Concerns: Read below Plan of Treatment: You were admitted to the hospital for evaluation of COVID-19 infection. Your treated with IV steroids with good response as your oxygen requirement decreased down to room air and you were able to ambulate freely with no dyspnea. Your repeated COVID test came back negative. You were noticed To have a drop in your white blood cells which was thought to be a result of using Suprax a. It was held during the hospital stay in your numbers improved back to baseline. You were evaluated by psychiatry team who recommended some changes in your medications with good response. Discontinue Zyprexa Start Seroquel
[2020-07-28] MEDS: Heparin Sodium,Porcine 5,000 UNIT/ML VIAL 5000 UNIT SUBCUT (09:39)
[2020-07-28] MEDS: QUEtiapine Fumarate 25 MG TABLET PO (09:39)
[2020-07-28] MEDS: Insulin Glargine,Hum.rec.anlog 100 UNIT/ML 10 ML VIAL 25 UNIT SUBCUT (09:39)
[2020-07-28] MEDS: 0.9 % Sodium Chloride Flush 3 ML SYRINGE IVFLUSH (09:40)
[2020-07-28] MEDS: Nystatin Powder 15 GM BOTTLE 1 APPL TOPICAL (09:41)
[2020-07-28 11:45] VITALS: BP 147/82; PULSE 94; RESP 18; TEMP 36.6; O2SAT 90
--- NOTE | 2020-07-28 12:07 | MHC.CM.PN ---
IMM 07/28/2020 DC to [facility] via [facility]. [facility] does not have a bed available. Jolene the Pts Dtr was notified. She will work with the facility to transfer to [facility] when a bed is available for this Patient. Patient and Dtr,Jolene are agreeable to the Discharge today.
== END 2020-07-28 12:14 | disposition skilled nursing facility (03) | DRG 177 ==
LOC: HO.ED 07-14 20:39 → HO.EDOVER 07-16 10:43 → HO.IMC 07-16 12:19
PROVIDERS: Emergency Medicine Emergency Medical Services; Internal Medicine; Nurse Practitioner Primary Care; Nurse Practitioner Psychiatric/Mental Health; Student in an Organized Health Care Education/Training Program; Admitting Provider Internal Medicine; Emergency Provider Emergency Medicine; Visit Provider Student in an Organized Health Care Education/Training Program
DX: U07.1 COVID-19 (principal); J12.82 Pneumonia due to coronavirus disease 2019; F03.91 Unspecified dementia, unspecified severity, with behavioral disturbance; D61.818 Other pancytopenia; F32.9 Major depressive disorder, single episode, unspecified; E78.5 Hyperlipidemia, unspecified; E11.65 Type 2 diabetes mellitus with hyperglycemia; I10 Essential (primary) hypertension; T43.595A Adverse effect of other antipsychotics and neuroleptics, initial encounter; Y92.9 Unspecified place or not applicable; Z87.891 Personal history of nicotine dependence; Z88.2 Allergy status to sulfonamides; Z79.4 Long term (current) use of insulin; Z79.899 Other long term (current) drug therapy
CPT/HCPCS: 36415; 71045; 80048; 80053; 80164; 80307; 81001; 82565; 82947; 83615; 84145; 85025; 85027; 86140; 87086; 87635; 93005; 99282; 99285; J0696; J2060; J2405; J8540; Q0163